=== PATIENT | male | born 1970 | race Two or more races ===

== ENCOUNTER 2024-05-24 17:15 | Inpatient (IN) | payer OTHER ==
[~2024-05-24] VITALS: Ht 190.5 cm; Wt 120.3 kg
[2024-05-24 18:12] LABS: Urine Bacteria None Seen /hpf (None Seen)
[2024-05-24 18:29] LABS: Urine Blood Negative /uL (Negative); Urine Clarity Clear (Clear); Urine Color Yellow (Yellow); Urine Mucus FEW (None Seen); Urine Protein, UAD 1+ (Negative); Urine Specific Gravity 1.031 (1.001-1.035); Urine Urobilinogen 4 mg/dL (Negative); Urine WBC 1 /hpf (0 - 3); Urine pH 5.5 (5.0-9.0)
[2024-05-24 18:54] LABS: Basophils # (auto) 0 10 ^3/uL (0-0.2); Basophils % (auto) 0.5 % (0.0-2.0); Eosinophils # (auto) 0.1 10 ^3/uL (0-0.8); Eosinophils % (auto) 1.1 % (0.0-7.0); Hematocrit 38.5 % (41.0-53.0); Hemoglobin 13.2 g/dL (13.5-17.5); Lymphocytes # (auto) 1.6 10 ^3/uL (0.4-5.4); Lymphocytes % (auto) 19.7 % (10.0-50.0); Mean Corpuscular Hemoglobin 31.3 pg (28.0-32.0); Mean Corpuscular Hgb Conc. 34.4 g/dL (32.0-36.0); Mean Corpuscular Volume 91.1 fL (80.0-100.0); Monocytes # (auto) 0.9 10 ^3/uL (0-1.3); Monocytes % (auto) 10.4 % (0.0-12.0); Neutrophils # (auto) 5.7 10 ^3/uL (1.6-8.6); Neutrophils % (auto) 68.3 % (37.0-80.0); Platelet Count (auto) 247 10^3/uL (140-450); Red Blood Cells 4.22 10^6/uL (4.5-5.90); Red Cell Distribution Width 15.3 % (11.8-14.3); White Blood Cell 8.3 10^3/uL (4.4-10.8)
[2024-05-24 19:04] LABS: Chloride 102 mmol/L (98-107); Potassium 4.7 mmol/L (3.5-5.1); Sodium 135 mmol/L (136-145)
[2024-05-24 19:05] LABS: Anion Gap 5 (5-15); Calcium 9.9 mg/dL (8.7-10.4); Carbon Dioxide 28 mmol/L (20-31)
[2024-05-24 19:10] LABS: BUN/Creatinine Ratio 11.8 (10.0-20.0); Blood Urea Nitrogen 11 mg/dL (9-23); Glucose 237 mg/dL (74-106)
[2024-05-24] MEDS ORDERED: DEXTROSE (50%) 50ML SYRG IV PRN (22:30)
[2024-05-24] MEDS ORDERED: NITROGLYCERIN 0.4 MG SL TAB SL PRN (22:30)
[2024-05-24] MEDS ORDERED: DOCUSATE SOD 100 MG CAP PO PRN (22:30)
[2024-05-24] MEDS ORDERED: ACETAMINOPHEN 325 MG TAB PO PRN (22:30)
[2024-05-24] MEDS ORDERED: MORPHINE SULFATE INJ 2 MG/ml SYRG IV PRN (22:30)
[2024-05-24] MEDS: InsuLIN REG 1unit/0.01ml Soln (100units/ml) IV ONE (22:44)
[2024-05-25] MEDS: ONDANSETRON HCL 4 MG/2 ML VIAL IV PRN (01:52)
[2024-05-25] MEDS: MORPHINE SULFATE INJ 2 MG/ml SYRG IV PRN (01:53)
[2024-05-25 04:34] LABS: Basophils # (auto) 0 10 ^3/uL (0-0.2); Basophils % (auto) 0.5 % (0.0-2.0); Eosinophils # (auto) 0.1 10 ^3/uL (0-0.8); Eosinophils % (auto) 2.2 % (0.0-7.0); Hematocrit 34.4 % (41.0-53.0); Hemoglobin 12.2 g/dL (13.5-17.5); Lymphocytes # (auto) 1.7 10 ^3/uL (0.4-5.4); Lymphocytes % (auto) 27.7 % (10.0-50.0); Mean Corpuscular Hemoglobin 32.6 pg (28.0-32.0); Mean Corpuscular Hgb Conc. 35.6 g/dL (32.0-36.0); Mean Corpuscular Volume 91.4 fL (80.0-100.0); Monocytes # (auto) 0.7 10 ^3/uL (0-1.3); Monocytes % (auto) 10.9 % (0.0-12.0); Neutrophils # (auto) 3.7 10 ^3/uL (1.6-8.6); Neutrophils % (auto) 58.7 % (37.0-80.0); Nucleated Red Blood Cells % 0.1 %; Platelet Count (auto) 229 10^3/uL (140-450); Red Blood Cells 3.76 10^6/uL (4.5-5.90); Red Cell Distribution Width 14.8 % (11.8-14.3); White Blood Cell 6.3 10^3/uL (4.4-10.8)
[2024-05-25 04:49] LABS: Chloride 106 mmol/L (98-107); Potassium 3.8 mmol/L (3.5-5.1); Sodium 137 mmol/L (136-145)
[2024-05-25 04:50] LABS: Anion Gap 6 (5-15); Calcium 9.4 mg/dL (8.7-10.4); Carbon Dioxide 25 mmol/L (20-31)
[2024-05-25 04:55] LABS: BUN/Creatinine Ratio 12.5 (10.0-20.0); Blood Urea Nitrogen 8 mg/dL (9-23); Glucose 140 mg/dL (74-106)
[2024-05-25] MEDS: ceFAZolin 1GM/50ML 50 ML IV SCH (06:00)
[2024-05-25 07:30] VITALS: PULSE 72; RESP 13; O2SAT 97
[2024-05-25] MEDS: ACCU-CHEK COMFORT CURVE STRIP VI SCH (08:00)
[2024-05-25] MEDS: InsuLIN REG 1unit/0.01ml Soln (100units/ml) SC SCH (08:06)
[2024-05-25] MEDS: ENOXAPARIN SOD 40 MG/0.4 ML SYRINGE SC SCH (10:27)
[2024-05-25 12:00] VITALS: PULSE 72; RESP 13; O2SAT 97
[2024-05-25] MEDS ORDERED: MIDAZOLAM HCL 2MG/2ML 2ml VIAL (1mg/ml) ONE (15:06)
[2024-05-25] MEDS ORDERED: KETAMINE 50mg/ML 1ml syringe ONE (15:06)
[2024-05-25] MEDS ORDERED: fentaNYL CITRATE 100 MCG/2 ML VL ONE (15:06)
[2024-05-25] MEDS: BUPIVACAINE 0.5% INJ 50ML VIAL IJ ONE (15:16)
[2024-05-25 15:31] VITALS: PULSE 62; RESP 12; O2SAT 100
[2024-05-25] MEDS ORDERED: PROPOFOL 10 MG/ML 20 ML IV ONE (15:35)
[2024-05-25 16:38] VITALS: BP 99/62; PULSE 64; RESP 18; TEMP 97.5; O2SAT 98
[2024-05-25 21:00] VITALS: BP 113/67; PULSE 76; RESP 17; TEMP 98.4; O2SAT 98
[2024-05-26] VITALS (7 sets, daily range): BP systolic 106–127; BP diastolic 64–73; PULSE 68–81; RESP 17–18; TEMP 97–98.4; O2SAT 95–100
[2024-05-26 06:50] LABS: Basophils # (auto) 0 10 ^3/uL (0-0.2); Basophils % (auto) 0.5 % (0.0-2.0); Eosinophils # (auto) 0.2 10 ^3/uL (0-0.8); Eosinophils % (auto) 2.2 % (0.0-7.0); Hematocrit 37.4 % (41.0-53.0); Hemoglobin 13.3 g/dL (13.5-17.5); Lymphocytes # (auto) 1.1 10 ^3/uL (0.4-5.4); Mean Corpuscular Hemoglobin 32.6 pg (28.0-32.0); Mean Corpuscular Hgb Conc. 35.5 g/dL (32.0-36.0); Mean Corpuscular Volume 91.7 fL (80.0-100.0); Monocytes # (auto) 0.6 10 ^3/uL (0-1.3); Monocytes % (auto) 8.3 % (0.0-12.0); Neutrophils # (auto) 5.5 10 ^3/uL (1.6-8.6); Platelet Count (auto) 263 10^3/uL (140-450); Red Blood Cells 4.08 10^6/uL (4.5-5.90); Red Cell Distribution Width 15.1 % (11.8-14.3); White Blood Cell 7.4 10^3/uL (4.4-10.8)
[2024-05-26 06:52] LABS: Anion Gap 6 (5-15); Carbon Dioxide 28 mmol/L (20-31); Chloride 102 mmol/L (98-107); Sodium 136 mmol/L (136-145)
[2024-05-26 06:58] LABS: Blood Urea Nitrogen 10 mg/dL (9-23); Glucose 234 mg/dL (74-106)
[2024-05-27] VITALS (8 sets, daily range): BP systolic 93–146; BP diastolic 55–77; PULSE 66–78; RESP 16–20; TEMP 96.7–97.7; O2SAT 97–100
[2024-05-27 08:00] LABS: Chloride 103 mmol/L (98-107); Potassium 4.3 mmol/L (3.5-5.1); Sodium 135 mmol/L (136-145)
[2024-05-27 08:01] LABS: Anion Gap 4 (5-15); Calcium 9.6 mg/dL (8.7-10.4); Carbon Dioxide 28 mmol/L (20-31)
[2024-05-27 08:02] LABS: Basophils # (auto) 0 10 ^3/uL (0-0.2); Basophils % (auto) 0.6 % (0.0-2.0); Eosinophils # (auto) 0.2 10 ^3/uL (0-0.8); Eosinophils % (auto) 3.2 % (0.0-7.0); Lymphocytes # (auto) 1.3 10 ^3/uL (0.4-5.4); Lymphocytes % (auto) 24.9 % (10.0-50.0); Mean Corpuscular Hemoglobin 32.3 pg (28.0-32.0); Mean Corpuscular Hgb Conc. 35.2 g/dL (32.0-36.0); Mean Corpuscular Volume 91.6 fL (80.0-100.0); Monocytes # (auto) 0.5 10 ^3/uL (0-1.3); Monocytes % (auto) 8.9 % (0.0-12.0); Neutrophils # (auto) 3.3 10 ^3/uL (1.6-8.6); Neutrophils % (auto) 62.4 % (37.0-80.0); Nucleated Red Blood Cells % 0.1 %; Platelet Count (auto) 259 10^3/uL (140-450); Red Blood Cells 4.04 10^6/uL (4.5-5.90); Red Cell Distribution Width 15.1 % (11.8-14.3); White Blood Cell 5.3 10^3/uL (4.4-10.8)
[2024-05-27 08:06] LABS: Blood Urea Nitrogen 13 mg/dL (9-23); Glucose 323 mg/dL (74-106)
[2024-05-27] MEDS: HYDROcodone-ACET 5/325MG TAB PO PRN (10:13)
[2024-05-27] MEDS ORDERED: fentaNYL CITRATE 100 MCG/2 ML VL ONE (11:44)
[2024-05-27] MEDS ORDERED: KETAMINE 50mg/ML 1ml syringe ONE (11:44)
[2024-05-27] MEDS ORDERED: MIDAZOLAM HCL 2MG/2ML 2ml VIAL (1mg/ml) ONE (11:44)
[2024-05-27] MEDS: ONDANSETRON HCL 4 MG/2 ML VIAL IV ONE (11:45)
[2024-05-27] MEDS: VANCOMYCIN HCL 1000 MG VL ONE (11:49)
[2024-05-27] MEDS ORDERED: LIDOCAINE 2% (LOCAL ANESTH.) PF 5ml SDV ONE (12:16)
[2024-05-27] MEDS ORDERED: PROPOFOL 10 MG/ML 20 ML IV ONE (12:16)
[2024-05-27] MEDS: BUPIVACAINE 0.5% P/F INJ 10 ML VIAL ONE (14:55)
[2024-05-28 01:00] VITALS: BP 102/49; PULSE 79; RESP 18; TEMP 98.8; O2SAT 96
[2024-05-28 05:00] VITALS: BP 112/70; PULSE 79; RESP 16; TEMP 98; O2SAT 98
[2024-05-28 07:51] LABS: Basophils # (auto) 0 10 ^3/uL (0-0.2); Basophils % (auto) 0.4 % (0.0-2.0); Eosinophils # (auto) 0.2 10 ^3/uL (0-0.8); Eosinophils % (auto) 2.5 % (0.0-7.0); Hematocrit 37.4 % (41.0-53.0); Hemoglobin 13.3 g/dL (13.5-17.5); Lymphocytes # (auto) 1.4 10 ^3/uL (0.4-5.4); Lymphocytes % (auto) 22.7 % (10.0-50.0); Mean Corpuscular Hemoglobin 32.4 pg (28.0-32.0); Mean Corpuscular Hgb Conc. 35.6 g/dL (32.0-36.0); Mean Corpuscular Volume 90.9 fL (80.0-100.0); Monocytes # (auto) 0.6 10 ^3/uL (0-1.3); Neutrophils % (auto) 65.4 % (37.0-80.0); Nucleated Red Blood Cells % 0.1 %; Platelet Count (auto) 278 10^3/uL (140-450); Red Blood Cells 4.11 10^6/uL (4.5-5.90); Red Cell Distribution Width 14.7 % (11.8-14.3); White Blood Cell 6.2 10^3/uL (4.4-10.8)
[2024-05-28 08:01] LABS: Anion Gap 5 (5-15); Calcium 9.5 mg/dL (8.7-10.4); Carbon Dioxide 27 mmol/L (20-31); Chloride 105 mmol/L (98-107); Potassium 4.3 mmol/L (3.5-5.1); Sodium 137 mmol/L (136-145)
[2024-05-28 08:07] LABS: BUN/Creatinine Ratio 15.3 (10.0-20.0); Blood Urea Nitrogen 11 mg/dL (9-23)
[2024-05-28 08:18] LABS: Glucose 211 mg/dL (74-106)
[2024-05-28 09:00] VITALS: BP 103/57; PULSE 69; RESP 20; TEMP 98; O2SAT 96
[2024-05-28 13:00] VITALS: BP 132/75; PULSE 76; RESP 20; TEMP 97.7; O2SAT 99
[2024-05-28 17:00] VITALS: BP 139/72; PULSE 67; RESP 18; TEMP 97.4; O2SAT 99
[2024-05-28 17:35] LABS: INR 1.05 (0.9-1.15); Partial Thromboplastin Time 35.2 SEC (24.5-34.5); Prothrombin Time 11.1 sec (9.3-11.8)
[2024-05-28 22:00] VITALS: BP 128/79; PULSE 71; RESP 18; TEMP 97.6; O2SAT 99
[2024-05-29 01:00] VITALS: BP 116/68; PULSE 74; RESP 19; TEMP 97.5; O2SAT 98
[2024-05-29 05:00] VITALS: BP 106/62; PULSE 68; RESP 18; TEMP 97.8; O2SAT 96
[2024-05-29 06:53] LABS: Basophils # (auto) 0 10 ^3/uL (0-0.2); Basophils % (auto) 0.6 % (0.0-2.0); Eosinophils # (auto) 0.2 10 ^3/uL (0-0.8); Hematocrit 38.9 % (41.0-53.0); Hemoglobin 13.7 g/dL (13.5-17.5); Lymphocytes # (auto) 1.7 10 ^3/uL (0.4-5.4); Lymphocytes % (auto) 29.5 % (10.0-50.0); Mean Corpuscular Hemoglobin 31.8 pg (28.0-32.0); Mean Corpuscular Hgb Conc. 35.2 g/dL (32.0-36.0); Mean Corpuscular Volume 90.3 fL (80.0-100.0); Monocytes # (auto) 0.5 10 ^3/uL (0-1.3); Monocytes % (auto) 9.1 % (0.0-12.0); Neutrophils # (auto) 3.4 10 ^3/uL (1.6-8.6); Neutrophils % (auto) 57.8 % (37.0-80.0); Nucleated Red Blood Cells % 0.1 %; Platelet Count (auto) 306 10^3/uL (140-450); Red Cell Distribution Width 14.8 % (11.8-14.3); White Blood Cell 5.8 10^3/uL (4.4-10.8)
[2024-05-29 07:06] LABS: Calcium 9.8 mg/dL (8.7-10.4); Chloride 103 mmol/L (98-107); Potassium 4.2 mmol/L (3.5-5.1); Sodium 135 mmol/L (136-145)
[2024-05-29 07:07] LABS: Anion Gap 4 (5-15); Carbon Dioxide 28 mmol/L (20-31)
[2024-05-29 07:12] LABS: BUN/Creatinine Ratio 16.9 (10.0-20.0); Blood Urea Nitrogen 12 mg/dL (9-23); Glucose 186 mg/dL (74-106)
[2024-05-29 08:54] VITALS: BP 112/70; PULSE 72; RESP 16; TEMP 97.9; O2SAT 98
[2024-05-29 13:00] VITALS: BP 101/63; PULSE 70; RESP 16; TEMP 97.7; O2SAT 96
[2024-05-29] MEDS: LIDOCAINE 1% (LOCAL ANESTH.) PF 5ml SDV ID ONE (13:15)
[2024-05-29 17:00] VITALS: BP 100/63; PULSE 70; RESP 16; TEMP 97.7; O2SAT 97
[2024-05-29] MEDS: AMPICILLIN & SULBACTAM SODIUM 3 GM in SODIUM CHL 0.9% 100 ML IV SCH (18:03)
[2024-05-29 21:00] VITALS: BP 103/57; PULSE 67; RESP 17; TEMP 98.4; O2SAT 96
[2024-05-29] MEDS: SODIUM CHLOR 0.9% PF (SALINE LOCK) 10ML VIAL/SYR IV SCH (22:00)
[2024-05-30] VITALS (8 sets, daily range): BP systolic 101–142; BP diastolic 61–71; PULSE 68–96; RESP 17–20; TEMP 97.5–97.8; O2SAT 68–98
[2024-05-31 01:00] VITALS: BP 137/71; PULSE 80; RESP 20; TEMP 97.5; O2SAT 99
[2024-05-31 05:00] VITALS: BP 119/68; PULSE 75; RESP 20; TEMP 98; O2SAT 95
[2024-05-31 08:00] VITALS: PULSE 79; RESP 19; O2SAT 96
[2024-05-31 09:00] VITALS: BP 127/79; PULSE 76; RESP 19; TEMP 97.7; O2SAT 96
[2024-05-31] MEDS: ceFAZolin 2 GM/D5W100ml 100 ML IV ONE (10:51)
[2024-05-31] MEDS: BUPIVACAINE 0.5% P/F INJ 10 ML VIAL ONE (10:51)
[2024-05-31] MEDS: ONDANSETRON HCL 4 MG/2 ML VIAL IV ONE (10:52)
[2024-05-31 13:00] VITALS: BP 112/74; PULSE 72; RESP 21; TEMP 97.6; O2SAT 97
[2024-05-31 15:11] VITALS: BP 112/74; PULSE 72; RESP 21; TEMP 36.4; O2SAT 97
[2024-05-31] MEDS ORDERED: METR-344 PO (16:05)
== END 2024-05-31 16:00 | disposition home health service (06) | DRG 638 ==
LOC: ER 17:15 → OVERFLOW 22:29 → CENTRAL 05-25 16:35
PROVIDERS: ADMIT Nurse Practitioner Family; ATTEND Hospitalist
PROC: 0Y9N0ZX Drainage of Left Foot, Open Approach, Diagnostic (ICD-10-PCS; principal; 2024-05-25 15:04)
PROC: 0Y9N0ZZ Drainage of Left Foot, Open Approach (ICD-10-PCS; 2024-05-27)
PROC: 02HV33Z Insertion of Infusion Device into Superior Vena Cava, Percutaneous Approach (ICD-10-PCS; 2024-05-29)
PROC: B548ZZA Ultrasonography of Superior Vena Cava, Guidance (ICD-10-PCS; 2024-05-29)
DX: E11.69 Type 2 diabetes mellitus with other specified complication (principal); L02.612 Cutaneous abscess of left foot; L03.116 Cellulitis of left lower limb; M86.172 Other acute osteomyelitis, left ankle and foot; E11.621 Type 2 diabetes mellitus with foot ulcer; E66.01 Morbid (severe) obesity due to excess calories; L97.519 Non-pressure chronic ulcer of other part of right foot with unspecified severity; Z83.3 Family history of diabetes mellitus; Z68.33 Body mass index [BMI] 33.0-33.9, adult
CPT/HCPCS: 36415; 36569; 73700; 80048; 81001; 82962; 85025; 85610; 85730; 87070; 87075; 87081; 87205; G0378; J1815; J2003; J2250; J2405; J2704; J3490

== ENCOUNTER 2024-08-25 10:25 | Inpatient (IN) | payer OTHER ==
[~2024-08-25] VITALS: Ht 190.5 cm; Wt 116.5 kg
[~2024-08-25 10:25] MED LIST: METR-344 PO
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
--- NOTE | 2024-08-25 11:36 | DVH ---
Procedure: CT CT L FOOT WO CONTRAST 08/25/2024 10:58 AM Indication: infection Comparison Study: None. Technique: Axial images of the left foot were obtained and reformatted in coronal and sagittal planes . All CT scans at this medical facility are performed using dose modulation techniques as appropriate t o a performed exam including the following: Automated exposure control was utilized; adjustment of th e MA and/or KV according to patient size; and use of iterative reconstruction technique. CT Dose: CTDI volume is 7.75 mGy. Dose-length product is 174.11 mGy*cm FINDINGS: Bones: Erosive changes of the 1st distal phalangeal head and neck noted. Moderate hallux valgus defor mity. Bipartite lateral hallux sesamoid is seen. Soft tissues: Soft tissue swelling over the great toe. IMPRESSION: 1. Moderate erosive changes of the 1st distal phalangeal head and neck most compatible with osteomyel itis. There is overlying soft tissue swelling. No definite drainable fluid collection or soft tissue gas in this limited unenhanced study.
[2024-08-25] MEDS: CLINDAMYCIN 600MG IV 50 ML IV ONE (11:37)
[2024-08-25 11:42] VITALS: RESP 17; O2SAT 99
[2024-08-25 11:50] LABS: Basophils # (auto) 0 10 ^3/uL (0-0.2); Basophils % (auto) 0.3 % (0.0-2.0); Eosinophils # (auto) 0.1 10 ^3/uL (0-0.8); Eosinophils % (auto) 1.1 % (0.0-7.0); Hematocrit 39.4 % (41.0-53.0); Hemoglobin 13.7 g/dL (13.5-17.5); Lymphocytes # (auto) 1.2 10 ^3/uL (0.4-5.4); Lymphocytes % (auto) 11.3 % (10.0-50.0); Mean Corpuscular Hemoglobin 30.9 pg (28.0-32.0); Mean Corpuscular Hgb Conc. 34.8 g/dL (32.0-36.0); Mean Corpuscular Volume 88.7 fL (80.0-100.0); Monocytes # (auto) 0.8 10 ^3/uL (0-1.3); Monocytes % (auto) 7.7 % (0.0-12.0); Neutrophils # (auto) 8.3 10 ^3/uL (1.6-8.6); Neutrophils % (auto) 79.6 % (37.0-80.0); Nucleated Red Blood Cells % 0.1 %; Platelet Count (auto) 269 10^3/uL (140-450); Red Blood Cells 4.44 10^6/uL (4.5-5.90); Red Cell Distribution Width 13.3 % (11.8-14.3); White Blood Cell 10.4 10^3/uL (4.4-10.8)
[2024-08-25 11:56] LABS: Chloride 102 mmol/L (98-107); Potassium 4.1 mmol/L (3.5-5.1); Sodium 136 mmol/L (136-145)
[2024-08-25 11:57] LABS: Anion Gap 6 (5-15); Calcium 10.1 mg/dL (8.7-10.4); Carbon Dioxide 28 mmol/L (20-31)
[2024-08-25 12:02] LABS: BUN/Creatinine Ratio 13.6 (10.0-20.0); Blood Urea Nitrogen 12 mg/dL (9-23)
[2024-08-25 12:04] LABS: Glucose 193 mg/dL (74-106)
[2024-08-25 12:14] LABS: INR 1.06 (0.9-1.15); Partial Thromboplastin Time 35.5 SEC (24.5-34.5); Prothrombin Time 11.2 sec (9.3-11.8)
[2024-08-25] MEDS ORDERED: VANCOMYCIN PER PHARMACY 0 MG IV SCH (13:00)
[2024-08-25] MEDS: ONDANSETRON HCL 4 MG/2 ML VIAL IV ONE ×2 (13:09→19:49)
[2024-08-25] MEDS: MORPHINE SULFATE 4 MG/ML SYR/VIAL IV ONE ×2 (13:09→19:50)
[2024-08-25] MEDS ORDERED: DEXTROSE (50%) 50ML SYRG IV PRN (13:15)
--- NOTE | 2024-08-25 14:22 | DVHHP2 ---
History of Present Illness Reason for Visit: Left foot pain History of Present Illness 54-year-old male with a known history of diabetes mellitus type 2, hypertension, previous history of bilateral foot surgery presented to the hospital with a left foot pain worsening for last few days. Patient was being seen by his strand buncher fine wire who sent him to ER. CT of the left foot shows evidence of possible acute osteomyelitis of the left 1st distal phalangeal. Patient denies any fevers chills nausea vomiting diarrhea hematemesis hematochezia melena dysuria hematuria. Cardiovascular: HTN, hyperipidemia Endocrine: Diabetes Past Surgical History: Other (Bilateral foot surgery, left eye surgery, bilateral knee surgery.), Total knee replacement Family History: None, DM Smoke: No ALCOHOL: none Review of Systems Review of Systems Twelve review of system are negative besides mentioned above. Allergies: Coded Allergies: NO KNOWN ALLERGIES (Unverified , 05/24/24) Medications Current Medications Medications Dose Ordered Sig/Linda Route Start Time Stop Time Status Last Admin Dose Admin Vancomycin HCl 0 ml @ 0 mls/hr UD IV 08/25/24 13:00 UNV Piperacillin Sod/ Tazobactam Sod 100 ml @ 25 mls/hr Q6HR IV 08/25/24 18:00 UNV Diagnostic Test (Pha) 1 strip ACHS 08/25/24 17:00 Insulin Human Regular HS SC 08/25/24 22:00 Insulin Human Regular AC SC 08/25/24 17:00 Dextrose 50 ml UD PRN IV 08/25/24 13:15 Exam Vital Signs Vital Signs Date Time Temp Pulse Resp B/P (MAP) Pulse Ox O2 Delivery O2 Flow Rate FiO2 08/25/24 13:09 87 16 105/58 08/25/24 11:42 99 Room Air* 0 21 08/25/24 11:18 98.1 98.1 Exam HEENT pupils are reactive Neck is supple CV is S1-S2 regular rate and rhythm Respiratory are clear GI positive bowel sound Extremity no edema ATHLETE MANAGER no motor deficit Labs/Xrays Labs Test 08/25/24 11:29 08/25/24 10:37 Range/Units White Blood Count 10.4 4.4-10.8 10^3/uL Red Blood Count 4.44 L 4.5-5.90 10^6/uL Hemoglobin 13.7 13.5-17.5 g/dL Hematocrit 39.4 L 41.0-53.0 % Mean Corpuscular Volume 88.7 80.0-100.0 fL Mean Corpuscular Hemoglobin 30.9 28.0-32.0 pg Mean Corpuscular Hemoglobin Concent 34.8 32.0-36.0 g/dL Red Cell Distribution Width 13.3 11.8-14.3 % Platelet Count 269 140-450 10^3/uL Mean Platelet Volume 7.5 6.9-10.8 fL Neutrophils (%) (Auto) 79.6 37.0-80.0 % Lymphocytes (%) (Auto) 11.3 10.0-50.0 % Monocytes (%) (Auto) 7.7 0.0-12.0 % Eosinophils (%) (Auto) 1.1 0.0-7.0 % Basophils (%) (Auto) 0.3 0.0-2.0 % Neutrophils # (Auto) 8.3 1.6-8.6 10 ^3/uL Lymphocytes # (Auto) 1.2 0.4-5.4 10 ^3/uL Monocytes # (Auto) 0.8 0-1.3 10 ^3/uL Eosinophils # (Auto) 0.1 0-0.8 10 ^3/uL Basophils # (Auto) 0 0-0.2 10 ^3/uL Nucleated Red Blood Cells 0.1 % Prothrombin Time 11.2 9.3-11.8 sec Prothrombin Time INR 1.06 0.9-1.15 Activated Partial Thromboplast Time 35.5 H 24.5-34.5 SEC Sodium Level 136 136-145 mmol/L Potassium Level 4.1 3.5-5.1 mmol/L Chloride Level 102 98-107 mmol/L Carbon Dioxide Level 28 20-31 mmol/L Anion Gap 6 5-15 Blood Urea Nitrogen 12 9-23 mg/dL Creatinine 0.88 0.700-1.30 mg/dL Glomerular Filtration Rate Calc 101 >90 mL/min BUN/Creatinine Ratio 13.6 10.0-20.0 Serum Glucose 193 H 74-106 mg/dL Calcium Level 10.1 8.7-10.4 mg/dL POC Glucose 166 H 70-106 mg/dl Assessment/Plan Assessment/Plan 64-year-old male with a known history of diabetes mellitus type 2, hypertension, previous history of bilateral foot surgery presented to the hospital with a left foot pain found to have 1. Acute osteomyelitis of the left foot 2. Diabetes mellitus type 2 3. Hypertension -admit to med surge, IV antibiotics, infectious disease consultation and Podiatry consultation -NPO after midnight for possible surgical intervention tomorrow. Plan discussed with: Patient, Spouse My Orders Orders - FRANK ADAN MD Procedure Category Date Status Time Vancomycin Per PHA 08/25/24 Logged Pharmacy 13:00 Piperacillin-Tazob PHA 08/25/24 Logged 3.375gm (Zosyn 3.375g 18:00 Consult CONS 08/25/24 Transmitted Vascular/Endovascular 12:53 * Infectious [place]- Dr. CONS 08/25/24 Transmitted Mallad 12:53 Glucose Blood PHA 08/25/24 In Process (Accu-Chek Comfort 17:00 Insulin R (Human) PHA 08/25/24 In Process (Insulin R) 22:00 Insulin R (Human) PHA 08/25/24 In Process (Insulin R) 17:00 Dextrose 50% Syringe PHA 08/25/24 In Process 13:15 Problem List: (1) Osteomyelitis of left foot (2) Diabetic foot infection Date of Service: Aug 25, 2024 Billing Provider: FRANK ADAN MD Common Visit Codes: NOT BILLABLE FRANK ADAN MD Aug 25, 2024 14:22
--- NOTE | 2024-08-25 14:25 | DVHINCON2 ---
Date Seen: Aug 25, 2024 Reason for Consultation Left foot wound History of Present Illness 54-year-old male with a known history of diabetes mellitus type 2, hypertension, previous history of bilateral foot surgery presented to the hospital with a left foot pain worsening for last few days. Patient was being seen by his absorber operator who sent him to ER. CT of the left foot shows evidence of possible acute osteomyelitis of the left 1st distal phalangeal. Patient denies any fevers chills nausea vomiting diarrhea hematemesis hematochezia melena dysuria hematuria. Past Medical History See H&P Past Surgical History See H&P Allergies: Coded Allergies: NO KNOWN ALLERGIES (Unverified , 05/24/24) Home Meds Active Scripts Metronidazole (Flagyl) 500 Mg Tab, 1 TAB PO TID, #90 TAB Prov:STAN HATCH MD 05/31/24 Current Medications Current Medications Medications (Trade) Dose Ordered Sig/Linda Route PRN Reason Start Time Stop Time Status Last Admin Vancomycin HCl 0 ml @ 0 mls/hr UD IV 08/25/24 13:00 UNV Piperacillin Sod/ Tazobactam Sod 100 ml @ 25 mls/hr Q6HR IV 08/25/24 18:00 UNV Diagnostic Test (Pha) (Accu-Chek Comfort Curve T) 1 strip ACHS 08/25/24 17:00 Insulin Human Regular (InsuLIN R) HS SC 08/25/24 22:00 Insulin Human Regular (InsuLIN R) AC SC 08/25/24 17:00 Dextrose 50 ml UD PRN IV Blood Sugar LESS THAN 60 08/25/24 13:15 Vital Signs Vital Signs Date Time Temp Pulse Resp B/P (MAP) Pulse Ox O2 Delivery O2 Flow Rate FiO2 08/25/24 13:09 87 16 105/58 08/25/24 11:42 99 Room Air* 0 21 08/25/24 11:18 98.1 98.1 Physical Exam DERMATOLOGIC EXAM: - Skin is dry and cool to the touch dry bilaterally. - Nails 1-5 of the bilateral foot are thickened, discolored, dystrophic, and tender to palpate with subungual debris - Hair loss noted to bilateral feet - wound left lateral foot with necrosis VASCULAR EXAM: - DP and PT pulses are palpable bilaterally. - ENGRAVING SUPERVISOR is brisk to all digits. - Feet are cool to touch compared to lower legs bilaterally. NEUROLOGIC EXAM: - Normal light touch sensation to the superficial peroneal, deep peroneal, sural, saphenous, and tibial nerve branches. - Protective sensation is diminished as tested with a 5.07 10g [place]-Artie bilaterally. MUSCULOSKELETAL EXAM: - No gross deformities - Muscle strength is 5/5 and active motion is pain-free and symmetrical bilaterally - No pain or crepitation with passive range of motion bilaterally to all major pedal joints Labs/Diagnostic Data Labs Test 08/25/24 11:29 08/25/24 10:37 Range/Units White Blood Count 10.4 4.4-10.8 10^3/uL Red Blood Count 4.44 L 4.5-5.90 10^6/uL Hemoglobin 13.7 13.5-17.5 g/dL Hematocrit 39.4 L 41.0-53.0 % Mean Corpuscular Volume 88.7 80.0-100.0 fL Mean Corpuscular Hemoglobin 30.9 28.0-32.0 pg Mean Corpuscular Hemoglobin Concent 34.8 32.0-36.0 g/dL Red Cell Distribution Width 13.3 11.8-14.3 % Platelet Count 269 140-450 10^3/uL Mean Platelet Volume 7.5 6.9-10.8 fL Neutrophils (%) (Auto) 79.6 37.0-80.0 % Lymphocytes (%) (Auto) 11.3 10.0-50.0 % Monocytes (%) (Auto) 7.7 0.0-12.0 % Eosinophils (%) (Auto) 1.1 0.0-7.0 % Basophils (%) (Auto) 0.3 0.0-2.0 % Neutrophils # (Auto) 8.3 1.6-8.6 10 ^3/uL Lymphocytes # (Auto) 1.2 0.4-5.4 10 ^3/uL Monocytes # (Auto) 0.8 0-1.3 10 ^3/uL Eosinophils # (Auto) 0.1 0-0.8 10 ^3/uL Basophils # (Auto) 0 0-0.2 10 ^3/uL Nucleated Red Blood Cells 0.1 % Prothrombin Time 11.2 9.3-11.8 sec Prothrombin Time INR 1.06 0.9-1.15 Activated Partial Thromboplast Time 35.5 H 24.5-34.5 SEC Sodium Level 136 136-145 mmol/L Potassium Level 4.1 3.5-5.1 mmol/L Chloride Level 102 98-107 mmol/L Carbon Dioxide Level 28 20-31 mmol/L Anion Gap 6 5-15 Blood Urea Nitrogen 12 9-23 mg/dL Creatinine 0.88 0.700-1.30 mg/dL Glomerular Filtration Rate Calc 101 >90 mL/min BUN/Creatinine Ratio 13.6 10.0-20.0 Serum Glucose 193 H 74-106 mg/dL Calcium Level 10.1 8.7-10.4 mg/dL POC Glucose 166 H 70-106 mg/dl Problems(with codes): (1) Foot ulcer (2) Cellulitis and abscess of foot (3) Necrotizing subcutaneous infection (4) Osteomyelitis of left foot (5) Diabetic foot infection Plan/Recommendation ASSESSMENT: Patient is a 54 year old seen on the floor for a worsening ulcer PLAN: - The patients chart was reviewed, clinical findings were discussed with the patient, the etiologies of the conditions were discussed in detail, and a treatment plan was agreed to at this time, with both oral and written instructions provided. - reviewed advanced imaging - discussed plan is to perform an incision and drainage - patient will be NPO at midnight - take him to the OR today - patient will return to the OR at a future date for closure - we will get cultures in the OR - can weightbear as tolerated in postoperative shoe All questions were answered and concerns addressed to the patient's satisfaction. The patient was given the phone number to the clinic and was told how to make contact with the clinic should any concerns or questions arise. Patient understands that if any questions or concerns arise prior to the next appointment, we should be contacted immediately. FOLLOW-UP: Continue to follow while inpatient Plan discussed with: Patient Date of Service: Aug 25, 2024 Billing Provider: RYAN CHOU DPM Common Visit Codes: [id number] INP/OBS CARE (HIGH) RYAN CHOU DPM Aug 25, 2024 14:25
[2024-08-25] MEDS: VANCOMYCIN 1GM/250ML KIT 250 ML IV SCH (16:53)
[2024-08-25] MEDS: InsuLIN REG 1unit/0.01ml Soln (100units/ml) SC SCH ×2 (17:48→22:47)
[2024-08-25] MEDS: ACCU-CHEK COMFORT CURVE STRIP VI SCH (17:48)
[2024-08-25 19:40] VITALS: PULSE 83; RESP 16; O2SAT 96
[2024-08-25] MEDS ORDERED: NITROGLYCERIN 0.4 MG SL TAB SL PRN (20:00)
[2024-08-25] MEDS: VANCOMYCIN 1GM/250ML KIT 250 ML IV ONE (20:42)
[2024-08-25] MEDS: PIPERACILLIN-TAZOB 3.375GM 100 ML IV SCH (22:28)
[2024-08-26] VITALS (7 sets, daily range): BP systolic 119–130; BP diastolic 60–67; PULSE 70–94; RESP 13–20; TEMP 98; O2SAT 94–100
[2024-08-26] MEDS: VANCOMYCIN 1.25GM/250ML 250 ML IV SCH (01:37)
[2024-08-26 06:35] LABS: Chloride 102 mmol/L (98-107); Potassium 3.8 mmol/L (3.5-5.1)
[2024-08-26 06:36] LABS: Anion Gap 5 (5-15); Calcium 9.5 mg/dL (8.7-10.4); Carbon Dioxide 29 mmol/L (20-31)
[2024-08-26 06:41] LABS: BUN/Creatinine Ratio 10.7 (10.0-20.0); Blood Urea Nitrogen 8 mg/dL (9-23); Glucose 189 mg/dL (74-106); Sodium 136 mmol/L (136-145)
--- NOTE | 2024-08-26 11:32 | DVH ---
CHEST RADIOGRAPH Indication: PRE-OP EVAL/pain Technique: Single frontal view of the chest was obtained Comparison: None FINDINGS: Lines and Tubes: None Lungs: No focal consolidation. Pleura: No effusion. No pneumothorax. Cardiomediastinal contours: Unremarkable Bones: No acute osseous abnormality. IMPRESSION: No acute cardiopulmonary disease.
[2024-08-26] MEDS: MORPHINE SULFATE INJ 2 MG/ml SYRG IV PRN (11:50)
--- NOTE | 2024-08-26 12:37 | DVHPN2 ---
Subjective 54-year-old male with a known history of diabetes mellitus type 2, hypertension, previous history of bilateral foot surgery presented to the hospital with a left foot pain worsening for last few days. Patient was being seen by his protein chemist who sent him to ER. CT of the left foot shows evidence of possible acute osteomyelitis of the left 1st distal phalangeal. Patient denies any fevers chills nausea vomiting diarrhea hematemesis hematochezia melena dysuria hematuria. Changes from previous H/P or p: No Changes Objective Vitals Vital Signs Date Time Temp Pulse Resp B/P (MAP) Pulse Ox O2 Delivery O2 Flow Rate FiO2 08/26/24 12:21 77 16 111/65 08/26/24 10:44 98.0 96 98.0 08/26/24 07:36 Room Air* 0 21 Intake/Output Intake and Output 08/26/24 06:59 Intake Total 500 ml Balance 500 ml Intake IV Total 500 ml Exam DERMATOLOGIC EXAM: - Skin is dry and cool to the touch dry bilaterally. - Nails 1-5 of the bilateral foot are thickened, discolored, dystrophic, and tender to palpate with subungual debris - Hair loss noted to bilateral feet - wound left lateral foot with necrosis VASCULAR EXAM: - DP and PT pulses are palpable bilaterally. - IRON CASTER is brisk to all digits. - Feet are cool to touch compared to lower legs bilaterally. NEUROLOGIC EXAM: - Normal light touch sensation to the superficial peroneal, deep peroneal, sural, saphenous, and tibial nerve branches. - Protective sensation is diminished as tested with a 5.07 10g [place]-Artie bilaterally. MUSCULOSKELETAL EXAM: - No gross deformities - Muscle strength is 5/5 and active motion is pain-free and symmetrical bilaterally - No pain or crepitation with passive range of motion bilaterally to all major pedal joints Medications Current Medications Medications Dose Ordered Sig/Linda Route Start Time Stop Time Status Last Admin Dose Admin Vancomycin HCl 0 ml @ 0 mls/hr UD IV 08/25/24 13:00 Piperacillin Sod/ Tazobactam Sod 100 ml @ 25 mls/hr Q6HR IV 08/25/24 18:00 08/25/24 22:28 25 MLS/HR Diagnostic Test (Pha) 1 strip ACHS 08/25/24 17:00 08/26/24 11:39 1 STRIP Insulin Human Regular HS SC 08/25/24 22:00 08/25/24 22:47 4 UNITS Insulin Human Regular AC SC 08/25/24 17:00 08/26/24 11:45 3 UNITS Dextrose 50 ml UD PRN IV 08/25/24 13:15 Vancomycin HCl 250 ml @ 200 mls/hr Q8H IV 08/26/24 01:00 08/26/24 09:18 200 MLS/HR Nitroglycerin 0.4 mg Q5MINP PRN SL 08/25/24 20:00 Morphine Sulfate 2 mg Q30M PRN IV 08/25/24 20:00 08/26/24 11:50 2 MG Laboratory Results Laboratory Tests 08/25/24 11:29 08/26/24 05:38 Chemistry Test 08/26/24 05:38 Calcium Level 9.5 mg/dL (8.7-10.4) Assessment/Plan Assessment/Plan ASSESSMENT: Patient is a year old seen on the floor for a worsening ulcer PLAN: - The patients chart was reviewed, clinical findings were discussed with the patient, the etiologies of the conditions were discussed in detail, and a treatment plan was agreed to at this time, with both oral and written instructions provided. - reviewed advanced imaging - discussed plan is to perform an incision and drainage - patient will be NPO at midnight - take him to the OR today - patient will return to the OR at a future date for closure - we will get cultures in the OR - can weightbear as tolerated in postoperative shoe All questions were answered and concerns addressed to the patient's satisfaction. The patient was given the phone number to the clinic and was told how to make contact with the clinic should any concerns or questions arise. Patient understands that if any questions or concerns arise prior to the next appointment, we should be contacted immediately. FOLLOW-UP: Continue to follow while inpatient Plan discussed with: Patient My Orders Orders - RYAN CHOU DPM Procedure Category Date Status Time Obtain Consent For: ORDERS 08/25/24 Transmitted 14:25 Chest Portable XY 08/26/24 Resulted 10:54 Problem List: (1) Osteomyelitis of left foot (2) Diabetic foot infection (3) Foot ulcer (4) Cellulitis and abscess of foot (5) Necrotizing subcutaneous infection Date of Service: Aug 26, 2024 Billing Provider: RYAN CHOU DPM Common Visit Codes: [id number] INP/OBS CARE(MOD) RYAN CHOU DPM Aug 26, 2024 12:37
[2024-08-26] MEDS ORDERED: MIDAZOLAM HCL 2MG/2ML 2ml VIAL (1mg/ml) ONE (13:04)
[2024-08-26] MEDS ORDERED: fentaNYL CITRATE 100 MCG/2 ML VL ONE (13:04)
[2024-08-26] MEDS: BUPIVACAINE HCL 0.25% P/F 10 ML VIAL ONE (13:16)
[2024-08-26] MEDS ORDERED: DexAMETHasone SOD PHOS 10MG/1ML VIAL INJ ONE (13:30)
[2024-08-26] MEDS ORDERED: PROPOFOL 10 MG/ML 20 ML IV ONE (13:30)
--- NOTE | 2024-08-26 13:30 | DVHOP2 ---
Operative Report - 2 Report Details Date: 08/26/24 Preop Diagnosis: 1. Left foot abscess 2. Left foot necrotizing fasciitis 3. Left foot osteomyelitis 4. Left foot cellulitis 5. Left foot chronic ulcer Postop Diagnosis: Same as preop Surgeon: Ryan Chou MD Anesthesiologist: See anesthesia Anesthesia: Mac Consent: The patient was informed of the risks and benefits of the procedure. These include but are not limited to complications of anesthesia, postoperative infection, incomplete relief of symptoms, recurrence of symptoms, damage to blood vessels, nerves and tendons, deep venous thrombosis, pulmonary embolism and possible need for repeat surgery in the future. Complications: None Estimated Blood Loss: Minimal Fluids: See anesthesia Findings: Consistent with diagnosis Indications for Surgery: Worsening left foot wound Name of Procedure Performed 1. Left foot I&D to bone ([id number]) Procedure Details Procedure Details: PRE-PROCEDURE INFORMATION: In the pre-op holding area, the extremity to be operated on was clearly marked and the patient verified correct laterality of the marking. The patient was transferred to the OR table and placed in a supine position. A timeout was performed in which identification of the correct patient, procedure, location, and materials was done. The left foot and leg were prepped and draped in normal sterile fashion. DESCRIPTION OF PROCEDURE: Attention was directed to the left lateral foot where area of fluctuance was noted. An incision was made over this area and was deepened through blunt dissection. The incision was deepened to the level of abscess and bone. Care was taken to the dissection to avoid any neurovascular and tendinous structures. The incision was deepened to the bone, and the abscess appeared to be purulent fluid consistent with pus. The cortices of the bone was then removed with Shay an all necrotic tissue. After the abscess was drained, the area was irrigated with 3 L normal saline using cysto tubing. Deep cultures were then obtained from the wound. The area was then inspected and any areas of tracking, especially along the tendons were also drained. The wound was packed with Betadine-soaked gauze and we will need to be closed at a later date. POSTOPERATIVE INFORMATION: The patient tolerated the above noted procedure and anesthesia well and was transferred to the PACU with vital signs stable, and vascular status intact with capillary refill intact to all digits. Deep cultures were taken. Patient will return to the floor. Patient will be taken to the OR for another clean out on Friday. Continue IV antibiotics Condition Good Disposition Still a Patient RYAN CHOU DPM Aug 26, 2024 13:30
[2024-08-26] MEDS: HYDROcodone-ACET 5/325MG TAB PO PRN (23:56)
[2024-08-27] VITALS (8 sets, daily range): BP systolic 99–122; BP diastolic 51–78; PULSE 72–88; RESP 17–19; TEMP 97.3–98.2; O2SAT 95–98
[2024-08-27] MEDS: HYDROcodone-ACET 10/325MG TAB PO PRN (11:18)
--- NOTE | 2024-08-27 13:24 | DVHPN2 ---
Subjective 54-year-old male with a known history of diabetes mellitus type 2, hypertension, previous history of bilateral foot surgery presented to the hospital with a left foot pain worsening for last few days. Patient was being seen by his fire eater who sent him to ER. CT of the left foot shows evidence of possible acute osteomyelitis of the left 1st distal phalangeal. Patient denies any fevers chills nausea vomiting diarrhea hematemesis hematochezia melena dysuria hematuria. Changes from previous H/P or p: No Changes Objective Vitals Vital Signs Date Time Temp Pulse Resp B/P (MAP) Pulse Ox O2 Delivery O2 Flow Rate FiO2 08/27/24 13:00 98.2 77 17 110/64 (79) 97 98.2 08/27/24 08:00 Room Air* 0 21 Intake/Output Intake and Output 08/27/24 07:00 Intake Total 2040 ml Output Total 2300 ml Balance -260 ml Intake Oral 1240 ml IV Total 800 ml Output Urine Total 2300 ml # Bowel Movements 1 Exam DERMATOLOGIC EXAM: - Skin is dry and cool to the touch dry bilaterally. - Nails 1-5 of the bilateral foot are thickened, discolored, dystrophic, and tender to palpate with subungual debris - Hair loss noted to bilateral feet - wound left lateral foot with necrosis VASCULAR EXAM: - DP and PT pulses are palpable bilaterally. 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 - Feet are cool to touch compared to lower legs bilaterally. NEUROLOGIC EXAM: - Normal light touch sensation to the superficial peroneal, deep peroneal, sural, saphenous, and tibial nerve branches. - Protective sensation is diminished as tested with a 5.07 10g Mallory-Artie bilaterally. MUSCULOSKELETAL EXAM: - No gross deformities - Muscle strength is 5/5 and active motion is pain-free and symmetrical bilaterally - No pain or crepitation with passive range of motion bilaterally to all major pedal joints Medications Current Medications Medications Dose Ordered Sig/Linda Route Start Time Stop Time Status Last Admin Dose Admin Vancomycin HCl 0 ml @ 0 mls/hr UD IV 08/25/24 13:00 Diagnostic Test (Pha) 1 strip ACHS 08/25/24 17:00 08/27/24 11:34 1 STRIP Insulin Human Regular HS SC 08/25/24 22:00 08/26/24 22:15 6 UNITS Insulin Human Regular AC SC 08/25/24 17:00 08/27/24 11:36 6 UNITS Dextrose 50 ml UD PRN IV 08/25/24 13:15 Vancomycin HCl 250 ml @ 200 mls/hr Q8H IV 08/26/24 01:00 08/27/24 11:25 200 MLS/HR Nitroglycerin 0.4 mg Q5MINP PRN SL 08/25/24 20:00 Morphine Sulfate 2 mg Q30M PRN IV 08/25/24 20:00 08/26/24 11:50 2 MG Acetaminophen/ Hydrocodone Bitart 1 tab Q6HPRN PRN PO 08/27/24 00:00 08/26/24 23:56 1 TAB Acetaminophen/ Hydrocodone Bitart 1 tab Q8HP PRN PO 08/27/24 10:15 08/27/24 11:18 1 TAB Piperacillin Sod/ Tazobactam Sod 100 ml @ 25 mls/hr Q6H IV 08/27/24 15:30 Laboratory Results Laboratory Tests 08/25/24 11:29 08/26/24 05:38 Microbiology Microbiology Date/Time Source Procedure Growth Status 08/26/24 13:17 Foot Left Gram Stain Pending Resulted 08/26/24 13:17 Foot Left Anaerobic Culture - Preliminary Resulted 08/26/24 13:17 Foot Left Aerobic Culture - Preliminary Resulted Assessment/Plan Assessment/Plan ASSESSMENT: Patient is a year old seen on the floor one day s/p from a left foot I&D PLAN: - The patients chart was reviewed, clinical findings were discussed with the patient, the etiologies of the conditions were discussed in detail, and a treatment plan was agreed to at this time, with both oral and written instructions provided. - reviewed advanced imaging - discussed plan is to perform an incision and drainage with possible placement of graft - patient will be NPO at Friday midnight - take him to the OR Friday - patient will return to the OR at a future date for closure - can weightbear as tolerated in postoperative shoe All questions were answered and concerns addressed to the patient's satisfaction. The patient was given the phone number to the clinic and was told how to make contact with the clinic should any concerns or questions arise. Patient understands that if any questions or concerns arise prior to the next appointment, we should be contacted immediately. FOLLOW-UP: Continue to follow while inpatient Plan discussed with: Patient My Orders Orders - RYAN CHOU DPM Procedure Category Date Status Time Consistent DIET 08/26/24 Transmitted Carb(Ccho)Diabetes Dinner Problem List: (1) Osteomyelitis of left foot (2) Diabetic foot infection (3) Foot ulcer (4) Cellulitis and abscess of foot (5) Necrotizing subcutaneous infection Date of Service: Aug 27, 2024 Billing Provider: RYAN CHOU DPM Common Visit Codes: [id number] INP/OBS CARE(MOD) RYAN CHOU DPM Aug 27, 2024 13:24
--- NOTE | 2024-08-27 16:18 | DVHPN2 ---
Subjective Patient is currently in OR getting surgery done. Changes from previous H/P or p: No Changes Objective Vitals Vital Signs Date Time Temp Pulse Resp B/P (MAP) Pulse Ox O2 Delivery O2 Flow Rate FiO2 08/27/24 13:00 98.2 77 17 110/64 (79) 97 98.2 08/27/24 08:00 Room Air* 0 21 Intake/Output Intake and Output 08/27/24 07:00 Intake Total 2040 ml Output Total 2300 ml Balance -260 ml Intake Oral 1240 ml IV Total 800 ml Output Urine Total 2300 ml # Bowel Movements 1 Medications Current Medications Medications Dose Ordered Sig/Linda Route Start Time Stop Time Status Last Admin Dose Admin Vancomycin HCl 0 ml @ 0 mls/hr UD IV 08/25/24 13:00 Diagnostic Test (Pha) 1 strip ACHS 08/25/24 17:00 08/27/24 11:34 1 STRIP Insulin Human Regular HS SC 08/25/24 22:00 08/26/24 22:15 6 UNITS Insulin Human Regular AC SC 08/25/24 17:00 08/27/24 11:36 6 UNITS Dextrose 50 ml UD PRN IV 08/25/24 13:15 Vancomycin HCl 250 ml @ 200 mls/hr Q8H IV 08/26/24 01:00 08/27/24 11:25 200 MLS/HR Nitroglycerin 0.4 mg Q5MINP PRN SL 08/25/24 20:00 Morphine Sulfate 2 mg Q30M PRN IV 08/25/24 20:00 08/26/24 11:50 2 MG Acetaminophen/ Hydrocodone Bitart 1 tab Q6HPRN PRN PO 08/27/24 00:00 08/26/24 23:56 1 TAB Acetaminophen/ Hydrocodone Bitart 1 tab Q8HP PRN PO 08/27/24 10:15 08/27/24 11:18 1 TAB Piperacillin Sod/ Tazobactam Sod 100 ml @ 25 mls/hr Q6H IV 08/27/24 15:30 Laboratory Results Laboratory Tests 08/25/24 11:29 08/26/24 05:38 Microbiology Microbiology Date/Time Source Procedure Growth Status 08/26/24 13:17 Foot Left Gram Stain - Final Resulted 08/26/24 13:17 Foot Left Anaerobic Culture - Preliminary Resulted 08/26/24 13:17 Foot Left Aerobic Culture - Preliminary Resulted Assessment/Plan Assessment/Plan 64-year-old male with a known history of diabetes mellitus type 2, hypertension, previous history of bilateral foot surgery presented to the hospital with a left foot pain found to have 1. Acute osteomyelitis of the left foot 2. Diabetes mellitus type 2 3. Hypertension -IV antibiotics, infectious disease consultation and Podiatry consultation -plan of care discussed with the bedside RN. Plan discussed with: Other My Orders Orders - FRANK ADAN MD Procedure Category Date Status Time Hydrocodone-Acet PHA 08/27/24 In Process 10/325mg Tab ([place] 10:15 Piperacillin-Tazob PHA 08/27/24 In Process 3.375gm (Zosyn 3.375g 15:30 Creatinine LAB 08/28/24 Verified 04:00 Date of Service: Aug 26, 2024 Billing Provider: FRANK ADAN MD Common Visit Codes: NOT BILLABLE FRANK ADAN MD Aug 27, 2024 16:18
--- NOTE | 2024-08-27 16:20 | DVHPN2 ---
Subjective Patient is status post I and D of the left foot. Changes from previous H/P or p: No Changes Objective Vitals Vital Signs Date Time Temp Pulse Resp B/P (MAP) Pulse Ox O2 Delivery O2 Flow Rate FiO2 08/27/24 13:00 98.2 77 17 110/64 (79) 97 98.2 08/27/24 08:00 Room Air* 0 21 Intake/Output Intake and Output 08/27/24 07:00 Intake Total 2040 ml Output Total 2300 ml Balance -260 ml Intake Oral 1240 ml IV Total 800 ml Output Urine Total 2300 ml # Bowel Movements 1 Exam HEENT pupils are reactive Neck is supple CV is S1-S2 regular rate and rhythm Respiratory diminished breath sounds bases GI positive bowel sound Extremity no edema LIFE EDUCATOR no motor deficit Left foot has antiseptic dressing Medications Current Medications Medications Dose Ordered Sig/Linda Route Start Time Stop Time Status Last Admin Dose Admin Vancomycin HCl 0 ml @ 0 mls/hr UD IV 08/25/24 13:00 Diagnostic Test (Pha) 1 strip ACHS 08/25/24 17:00 08/27/24 11:34 1 STRIP Insulin Human Regular HS SC 08/25/24 22:00 08/26/24 22:15 6 UNITS Insulin Human Regular AC SC 08/25/24 17:00 08/27/24 11:36 6 UNITS Dextrose 50 ml UD PRN IV 08/25/24 13:15 Vancomycin HCl 250 ml @ 200 mls/hr Q8H IV 08/26/24 01:00 08/27/24 11:25 200 MLS/HR Nitroglycerin 0.4 mg Q5MINP PRN SL 08/25/24 20:00 Morphine Sulfate 2 mg Q30M PRN IV 08/25/24 20:00 08/26/24 11:50 2 MG Acetaminophen/ Hydrocodone Bitart 1 tab Q6HPRN PRN PO 08/27/24 00:00 08/26/24 23:56 1 TAB Acetaminophen/ Hydrocodone Bitart 1 tab Q8HP PRN PO 08/27/24 10:15 08/27/24 11:18 1 TAB Piperacillin Sod/ Tazobactam Sod 100 ml @ 25 mls/hr Q6H IV 08/27/24 15:30 Laboratory Results Laboratory Tests 08/25/24 11:29 08/26/24 05:38 Microbiology Microbiology Date/Time Source Procedure Growth Status 1/16/25 13:17 Foot Left Gram Stain - Final Resulted 08/26/24 13:17 Foot Left Anaerobic Culture - Preliminary Resulted 08/26/24 13:17 Foot Left Aerobic Culture - Preliminary Resulted Assessment/Plan Assessment/Plan 64-year-old male with a known history of diabetes mellitus type 2, hypertension, previous history of bilateral foot surgery presented to the hospital with a left foot pain found to have 1. Acute osteomyelitis of the left foot status post I and D of the left foot 2. Diabetes mellitus type 2 3. Hypertension -IV antibiotics, infectious disease consultation -plan of care discussed with the bedside RN. -discharge plan once cleared by Podiatry Services. Plan discussed with: Patient My Orders Orders - FRANK ADAN MD Procedure Category Date Status Time Hydrocodone-Acet PHA 08/27/24 In Process 10/325mg Tab ([place] 10:15 Piperacillin-Tazob PHA 08/27/24 In Process 3.375gm (Zosyn 3.375g 15:30 Creatinine LAB 08/28/24 Verified 04:00 Date of Service: Aug 27, 2024 Billing Provider: FRANK ADAN MD Common Visit Codes: NOT BILLABLE FRANK ADAN MD Aug 27, 2024 16:20
[2024-08-27] MEDS: PIPERACILLIN-TAZOB 3.375GM 100 ML IV SCH (16:25)
[2024-08-28] VITALS (8 sets, daily range): BP systolic 101–123; BP diastolic 53–67; PULSE 61–76; RESP 14–19; TEMP 97.7–98.8; O2SAT 95–98
--- NOTE | 2024-08-28 16:54 | DVHPN2 ---
Subjective Patient is status post I and D of the left foot. Changes from previous H/P or p: No Changes Objective Vitals Vital Signs Date Time Temp Pulse Resp B/P (MAP) Pulse Ox O2 Delivery O2 Flow Rate FiO2 08/28/24 13:00 98.8 61 14 101/55 (70) 97 98.8 08/28/24 08:00 Room Air* 0 21 Intake/Output Intake and Output 08/28/24 07:00 Intake Total 2550 ml Output Total 5825 ml Balance -3275 ml Intake Oral 1850 ml IV Total 700 ml Output Urine Total 5825 ml # Bowel Movements 2 Exam HEENT pupils are reactive Neck is supple CV is S1-S2 regular rate and rhythm Respiratory diminished breath sounds bases GI positive bowel sound Extremity no edema NURSE CLINICAL no motor deficit Left foot has antiseptic dressing Medications Current Medications Medications Dose Ordered Sig/Linda Route Start Time Stop Time Status Last Admin Dose Admin Vancomycin HCl 0 ml @ 0 mls/hr UD IV 08/25/24 13:00 Diagnostic Test (Pha) 1 strip ACHS 08/25/24 17:00 08/28/24 11:14 1 STRIP Insulin Human Regular HS SC 08/25/24 22:00 08/27/24 21:50 6 UNITS Insulin Human Regular AC SC 08/25/24 17:00 08/28/24 11:17 2 UNITS Dextrose 50 ml UD PRN IV 08/25/24 13:15 Vancomycin HCl 250 ml @ 200 mls/hr Q8H IV 08/26/24 01:00 08/28/24 08:58 200 MLS/HR Nitroglycerin 0.4 mg Q5MINP PRN SL 08/25/24 20:00 Morphine Sulfate 2 mg Q30M PRN IV 08/25/24 20:00 08/26/24 11:50 2 MG Piperacillin Sod/ Tazobactam Sod 100 ml @ 25 mls/hr Q6H IV 08/27/24 15:30 08/28/24 15:27 25 MLS/HR Acetaminophen/ Hydrocodone Bitart 1 tab Q8HP PRN PO 08/28/24 16:15 UNV Acetaminophen/ Hydrocodone Bitart 1 tab Q6HPRN PRN PO 08/28/24 16:15 UNV Morphine Sulfate 2 mg Q4HPRN PRN IV 08/28/24 16:15 UNV Laboratory Results Laboratory Tests 08/25/24 11:29 08/26/24 05:38 08/28/24 05:57 Microbiology Microbiology Date/Time Source Procedure Growth Status 08/26/24 13:17 Foot Left Gram Stain - Final Resulted 08/26/24 13:17 Foot Left Anaerobic Culture - Preliminary Resulted 08/26/24 13:17 Aerobic Culture - Final Staphylococcus aureus Enterococcus faecalis Resulted Assessment/Plan Assessment/Plan 64-year-old male with a known history of diabetes mellitus type 2, hypertension, previous history of bilateral foot surgery presented to the hospital with a left foot pain found to have 1. Acute osteomyelitis of the left foot status post I and D of the left foot 2. Diabetes mellitus type 2 3. Hypertension -IV antibiotics, infectious disease consultation -plan of care discussed with the bedside RN. -discharge plan once cleared by Podiatry Services. Plan discussed with: Patient My Orders Orders - FRANK ADAN MD Procedure Category Date Status Time Creatinine LAB 08/29/24 Verified 04:00 Vancomycin,Trough LAB 08/30/24 Verified 08:00 Vancomycin Per ELIZA 08/30/24 In Process Pharmacy Pro[facility] 09:00 Hydrocodone-Acet PHA 08/28/24 Logged 10/325mg Tab ([place] 16:15 Hydrocodone-Acet PHA 08/28/24 Logged 5/325mg Tab ([place] 16:15 Morphine Sulfate PHA 08/28/24 Logged Injection 16:15 Date of Service: Aug 28, 2024 Billing Provider: FRANK ADAN MD Common Visit Codes: NOT BILLABLE FRANK ADAN MD Aug 28, 2024 16:54
[2024-08-28] MEDS: MORPHINE SULFATE INJ 2 MG/ml SYRG IV PRN (17:35)
--- NOTE | 2024-08-28 18:07 | DVHINCON2 ---
Date of service: Aug 28, [address] Arciniega Reason for Consultation Cellulitis History of Present Illness Patient is a 54-year-old male with a known previous history of bilateral foot surgery presented to the hospital with a left foot pain worsening for last few days. 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 CT of the left foot shows evidence of possible acute osteomyelitis of the left 1st distal phalangeal. Past Medical History Patient's past medical history is significant for Hypertension, hyperlipidemia and Diabetes mellitus. Past Surgical History Past Surgical History: Other (Bilateral foot surgery, left eye surgery, bilateral knee surgery.), Total knee replacement Family History: FH: colon cancer Social History Smoke: No ALCOHOL: none Allergies: Coded Allergies: NO KNOWN ALLERGIES (Unverified , 05/24/24) Home Meds Active Scripts Metronidazole (Flagyl) 500 Mg Tab, 1 TAB PO TID, #90 TAB Prov:STAN HATCH MD 05/31/24 Current Medications Current Medications Medications (Trade) Dose Ordered Sig/Linda Route PRN Reason Start Time Stop Time Status Last Admin Acetaminophen/ Hydrocodone Bitart ([place] 10/325MG Tab) 1 tab Q8HP PRN PO MODERATE PAIN (4-6 PAIN SCALE) 08/28/24 16:15 Acetaminophen/ Hydrocodone Bitart ([place] 5/325MG Tab) 1 tab Q6HPRN PRN PO MILD PAIN (1-3 PAIN SCALE) 08/28/24 16:15 Morphine Sulfate 2 mg Q4HPRN PRN IV SEVERE PAIN (7-10 PAIN SCALE) 08/28/24 16:15 Review of Systems General: No Fever, chills, night sweats or weight loss HEENT: No Sinus pain, headache, vision changes or sore throat Respiratory: No Cough, dyspnea, sputum production Cardiovascular: No Chest pain, palpitations or leg edema Gastrointestinal: No Nausea, vomiting, diarrhea, abdominal pain Genitourinary: No Dysuria, urinary frequency, hematuria, pelvic pain Skin: No Rashes, ulcers, abscesses, redness or swelling Musculoskeletal: No Joint pain, muscle pain or swelling Neurologic: No Altered mental status, headaches or focal neurological deficits Psychiatric: No Anxiety, depression or confusion Vital Signs Vital Signs Date Time Temp Pulse Resp B/P (MAP) Pulse Ox O2 Delivery O2 Flow Rate FiO2 08/28/24 16:32 98.1 70 18 106/61 (76) 98 98.1 08/28/24 08:00 Room Air* 0 21 Physical Exam General: Patient appears alert, comfortable and well-appearing. HEENT: Normocephalic, atraumatic, Sclera anicteric, conjunctiva clear, No nasal discharge or congestion. Mucous membranes moist, no tonsillar erythema or exudates. Neck: No cervical lymphadenopathy or masses. No neck stiffness. Lungs: Breath sounds clear bilaterally, no wheezes, rales, or rhonchi. No use of accessory muscles or respiratory distress. Cardiovascular: Regular rate and rhythm, no murmurs, rubs, or gallops. Abdomen: Soft, non-tender, non-distended. Bowel sounds present in all quadrants. No hepatosplenomegaly or masses. Skin: Nails 1-5 of the bilateral foot are thickened, discolored, dystrophic, and tender to palpate with subungual debris. Hair loss noted to bilateral feet. Wound left lateral foot with necrosis Extremities: No edema, cyanosis, or clubbing. No tenderness to palpation, erythema, or swelling in joints. No signs of deep vein thrombosis (DVT). Neurologic: Patient is alert and oriented to person, place, and time. Cranial nerves II-XII intact. Motor strength 5/5 bilaterally in all extremities. Labs/Diagnostic Data Labs Test 08/28/24 06:14 08/28/24 05:57 08/27/24 08:18 08/26/24 05:38 Range/Units POC Glucose 232 H 70-106 mg/dl Creatinine 0.80 0.700-1.30 mg/dL Glomerular Filtration Rate Calc 104 >90 mL/min Vancomycin Level Trough 15.4 H 5-10 ug/mL Sodium Level 136 136-145 mmol/L Potassium Level 3.8 3.5-5.1 mmol/L Chloride Level 102 98-107 mmol/L Carbon Dioxide Level 29 20-31 mmol/L Anion Gap 5 5-15 Blood Urea Nitrogen 8 L 9-23 mg/dL BUN/Creatinine Ratio 10.7 10.0-20.0 Serum Glucose 189 H 74-106 mg/dL Calcium Level 9.5 8.7-10.4 mg/dL Test 08/25/24 11:29 Range/Units White Blood Count 10.4 4.4-10.8 10^3/uL Red Blood Count 4.44 L 4.5-5.90 10^6/uL Hemoglobin 13.7 13.5-17.5 g/dL Hematocrit 39.4 L 41.0-53.0 % Mean Corpuscular Volume 88.7 80.0-100.0 fL Mean Corpuscular Hemoglobin 30.9 28.0-32.0 pg Mean Corpuscular Hemoglobin Concent 34.8 32.0-36.0 g/dL Red Cell Distribution Width 13.3 11.8-14.3 % Platelet Count 269 140-450 10^3/uL Mean Platelet Volume 7.5 6.9-10.8 fL Neutrophils (%) (Auto) 79.6 37.0-80.0 % Lymphocytes (%) (Auto) 11.3 10.0-50.0 % Monocytes (%) (Auto) 7.7 0.0-12.0 % Eosinophils (%) (Auto) 1.1 0.0-7.0 % Basophils (%) (Auto) 0.3 0.0-2.0 % Neutrophils # (Auto) 8.3 1.6-8.6 10 ^3/uL Lymphocytes # (Auto) 1.2 0.4-5.4 10 ^3/uL Monocytes # (Auto) 0.8 0-1.3 10 ^3/uL Eosinophils # (Auto) 0.1 0-0.8 10 ^3/uL Basophils # (Auto) 0 0-0.2 10 ^3/uL Nucleated Red Blood Cells 0.1 % Prothrombin Time 11.2 9.3-11.8 sec Prothrombin Time INR 1.06 0.9-1.15 Activated Partial Thromboplast Time 35.5 H 24.5-34.5 SEC Microbiology Date/Time Source Procedure Growth Status 08/26/24 13:17 Foot Left Gram Stain - Final Resulted 08/26/24 13:17 Foot Left Anaerobic Culture - Preliminary Resulted 08/26/24 13:17 Aerobic Culture - Final Staphylococcus aureus Enterococcus faecalis Resulted Assessment Patient is a 54-year-old male presented to the hospital with: Foot ulcer Cellulitis and abscess of foot Necrotizing subcutaneous infection Osteomyelitis of left foot Diabetic foot infection Recommendations: Antibiotic status: Vancomycin IV Unasyn IV [Started on 08/28] Vancomycin trough on 08/27 was 15.4 08/26, Aerobic culture showed Staphylococcus aureus and Enterococcus faecalis 08/25, CT Foot showed Moderate erosive changes of the 1st distal phalangeal head and neck most compatible with osteomyelitis. There is overlying soft tissue swelling. No definite drainable fluid collection or soft tissue gas in this limited unenhanced study. Thank you for consult. LUCITA PADRO MD Aug 28, 2024 18:07
[2024-08-28] MEDS: AMPICILLIN & SULBACTAM SODIUM 3 GM in SODIUM CHL 0.9% 100 ML IV SCH (20:17)
[2024-08-29] VITALS (9 sets, daily range): BP systolic 104–139; BP diastolic 60–76; PULSE 20–93; RESP 18–95; TEMP 83–98.1; O2SAT 95–100
[2024-08-29] MEDS: HYDROcodone-ACET 10/325MG TAB PO PRN (01:05)
[2024-08-29 11:11] LABS: INR 1.03 (0.9-1.15); Partial Thromboplastin Time 32.7 SEC (24.5-34.5); Prothrombin Time 10.9 sec (9.3-11.8)
--- NOTE | 2024-08-29 15:06 | DVHPN2 ---
Subjective Patient is status post I and D of the left foot. Patient is scheduled for repeat surgery tomorrow1 . 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 Left foot has antiseptic dressing Medications Current Medications Medications Dose Ordered Sig/Linda Route Start Time Stop Time Status Last Admin Dose Admin Diagnostic Test (Pha) 1 strip ACHS 08/25/24 17:00 08/29/24 11:30 1 STRIP Insulin Human Regular HS SC 08/25/24 22:00 08/28/24 21:46 2 UNITS Insulin Human Regular AC SC 08/25/24 17:00 08/29/24 12:55 6 UNITS Dextrose 50 ml UD PRN IV 08/25/24 13:15 Nitroglycerin 0.4 mg Q5MINP PRN SL 08/25/24 20:00 Morphine Sulfate 2 mg Q30M PRN IV 08/25/24 20:00 08/29/24 12:37 2 MG Acetaminophen/ Hydrocodone Bitart 1 tab Q8HP PRN PO 08/28/24 16:15 08/29/24 01:05 1 TAB Acetaminophen/ Hydrocodone Bitart 1 tab Q6HPRN PRN PO 08/28/24 16:15 Morphine Sulfate 2 mg Q4HPRN PRN IV 08/28/24 16:15 08/28/24 17:35 2 MG Ampicillin Sodium/ Sulbactam Sodium 3 gm/Sodium Chloride 100 ml @ 100 mls/hr Q6H IV 08/28/24 18:00 08/29/24 12:14 100 MLS/HR Laboratory Results Laboratory Tests 08/25/24 11:29 08/26/24 05:38 08/28/24 05:57 Coagulation Test 08/29/24 10:35 Prothrombin Time 10.9 sec (9.3-11.8) Prothrombin Time INR 1.03 (0.9-1.15) Activated Partial Thromboplast Time 32.7 SEC (24.5-34.5) Microbiology Microbiology Date/Time Source Procedure Growth Status 08/26/24 13:17 Foot Left Gram Stain - Final Resulted 08/26/24 13:17 Foot Left Anaerobic Culture - Preliminary Resulted 08/26/24 13:17 Aerobic Culture - Final Staphylococcus aureus Enterococcus faecalis Resulted Assessment/Plan Assessment/Plan 64-year-old male with a known history of diabetes mellitus type 2, hypertension, previous history of bilateral foot surgery presented to the hospital with a left foot pain found to have 1. Acute osteomyelitis of the left foot status post I and D of the left foot 2. Diabetes mellitus type 2 3. Hypertension -IV antibiotics, infectious disease consultation -plan of care discussed with the bedside RN. -left foot revision surgery tomorrow morning. Plan discussed with: Patient, Other My Orders Orders - FRANK ADAN MD Procedure Category Date Status Time Hydrocodone-Acet PHA 08/28/24 In Process 10/325mg Tab (Speculator 16:15 Hydrocodone-Acet PHA 08/28/24 In Process 5/325mg Tab (Speculator 16:15 Morphine Sulfate PHA 08/28/24 In Process Injection 16:15 Date of Service: Aug 29, 2024 Billing Provider: FRANK ADAN MD Common Visit Codes: NOT BILLABLE FRANK ADAN MD Aug 29, 2024 15:06
[2024-08-29] MEDS: LIDOCAINE 1% (LOCAL ANESTH.) PF 5ml SDV ID ONE (17:42)
[2024-08-29] MEDS: SODIUM CHLOR 0.9% PF (SALINE LOCK) 10ML VIAL/SYR IV SCH (21:43)
[2024-08-30] VITALS (9 sets, daily range): BP systolic 99–141; BP diastolic 53–82; PULSE 70–134; RESP 14–21; TEMP 97.5–99.9; O2SAT 93–98
[2024-08-30 07:47] LABS: Urine Bacteria None Seen /hpf (None Seen)
[2024-08-30 08:04] LABS: Urine Blood Negative /uL (Negative); Urine Clarity Clear (Clear); Urine Color Light-Yellow (Yellow); Urine Protein, UAD Negative (Negative); Urine Specific Gravity 1.011 (1.001-1.035); Urine Squamous Epithelial Cell None Seen /hpf (<5); Urine Urobilinogen Normal (Negative); Urine WBC <1 /hpf (0 - 3); Urine pH 6.5 (5.0-9.0)
[2024-08-30] MEDS: HYDROcodone-ACET 5/325MG TAB PO PRN (08:06)
[2024-08-30 08:11] LABS: Anion Gap 7 (5-15); Carbon Dioxide 29 mmol/L (20-31); Chloride 102 mmol/L (98-107); Potassium 4.2 mmol/L (3.5-5.1); Sodium 138 mmol/L (136-145)
[2024-08-30 08:14] LABS: Basophils # (auto) 0 10 ^3/uL (0-0.2); Basophils % (auto) 0.7 % (0.0-2.0); Eosinophils # (auto) 0.3 10 ^3/uL (0-0.8); Eosinophils % (auto) 3.6 % (0.0-7.0); Hematocrit 38.1 % (41.0-53.0); Lymphocytes # (auto) 1.9 10 ^3/uL (0.4-5.4); Lymphocytes % (auto) 26.9 % (10.0-50.0); Mean Corpuscular Hemoglobin 30.4 pg (28.0-32.0); Mean Corpuscular Hgb Conc. 34.2 g/dL (32.0-36.0); Mean Corpuscular Volume 88.7 fL (80.0-100.0); Monocytes # (auto) 0.5 10 ^3/uL (0-1.3); Monocytes % (auto) 6.4 % (0.0-12.0); Neutrophils # (auto) 4.5 10 ^3/uL (1.6-8.6); Neutrophils % (auto) 62.4 % (37.0-80.0); Nucleated Red Blood Cells % 0.1 %; Platelet Count (auto) 305 10^3/uL (140-450); Red Cell Distribution Width 13.2 % (11.8-14.3); White Blood Cell 7.2 10^3/uL (4.4-10.8)
[2024-08-30 08:17] LABS: BUN/Creatinine Ratio 10.1 (10.0-20.0)
[2024-08-30 08:22] LABS: Blood Urea Nitrogen 8 mg/dL (9-23); Glucose 145 mg/dL (74-106)
--- NOTE | 2024-08-30 09:46 | DVHPN2 ---
Subjective 54-year-old male with a known history of diabetes mellitus type 2, hypertension, previous history of bilateral foot surgery presented to the hospital with a left foot pain worsening for last few days. 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 CT of the left foot shows evidence of possible acute osteomyelitis of the left 1st distal phalangeal. Patient denies any fevers chills nausea vomiting diarrhea hematemesis hematochezia melena dysuria hematuria. Changes from previous H/P or p: No Changes Objective Vitals Vital Signs Date Time Temp Pulse Resp B/P (MAP) Pulse Ox O2 Delivery O2 Flow Rate FiO2 08/30/24 08:51 97.5 83 16 120/53 (75) 96 97.5 08/29/24 20:00 Room Air* 0 21 Intake/Output Intake and Output 08/30/24 07:00 Intake Total 1118 ml Output Total 800 ml Balance 318 ml Intake Oral 1018 ml IV Total 100 ml Output Urine Total 800 ml # Voids 3 # Bowel Movements 1 Exam DERMATOLOGIC EXAM: - Skin is dry and cool to the touch dry bilaterally. - Nails 1-5 of the bilateral foot are thickened, discolored, dystrophic, and tender to palpate with subungual debris - Hair loss noted to bilateral feet - wound left lateral foot with necrosis VASCULAR EXAM: - DP and PT pulses are palpable bilaterally. 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 - Feet are cool to touch compared to lower legs bilaterally. NEUROLOGIC EXAM: - Normal light touch sensation to the superficial peroneal, deep peroneal, sural, saphenous, and tibial nerve branches. - Protective sensation is diminished as tested with a 5.07 10g Blum-Artie bilaterally. MUSCULOSKELETAL EXAM: - No gross deformities - Muscle strength is 5/5 and active motion is pain-free and symmetrical bilaterally - No pain or crepitation with passive range of motion bilaterally to all major pedal joints Medications Current Medications Medications Dose Ordered Sig/Linda Route Start Time Stop Time Status Last Admin Dose Admin Diagnostic Test (Pha) 1 strip ACHS 08/25/24 17:00 08/30/24 06:50 1 STRIP Insulin Human Regular HS SC 08/25/24 22:00 08/29/24 21:41 4 UNITS Insulin Human Regular AC SC 08/25/24 17:00 08/30/24 06:52 3 UNITS Dextrose 50 ml UD PRN IV 08/25/24 13:15 Nitroglycerin 0.4 mg Q5MINP PRN SL 08/25/24 20:00 Morphine Sulfate 2 mg Q30M PRN IV 08/25/24 20:00 08/29/24 12:37 2 MG Acetaminophen/ Hydrocodone Bitart 1 tab Q8HP PRN PO 08/28/24 16:15 08/29/24 01:05 1 TAB Acetaminophen/ Hydrocodone Bitart 1 tab Q6HPRN PRN PO 08/28/24 16:15 08/30/24 08:06 1 TAB Morphine Sulfate 2 mg Q4HPRN PRN IV 08/28/24 16:15 08/29/24 20:58 2 MG Ampicillin Sodium/ Sulbactam Sodium 3 gm/Sodium Chloride 100 ml @ 100 mls/hr Q6H IV 08/28/24 18:00 08/30/24 06:46 100 MLS/HR Sodium Chloride 10 ml QSHIFT@10,22 IV 08/29/24 22:00 08/29/24 21:43 10 ML Laboratory Results Laboratory Tests 08/30/24 05:18 Chemistry Test 08/30/24 05:18 Calcium Level 10.0 mg/dL (8.7-10.4) Coagulation Test 08/29/24 10:35 Prothrombin Time 10.9 sec (9.3-11.8) Prothrombin Time INR 1.03 (0.9-1.15) Activated Partial Thromboplast Time 32.7 SEC (24.5-34.5) Urinalysis Test 08/30/24 07:09 Urine Color Light-yellow (Yellow) Urine Clarity Clear (Clear) Urine pH 6.5 (5.0-9.0) Urine Specific [place] 1.011 (1.001-1.035) Urine Protein Negative (Negative) Urine Ketones Negative (Negative) Urine Blood Negative /uL (Negative) Urine Nitrite Negative (Negative) Urine Bilirubin Negative (Negative) Urine Urobilinogen Normal mg/dL (Negative) Urine Leukocyte Esterase Negative /uL (Negative) Urine RBC None seen /hpf (0 - 3) Urine WBC <1 /hpf (0 - 3) Urine Squamous Epithelial Cells None seen /hpf (<5) Urine Bacteria None seen /hpf (None Seen) Urine Glucose 1+ mg/dL (Normal) H Microbiology Microbiology Date/Time Source Procedure Growth Status 1/16/25 13:17 Foot Left Gram Stain - Final Resulted 08/26/24 13:17 Foot Left Anaerobic Culture - Preliminary Resulted 08/26/24 13:17 Aerobic Culture - Final Staphylococcus aureus Enterococcus faecalis Resulted Assessment/Plan Assessment/Plan ASSESSMENT: Patient is a year old seen on the floor one day s/p 3 day from a left foot I&D PLAN: - The patients chart was reviewed, clinical findings were discussed with the patient, the etiologies of the conditions were discussed in detail, and a treatment plan was agreed to at this time, with both oral and written instructions provided. - reviewed advanced imaging - discussed plan is to perform an incision and drainage with possible placement of graft - patient will be NPO at Friday midnight - take him to the OR Friday - patient will return to the OR at a future date for closure - can weightbear as tolerated in postoperative shoe All questions were answered and concerns addressed to the patient's satisfaction. The patient was given the phone number to the clinic and was told how to make contact with the clinic should any concerns or questions arise. Patient understands that if any questions or concerns arise prior to the next appointment, we should be contacted immediately. FOLLOW-UP: Continue to follow while inpatient Plan discussed with: Patient My Orders Orders - RYAN CHOU DPM Procedure Category Date Status Time Npo After Midnight DIET 08/29/24 Transmitted Lunch Obtain Consent For: ORDERS 08/29/24 Transmitted 09:57 Problem List: (1) Osteomyelitis of left foot (2) Diabetic foot infection (3) Foot ulcer (4) Cellulitis and abscess of foot (5) Necrotizing subcutaneous infection Date of Service: Aug 30, 2024 Billing Provider: RYAN CHOU DPM Common Visit Codes: [id number] INP/OBS CARE(MOD) RYAN CHOU DPM Aug 30, 2024 09:46
[2024-08-30] MEDS ORDERED: GLYCOPYRROLATE 0.2 MG/ML 1ML VIAL ONE (10:27)
[2024-08-30] MEDS ORDERED: MIDAZOLAM HCL 2MG/2ML 2ml VIAL (1mg/ml) ONE (10:27)
[2024-08-30] MEDS ORDERED: ONDANSETRON HCL 4 MG/2 ML VIAL ONE (10:27)
[2024-08-30] MEDS ORDERED: PROPOFOL 10 MG/ML 20 ML IV ONE (10:27)
[2024-08-30] MEDS: ACCU-CHEK COMFORT CURVE STRIP VI ONE (10:30)
[2024-08-30] MEDS ORDERED: HYDROmorphone HCL 2 MG/ML VL/or syr IV PRN (10:30)
--- NOTE | 2024-08-30 10:48 | DVHOP2 ---
Operative Report - 2 Report Details Date: 08/30/24 Preop Diagnosis: 1. Left foot abscess 2. Left foot necrotizing fasciitis 3. Left foot osteomyelitis 4. Left foot cellulitis 5. Left foot chronic ulcer Postop Diagnosis: Same as preop Surgeon: Ryan Chou MD Anesthesiologist: See anesthesia Anesthesia: Mac Consent: The patient was informed of the risks and benefits of the procedure. These include but are not limited to complications of anesthesia, postoperative infection, incomplete relief of symptoms, recurrence of symptoms, damage to blood vessels, nerves and tendons, deep venous thrombosis, pulmonary embolism and possible need for repeat surgery in the future. Complications: None Estimated Blood Loss: Minimal Fluids: See anesthesia Findings: Consistent with diagnosis Indications for Surgery: Worsening left foot wound Name of Procedure Performed 1. Left foot I&D to bone (32587) 2. Left foot wound bed preparation for graft (34038) 2. Left foot placement of dermal graft (06313) 4. Left foot delayed closure (27585) Procedure Details Procedure Details: PRE-PROCEDURE INFORMATION: In the pre-op holding area, the extremity to be operated on was clearly marked and the patient verified correct laterality of the marking. The patient was transferred to the OR table and placed in a supine position. A timeout was performed in which identification of the correct patient, procedure, location, and materials was done. The left foot and leg were prepped and draped in normal sterile fashion. DESCRIPTION OF PROCEDURE: Attention was directed to the left lateral foot where area of fluctuance was noted. An incision was made over this area and was deepened through blunt dissection. The incision was deepened to the level of abscess and bone. Care was taken to the dissection to avoid any neurovascular and tendinous structures. The incision was deepened to the bone, and the abscess appeared to be purulent fluid consistent with pus. The cortices of the bone was then removed with Shay an all necrotic tissue. After the abscess was drained, the area was irrigated with 3 L normal saline using cysto tubing. The wound bed was then prepped for placement of the dermal graft. Using a #15 blade and curette, the base of the wound has removal of all nonadherent and fibrotic material. Using an integra dermal graft, the graft was placed over the wound bed and a staple gun was used to adhere the graft to the wound edges. Using a 2-0 nylon, a delayed closure was performed on the left foot. POSTOPERATIVE INFORMATION: The patient tolerated the above noted procedure and anesthesia well and was transferred to the PACU with vital signs stable, and vascular status intact with capillary refill intact to all digits. Deep cultures were taken. Patient will return to the floor. Patient can be discharged home on IV antibiotics. Patient can weightbear as tolerated in postoperative shoe. Patient can discharge home when deemed medically stable. Condition Good Disposition Still a Patient RYAN CHOU DPM Aug 30, 2024 10:48
--- NOTE | 2024-08-30 11:38 | DVHPN2 ---
Progress Note - Dictate Date Seen: Aug 30, 2024 Subjective Patient is status post I and D of the left foot. vital signs Vital Sign Date Time Temp Pulse Resp B/P (MAP) Pulse Ox O2 Delivery O2 Flow Rate FiO2 08/30/24 10:46 98 Mask 8.0 08/30/24 08:51 97.5 83 16 120/53 (75) 97.5 08/29/24 20:00 21 Total Intake and Output 08/29/24 08/29/24 08/30/24 15:00 23:00 07:00 Intake Total 218 ml 900 ml Output Total 800 ml Balance 218 ml -800 ml 900 ml medications Current Medications Medications Dose Ordered Sig/Linda Route Start Time Stop Time Status Last Admin Dose Admin Diagnostic Test (Pha) 1 strip ACHS 08/25/24 17:00 08/30/24 06:50 1 STRIP Insulin Human Regular HS SC 08/25/24 22:00 08/29/24 21:41 4 UNITS Insulin Human Regular AC SC 08/25/24 17:00 08/30/24 06:52 3 UNITS Dextrose 50 ml UD PRN IV 08/25/24 13:15 Nitroglycerin 0.4 mg Q5MINP PRN SL 08/25/24 20:00 Morphine Sulfate 2 mg Q30M PRN IV 08/25/24 20:00 08/29/24 12:37 2 MG Acetaminophen/ Hydrocodone Bitart 1 tab Q8HP PRN PO 08/28/24 16:15 08/29/24 01:05 1 TAB Acetaminophen/ Hydrocodone Bitart 1 tab Q6HPRN PRN PO 08/28/24 16:15 08/30/24 08:06 1 TAB Morphine Sulfate 2 mg Q4HPRN PRN IV 08/28/24 16:15 08/29/24 20:58 2 MG Ampicillin Sodium/ Sulbactam Sodium 3 gm/Sodium Chloride 100 ml @ 100 mls/hr Q6H IV 08/28/24 18:00 08/30/24 06:46 100 MLS/HR Sodium Chloride 10 ml QSHIFT@10,22 IV 08/29/24 22:00 08/30/24 10:00 10 ML objective General: Patient appears alert, comfortable and well-appearing. HEENT: Normocephalic, atraumatic, Sclera anicteric, conjunctiva clear, No nasal discharge or congestion. Mucous membranes moist, no tonsillar erythema or exudates. Neck: No cervical lymphadenopathy or masses. No neck stiffness. Lungs: Breath sounds clear bilaterally, no wheezes, rales, or rhonchi. No use of accessory muscles or respiratory distress. Cardiovascular: Regular rate and rhythm, no murmurs, rubs, or gallops. Abdomen: Soft, non-tender, non-distended. Bowel sounds present in all quadrants. No hepatosplenomegaly or masses. Skin: Nails 1-5 of the bilateral foot are thickened, discolored, dystrophic, and tender to palpate with subungual debris. Hair loss noted to bilateral feet. Wound left lateral foot with necrosis. Left foot has antiseptic dressing. Extremities: No edema, cyanosis, or clubbing. No tenderness to palpation, erythema, or swelling in joints. No signs of deep vein thrombosis (DVT). Neurologic: Patient is alert and oriented to person, place, and time. Cranial nerves II-XII intact. Motor strength 5/5 bilaterally in all extremities. laboratory and microbiology Laboratory Tests 08/30/24 05:18 Test 08/30/24 05:18 Range/Units Serum Glucose 145 H 74-106 mg/dL Assessment/Plan Patient is a 54-year-old male presented to the hospital with: abscess of left foot Necrotizing fascitis MSSA Infection E fecalis infection Osteomyelitis of left foot Diabetic foot infection Recommendations: patient refused continuous infusion at home as the tube gets stuck hence changed Abx to IV cefazolin 2g q 8hours Antibiotic status: IV cefazolin 2g q 8hours for 6 weeks [Started 08/30] stopped Unasyn IV [Started on 08/28 - 08/30] Stopped Vancomycin on 08/28 08/26, Aerobic culture showed Staphylococcus aureus and Enterococcus faecalis 08/25, CT Foot showed Moderate erosive changes of the 1st distal phalangeal head and neck most compatible with osteomyelitis. There is overlying soft tissue swelling. No definite drainable fluid collection or soft tissue gas in this limited unenhanced study. prognosis gaurded Thank you for consult. Plan discussed with: Patient LUCITA PARDO MD Aug 30, 2024 11:38
[2024-08-30] MEDS: ceFAZolin 2 GM/D5W50ml 50 ML IV SCH (15:44)
--- NOTE | 2024-08-30 16:35 | DVHPN2 ---
Subjective Patient is status post I and D of the left foot. Patient underwent repeat surgery with a delayed closure of the left foot postop day one. 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 Left foot has antiseptic dressing Medications Current Medications Medications Dose Ordered Sig/Linda Route Start Time Stop Time Status Last Admin Dose Admin Diagnostic Test (Pha) 1 strip ACHS 08/25/24 17:00 08/30/24 11:57 1 STRIP Insulin Human Regular HS SC 08/25/24 22:00 08/29/24 21:41 4 UNITS Insulin Human Regular AC SC 08/25/24 17:00 08/30/24 11:57 2 UNITS Dextrose 50 ml UD PRN IV 08/25/24 13:15 Nitroglycerin 0.4 mg Q5MINP PRN SL 08/25/24 20:00 Morphine Sulfate 2 mg Q30M PRN IV 08/25/24 20:00 08/29/24 12:37 2 MG Acetaminophen/ Hydrocodone Bitart 1 tab Q8HP PRN PO 08/28/24 16:15 08/29/24 01:05 1 TAB Acetaminophen/ Hydrocodone Bitart 1 tab Q6HPRN PRN PO 08/28/24 16:15 08/30/24 08:06 1 TAB Morphine Sulfate 2 mg Q4HPRN PRN IV 08/28/24 16:15 08/29/24 20:58 2 MG Sodium Chloride 10 ml QSHIFT@10,22 IV 08/29/24 22:00 08/30/24 10:00 10 ML Cefazolin Sodium/ Dextrose 50 ml @ 50 mls/hr Q8HR IV 08/30/24 14:00 08/30/24 15:44 50 MLS/HR Laboratory Results Laboratory Tests 08/30/24 05:18 Chemistry Test 08/30/24 05:18 Calcium Level 10.0 mg/dL (8.7-10.4) Urinalysis Test 08/30/24 07:09 Urine Color Light-yellow (Yellow) Urine Clarity Clear (Clear) Urine pH 6.5 (5.0-9.0) Urine Specific [place] 1.011 (1.001-1.035) Urine Protein Negative (Negative) Urine Ketones Negative (Negative) Urine Blood Negative /uL (Negative) Urine Nitrite Negative (Negative) Urine Bilirubin Negative (Negative) Urine Urobilinogen Normal mg/dL (Negative) Urine Leukocyte Esterase Negative /uL (Negative) Urine RBC None seen /hpf (0 - 3) Urine WBC <1 /hpf (0 - 3) Urine Squamous Epithelial Cells None seen /hpf (<5) Urine Bacteria None seen /hpf (None Seen) Urine Glucose 1+ mg/dL (Normal) H Microbiology Microbiology Date/Time Source Procedure Growth Status 08/26/24 13:17 Foot Left Gram Stain - Final Resulted 08/26/24 13:17 Foot Left Anaerobic Culture - Preliminary Resulted 08/26/24 13:17 Aerobic Culture - Final Staphylococcus aureus Enterococcus faecalis Resulted Assessment/Plan Assessment/Plan tion appreciated -plan of care discussed with the bedside RN. -physical therapy evaluation and treatment, discharge plan. Plan discussed with: Patient My Orders Orders - FRANK ADAN MD Procedure Category Date Status Time Change Dressing Prn ELIZA 08/29/24 In Process 19:05 Sodium Chloride Lock PHA 08/29/24 In Process (Saline Lock Ns) 22:00 Do Not Use Picc For [facility] 08/29/24 In Process Blood Cult 19:05 May Draw Blood From [facility] 08/29/24 In Process Picc 19:05 Ok To Use Picc [facility] 08/29/24 In Process 19:05 Change Picc Dressing [facility] 08/29/24 In Process Q7 Days 19:05 Us Guided [facility] US 08/29/24 Taken Access 19:05 Date of Service: Aug 31, 2024 Billing Provider: FRANK ADAN MD Common Visit Codes: NOT BILLABLE FRANK ADAN MD Aug 30, 2024 16:35
[2024-08-31] VITALS (7 sets, daily range): BP systolic 104–118; BP diastolic 64–78; PULSE 71–81; RESP 17–18; TEMP 36.8; O2SAT 95–98
[2024-08-31] MEDS: ONDANSETRON HCL 4 MG/2 ML VIAL IV ONE (08:43)
--- NOTE | 2024-08-31 09:13 | DVHPN2 ---
Progress Note - Dictate Date Seen: Aug 31, 2024 Subjective Patient is going to be discharged today. S/P I and D of the left foot. vital signs Vital Sign Date Time Temp Pulse Resp B/P (MAP) Pulse Ox O2 Delivery O2 Flow Rate FiO2 08/31/24 08:53 88 18 120/82 08/31/24 07:45 Room Air* 0 21 08/31/24 05:00 98.2 95 98.2 Total Intake and Output 08/30/24 08/30/24 08/31/24 15:00 23:00 07:00 Intake Total 100 ml 1200 ml 1050 ml Output Total 400 ml 1500 ml Balance 100 ml 800 ml -450 ml medications Current Medications Medications Dose Ordered Sig/Linda Route Start Time Stop Time Status Last Admin Dose Admin Diagnostic Test (Pha) 1 strip ACHS 08/25/24 17:00 08/31/24 06:14 1 STRIP Insulin Human Regular HS SC 08/25/24 22:00 08/30/24 21:52 3 UNITS Insulin Human Regular AC SC 08/25/24 17:00 08/31/24 06:17 3 UNITS Dextrose 50 ml UD PRN IV 08/25/24 13:15 Nitroglycerin 0.4 mg Q5MINP PRN SL 08/25/24 20:00 Morphine Sulfate 2 mg Q30M PRN IV 08/25/24 20:00 08/29/24 12:37 2 MG Acetaminophen/ Hydrocodone Bitart 1 tab Q8HP PRN PO 08/28/24 16:15 08/31/24 05:34 1 TAB Acetaminophen/ Hydrocodone Bitart 1 tab Q6HPRN PRN PO 08/28/24 16:15 08/30/24 08:06 1 TAB Morphine Sulfate 2 mg Q4HPRN PRN IV 08/28/24 16:15 08/31/24 08:53 2 MG Sodium Chloride 10 ml QSHIFT@10,22 IV 08/29/24 22:00 08/31/24 08:43 10 ML Cefazolin Sodium/ Dextrose 50 ml @ 50 mls/hr Q8HR IV 08/30/24 14:00 08/31/24 05:27 50 MLS/HR objective General: Patient appears alert, comfortable and well-appearing. HEENT: Normocephalic, atraumatic, Sclera anicteric, conjunctiva clear, No nasal discharge or congestion. Mucous membranes moist, no tonsillar erythema or exudates. Neck: No cervical lymphadenopathy or masses. No neck stiffness. Lungs: Breath sounds clear bilaterally, no wheezes, rales, or rhonchi. No use of accessory muscles or respiratory distress. Cardiovascular: Regular rate and rhythm, no murmurs, rubs, or gallops. Abdomen: Soft, non-tender, non-distended. Bowel sounds present in all quadrants. No hepatosplenomegaly or masses. Skin: Nails 1-5 of the bilateral foot are thickened, discolored, dystrophic, and tender to palpate with subungual debris. Hair loss noted to bilateral feet. Wound left lateral foot with necrosis. Left foot has antiseptic dressing. Extremities: No edema, cyanosis, or clubbing. No tenderness to palpation, erythema, or swelling in joints. No signs of deep vein thrombosis (DVT). Neurologic: Patient is alert and oriented to person, place, and time. Cranial nerves II-XII intact. Motor strength 5/5 bilaterally in all extremities. laboratory and microbiology Laboratory Tests 08/30/24 05:18 Test 08/30/24 05:18 Range/Units Serum Glucose 145 H 74-106 mg/dL Assessment/Plan Patient is a 54-year-old male presented to the hospital with: Foot ulcer Cellulitis and abscess of foot Necrotizing subcutaneous infection Osteomyelitis of left foot Diabetic foot infection Recommendations: Antibiotic status: Vancomycin IV Unasyn IV [Started on 08/28] Vancomycin trough on 08/27 was 15.4 08/26, Aerobic culture showed Staphylococcus aureus and Enterococcus faecalis 08/25, CT Foot showed Moderate erosive changes of the 1st distal phalangeal head and neck most compatible with osteomyelitis. There is overlying soft tissue swelling. No definite drainable fluid collection or soft tissue gas in this limited unenhanced study. Thank you for consult. LUCITA PARDO MD Aug 31, 2024 09:13
[2024-08-31] MEDS ORDERED: HYDR-4798 PO (15:36)
[2024-08-31] MEDS ORDERED: DOCU-94 PO (15:36)
[2024-08-31] MEDS ORDERED: NALO4SPR2 (15:36)
--- NOTE | 2024-08-31 15:41 | DVHDS2 ---
Discharge Summary Date of Admission Aug 25, 2024 at 19:46 Date of Discharge: Aug 31, 2024 Labs/Diagnostic Data: Laboratory Results Test 08/31/24 06:12 08/30/24 07:09 08/30/24 05:18 08/29/24 10:35 POC Glucose 161 mg/dl (70-106) Urine Color Light-yellow (Yellow) Urine Clarity Clear (Clear) Urine pH 6.5 (5.0-9.0) Urine Specific [place] 1.011 (1.001-1.035) Urine Protein Negative (Negative) Urine Ketones Negative (Negative) Urine Blood Negative /uL (Negative) Urine Nitrite Negative (Negative) Urine Bilirubin Negative (Negative) Urine Urobilinogen Normal mg/dL (Negative) Urine Leukocyte Esterase Negative /uL (Negative) Urine RBC None seen /hpf (0 - 3) Urine WBC <1 /hpf (0 - 3) Urine Squamous Epithelial Cells None seen /hpf (<5) Urine Bacteria None seen /hpf (None Seen) Urine Glucose 1+ mg/dL (Normal) White Blood Count 7.2 10^3/uL (4.4-10.8) Red Blood Count 4.30 10^6/uL (4.5-5.90) Hemoglobin 13.0 g/dL (13.5-17.5) Hematocrit 38.1 % (41.0-53.0) Mean Corpuscular Volume 88.7 fL (80.0-100.0) Mean Corpuscular Hemoglobin 30.4 pg (28.0-32.0) Mean Corpuscular Hemoglobin Concent 34.2 g/dL (32.0-36.0) Red Cell Distribution Width 13.2 % (11.8-14.3) Platelet Count 305 10^3/uL (140-450) Mean Platelet Volume 7.6 fL (6.9-10.8) Neutrophils (%) (Auto) 62.4 % (37.0-80.0) Lymphocytes (%) (Auto) 26.9 % (10.0-50.0) Monocytes (%) (Auto) 6.4 % (0.0-12.0) Eosinophils (%) (Auto) 3.6 % (0.0-7.0) Basophils (%) (Auto) 0.7 % (0.0-2.0) Neutrophils # (Auto) 4.5 10 ^3/uL (1.6-8.6) Lymphocytes # (Auto) 1.9 10 ^3/uL (0.4-5.4) Monocytes # (Auto) 0.5 10 ^3/uL (0-1.3) Eosinophils # (Auto) 0.3 10 ^3/uL (0-0.8) Basophils # (Auto) 0 10 ^3/uL (0-0.2) Nucleated Red Blood Cells 0.1 % Sodium Level 138 mmol/L (136-145) Potassium Level 4.2 mmol/L (3.5-5.1) Chloride Level 102 mmol/L (98-107) Carbon Dioxide Level 29 mmol/L (20-31) Anion Gap 7 (5-15) Blood Urea Nitrogen 8 mg/dL (9-23) Creatinine 0.79 mg/dL (0.700-1.30) Glomerular Filtration Rate Calc 104 mL/min (>90) BUN/Creatinine Ratio 10.1 (10.0-20.0) Serum Glucose 145 mg/dL (74-106) Calcium Level 10.0 mg/dL (8.7-10.4) Prothrombin Time 10.9 sec (9.3-11.8) Prothrombin Time INR 1.03 (0.9-1.15) Activated Partial Thromboplast Time 32.7 SEC (24.5-34.5) Test 08/27/24 08:18 Vancomycin Level Trough 15.4 ug/mL (5-10) Other Laboratory Tests 08/30/24 05:18 Brief Hx & Hospital Course: 64-year-old male with a known history of diabetes mellitus type 2, hypertension, previous history of bilateral foot surgery presented to the hospital with a left foot pain found to have acute osteomyelitis of the left foot. Patient was eventually admitted started on IV antibiotics. Podiatry services was consulted patient underwent status post I and D of the left foot. Patient was had a 2nd surgery in which delayed closure of the left foot was done. Patient was currently stable to be discharged on IV antibiotics as per ID recommendations. Patient was to be given IV cefazolin 2 g IV q.8 hours for six weeks. Condition at Discharge: Stable Final Diagnosis/Problems List 64-year-old male with a known history of diabetes mellitus type 2, hypertension, previous history of bilateral foot surgery presented to the hospital with a left foot pain found to have 1. Acute osteomyelitis of the left foot status post I and D of the left foot, status post delayed closure 2. Diabetes mellitus type 2 3. Hypertension -IV antibiotics, infectious disease consulta Discharge Disposition: Home with Health Services SNF Discharge Will this Physician continue t: No Discharge Instruct/Medications Diet: Consistent carbohydrate Activity: No Restrictions, As Tolerated Follow Up/Referral: Follow up with the PCP in one week Follow up with Podiatry Services in one week Follow up with Rose Marie Madsen in one week Medications: IV cefazolin as ordered. Discharge Statement: "Patient was advised to return to the ER or call 911 if any headaches, dizziness, shortness of breath, chest pain, abdominal pain, bleeding, fevers, or worsening of medical condition. Patient was counseled about treatment plan, medications, possible side effects, patientverbalized understanding. All questions were answered to the best of my ability. This discharge took greater then 30 minutes in planning, reviewing documentation, counseling the patient, and discussing with other team members." ASSESSMENT ASSESSMENT Assessment 64-year-old male with a known history of diabetes mellitus type 2, hypertension, previous history of bilateral foot surgery presented to the hospital with a left foot pain found to have 1. Acute osteomyelitis of the left foot status post I and D of the left foot, status post delayed closure 2. Diabetes mellitus type 2 3. Hypertension -IV antibiotics, infectious disease consulta Date of Service: Aug 31, 2024 Billing Provider: FRANK ADAN MD Common Visit Codes: NOT BILLABLE FRANK ADAN MD Aug 31, 2024 15:41
== END 2024-08-31 18:14 | disposition home or self-care (01) | DRG 622 ==
LOC: ER 10:25 → TELE 19:46 → TELE-WESTW 08-26 14:45
PROVIDERS: ADMIT Internal Medicine; ATTEND Internal Medicine
PROC: 0JBR0ZZ Excision of Left Foot Subcutaneous Tissue and Fascia, Open Approach (ICD-10-PCS; principal; 2024-08-26 13:04)
PROC: 02HV33Z Insertion of Infusion Device into Superior Vena Cava, Percutaneous Approach (ICD-10-PCS; 2024-08-29)
PROC: B548ZZA Ultrasonography of Superior Vena Cava, Guidance (ICD-10-PCS; 2024-08-29)
PROC: 0JBR0ZZ Excision of Left Foot Subcutaneous Tissue and Fascia, Open Approach (ICD-10-PCS; 2024-08-30)
DX: E11.69 Type 2 diabetes mellitus with other specified complication (principal); M72.6 Necrotizing fasciitis; M86.172 Other acute osteomyelitis, left ankle and foot; L02.612 Cutaneous abscess of left foot; L03.116 Cellulitis of left lower limb; E11.621 Type 2 diabetes mellitus with foot ulcer; I10 Essential (primary) hypertension; E78.5 Hyperlipidemia, unspecified; L97.529 Non-pressure chronic ulcer of other part of left foot with unspecified severity; B95.61 Methicillin susceptible Staphylococcus aureus infection as the cause of diseases classified elsewhere; Z89.412 Acquired absence of left great toe; Z89.411 Acquired absence of right great toe; Z83.3 Family history of diabetes mellitus; Z80.0 Family history of malignant neoplasm of digestive organs
CPT/HCPCS: 36415; 36569; 71045; 73700; 80048; 80202; 81001; 82565; 82962; 85025; 85610; 85730; 86850; 86900; 86901; 87070; 87075; 87077; 87186; 87205; G0378; J1100; J1815; J2250; J2405; J2543; J2704; J3490

== ENCOUNTER 2024-09-09 18:28 | Inpatient (IN) | payer OTHER ==
[~2024-09-09] VITALS: Ht 190.5 cm; Wt 120.6 kg
[~2024-09-09 18:28] MED LIST changes: +DOCU-94 PO; +HYDR-4798 PO; +NALO4SPR2
[2024-09-09 18:56] VITALS: PULSE 96; RESP 18; O2SAT 97
--- NOTE | 2024-09-09 19:06 | ED.PDOC ---
Musculoskeletal HPI Comments 54-year-old male cme to ER via EMS for wound check. Patient with a known history of diabetes mellitus type 2, hypertension, previous history of bilateral foot surgery presented to the hospital with a left foot pain, was status post 1. Acute osteomyelitis of the left foot status post I and D of the left foot, status post delayed closure, 2. Diabetes mellitus type 2, 3. Hypertension. Patient was discharged your last August 31, improved with IV antibiotics, cefazolin, given via PICC line. Patient claims his home health care nurse never arrived to clean his wounds. Notable swelling and pain of the left foot, with fever occuring 4 days ago. Upon arrival, noted to be hypotensive at 86/47 mmHg and febrile at 100.9 F Chief Complaint: Wound Check Time Seen by MD: 19:03 Primary Care Provider: CHALO Gavin Notes: Senior Attorney Notes Allergies: Coded Allergies: NO KNOWN ALLERGIES (Unverified , 05/24/24) Home Meds Active Scripts Docusate Sodium (Colace) 100 Mg Cap, 1 CAP PO BID PRN, #30 CAP Prov:FRANK ADAN MD 08/31/24 Naloxone HCl (Narcan) 4 Mg/0.1 Ml Spr, 4 MG NA UMBRELLA REPAIRER, #2 SPRAY Prov:FRANK ADAN MD 08/31/24 Hydrocodone-Acetaminophen (Hydrocodone Bitartrate/AC 10-325 mg) 1 Tab Tab, 1 TAB PO Q8HP PRN, #20 TAB Prov:FRANK ADAN MD 08/31/24 Metronidazole (Flagyl) 500 Mg Tab, 1 TAB PO TID, #90 TAB Prov:STAN HATCH MD 05/31/24 Information Source: Patient, Emergency Med Personnel Mode of Arrival: EMS Location: Left Extremity Location: Foot Timing: Days Prehospital treatment: Accucheck Severity: Moderate Able to Move Extremity: Yes Bear Weight: Limited Pain: Moderate Hand Dominance: Right Mechanism: Other (post surgery) Circumstances: Other (post surgery) Onset of Symptoms: Spontaneous, After Trauma Symptoms: Swelling, Pain, Erythema DVT Risk Factors: Recent surgery Associated signs and symptoms: Foot pain (left) Past Medical History PAST MEDICAL HISTORY: DM, HTN Surgical History (Other): Incision and drainage of the left foot, debridement Family History Family History: Reviewed,noncontributory to illness, Family hx of Kidney altagracia Social History Smoker: Non-Smoker Alcohol: Denies ETOH Use Drugs: Denies Drug Use Lives In: Home Constitutional: denies: chills, diaphoresis, fatigue, fever, malaise, sweats, weakness, others EENTM: denies: blurred vision, double vision, ear bleeding, ear discharge, ear drainage, ear pain, ear ringing, eye pain, eye redness, hearing loss, mouth pain, mouth swelling, nasal discharge, nose bleeding, nose congestion, nose pain, photophobia, tearing, throat pain, throat swelling, voice changes, others Respiratory: denies: cough, hemoptysis, orthopnea, SOB at rest, shortness of breath, SOB with excertion, stridor, wheezing, others Cardiovascular: denies: chest pain, dizzy spells, diaphoresis, Dyspnea on exertion, edema, irregular heart beat, left arm pain, lightheadedness, palpitations, PND, syncope, others Gastrointestinal: denies: abdomen distended, abdominal pain, blood streaked bowels, constipated, diarrhea, dysphagia, difficulty swallowing, hematemesis, melena, nausea, poor appetite, poor fluid intake, rectal bleeding, rectal pain, vomiting, others Genitourinary: denies: burning, dysuria, flank pain, frequency, hematuria, incontinence, penile discharge, penile sore, pain, testicle pain, testicle swelling, urgency, others Neurological: denies: dizziness, fainting, headache, left sided numbness, left sided weakness, numbness, paresthesia, pre-existing deficit, right sided numbness, right sided weakness, seizure, speech problems, tingling, tremors, weakness, others Musculoskeletal: denies: back pain, gout, joint pain, joint swelling, muscle pain, muscle stiffness, neck pain, others Integumetry: reports: wounds (Left foot); denies: bruises, change in color, change in hair/nails, dryness, laceration, lesions, lumps, rash, others Allergic/Immunocompromised: denies: Difficulty Healing, Frequent Infections, Hives, Itching, others Hematologic/Lymphatic: denies: anemia, blood clots, easy bleeding, easy bruising, swollen glands, others Endocrine: denies: excessive hunger, excessive sweating, excessive thirst, excessive urination, flushing, intolerance to cold, intolerance to heat, unexplained weight gain, unexplained weight loss, others Psychiatric: denies: anxiety, bipolar disorder, depression, hopeless, panic disorder, schizophrenia, sleepless, suicidal, others Physical Exam General Appearance: No Apparent Distress, Normal HEENT: Normal ENT Inspection, Pharynx Normal, TMs Normal Neck: Full Range of Motion, Non-Tender, Normal, Normal Inspection Respiratory: Chest Non-Tender, Lungs Clear, No Accessory Muscle Use, No Respiratory Distress, Normal Breath Sounds Cardiovascular: No Edema, No JVD, No Murmur, No Gallop, Normal Peripheral Pulses, Regular Rate/Rhythm Breast Exam: Deferred Gastrointestinal: No Organomegaly, Non Tender, No Pulsatile Mass, Normal Bowel Sounds, Soft Genitalia: Deferred Pelvic: Deferred Rectal: Deferred Extremities: No calf tenderness, Normal capillary refill, Normal range of motion, Non-tender, Swelling (Left foot), Other (Open wound left foot) Musculoskeletal : Apperance: Normal Neurologic: Alert, 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 Was a procedure done?: No Differential Diagnosis EXT Differential Diagnosis: Cellulitis, Deep Vein Thrombosis, Septic, Neurovascular injury, Other (Osteomyelitis) X-Ray, Labs, Meds, VS Vital Signs Date Time Temp Pulse Resp B/P (MAP) Pulse Ox O2 Delivery O2 Flow Rate FiO2 09/09/24 22:10 98.8 74 19 83/39 (54) 98 98.8 09/09/24 22:05 81/43 09/09/24 21:30 98.6 75 17 85/43 (57) 98 98.6 09/09/24 21:08 98.1 73/41 (52) 98.1 09/09/24 20:30 99.1 99.1 09/09/24 20:00 89 20 97 Room Air* 0 21 09/09/24 20:00 101.0 101.0 09/09/24 19:30 101.6 89 14 91/53 (66) 98 101.6 09/09/24 18:59 100.9 105 16 86/47 (60) 99 09/09/24 18:57 98.2 95 18 86/54 (65) 92 98.2 09/09/24 18:56 96 18 97 Room Air* 0 21 Lab Test 09/09/24 21:08 09/09/24 19:22 Range/Units POC Glucose 192 H 70-106 mg/dl White Blood Count 13.9 H 4.4-10.8 10^3/uL Red Blood Count 3.38 L 4.5-5.90 10^6/uL Hemoglobin 10.1 L 13.5-17.5 g/dL Hematocrit 29.8 L 41.0-53.0 % Mean Corpuscular Volume 88.1 80.0-100.0 fL Mean Corpuscular Hemoglobin 29.9 28.0-32.0 pg Mean Corpuscular Hemoglobin Concent 33.9 32.0-36.0 g/dL Red Cell Distribution Width 13.4 11.8-14.3 % Platelet Count 282 140-450 10^3/uL Mean Platelet Volume 7.6 6.9-10.8 fL Neutrophils (%) (Auto) 88.7 H 37.0-80.0 % Lymphocytes (%) (Auto) 4.7 L 10.0-50.0 % Monocytes (%) (Auto) 6.3 0.0-12.0 % Eosinophils (%) (Auto) 0.1 0.0-7.0 % Basophils (%) (Auto) 0.2 0.0-2.0 % Neutrophils # (Auto) 12.4 H 1.6-8.6 10 ^3/uL Lymphocytes # (Auto) 0.7 0.4-5.4 10 ^3/uL Monocytes # (Auto) 0.9 0-1.3 10 ^3/uL Eosinophils # (Auto) 0 0-0.8 10 ^3/uL Basophils # (Auto) 0 0-0.2 10 ^3/uL Nucleated Red Blood Cells 0.0 % Sodium Level 132 L 136-145 mmol/L Potassium Level 4.1 3.5-5.1 mmol/L Chloride Level 100 98-107 mmol/L Carbon Dioxide Level 24 20-31 mmol/L Anion Gap 8 5-15 Blood Urea Nitrogen 19 9-23 mg/dL Creatinine 0.89 0.700-1.30 mg/dL Glomerular Filtration Rate Calc 101 >90 mL/min BUN/Creatinine Ratio 21.3 H 10.0-20.0 Serum Glucose 231 H 74-106 mg/dL Lactic Acid Level 1.2 0.4-2.0 mmol/L Calcium Level 8.6 L 8.7-10.4 mg/dL Total Bilirubin 0.6 0.2-1.0 mg/dL Aspartate Amino Transferase (AST) 18 13-40 U/L Alanine Aminotransferase (ALT) 11 7-40 U/L Alkaline Phosphatase 93 46-116 U/L Troponin I High Sensitivity 6 </=54 ng/L B-Type Natriuretic Peptide 72.18 0-100 pg/mL Total Protein 5.9 5.7-8.2 g/dL Albumin 3.2 3.2-4.8 g/dL Current Medications Medications (Trade) Dose Ordered Sig/Linda Route Start Time Stop Time Status Last Admin Sodium Chloride 1,000 ml @ 1,000 mls/hr Q1H ONCE IV 09/09/24 19:00 09/09/24 19:59 DC 09/09/24 19:11 Ondansetron HCl (Zofran) 4 mg ONCE ONCE IV 09/09/24 19:00 09/09/24 19:01 DC 09/09/24 19:11 Vancomycin HCl 200 ml @ 200 mls/hr ONCE ONCE IV 09/09/24 19:00 09/09/24 19:59 DC 09/09/24 19:11 Acetaminophen (Ofirmev) 1,000 mg DAILY STAT IV 09/09/24 18:55 09/09/24 18:57 DC 09/09/24 19:11 Sodium Chloride 1,000 ml @ 1,000 mls/hr Q1H ONCE IV 09/09/24 20:45 09/09/24 21:44 DC 09/09/24 20:43 Cefepime HCl 50 ml @ 12.5 mls/hr ONCE ONCE IV 09/09/24 21:15 09/10/24 01:14 09/09/24 21:21 Sodium Chloride 1,000 ml @ 1,000 mls/hr Q1H ONCE IV 09/09/24 21:15 09/09/24 22:14 09/09/24 21:21 Norepinephrine Bitartrate 250 ml @ 9.375 mls/ hr Q24H IV 09/09/24 22:00 09/09/24 22:05 EXAM: XY L FOOT 3 VIEW XRAY CLINICAL HISTORY: left foot wound COMPARISON: None TECHNIQUE: XY L FOOT 3 VIEW XRAY Findings/Impression: 3 views of the left foot. There is no evidence of an acute fracture, dislocation, osseous erosions, blastic, or lytic lesions. No radiopaque foreign bodies. Moderate soft tissue edema with lateral surgical camilo and subcutaneous emphysema. Consider further evaluation with a nuclear medicine WBC scan or contrast enhanced MRI. EXAMINATION: AP portable chest radiograph CLINICAL HISTORY: sepsis COMPARISON: XY CHEST PORTABLE on DOS: 08/26/24 FINDINGS: Right-sided PICC line is noted. No lobar consolidation. No sizable pleural effusion or pneumothorax. The c ardiomediastinal silhouette appears within normal limits given technique. IMPRESSION: No dominant consolidation identified at this time. Time of 1ST Reevaluation: 19:04 Reevaluation 1ST: Unchanged Patient Education/Counseling: Diagnosis, Treatment Family Education/Counseling: No Family Present Departure 1 Departure Time of Disposition: 22:14 (Patient with concern for septic shock. Patient empirically cover with antibiotics given fluids started on norepinephrine and we will admit patient to the ICU) Impression: Primary Impression: Septic shock Additional Impression: Wound of left foot Disposition: ADMITTED INPATIENT Admit to: ICU Condition: Critical Critical Care Note Critical Care Time?: Yes (35 min-critical care time only) Critical care comment: Hypotensive, septic shock Authorized and Performed by: Domingo Fernández MD Total critical care time: Approximately 48 minutes Due to a high probability of clinically significant, life threatening deterioration, the patient required my highest level of preparedness to intervene emergently and I personally spent this critical care time directly and personally managing the patient. This critical care time included obtaining a history; examining the patient; pulse oximetry; ordering and review of studies; arranging urgent treatment with development of a management plan; evaluation of patient's response to treatment; frequent reassessment; and, discussions with other providers. This critical care time was performed to assess and manage the high probability of imminent, life-threatening deterioration that could result in multi-organ failure. It was exclusive of separately billable procedures and treating other patients and teaching time. Please see my other sections and the rest of the note for further information on patient assessment and treatment. Stability Stability form required: No Heart Score Heart Score: Heart Score Response (Comments) Value History N/A 0 EKG N/A 0 Age N/A 0 Risk Factors N/A 0 Troponin N/A 0 Total 0 I personally scribed for DOMINGO FERNÁNDEZ MD ([facility]) on 09/09/24 at 19:06. Electronically submitted by Srinivas Mcgill ([facility] I personally scribed for DOMINGO FERNÁNDEZ MD ([facility]) on 09/09/24 at 19:47. Electronically submitted by Srinivas Mcgill ([facility] DOMINGO FERNÁNDEZ MD Sep 09, 2024 19:06
[2024-09-09] MEDS: VANCOMYCIN 1GM/250ML KIT 200 ML IV ONE (19:11)
[2024-09-09] MEDS: ACETAMINOPHEN IV 1000 MG/100ML (10MG/ML) IV STA (19:11)
[2024-09-09] MEDS: SODIUM CHLORIDE 0.9% 1,000 ML IV ONE ×3 (19:11→21:21)
[2024-09-09] MEDS: ONDANSETRON HCL 4 MG/2 ML VIAL IV ONE (19:11)
--- NOTE | 2024-09-09 19:27 | DVH ---
EXAM: XY L FOOT 3 VIEW XRAY CLINICAL HISTORY: left foot wound COMPARISON: None TECHNIQUE: XY L FOOT 3 VIEW XRAY Findings/Impression: 3 views of the left foot. There is no evidence of an acute fracture, dislocation, osseous erosions, blastic, or lytic lesions. No radiopaque foreign bodies. Moderate soft tissue edema with lateral surgical camilo and subcutaneous emphysema. Consider further evaluation with a nuclear medicine WBC scan or contrast enhanced MRI.
--- NOTE | 2024-09-09 19:31 | DVH ---
EXAMINATION: AP portable chest radiograph CLINICAL HISTORY: sepsis COMPARISON: XY CHEST PORTABLE on DOS: 08/26/24 FINDINGS: Right-sided PICC line is noted. No lobar consolidation. No sizable pleural effusion or pneumothorax. The cardiomediastinal silhouette appears within normal limits given technique. IMPRESSION: No dominant consolidation identified at this time.
[2024-09-09 19:44] LABS: Basophils # (auto) 0 10 ^3/uL (0-0.2); Basophils % (auto) 0.2 % (0.0-2.0); Eosinophils # (auto) 0 10 ^3/uL (0-0.8); Eosinophils % (auto) 0.1 % (0.0-7.0); Hematocrit 29.8 % (41.0-53.0); Hemoglobin 10.1 g/dL (13.5-17.5); Lymphocytes # (auto) 0.7 10 ^3/uL (0.4-5.4); Lymphocytes % (auto) 4.7 % (10.0-50.0); Mean Corpuscular Hemoglobin 29.9 pg (28.0-32.0); Mean Corpuscular Hgb Conc. 33.9 g/dL (32.0-36.0); Mean Corpuscular Volume 88.1 fL (80.0-100.0); Monocytes # (auto) 0.9 10 ^3/uL (0-1.3); Monocytes % (auto) 6.3 % (0.0-12.0); Neutrophils # (auto) 12.4 10 ^3/uL (1.6-8.6); Neutrophils % (auto) 88.7 % (37.0-80.0); Platelet Count (auto) 282 10^3/uL (140-450); Red Blood Cells 3.38 10^6/uL (4.5-5.90); Red Cell Distribution Width 13.4 % (11.8-14.3); White Blood Cell 13.9 10^3/uL (4.4-10.8)
[2024-09-09 20:00] VITALS: PULSE 89; RESP 20; O2SAT 97
[2024-09-09 20:13] LABS: Alanine Aminotransferase 11 U/L (7-40); Alkaline Phosphatase 93 U/L (46-116); Anion Gap 8 (5-15); Aspartate Aminotransferase 18 U/L (13-40); BUN/Creatinine Ratio 21.3 (10.0-20.0); Bilirubin, Total 0.6 mg/dL (0.2-1.0); Blood Urea Nitrogen 19 mg/dL (9-23); Carbon Dioxide 24 mmol/L (20-31); Chloride 100 mmol/L (98-107); Potassium 4.1 mmol/L (3.5-5.1); Total Protein 5.9 g/dL (5.7-8.2)
[2024-09-09 20:15] LABS: Albumin 3.2 g/dL (3.2-4.8); Calcium 8.6 mg/dL (8.7-10.4); Glucose 231 mg/dL (74-106); Sodium 132 mmol/L (136-145)
[2024-09-09] MEDS: CEFEPIME 2GM/50ML NS 50 ML IV ONE (21:21)
[2024-09-09] MEDS: NOREPINEPHRINE 8 MG/250ML KIT 250 ML IV SCH (22:05)
[2024-09-10] MEDS ORDERED: HYDROcodone-ACET 5/325MG TAB PO PRN (04:15)
[2024-09-10] MEDS ORDERED: VANCOMYCIN PER PHARMACY 0 MG IV SCH (04:15)
[2024-09-10] MEDS ORDERED: DEXTROSE (50%) 50ML SYRG IV PRN (04:15)
--- NOTE | 2024-09-10 04:33 | DVHHP2 ---
Admitting Diagnosis: non healing Left foot wound, Hypotension, History of Present Illness History Source: Patient Exam Limitations: No limitations HPI Mr. Tushar Zuleta is a 54-year-old male who presents with a chief complaint of left foot wound check. Patient had previous history of bilateral foot surgery presented to the hospital with a left foot pain, was status post 1. Acute osteomyelitis of the left foot status post I and D of the left foot, status post delayed closure, 2. Diabetes mellitus type 2, 3. Hypertension. Patient was di scharged last August 31, with IV antibiotics, cefazolin, given via PICC line. Patient claims his home health care nurse never arrived to clean his wounds. Notable swelling and pain of the left foot, with fever occuring 4 days ago. Patient reports he went to the urgent care yesterday and was told he had gangrene and was sent to the ED for further evaluation. Left foot x ray resulted There is no evidence of an acute fracture, dislocation, osseous erosions, blastic, or lytic lesions. No radiopaque foreign bodies. Moderate soft tissue edema with lateral surgical camilo and subcutaneous emphysema. Consider further evaluation with a nuclear medicine WBC scan or contrast enhanced MRI. Patient was found to be hypotensive in the ED and started on vasopressor. Patient admitted for further evaluation and treatment. Home Meds Active Scripts Docusate Sodium (Colace) 100 Mg Cap, 1 CAP PO BID PRN, #30 CAP Prov:FRANK ADAN MD 08/31/24 Naloxone HCl (Narcan) 4 Mg/0.1 Ml Spr, 4 MG NA SHANK ARCHER, #2 SPRAY Prov:FRANK ADAN MD 08/31/24 Hydrocodone-Acetaminophen (Hydrocodone Bitartrate/AC 10-325 mg) 1 Tab Tab, 1 TAB PO Q8HP PRN, #20 TAB Prov:FRANK ADAN MD 08/31/24 Metronidazole (Flagyl) 500 Mg Tab, 1 TAB PO TID, #90 TAB Prov:STAN HATCH MD 05/31/24 Past Medical History Cardiac: HTN Pulmonary: No pertinent Hx Central Nervous System: No pertinent Hx GI: No pertinent Hx Hemotology/Oncology: No pertinent Hx Hepatobiliary: No pertinent Hx Psychiatric: No pertinent Hx Musculoskeletal: No pertinent Hx Rheumotologic: No pertinent Hx Infectious Disease: No peritnent Hx ENT: No pertinent Hx Renal/: No pertinent Hx Endocrine: NIDDM Dermatology: No pertinent Hx Others chronic left foot wound , s/p left foot I&D, bilateral foot surgeries Patient Family History: FH: colon cancer Smoker: No Hx (Negative) Alocohol: None Drugs: None Lives with: With family Domestic Violence: Neg Review of Systems Constitutional: No symptom reported Ears, Nose, & Throat: No symptom reported Eyes: No symptom reported Pulmonary/Respiratory: No symptom reported Cardiovascular: No symptom reported Gastrointestinal: No symptom reported Genitourinary: No symptom reported Musculoskeletal: Foot pain (left foot pain) Skin: Other (left foot swelling, wound) Psychiatric: No symptom reported Endocrine: No symptom reported Hemotologic/Lymphatic: No symptom reported H&P Exam Vital Signs Vital Signs Date Time Temp Pulse Resp B/P (MAP) Pulse Ox O2 Delivery O2 Flow Rate FiO2 09/10/24 04:15 97.9 70 17 125/68 (87) 100 97.9 09/09/24 20:00 Room Air* 0 21 General Appeara: Well developed, Well nourished, Normal Appearance Head Exam: Normal inspection Neck Exam: Normal inspection, Non-tender, Normal alignment Eye Exam: bilateral eye Normal inspection, bilateral eye PERRL, bilateral eye EOMI Ear Exam: bilateral ear Auricle normal Nasal Exam: Normal inspection Mouth: Normal Inspection Pulmonary/Respiratory: Normal inspection, Normal breath sounds, Chest non- tender, Lungs clear Cardiovascular/Chest: Normal inspection, Regular rate, Normal Rhythm Peripheral Pulses: 2+ dorsalis pedis (R), 2+ dorsalis pedis (L), 2+ Radial (R), 2+ Radial (L) Abdominal Exam: Normal bowel sounds, Soft Rectal Exam: Deferred Back Exam: Normal inspection Male Genital Exam: Not done Foot: left foot infection, left foot pain, left foot soft tissue tenderness, left foot swelling CRA Exam: Normal hearing, Normal speech, PERRL Motor/Sensory: Normal sensory function, Normal motor function Neuro/Mental St: Alert, Oriented Appearance: Appropriate appearance, Appropriate insight Eye contact/ Speech: Cooperative, Good eye contact, Normal speech Thoughts/Psych: Normal thought pattern Skin Exam: Normal inspection, Normal color, Warm/dry Wounds left foot wound Labs/Xrays Labs Test 09/09/24 21:08 09/09/24 19:22 Range/Units POC Glucose 192 H 70-106 mg/dl White Blood Count 13.9 H 4.4-10.8 10^3/uL Red Blood Count 3.38 L 4.5-5.90 10^6/uL Hemoglobin 10.1 L 13.5-17.5 g/dL Hematocrit 29.8 L 41.0-53.0 % Mean Corpuscular Volume 88.1 80.0-100.0 fL Mean Corpuscular Hemoglobin 29.9 28.0-32.0 pg Mean Corpuscular Hemoglobin Concent 33.9 32.0-36.0 g/dL Red Cell Distribution Width 13.4 11.8-14.3 % Platelet Count 282 140-450 10^3/uL Mean Platelet Volume 7.6 6.9-10.8 fL Neutrophils (%) (Auto) 88.7 H 37.0-80.0 % Lymphocytes (%) (Auto) 4.7 L 10.0-50.0 % Monocytes (%) (Auto) 6.3 0.0-12.0 % Eosinophils (%) (Auto) 0.1 0.0-7.0 % Basophils (%) (Auto) 0.2 0.0-2.0 % Neutrophils # (Auto) 12.4 H 1.6-8.6 10 ^3/uL Lymphocytes # (Auto) 0.7 0.4-5.4 10 ^3/uL Monocytes # (Auto) 0.9 0-1.3 10 ^3/uL Eosinophils # (Auto) 0 0-0.8 10 ^3/uL Basophils # (Auto) 0 0-0.2 10 ^3/uL Nucleated Red Blood Cells 0.0 % Sodium Level 132 L 136-145 mmol/L Potassium Level 4.1 3.5-5.1 mmol/L Chloride Level 100 98-107 mmol/L Carbon Dioxide Level 24 20-31 mmol/L Anion Gap 8 5-15 Blood Urea Nitrogen 19 9-23 mg/dL Creatinine 0.89 0.700-1.30 mg/dL Glomerular Filtration Rate Calc 101 >90 mL/min BUN/Creatinine Ratio 21.3 H 10.0-20.0 Serum Glucose 231 H 74-106 mg/dL Lactic Acid Level 1.2 0.4-2.0 mmol/L Calcium Level 8.6 L 8.7-10.4 mg/dL Total Bilirubin 0.6 0.2-1.0 mg/dL Aspartate Amino Transferase (AST) 18 13-40 U/L Alanine Aminotransferase (ALT) 11 7-40 U/L Alkaline Phosphatase 93 46-116 U/L Troponin I High Sensitivity 6 </=54 ng/L B-Type Natriuretic Peptide 72.18 0-100 pg/mL Total Protein 5.9 5.7-8.2 g/dL Albumin 3.2 3.2-4.8 g/dL Assessment/Plan Problem List: (1) Hypotension (2) Septic shock (3) Wound of left foot Plan This is a 54 yo male with known past medical history of DM2, hypertension, bilateral foot surgeries, chronic left foot wound with recent left foot I&D, who presents to the hospital with left foot pain and non healing foot wound. Patient found to have 1. Septic shock 2. Hypotension 3. non healing left foot wound 4. osteomyelitis Plan Admit ICU Infectious Disease consultation, IV antibiotics Blood cultures x2 Podiatry consultation MRI left foot rule out osteomyelitis glucose monitoring ac & hs coverage with insulin ss GI ppx Protonix DVT ppx Lovenox Vasopressor as needed for optimal blood pressure support Discussed all above with patient who verbalizes agreement and understanding of care plan. All questions were answered. Discussed assessment and care plan with supervising MD. Plan discussed with: Patient, Other Code Visit Code Visit Total Time (mins): 45 Additional Comments Additional Comments Additional Comments Patient was seen and evaluated by me. I agree with the assessment and plan as outlined by my nurse practitioner. Patient currently off of Levophed can be downgraded to telemetry. GIANNI COLVIN Sep 10, 2024 04:33 FRANK ADAN MD Sep 10, 2024 16:29
[2024-09-10] MEDS: SODIUM CHLORIDE 0.9% 1,000 ML IV ONE (05:01)
[2024-09-10 05:17] LABS: INR 1.18 (0.9-1.15); Prothrombin Time 12.3 sec (9.3-11.8)
[2024-09-10] MEDS: PIPERACILLIN-TAZOB 3.375GM 100 ML IV SCH (06:22)
--- NOTE | 2024-09-10 06:29 | DVH ---
CLINICAL INDICATION: 54 years old, Male; infection. TECHNIQUE: Noncontrast CT of the left foot was performed. Sagittal and coronal reformatted images are provided. COMPARISON: CT CT L FOOT WO CONTRAST on DOS: 08/25/24 CT Dose: CTDI volume is 7.8 mGy. Dose-length product is 214.4 mGy*cm FINDINGS: There is extensive soft tissue swelling and gas in the plantar hindfoot at the level of the calcaneus . There are camilo within the soft tissues of the heel. This is suggestive of extensive hindfoot s oft tissue infection. Inflammatory changes with gas track along the 5th metatarsal bone. There is no cortical destruction of the 5th metatarsal bone. Mild cortical irregularity along the posterior and p lantar surface of the calcaneus, which given proximity to the soft tissue findings, osteomyelitis in the calcaneus is not excluded. Chronic fragmentation and deformity of the 1st distal phalanx compatib le with osteomyelitis. Diffuse soft tissue swelling throughout the remainder of the forefoot. No obv ious fluid collection although assessment is limited without the benefit of intravenous contrast. No acute fracture, dislocation or malalignment in the foot. Joint spaces are maintained. IMPRESSION: 1. Soft tissue infection in the plantar surface of the hindfoot at the level of the calcaneus and ext ending along the 5th metatarsal. Possible osteomyelitis of the calcaneus. 2. Osteomyelitis in the 1st distal phalanx. 3. Cellulitis throughout the remainder of the foot. All CT scans at this medical facility are performed using dose modulation techniques as appropriate t o a performed exam including the following: Automated exposure control was utilized; adjustment of th e MA and/or KV according to patient size; and use of iterative reconstruction technique.
[2024-09-10] MEDS: InsuLIN REG 1unit/0.01ml Soln (100units/ml) SC SCH (06:37)
[2024-09-10] MEDS: ACCU-CHEK COMFORT CURVE STRIP VI SCH (06:39)
[2024-09-10 07:30] VITALS: PULSE 88; RESP 16; O2SAT 99
[2024-09-10] MEDS: ENOXAPARIN SOD 40 MG/0.4 ML SYRINGE SC SCH (09:44)
[2024-09-10] MEDS: PANTOPRAZOLE 40 MG/10 ML VIAL INJ IV SCH (09:44)
[2024-09-10] MEDS: VANCOMYCIN 1.25GM/250ML 250 ML IV ONE (10:30)
[2024-09-10] MEDS: MORPHINE SULFATE INJ 2 MG/ml SYRG IV PRN ×2 (11:03→15:28)
[2024-09-10] MEDS ORDERED: CLINDAMYCIN 600MG IV 50 ML IV ONE (16:30)
[2024-09-10] MEDS: ACETAMINOPHEN 325 MG TAB PO PRN (16:52)
[2024-09-10] MEDS: CLINDAMYCIN 900MG IV 50 ML IV ONE (16:52)
[2024-09-10 17:00] VITALS: BP 133/64; PULSE 74; RESP 18; TEMP 100.5; O2SAT 98
--- NOTE | 2024-09-10 17:02 | DVHINCON2 ---
DHEERAJ LEMUS RESIDENT 09/10/24 1702: Date Seen: Sep 10, [address] Adan Reason for Consultation left heel wound History of Present Illness Patient is a 54-year-old male with past medical history of diabetes on actually who recently underwent 1. Left foot I&D to bone 2. Left foot wound bed preparation for graft 2. Left foot placement of dermal graft 4. Left foot delayed closure , came to the hospital with a chief complain of new onset fever for five few days, worsening discoloration of left foot, mainly in plantar surface of left foot, draining pus from wound site at graft. As per patient he was given seven days of antibiotic during last hospitalization of Unasyn and vancomycin, sent home with cefazolin antibiotic via PICC line for another eight weeks, however worsening fever and left foot wound patient went to urgent care and at urgent care patient was recommended to come to the hospital for further evaluation of left foot possibly requiring for dietary and infection disease evaluation. Patient denied any other symptoms including chest pain, shortness of breath, any other skin ulcers, abdominal pain, dysuria, weakness, sensory deficit, any other symptoms. Past Medical History Type 2 diabetes mellitus on insulin Past Surgical History Surgery on 08/30/2024: 1. Left foot I&D to bone \ 2. Left foot wound bed preparation for graft 3. Left foot placement of dermal graft 4. Left foot delayed closure Surgery on May 2024: 1. Left foot I&D to bone 2. Left foot delayed closure Family History: FH: colon cancer Social History Patient denied history of smoking, denied any recreational drug use, no alcohol use. Allergies: Coded Allergies: NO KNOWN ALLERGIES (Unverified , 05/24/24) Home Meds Active Scripts Naloxone HCl (Narcan) 4 Mg/0.1 Ml Spr, 4 MG NA DATA ANALYSIS INTERN, #2 SPRAY Prov:FRANK ADAN MD 08/31/24 Hydrocodone-Acetaminophen (Hydrocodone Bitartrate/AC 10-325 mg) 1 Tab Tab, 1 TAB PO Q8HP PRN, #20 TAB Prov:FRANK ADAN MD 08/31/24 Metronidazole (Flagyl) 500 Mg Tab, 1 TAB PO TID, #90 TAB Prov:STAN HATCH MD 05/31/24 Reported Medications Insulin Glargine (Lantus) 100 Unit/Ml Inj, 30 UNIT SC HS, INJ 09/10/24 Current Medications Current Medications Medications (Trade) Dose Ordered Sig/Linda Route PRN Reason Start Time Stop Time Status Last Admin Acetaminophen (Ofirmev) 1,000 mg DAILY STAT IV 09/09/24 18:55 09/09/24 18:57 DC 09/09/24 19:11 Norepinephrine Bitartrate 250 ml @ 9.375 mls/ hr Q24H IV 09/09/24 22:00 09/10/24 14:28 DC 09/09/24 22:05 Ondansetron HCl (Zofran) 4 mg Q6HPRN PRN IV NAUSEA / VOMITING 09/10/24 04:15 Morphine Sulfate 2 mg Q6HPRN PRN IV PAIN SCALE 7 THRU 10 09/10/24 04:15 09/10/24 14:28 DC 09/10/24 11:03 Piperacillin Sod/ Tazobactam Sod 100 ml @ 25 mls/hr Q8HR IV 09/10/24 06:00 09/10/24 14:06 Vancomycin HCl 0 ml @ 0 mls/hr UD IV 09/10/24 04:15 UNV Enoxaparin Sodium (Lovenox) 40 mg DAILY SC 09/10/24 10:00 09/10/24 09:44 Acetaminophen/ Hydrocodone Bitart (Farwell 5/325MG Tab) 1 tab Q6HPRN PRN PO PAIN SCALE 1 THRU 6 09/10/24 04:15 09/10/24 14:28 DC Pantoprazole Sodium (Protonix) 40 mg DAILY IV 09/10/24 10:00 09/10/24 09:44 Acetaminophen (Tylenol Tablet) 650 mg Q6HPRN PRN PO TEMP GREATER THAN 100.4 09/10/24 04:15 Diagnostic Test (Pha) (Accu-Chek Comfort Curve T) 1 strip ACHS 09/10/24 07:00 09/10/24 11:30 Insulin Human Regular (InsuLIN R) ACHS SC 09/10/24 07:00 09/10/24 12:17 Dextrose 50 ml UD PRN IV Blood Sugar LESS THAN 60 09/10/24 04:15 Acetaminophen/ Hydrocodone Bitart (Farwell 10/325MG Tab) 1 tab Q4HP PRN PO MODERATE PAIN (4-6 PAIN SCALE) 09/10/24 14:30 Morphine Sulfate 2 mg Q3HPRN PRN IV SEVERE PAIN (7-10 PAIN SCALE) 09/10/24 14:30 09/10/24 15:28 Clindamycin Phosphate 50 ml @ 50 mls/hr Q8HR IV 09/10/24 22:00 UNV Clindamycin Phosphate 50 ml @ 50 mls/hr Q8H IV 09/11/24 01:00 Review of Systems Patient complaining of fever and chills, worsening discoloration of left plantar surface of foot, drainage over surgical sites of skin graft on of left foot. Eyes: No Pain, No Vision change, No Conjunctivae inflammation, No Eyelid inflammation, No Other, No Redness ENT: No Ear pain, No Ear discharge, No Nose pain, No Nose discharge, No Nose congestion, No Mouth pain, No Mouth swelling, No Throat pain, No Throat swelling, No Other Cardiovascular: No Chest Pain, No Palpitations, No Orthopnea, No Paroxysmal Noc. Dyspnea, No Edema, No Lt Headedness, No Other Respiratory: No Cough, No Dry, No Shortness of breath, No SOB with excertion, No Wheezing, No Hemoptysis, No Pleuritic Pain, No Sputum, No Other Gastrointestinal: No Nausea, No Vomiting, No Abdominal Pain, No Diarrhea, No Constipation, No Melena, No Hematochezia, No Other Genitourinary: No Dysuria, No Frequency, No Incontinence, No Hematuria, No Retention, No Other Musculoskeletal: No other, No neck pain, No shoulder pain, No arm pain, No back pain, No hand pain, No leg pain, foot pain Skin: No Rash, No Lesions, No Jaundice, No Bruising, No Other Vital Signs Vital Signs Date Time Temp Pulse Resp B/P (MAP) Pulse Ox O2 Delivery O2 Flow Rate FiO2 09/10/24 16:38 Nasal Cannula* 2 28 09/10/24 16:05 110 18 120/55 09/10/24 16:00 98 09/10/24 11:00 98.8 98.8 Physical Exam General Appearance: Cooperative. Well developed. Well nourished. NAD Head Exam: Normal inspection Neck Exam: Normal inspection. Non-tender. Normal alignment Pulmonary/Respiratory: Chest non-tender. Clear bilateral breath sounds Cardiovascular/Chest: Regular rate and rhythm. No murmurs. No JVD. Peripheral Pulses: 2+ Radial (R). 2+ Radial (L). 2+ Pedal (R). 2+ Pedal (L) Abdominal Exam: Normal bowel sounds. Soft. Nontender. No hepatospenomegaly. No masses Ankle Exam: Negative ankle edema Lower extremities: 1+ left lower extremity swelling, skin discoloration over lateral plantar surface of left foot, black discoloration of skin graft. Capillary refill greater than 3 seconds. Neuro/Mental Status: A&O x4. Coherent Thoughts/Psych: Normal thought pattern. Appropriate mood and affect. Good judgement and insight Appearance: In no acute distress Skin Exam: Normal inspection. Normal color. Warm. Dry Labs/Diagnostic Data Labs Test 09/10/24 16:31 09/10/24 04:47 09/09/24 19:22 Range/Units POC Glucose 208 H 70-106 mg/dl Prothrombin Time 12.3 H 9.3-11.8 sec Prothrombin Time INR 1.18 H 0.9-1.15 White Blood Count 13.9 H 4.4-10.8 10^3/uL Red Blood Count 3.38 L 4.5-5.90 10^6/uL Hemoglobin 10.1 L 13.5-17.5 g/dL Hematocrit 29.8 L 41.0-53.0 % Mean Corpuscular Volume 88.1 80.0-100.0 fL Mean Corpuscular Hemoglobin 29.9 28.0-32.0 pg Mean Corpuscular Hemoglobin Concent 33.9 32.0-36.0 g/dL Red Cell Distribution Width 13.4 11.8-14.3 % Platelet Count 282 140-450 10^3/uL Mean Platelet Volume 7.6 6.9-10.8 fL Neutrophils (%) (Auto) 88.7 H 37.0-80.0 % Lymphocytes (%) (Auto) 4.7 L 10.0-50.0 % Monocytes (%) (Auto) 6.3 0.0-12.0 % Eosinophils (%) (Auto) 0.1 0.0-7.0 % Basophils (%) (Auto) 0.2 0.0-2.0 % Neutrophils # (Auto) 12.4 H 1.6-8.6 10 ^3/uL Lymphocytes # (Auto) 0.7 0.4-5.4 10 ^3/uL Monocytes # (Auto) 0.9 0-1.3 10 ^3/uL Eosinophils # (Auto) 0 0-0.8 10 ^3/uL Basophils # (Auto) 0 0-0.2 10 ^3/uL Nucleated Red Blood Cells 0.0 % Sodium Level 132 L 136-145 mmol/L Potassium Level 4.1 3.5-5.1 mmol/L Chloride Level 100 98-107 mmol/L Carbon Dioxide Level 24 20-31 mmol/L Anion Gap 8 5-15 Blood Urea Nitrogen 19 9-23 mg/dL Creatinine 0.89 0.700-1.30 mg/dL Glomerular Filtration Rate Calc 101 >90 mL/min BUN/Creatinine Ratio 21.3 H 10.0-20.0 Serum Glucose 231 H 74-106 mg/dL Lactic Acid Level 1.2 0.4-2.0 mmol/L Calcium Level 8.6 L 8.7-10.4 mg/dL Total Bilirubin 0.6 0.2-1.0 mg/dL Aspartate Amino Transferase (AST) 18 13-40 U/L Alanine Aminotransferase (ALT) 11 7-40 U/L Alkaline Phosphatase 93 46-116 U/L Troponin I High Sensitivity 6 </=54 ng/L B-Type Natriuretic Peptide 72.18 0-100 pg/mL Total Protein 5.9 5.7-8.2 g/dL Albumin 3.2 3.2-4.8 g/dL Assessment Left foot osteomyelitis Osteomyelitis of 1st distal phalanx Left foot abscess Left foot skin graft rejection Cellulitis of left foot Sepsis due to cellulitis Diabetic foot infection Type 2 diabetes on insulin Diabetic neuropathy Plan/recommendation Dr. Mcqueen -Continue IV antibiotic with Zosyn and vancomycin given patient is tachycardic requiring IV fluids, likely sepsis due to possible reinfection at wound site or untreated infection during last surgical procedure, adding clindamycin given CT scan showed gas underneath surgical site, less likely necrotizing fasciitis , we will continue to monitor for progression of infection. -Please obtain wound culture over site of new onset discoloration of skin over left foot plantar surface -Recommend podiatry consultation -Pending blood culture -Pending Doppler ultrasound of left lower extremity for DVT -IV hydration given underlying sepsis -Rest of the management as per primary care team, we will continue following up. Plan discussed with: Patient, Spouse Date of Service: Sep 10, 2024 Billing Provider: BIANCA MCQUEEN MD Common Visit Codes: 70580-XUAOOTO INP/OBS CARE (HIGH) BIANCA MCQUEEN MD 09/10/242137: Date Seen: Sep 10, 2024 Referring Physician Case discussed with Dr. Juárez. at the time of visit. Patient presents with a diagnosis diabetic foot ulcer, skin graft daily, surgical site infection of L planter foot/heel after operative debridement for osteomyelitis on 08/30/24. Demonstrates signs of sepsis including chilld, tachycardia, and leukocytosis. cannot rule out development of necrotizing fascitis. Reviewed patient's history, 12 point review of systems, documented vitals, physical exam, and viewed relevant labs and imaging. recommend vancomycin, zosyn, and addition of Zosyn, evaluation for DVT w/ L leg doppler US, and superficial wound culture at side of new necrotizing lesion adjacent to surgical site. Otherwise reviewed and agree with Dr Juárez's findings, A/P as written in note. PE: General Appearance: Cooperative. Well developed. Well nourished. NAD Head Exam: Normal inspection Neck Exam: Normal inspection. Non-tender. Normal alignment Pulmonary/Respiratory: Chest non-tender. Clear bilateral breath sounds Cardiovascular/Chest: Regular rate and rhythm. No murmurs. No JVD. Abdominal Exam: Normal bowel sounds. Soft. Nontender. No hepatosplenomegaly. No masses Ankle Exam: Negative ankle edema Lower extremities: 1+ left lower extremity swelling, skin discoloration. tenderness at mid leg. black discoloration of skin graft. adjacent necrotizing skin w/ soft induration, purulence. Family History: FH: colon cancer Allergies: Coded Allergies: NO KNOWN ALLERGIES (Unverified , 05/24/24) Home Meds Active Scripts Naloxone HCl (Narcan) 4 Mg/0.1 Ml Spr, 4 MG NA DATA ANALYSIS INTERN, #2 SPRAY Prov:FRANK ADAN MD 08/31/24 Hydrocodone-Acetaminophen (Hydrocodone Bitartrate/AC 10-325 mg) 1 Tab Tab, 1 TAB PO Q8HP PRN, #20 TAB Prov:FRANK ADAN MD 08/31/24 Metronidazole (Flagyl) 500 Mg Tab, 1 TAB PO TID, #90 TAB Prov:STAN HATCH MD 05/31/24 Reported Medications Insulin Glargine (Lantus) 100 Unit/Ml Inj, 30 UNIT SC HS, INJ 09/10/24 DHEERAJ LEMUS RESIDENT Sep 10, 2024 17:02 BIANCA MCQUEEN MD Sep 10, 2024 21:38
--- NOTE | 2024-09-10 17:03 | DVH ---
Left lower extremity venous duplex Clinical History: DVT Comparison: None Technique: Duplex Doppler evaluation of the deep venous system of the left lower extremity from the common femor al vein to the popliteal vein including color Doppler and spectral/pulsed waveform analysis was perfo rmed. Findings: The common femoral vein demonstrates appropriate compressibility and waveform variability. There is compressibility/patency of the great saphenous vein at the proximal thigh. The femoral vein demonstrates appropriate compressibility and waveform variability. The deep femoral vein demonstrates appropriate compressibility and waveform variability. The popliteal vein demonstrates appropriate compressibility and waveform variability. There is normal compressibility at the tibioperoneal trunk. Impression: 1. No left femoropopliteal venous thrombosis. 2. Contralateral common femoral vein is patent.
[2024-09-10] MEDS ORDERED: INSLANTI SC (17:23)
[2024-09-10 20:00] VITALS: PULSE 87
[2024-09-10 21:06] VITALS: BP 104/60; PULSE 96; RESP 20; TEMP 98.6; O2SAT 95
[2024-09-10] MEDS: VANCOMYCIN 1.5GM/300ML 300 ML IV SCH (21:42)
[2024-09-10] MEDS ORDERED: CLINDAMYCIN 600MG IV 50 ML IV SCH (22:00)
[2024-09-11] VITALS (8 sets, daily range): BP systolic 93–128; BP diastolic 44–75; PULSE 68–102; RESP 17–20; TEMP 98.4–100.5; O2SAT 90–99
[2024-09-11] MEDS: CLINDAMYCIN 900MG IV 50 ML IV SCH (02:47)
[2024-09-11 07:42] LABS: Basophils # (auto) 0 10 ^3/uL (0-0.2); Basophils % (auto) 0.2 % (0.0-2.0); Eosinophils # (auto) 0.1 10 ^3/uL (0-0.8); Eosinophils % (auto) 0.8 % (0.0-7.0); Hematocrit 28.9 % (41.0-53.0); Hemoglobin 9.7 g/dL (13.5-17.5); Lymphocytes # (auto) 1.1 10 ^3/uL (0.4-5.4); Lymphocytes % (auto) 7.4 % (10.0-50.0); Mean Corpuscular Hemoglobin 29.6 pg (28.0-32.0); Mean Corpuscular Hgb Conc. 33.5 g/dL (32.0-36.0); Mean Corpuscular Volume 88.6 fL (80.0-100.0); Monocytes # (auto) 1.1 10 ^3/uL (0-1.3); Monocytes % (auto) 7.9 % (0.0-12.0); Neutrophils # (auto) 12.2 10 ^3/uL (1.6-8.6); Neutrophils % (auto) 83.7 % (37.0-80.0); Platelet Count (auto) 256 10^3/uL (140-450); Red Blood Cells 3.26 10^6/uL (4.5-5.90); Red Cell Distribution Width 13.4 % (11.8-14.3); White Blood Cell 14.6 10^3/uL (4.4-10.8)
[2024-09-11 09:10] LABS: Albumin 3.4 g/dL (3.2-4.8); Anion Gap 9 (5-15); Aspartate Aminotransferase 15 U/L (13-40); BUN/Creatinine Ratio 12.2 (10.0-20.0); Bilirubin, Total 0.6 mg/dL (0.2-1.0); Blood Urea Nitrogen 10 mg/dL (9-23); Carbon Dioxide 23 mmol/L (20-31); Chloride 103 mmol/L (98-107); Potassium 3.7 mmol/L (3.5-5.1); Total Protein 6.3 g/dL (5.7-8.2)
[2024-09-11 09:22] LABS: Alanine Aminotransferase 9 U/L (7-40); Alkaline Phosphatase 120 U/L (46-116); Calcium 8.5 mg/dL (8.7-10.4); Glucose 199 mg/dL (74-106); Sodium 135 mmol/L (136-145)
[2024-09-11] MEDS: PIPERACILLIN-TAZOB 3.375GM 100 ML IV SCH (15:12)
--- NOTE | 2024-09-11 16:54 | DVHPN2 ---
Subjective Overnight events noted. Patient currently on IV antibiotics, podiatry consultation is pending. 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 motor 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 Medications Current Medications Medications Dose Ordered Sig/Linda Route Start Time Stop Time Status Last Admin Dose Admin Ondansetron HCl 4 mg Q6HPRN PRN IV 09/10/24 04:15 Vancomycin HCl 0 ml @ 0 mls/hr UD IV 09/10/24 04:15 Enoxaparin Sodium 40 mg DAILY SC 09/10/24 10:00 09/11/24 10:16 40 MG Pantoprazole Sodium 40 mg DAILY IV 09/10/24 10:00 09/11/24 10:16 40 MG Acetaminophen 650 mg Q6HPRN PRN PO 09/10/24 04:15 09/11/24 01:46 650 MG Diagnostic Test (Pha) 1 strip ACHS 09/10/24 07:00 09/11/24 11:57 1 STRIP Insulin Human Regular ACHS SC 09/10/24 07:00 09/11/24 12:01 3 UNITS Dextrose 50 ml UD PRN IV 09/10/24 04:15 Acetaminophen/ Hydrocodone Bitart 1 tab Q4HP PRN PO 09/10/24 14:30 Morphine Sulfate 2 mg Q3HPRN PRN IV 09/10/24 14:30 09/11/24 15:30 2 MG Clindamycin Phosphate 50 ml @ 50 mls/hr Q8HR IV 09/10/24 22:00 UNV Clindamycin Phosphate 50 ml @ 50 mls/hr Q8H IV 09/11/24 01:00 09/11/24 10:15 50 MLS/HR Vancomycin HCl 300 ml @ 200 mls/hr Q12H IV 09/10/24 22:00 09/11/24 11:46 200 MLS/HR Enteral Nutritional Formula 27.5 gm BIDWM PO 09/11/24 18:00 Piperacillin Sod/ Tazobactam Sod 100 ml @ 25 mls/hr Q6H IV 09/11/24 14:00 09/11/24 15:12 25 MLS/HR Laboratory Results Laboratory Tests 09/11/24 06:25 Chemistry Test 09/11/24 06:25 Albumin 3.4 g/dL (3.2-4.8) Calcium Level 8.5 mg/dL (8.7-10.4) L Total Protein 6.3 g/dL (5.7-8.2) LFT Test 09/11/24 06:25 Alanine Aminotransferase (ALT) 9 U/L (7-40) Alkaline Phosphatase 120 U/L (46-116) H Aspartate Amino Transferase (AST) 15 U/L (13-40) Total Bilirubin 0.6 mg/dL (0.2-1.0) Microbiology Microbiology Date/Time Source Procedure Growth Status 09/10/24 18:55 Nose MRSA Screen - Final Complete 09/10/24 09:15 Voided Urine Urine Culture - Preliminary Resulted 09/09/24 19:22 Blood Blood Culture - Preliminary NO GROWTH AFTER 24 HOURS OF INCUBATION. Resulted Assessment/Plan Assessment/Plan This is a 54 yo male with known past medical history of DM2, hypertension, bilateral foot surgeries, chronic left foot wound with recent left foot I&D, who presents to the hospital with left foot pain and non healing foot wound. Patient found to have 1. Septic shock secondary to acute on chronic osteomyelitis left foot 2. Hypotension requiring IV vasopressors 3. non healing left foot wound with likely skin graft rejection 4. Acute on chronic osteomyelitis of left foot with left foot abscess 5. Diabetes mellitus type 2 -continue IV antibiotics, infectious disease follow up, podiatry services follow up. Plan discussed with: Patient, Spouse Date of Service: Sep 11, 2024 Billing Provider: FRANK ADAN MD Common Visit Codes: NOT BILLABLE FRANK ADAN MD Sep 11, 2024 16:54
[2024-09-11] MEDS: Juven Orange Powder PACKET 27.5gm PO SCH (18:00)
[2024-09-12] VITALS (7 sets, daily range): BP systolic 105–138; BP diastolic 53–71; PULSE 85–102; RESP 18–19; TEMP 98.5–102.7; O2SAT 93–100
--- NOTE | 2024-09-12 16:39 | DVHPN2 ---
Subjective Overnight events noted. Patient currently on IV antibiotics, podiatry consultation is pending. 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 Medications Current Medications Medications Dose Ordered Sig/Linda Route Start Time Stop Time Status Last Admin Dose Admin Ondansetron HCl 4 mg Q6HPRN PRN IV 09/10/24 04:15 Vancomycin HCl 0 ml @ 0 mls/hr UD IV 09/10/24 04:15 Enoxaparin Sodium 40 mg DAILY SC 09/10/24 10:00 09/12/24 11:06 40 MG Pantoprazole Sodium 40 mg DAILY IV 09/10/24 10:00 09/12/24 11:06 40 MG Acetaminophen 650 mg Q6HPRN PRN PO 09/10/24 04:15 09/12/24 06:29 650 MG Diagnostic Test (Pha) 1 strip ACHS 09/10/24 07:00 09/12/24 11:30 1 STRIP Insulin Human Regular ACHS SC 09/10/24 07:00 09/12/24 11:30 3 UNITS Dextrose 50 ml UD PRN IV 09/10/24 04:15 Acetaminophen/ Hydrocodone Bitart 1 tab Q4HP PRN PO 09/10/24 14:30 Morphine Sulfate 2 mg Q3HPRN PRN IV 09/10/24 14:30 09/12/24 11:52 2 MG Clindamycin Phosphate 50 ml @ 50 mls/hr Q8HR IV 09/10/24 22:00 UNV Clindamycin Phosphate 50 ml @ 50 mls/hr Q8H IV 09/11/24 01:00 09/12/24 11:55 50 MLS/HR Vancomycin HCl 300 ml @ 200 mls/hr Q12H IV 09/10/24 22:00 09/12/24 11:56 200 MLS/HR Enteral Nutritional Formula 27.5 gm BIDWM PO 09/11/24 18:00 09/12/24 08:00 27.5 GM Piperacillin Sod/ Tazobactam Sod 100 ml @ 25 mls/hr Q6H IV 09/11/24 14:00 09/12/24 15:19 25 MLS/HR Laboratory Results Laboratory Tests 09/11/24 06:25 09/12/24 07:03 Microbiology Microbiology Date/Time Source Procedure Growth Status 09/10/24 18:55 Nose MRSA Screen - Final Complete 09/10/24 09:15 Voided Urine Urine Culture - Final Complete 09/09/24 19:22 Blood Blood Culture - Preliminary NO GROWTH AFTER 48 HOURS OF INCUBATION. Resulted Assessment/Plan Assessment/Plan This is a 54 yo male with known past medical history of DM2, hypertension, bilateral foot surgeries, chronic left foot wound with recent left foot I&D, who presents to the hospital with left foot pain and non healing foot wound. Patient found to have 1. Septic shock secondary to acute on chronic osteomyelitis left foot 2. Hypotension requiring IV vasopressors 3. non healing left foot wound with likely skin graft rejection 4. Acute on chronic osteomyelitis of left foot with left foot abscess 5. Diabetes mellitus type 2 -continue IV antibiotics, infectious disease follow up, podiatry services follow up. -plan of care with the patient and patient's at bedside. Plan discussed with: Patient, Spouse Date of Service: Sep 12, 2024 Billing Provider: FRANK ADAN MD Common Visit Codes: NOT BILLABLE FRANK ADAN MD Sep 12, 2024 16:39
[2024-09-12] MEDS: HYDROcodone-ACET 10/325MG TAB PO PRN (22:17)
--- NOTE | 2024-09-12 22:24 | DVHPN2 ---
Consult Progress Note Date Seen: Sep 11, 2024 Subjective Patient reports: Other (still febrile and having fevers and chills , looking pale and right foot is not drainin gbut there is advancement of redness and swelling of his right lower extremitiy ) Objective vital signs Vital Sign Date Time Temp Pulse Resp B/P (MAP) Pulse Ox O2 Delivery O2 Flow Rate FiO2 09/12/24 20:00 Nasal Cannula* 2 28 09/12/24 18:40 18 16 118/61 09/12/24 17:00 99.1 98 99.1 Total Intake and Output 09/11/24 09/11/24 09/12/24 15:00 23:00 07:00 Intake Total 690 ml 1240 ml 450 ml Output Total 860 ml Balance 690 ml 380 ml 450 ml medications Current Medications Medications Dose Ordered Sig/Linda Route Start Time Stop Time Status Last Admin Dose Admin Ondansetron HCl 4 mg Q6HPRN PRN IV 09/10/24 04:15 Vancomycin HCl 0 ml @ 0 mls/hr UD IV 09/10/24 04:15 Enoxaparin Sodium 40 mg DAILY SC 09/10/24 10:00 09/12/24 11:06 40 MG Pantoprazole Sodium 40 mg DAILY IV 09/10/24 10:00 09/12/24 11:06 40 MG Acetaminophen 650 mg Q6HPRN PRN PO 09/10/24 04:15 09/12/24 06:29 650 MG Diagnostic Test (Pha) 1 strip ACHS 09/10/24 07:00 09/12/24 17:00 1 STRIP Insulin Human Regular ACHS SC 09/10/24 07:00 09/12/24 17:00 3 UNITS Dextrose 50 ml UD PRN IV 09/10/24 04:15 Acetaminophen/ Hydrocodone Bitart 1 tab Q4HP PRN PO 09/10/24 14:30 Morphine Sulfate 2 mg Q3HPRN PRN IV 09/10/24 14:30 09/12/24 18:10 2 MG Clindamycin Phosphate 50 ml @ 50 mls/hr Q8HR IV 09/10/24 22:00 UNV Clindamycin Phosphate 50 ml @ 50 mls/hr Q8H IV 09/11/24 01:00 09/12/24 18:20 50 MLS/HR Vancomycin HCl 300 ml @ 200 mls/hr Q12H IV 09/10/24 22:00 09/12/24 11:56 200 MLS/HR Enteral Nutritional Formula 27.5 gm BIDWM PO 09/11/24 18:00 09/12/24 18:06 27.5 GM Piperacillin Sod/ Tazobactam Sod 100 ml @ 25 mls/hr Q6H IV 09/11/24 14:00 09/12/24 15:19 25 MLS/HR General Appearance: Cooperative. Well developed. Well nourished. NAD Head Exam: Normal inspection Neck Exam: Normal inspection. Non-tender. Normal alignment Pulmonary/Respiratory: Chest non-tender. Clear bilateral breath sounds Cardiovascular/Chest: Regular rate and rhythm. No murmurs. No JVD. Peripheral Pulses: 2+ Radial (R). 2+ Radial (L). 2+ Pedal (R). 2+ Pedal (L) Abdominal Exam: Normal bowel sounds. Soft. Nontender. No hepatospenomegaly. No masses Ankle Exam: Negative ankle edema Lower extremities: 1+ left lower extremity swelling, skin discoloration over lateral plantar surface of left foot, black discoloration of skin graft. Capillary refill greater than 3 seconds. Neuro/Mental Status: A&O x4. Coherent Thoughts/Psych: Normal thought pattern. Appropriate mood and affect. Good judgement and insight Appearance: In no acute distress Skin Exam: Normal inspection. Normal color. Warm. Dry laboratory and microbiology Laboratory Tests 09/12/24 07:03 09/11/24 06:25 Test 09/11/24 06:25 Range/Units Serum Glucose 199 H 74-106 mg/dL Problem List/Assessment/Plan Problems(with codes): (1) Hypotension (2) Wound of left foot (3) Septic shock (4) Necrotizing subcutaneous infection (5) Cellulitis and abscess of foot (6) Foot ulcer (7) Diabetic foot infection (8) Osteomyelitis of left foot Problem List/Assessment/Plan Left foot osteomyelitis Osteomyelitis of 1st distal phalanx Left foot abscess Left foot skin graft rejection Cellulitis of left foot Sepsis due to cellulitis Diabetic foot infection Type 2 diabetes on insulin Diabetic neuropathy Case discussed with Dr. Juárez. at the time of visit. Patient presents with a diagnosis diabetic foot ulcer, skin graft daily, surgical site infection of L planter foot/heel after operative debridement for osteomyelitis on 08/30/24. Demonstrates signs of sepsis including chilld, tachycardia, and leukocytosis. cannot rule out development of necrotizing fascitis. Reviewed patient's history, 12 point review of systems, documented vitals, physical exam, and viewed relevant labs and imaging. recommend vancomycin, zosyn, and addition of Zosyn, evaluation for DVT w/ L leg doppler US, and superficial wound culture at side of new necrotizing lesion adjacent to surgical site. Otherwise reviewed and agree with Dr Juárez's findings, A/P as written in note. 09/11: whitecount is 14.6 , MRSA nares is negative and blood cultures are no growth to date . superficial wound cultures growing enterococcus and gram negative abdulkadir . dopple ultrasound of lower extremities shows no DVT Plan - continue Zosyn , vancomycin , clindomycin -recommend patient more urgently be seen by Dr. Trevino who preformed patients prior surgery on the as patient will likely need more urgent surgical debridement due to advancing of infection -Please obtain wound culture over site of new onset discoloration of skin over left foot plantar surface -Recommend podiatry consultation -Pending blood culture -Pending Doppler ultrasound of left lower extremity for DVT -IV hydration given underlying sepsis -Rest of the management as per primary care team, we will continue following up. Plan discussed with: Other Dietary Evaluation Review Recommendations by RD: Protein Supplementation Comments: 1) Initiate Arslan @ 1 pk bid 2) Initiate vitamin C @ 500 mg bid 3) Initiate zinc sulfate @ 220 mg qd 4) Continue to monitor PO intake, labs, and skin integrity Expected Outcomes/Goals: 1) appetite, labs, and wound to improve 2) f/u in 3-5 days BIANCA HOLLAND MD Sep 12, 2024 22:24
--- NOTE | 2024-09-12 22:33 | DVHPN2 ---
Consult Progress Note Date Seen: Sep 12, 2024 Subjective Patient reports: Other (still having chills , is without fever today , endorsing some leg pain and swelling and redness as well as necrosis about same on lateral side of left foot ) Objective vital signs Vital Sign Date Time Temp Pulse Resp B/P (MAP) Pulse Ox O2 Delivery O2 Flow Rate FiO2 09/12/24 20:00 Nasal Cannula* 2 28 09/12/24 18:40 18 16 118/61 09/12/24 17:00 99.1 98 99.1 Total Intake and Output 09/11/24 09/11/24 09/12/24 15:00 23:00 07:00 Intake Total 690 ml 1240 ml 450 ml Output Total 860 ml Balance 690 ml 380 ml 450 ml medications Current Medications Medications Dose Ordered Sig/Linda Route Start Time Stop Time Status Last Admin Dose Admin Ondansetron HCl 4 mg Q6HPRN PRN IV 09/10/24 04:15 Vancomycin HCl 0 ml @ 0 mls/hr UD IV 09/10/24 04:15 Enoxaparin Sodium 40 mg DAILY SC 09/10/24 10:00 09/12/24 11:06 40 MG Pantoprazole Sodium 40 mg DAILY IV 09/10/24 10:00 09/12/24 11:06 40 MG Acetaminophen 650 mg Q6HPRN PRN PO 09/10/24 04:15 09/12/24 06:29 650 MG Diagnostic Test (Pha) 1 strip ACHS 09/10/24 07:00 09/12/24 17:00 1 STRIP Insulin Human Regular ACHS SC 09/10/24 07:00 09/12/24 17:00 3 UNITS Dextrose 50 ml UD PRN IV 09/10/24 04:15 Acetaminophen/ Hydrocodone Bitart 1 tab Q4HP PRN PO 09/10/24 14:30 Morphine Sulfate 2 mg Q3HPRN PRN IV 09/10/24 14:30 09/12/24 18:10 2 MG Clindamycin Phosphate 50 ml @ 50 mls/hr Q8HR IV 09/10/24 22:00 UNV Clindamycin Phosphate 50 ml @ 50 mls/hr Q8H IV 09/11/24 01:00 09/12/24 18:20 50 MLS/HR Vancomycin HCl 300 ml @ 200 mls/hr Q12H IV 09/10/24 22:00 09/12/24 11:56 200 MLS/HR Enteral Nutritional Formula 27.5 gm BIDWM PO 09/11/24 18:00 09/12/24 18:06 27.5 GM Piperacillin Sod/ Tazobactam Sod 100 ml @ 25 mls/hr Q6H IV 09/11/24 14:00 09/12/24 15:19 25 MLS/HR General Appearance: Cooperative. Well developed. Well nourished. NAD Head Exam: Normal inspection Neck Exam: Normal inspection. Non-tender. Normal alignment Pulmonary/Respiratory: Chest non-tender. Clear bilateral breath sounds Cardiovascular/Chest: Regular rate and rhythm. No murmurs. No JVD. Peripheral Pulses: 2+ Radial (R). 2+ Radial (L). 2+ Pedal (R). 2+ Pedal (L) Abdominal Exam: Normal bowel sounds. Soft. Nontender. No hepatospenomegaly. No masses Ankle Exam: Negative ankle edema Lower extremities: 1+ left lower extremity swelling, skin discoloration over lateral plantar surface of left foot, black discoloration of skin graft. Capillary refill greater than 3 seconds. Neuro/Mental Status: A&O x4. Coherent Thoughts/Psych: Normal thought pattern. Appropriate mood and affect. Good judgement and insight Appearance: In no acute distress Skin Exam: Normal inspection. Normal color. Warm. Dry laboratory and microbiology Laboratory Tests 09/12/24 07:03 09/11/24 06:25 Test 09/11/24 06:25 Range/Units Serum Glucose 199 H 74-106 mg/dL Problem List/Assessment/Plan Problems(with codes): (1) Diabetic foot infection (2) Osteomyelitis of left foot (3) Necrotizing subcutaneous infection (4) Cellulitis and abscess of foot (5) Foot ulcer (6) Hypotension (7) Wound of left foot (8) Septic shock Problem List/Assessment/Plan Left foot osteomyelitis Osteomyelitis of 1st distal phalanx Left foot abscess Left foot skin graft rejection Cellulitis of left foot Sepsis due to cellulitis Diabetic foot infection Type 2 diabetes on insulin Diabetic neuropathy Case discussed with Dr. Juárez. at the time of visit. Patient presents with a diagnosis diabetic foot ulcer, skin graft daily, surgical site infection of L planter foot/heel after operative debridement for osteomyelitis on 08/30/24. Demonstrates signs of sepsis including chilld, tachycardia, and leukocytosis. cannot rule out development of necrotizing fascitis. Reviewed patient's history, 12 point review of systems, documented vitals, physical exam, and viewed relevant labs and imaging. recommend vancomycin, zosyn, and addition of Zosyn, evaluation for DVT w/ L leg doppler US, and superficial wound culture at side of new necrotizing lesion adjacent to surgical site. Otherwise reviewed and agree with Dr Juárez's findings, A/P as written in note. 2/: whitecount is 14.6 , MRSA nares is negative and blood cultures are no growth to date . superficial wound cultures growing enterococcus and gram negative abdulkadir . dopple ultrasound of lower extremities shows no DVT 2: remains septic with tachycardia , chills and awaiting pediatry evaluation Plan - continue Zosyn , vancomycin , clindomycin -recommend patient more urgently be seen by Dr. Trevino who preformed patients prior surgery on the as patient will likely need more urgent surgical debridement due to advancing of infection -Please obtain wound culture over site of new onset discoloration of skin over left foot plantar surface -Recommend podiatry consultation -Pending blood culture -Pending Doppler ultrasound of left lower extremity for DVT -IV hydration given underlying sepsis -Rest of the management as per primary care team, we will continue following up. Plan discussed with: Other Dietary Evaluation Review Recommendations by RD: Protein Supplementation Comments: 1) Initiate Arslan @ 1 pk bid 2) Initiate vitamin C @ 500 mg bid 3) Initiate zinc sulfate @ 220 mg qd 4) Continue to monitor PO intake, labs, and skin integrity Expected Outcomes/Goals: 1) appetite, labs, and wound to improve 2) f/u in 3-5 days BIANCA HOLLAND MD Sep 12, 2024 22:33
[2024-09-13] VITALS (9 sets, daily range): BP systolic 96–134; BP diastolic 43–73; PULSE 77–108; RESP 18–20; TEMP 98.3–101.7; O2SAT 92–99
--- NOTE | 2024-09-13 12:08 | DVHINCON2 ---
Date Seen: Sep 13, 2024 Reason for Consultation Left foot wound History of Present Illness Mr. Tushar Zuleta is a 54-year-old male who presents with a chief complaint of left foot wound check. Patient had previous history of bilateral foot surgery presented to the hospital with a left foot pain, was status post 1. Acute osteomyelitis of the left foot status post I and D of the left foot, status post delayed closure, 2. Diabetes mellitus type 2, 3. Hypertension. Patient was discharged last August 31, with IV antibiotics, cefazolin, given via PICC line. Patient claims his home health care nurse never arrived to clean his wounds. Notable swelling and pain of the left foot, with fever occuring 4 days ago. Patient reports he went to the urgent care yesterday and was told he had gangrene and was sent to the ED for further evaluation. Left foot x ray resulted There is no evidence of an acute fracture, dislocation, osseous erosions, blastic, or lytic lesions. No radiopaque foreign bodies. Moderate soft tissue edema with lateral surgical camilo and subcutaneous emphysema. Consider further evaluation with a nuclear medicine WBC scan or contrast enhanced MRI. Patient was found to be hypotensive in the ED and started on vasopressor. Patient admitted for further evaluation and treatment. Past Medical History See H&P Past Surgical History See H&P Family History: Diabetes mellitus G8 FATHER, , Cause: Kidney disease FH: colon cancer Allergies: Coded Allergies: NO KNOWN ALLERGIES (Unverified , 05/24/24) Home Meds Active Scripts Naloxone HCl (Narcan) 4 Mg/0.1 Ml Spr, 4 MG NA MEDICAL RECORDS TECH, #2 SPRAY Prov:FRANK ADAN MD 08/31/24 Hydrocodone-Acetaminophen (Hydrocodone Bitartrate/AC 10-325 mg) 1 Tab Tab, 1 TAB PO Q8HP PRN, #20 TAB Prov:FRANK ADAN MD 08/31/24 Metronidazole (Flagyl) 500 Mg Tab, 1 TAB PO TID, #90 TAB Prov:STAN HATCH MD 05/31/24 Reported Medications Insulin Glargine (Lantus) 100 Unit/Ml Inj, 30 UNIT SC HS, INJ 09/10/24 Vital Signs Vital Signs Date Time Temp Pulse Resp B/P (MAP) Pulse Ox O2 Delivery O2 Flow Rate FiO2 09/13/24 10:16 95 18 128/72 09/13/24 09:00 98.6 92 98.6 09/13/24 08:00 Nasal Cannula* 2 28 Physical Exam DERMATOLOGIC EXAM: - Skin is dry and cool to the touch dry bilaterally. - Nails 1-5 of the bilateral foot are thickened, discolored, dystrophic, and tender to palpate with subungual debris - Hair loss noted to bilateral feet - left lateral foot wound with necrosis and cellulitis with purulence VASCULAR EXAM: - DP and PT pulses are palpable bilaterally. - MANAGER COMMUNITY OUTREACH is brisk to all digits. - Feet are cool to touch compared to lower legs bilaterally. NEUROLOGIC EXAM: - Normal light touch sensation to the superficial peroneal, deep peroneal, sural, saphenous, and tibial nerve branches. - Protective sensation is diminished as tested with a 5.07 10g [place] bilaterally. MUSCULOSKELETAL EXAM: - No gross deformities - Muscle strength is 5/5 and active motion is pain-free and symmetrical bilaterally - No pain or crepitation with passive range of motion bilaterally to all major pedal joints Labs/Diagnostic Data Labs Test 09/13/24 10:41 09/12/24 12:14 09/12/24 07:03 09/11/24 06:25 Range/Units Vancomycin Level Trough 9.9 5-10 ug/mL POC Glucose 191 H 70-106 mg/dl Creatinine 0.73 0.700-1.30 mg/dL Glomerular Filtration Rate Calc 107 >90 mL/min White Blood Count 14.6 H 4.4-10.8 10^3/uL Red Blood Count 3.26 L 4.5-5.90 10^6/uL Hemoglobin 9.7 L 13.5-17.5 g/dL Hematocrit 28.9 L 41.0-53.0 % Mean Corpuscular Volume 88.6 80.0-100.0 fL Mean Corpuscular Hemoglobin 29.6 28.0-32.0 pg Mean Corpuscular Hemoglobin Concent 33.5 32.0-36.0 g/dL Red Cell Distribution Width 13.4 11.8-14.3 % Platelet Count 256 140-450 10^3/uL Mean Platelet Volume 8.2 6.9-10.8 fL Neutrophils (%) (Auto) 83.7 H 37.0-80.0 % Lymphocytes (%) (Auto) 7.4 L 10.0-50.0 % Monocytes (%) (Auto) 7.9 0.0-12.0 % Eosinophils (%) (Auto) 0.8 0.0-7.0 % Basophils (%) (Auto) 0.2 0.0-2.0 % Neutrophils # (Auto) 12.2 H 1.6-8.6 10 ^3/uL Lymphocytes # (Auto) 1.1 0.4-5.4 10 ^3/uL Monocytes # (Auto) 1.1 0-1.3 10 ^3/uL Eosinophils # (Auto) 0.1 0-0.8 10 ^3/uL Basophils # (Auto) 0 0-0.2 10 ^3/uL Nucleated Red Blood Cells 0.0 % Sodium Level 135 L 136-145 mmol/L Potassium Level 3.7 3.5-5.1 mmol/L Chloride Level 103 98-107 mmol/L Carbon Dioxide Level 23 20-31 mmol/L Anion Gap 9 5-15 Blood Urea Nitrogen 10 9-23 mg/dL BUN/Creatinine Ratio 12.2 10.0-20.0 Serum Glucose 199 H 74-106 mg/dL Calcium Level 8.5 L 8.7-10.4 mg/dL Total Bilirubin 0.6 0.2-1.0 mg/dL Aspartate Amino Transferase (AST) 15 13-40 U/L Alanine Aminotransferase (ALT) 9 7-40 U/L Alkaline Phosphatase 120 H 46-116 U/L Total Protein 6.3 5.7-8.2 g/dL Albumin 3.4 3.2-4.8 g/dL Test 09/10/24 04:47 09/09/24 19:22 Range/Units Prothrombin Time 12.3 H 9.3-11.8 sec Prothrombin Time INR 1.18 H 0.9-1.15 Lactic Acid Level 1.2 0.4-2.0 mmol/L Troponin I High Sensitivity 6 </=54 ng/L B-Type Natriuretic Peptide 72.18 0-100 pg/mL Microbiology Date/Time Source Procedure Growth Status 09/10/24 18:55 Nose MRSA Screen - Final Complete 09/10/24 09:15 Voided Urine Urine Culture - Final Complete 09/09/24 19:22 Blood Blood Culture - Preliminary NO GROWTH AFTER 72 HOURS OF INCUBATION. Resulted Problems(with codes): (1) Septic shock (2) Wound of left foot (3) Hypotension (4) Foot ulcer (5) Cellulitis and abscess of foot (6) Necrotizing subcutaneous infection (7) Osteomyelitis of left foot (8) Diabetic foot infection Plan/Recommendation ASSESSMENT: Patient is a [age] year old seen on the floor for a worsening ulcer PLAN: - The patients chart was reviewed, clinical findings were discussed with the patient, the etiologies of the conditions were discussed in detail, and a treatment plan was agreed to at this time, with both oral and written instructions provided. - reviewed advanced imaging - discussed plan is to perform an incision and drainage - patient will be NPO since midnight - take him to the OR today - we will get cultures in the OR - can weightbear as tolerated in postoperative shoe All questions were answered and concerns addressed to the patient's satisfaction. The patient was given the phone number to the clinic and was told how to make contact with the clinic should any concerns or questions arise. Patient understands that if any questions or concerns arise prior to the next appointment, we should be contacted immediately. FOLLOW-UP: Continue to follow while inpatient Plan discussed with: Patient Date of Service: Sep 13, 2024 Billing Provider: RYAN CHOU DPM Common Visit Codes: CONSULT ONLY Consultation Codes: [id number] CONSULT <80MIN RYAN CHOU DPM Sep 13, 2024 12:08
[2024-09-13] MEDS: VANCOMYCIN 1.5GM/300ML 300 ML IV SCH (12:15)
[2024-09-13] MEDS ORDERED: ONDANSETRON HCL 4 MG/2 ML VIAL ONE (13:21)
[2024-09-13] MEDS ORDERED: GLYCOPYRROLATE 0.2 MG/ML 1ML VIAL ONE (13:21)
[2024-09-13] MEDS ORDERED: PROPOFOL 10 MG/ML 20 ML IV ONE (13:21)
[2024-09-13] MEDS ORDERED: MIDAZOLAM HCL 2MG/2ML 2ml VIAL (1mg/ml) ONE (13:21)
[2024-09-13] MEDS ORDERED: KETAMINE 50mg/ML 1ml syringe ONE (13:26)
--- NOTE | 2024-09-13 13:51 | DVHOP2 ---
Operative Report - 2 Report Details Date: 09/13/24 Preop Diagnosis: 1. Left foot gangrene 2. Left foot abscess 3. Left foot necrotizing fasciitis 4. Left foot cellulitis Postop Diagnosis: Same as preop Surgeon: Ryan Chou MD Anesthesiologist: See anesthesia Anesthesia: Mac Consent: The patient was informed of the risks and benefits of the procedure. These include but are not limited to complications of anesthesia, postoperative infection, incomplete relief of symptoms, recurrence of symptoms, damage to blood vessels, nerves and tendons, deep venous thrombosis, pulmonary embolism and possible need for repeat surgery in the future. Complications: None Estimated Blood Loss: Minimal Fluids: See anesthesia Findings: Significant tissue loss with purulent drainage and malodor Indications for Surgery: Worsening foot ulcer Name of Procedure Performed 1. Left foot I&D to bone (51418) Procedure Details Procedure Details: PRE-PROCEDURE INFORMATION: In the pre-op holding area, the extremity to be operated on was clearly marked and the patient verified correct laterality of the marking. The patient was transferred to the OR table and placed in a supine position. A timeout was performed in which identification of the correct patient, procedure, location, and materials was done. The left foot and leg were prepped and draped in normal sterile fashion. DESCRIPTION OF PROCEDURE: Attention was directed to the left foot 10 cm incision where area of fluctuance was noted. An incision was made over this area and was deepened through blunt dissection. The incision was deepened to the level of abscess and bone. Care was taken to the dissection to avoid any neurovascular and tendinous structures. The incision was deepened to the bone, and the abscess appeared to be purulent fluid consistent with pus. The cortices of the bone was then removed with Shay an all necrotic tissue. After the abscess was drained, the area was irrigated with 3 L normal saline using cysto tubing. Deep cultures were then obtained from the wound. The area was then inspected and any areas of tracking, especially along the tendons were also drained. The wound was packed with Betadine-soaked gauze and we will need to be closed at a later date. POSTOPERATIVE INFORMATION: The patient tolerated the above noted procedure and anesthesia well and was transferred to the PACU with vital signs stable, and vascular status intact with capillary refill intact to all digits. Patient will return to the OR multiple times before being discharged. Significant amount of tissue loss. Significant amount of purulence and malodor Condition Good Disposition Still a Patient RYAN CHOU DPM Sep 13, 2024 13:51
[2024-09-13] MEDS: ONDANSETRON HCL 4 MG/2 ML VIAL IV ONE (15:56)
[2024-09-13] MEDS: BUPIVACAINE 0.5% P/F INJ 10 ML VIAL ONE (15:56)
--- NOTE | 2024-09-13 16:48 | DVHPN2 ---
Subjective Overnight events noted. Patient currently on IV antibiotics, podiatry consultation is pending. Reviewed: Care Plan Changes from previous H/P or p: No Changes Objective Vitals Vital Signs Date Time Temp Pulse Resp B/P (MAP) Pulse Ox O2 Delivery O2 Flow Rate FiO2 09/13/24 16:38 98.3 108 19 113/46 (68) 99 98.3 09/13/24 13:43 Mask 7.0 09/13/24 08:00 28 Intake/Output Intake and Output 09/13/24 07:00 Intake Total 3120 ml Output Total 700 ml Balance 2420 ml Intake Oral 2570 ml IV Total 550 ml Output Urine Total 700 ml # Voids 5 # Bowel Movements 2 Exam HEENT pupils are reactive Neck is supple CVS S1-S2 regular rate and rhythm Respiratory bilaterally clear GI positive bowel sound Extremity no edema 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 Medications Current Medications Medications Dose Ordered Sig/Linda Route Start Time Stop Time Status Last Admin Dose Admin Ondansetron HCl 4 mg Q6HPRN PRN IV 09/10/24 04:15 Vancomycin HCl 0 ml @ 0 mls/hr UD IV 09/10/24 04:15 Enoxaparin Sodium 40 mg DAILY SC 09/10/24 10:00 09/12/24 11:06 40 MG Pantoprazole Sodium 40 mg DAILY IV 09/10/24 10:00 09/13/24 11:42 40 MG Acetaminophen 650 mg Q6HPRN PRN PO 09/10/24 04:15 09/12/24 06:29 650 MG Diagnostic Test (Pha) 1 strip ACHS 09/10/24 07:00 09/13/24 11:53 1 STRIP Insulin Human Regular ACHS SC 09/10/24 07:00 09/13/24 11:59 3 UNITS Dextrose 50 ml UD PRN IV 09/10/24 04:15 Acetaminophen/ Hydrocodone Bitart 1 tab Q4HP PRN PO 09/10/24 14:30 09/12/24 22:17 1 TAB Morphine Sulfate 2 mg Q3HPRN PRN IV 09/10/24 14:30 09/13/24 16:08 2 MG Clindamycin Phosphate 50 ml @ 50 mls/hr Q8HR IV 09/10/24 22:00 UNV Clindamycin Phosphate 50 ml @ 50 mls/hr Q8H IV 09/11/24 01:00 09/13/24 08:45 50 MLS/HR Enteral Nutritional Formula 27.5 gm BIDWM PO 09/11/24 18:00 09/12/24 18:06 27.5 GM Piperacillin Sod/ Tazobactam Sod 100 ml @ 25 mls/hr Q6H IV 09/11/24 14:00 09/13/24 16:05 25 MLS/HR Vancomycin HCl 300 ml @ 200 mls/hr Q8H IV 09/13/24 12:15 Laboratory Results Laboratory Tests 09/11/24 06:25 09/12/24 07:03 Microbiology Microbiology Date/Time Source Procedure Growth Status 09/10/24 18:55 Nose MRSA Screen - Final Complete 09/10/24 09:15 Voided Urine Urine Culture - Final Complete 09/09/24 19:22 Blood Blood Culture - Preliminary NO GROWTH AFTER 72 HOURS OF INCUBATION. Resulted Assessment/Plan Assessment/Plan This is a 54 yo male with known past medical history of DM2, hypertension, bilateral foot surgeries, chronic left foot wound with recent left foot I&D, who presents to the hospital with left foot pain and non healing foot wound. Patient found to have 1. Septic shock secondary to acute on chronic osteomyelitis left foot 2. Hypotension requiring IV vasopressors, currently resolved 3. non healing left foot wound with likely skin graft rejection 4. Acute on chronic osteomyelitis of left foot with left foot status post I and D to the bone on09/13 5. Diabetes mellitus type 2 -continue IV antibiotics, infectious disease follow up, podiatry services follow up. -plan of care with the patient and patient's at bedside. Plan discussed with: Patient Date of Service: Sep 13, 2024 Billing Provider: FRANK ADAN MD Common Visit Codes: NOT BILLABLE FRANK ADAN MD Sep 13, 2024 16:48
--- NOTE | 2024-09-13 18:54 | DVHPN2 ---
Consult Progress Note Date Seen: Sep 13, 2024 Subjective Patient reports: No new complaints Other Systems: Underwent debridement of left foot today. Feeling better, no new complaints. No fever, continued to have swelling of left foot. Physical examination: General Appearance: Cooperative. Well developed. Well nourished. NAD Head Exam: Normal inspection Neck Exam: Normal inspection. Non-tender. Normal alignment Pulmonary/Respiratory: Chest non-tender. Clear bilateral breath sounds Cardiovascular/Chest: Regular rate and rhythm. No murmurs. No JVD. Peripheral Pulses: 2+ Radial (R). 2+ Radial (L). 2+ Pedal (R). 2+ Pedal (L) Abdominal Exam: Normal bowel sounds. Soft. Nontender. No hepatospenomegaly. No masses Ankle Exam: Negative ankle edema Lower extremities: 1+ left lower extremity swelling, skin discoloration over lateral plantar surface of left foot, black discoloration of skin graft. Capillary refill greater than 3 seconds. Neuro/Mental Status: A&O x4. Coherent Thoughts/Psych: Normal thought pattern. Appropriate mood and affect. Good judgement and insight Appearance: In no acute distress Skin Exam: Normal inspection. Normal color. Warm. Dry Objective vital signs Vital Sign Date Time Temp Pulse Resp B/P (MAP) Pulse Ox O2 Delivery O2 Flow Rate FiO2 09/13/24 16:38 98.3 108 19 113/46 (68) 99 98.3 09/13/24 13:43 Mask 7.0 09/13/24 08:00 28 Total Intake and Output 09/12/24 09/12/24 09/13/24 15:00 23:00 07:00 Intake Total 900 ml 1170 ml 1050 ml Output Total 700 ml Balance 900 ml 1170 ml 350 ml medications Current Medications Medications Dose Ordered Sig/Linda Route Start Time Stop Time Status Last Admin Dose Admin Ondansetron HCl 4 mg Q6HPRN PRN IV 09/10/24 04:15 Vancomycin HCl 0 ml @ 0 mls/hr UD IV 09/10/24 04:15 Enoxaparin Sodium 40 mg DAILY SC 09/10/24 10:00 09/12/24 11:06 40 MG Pantoprazole Sodium 40 mg DAILY IV 09/10/24 10:00 09/13/24 11:42 40 MG Acetaminophen 650 mg Q6HPRN PRN PO 09/10/24 04:15 09/12/24 06:29 650 MG Diagnostic Test (Pha) 1 strip ACHS 09/10/24 07:00 09/13/24 17:43 1 STRIP Insulin Human Regular ACHS SC 09/10/24 07:00 09/13/24 18:01 3 UNITS Dextrose 50 ml UD PRN IV 09/10/24 04:15 Acetaminophen/ Hydrocodone Bitart 1 tab Q4HP PRN PO 09/10/24 14:30 09/12/24 22:17 1 TAB Morphine Sulfate 2 mg Q3HPRN PRN IV 09/10/24 14:30 09/13/24 16:08 2 MG Clindamycin Phosphate 50 ml @ 50 mls/hr Q8HR IV 09/10/24 22:00 UNV Enteral Nutritional Formula 27.5 gm BIDWM PO 09/11/24 18:00 09/13/24 18:01 27.5 GM Piperacillin Sod/ Tazobactam Sod 100 ml @ 25 mls/hr Q6H IV 09/11/24 14:00 09/13/24 16:05 25 MLS/HR Vancomycin HCl 300 ml @ 200 mls/hr Q8H IV 09/13/24 12:15 laboratory and microbiology Laboratory Tests 09/12/24 07:03 09/11/24 06:25 Test 09/11/24 06:25 Range/Units Serum Glucose 199 H 74-106 mg/dL Problem List/Assessment/Plan Problem List/Assessment/Plan Left foot osteomyelitis Osteomyelitis of 1st distal phalanx Left foot abscess Left foot skin graft rejection Cellulitis of left foot Sepsis due to cellulitis Diabetic foot infection Type 2 diabetes on insulin Diabetic neuropathy 09/11: white count is 14.6 , MRSA nares is negative and blood cultures are no growth to date . superficial wound cultures growing enterococcus and gram negative abdulkadir . dopple ultrasound of lower extremities shows no DVT 2/2: remains septic with tachycardia , chills and awaiting pediatry evaluation 2/3: Underwent debridement via podiatry, discontinue clindamycin, continue Zosyn and vanco. Wait for culture status post surgery. Wound culture came positive for Enterococcus sensitive to vancomycin. Plan - continue Zosyn , vancomycin. Discontinue clindamycin. Patient underwent debridement via podiatry. Patient will benefit from continue antibiotic, until cultures came back from specimen. - podiatry consultation -culture no growth till now to per patient wound culture grew Enterococcus faecalis sensitive to vancomycin -DVT negative -IV hydration given underlying sepsis -Rest of the management as per primary care team, we will continue following up. _ Attending Addendum: Case discussed with Dr. Lemus. at the time of visit. Patient presents with a diagnosis diabetic foot ulcer, skin graft , surgical site infection of L planter foot/heel after operative debridement for osteomyelitis on 08/30/24. Demonstrates signs of sepsis including chills, tachycardia, and leukocytosis. cannot rule out development of necrotizing fascitis. Reviewed patient's history, 12 point review of systems, documented vitals, physical exam, and viewed relevant labs and imaging. recommend vancomycin, zosyn, can stop clindaycin now sp operative debridement to level of bone. posterior leg pain leg pain and fever improved since patient had debridement. however given rapid progression suspect and necrotizing infection. would await for cultures from operation to finalize and patient will likely require multiple debridements. Otherwise reviewed and agree with Dr Lemus's findings, A/P as written in note. PE: General Appearance: Cooperative. Well developed. Well nourished. NAD Head Exam: Normal inspection Neck Exam: Normal inspection. Non-tender. Normal alignment Pulmonary/Respiratory: Chest non-tender. Clear bilateral breath sounds Cardiovascular/Chest: Regular rate and rhythm. No murmurs. No JVD. Abdominal Exam: Normal bowel sounds. Soft. Nontender. No hepatosplenomegaly. No masses Ankle Exam: Negative ankle edema Lower extremities: 1+ left lower extremity swelling, skin discoloration. sp L leg lateral debridement, tightly wraps, minimal drainage Bianca Mcqueen MD Plan discussed with: Patient, Other (RN) Dietary Evaluation Review Recommendations by RD: Protein Supplementation Comments: 1) Initiate Arslan @ 1 pk bid 2) Initiate vitamin C @ 500 mg bid 3) Initiate zinc sulfate @ 220 mg qd 4) Continue to monitor PO intake, labs, and skin integrity Expected Outcomes/Goals: 1) appetite, labs, and wound to improve 2) f/u in 3-5 days DHEERAJ LEMUS Sep 13, 2024 18:54 BIANCA MCQUEEN MD Sep 13, 2024 20:18
[2024-09-14] VITALS (7 sets, daily range): BP systolic 85–128; BP diastolic 53–68; PULSE 65–91; RESP 18–20; TEMP 98.2–100.8; O2SAT 90–94
[2024-09-14 09:15] LABS: Anion Gap 8 (5-15); Calcium 8.9 mg/dL (8.7-10.4); Carbon Dioxide 24 mmol/L (20-31); Chloride 101 mmol/L (98-107)
[2024-09-14 09:20] LABS: BUN/Creatinine Ratio 10.4 (10.0-20.0)
[2024-09-14 09:32] LABS: Blood Urea Nitrogen 7 mg/dL (9-23); Glucose 201 mg/dL (74-106); Potassium 3.3 mmol/L (3.5-5.1); Sodium 133 mmol/L (136-145)
--- NOTE | 2024-09-14 13:47 | DVHPN2 ---
Subjective Mr. Tushar Zuleta is a 54-year-old male who presents with a chief complaint of left foot wound check. Patient had previous history of bilateral foot surgery presented to the hospital with a left foot pain, was status post 1. Acute osteomyelitis of the left foot status post I and D of the left foot, status post delayed closure, 2. Diabetes mellitus type 2, 3. Hypertension. Patient was discharged last August 31, with IV antibiotics, cefazolin, given via PICC line. Patient claims his home health care nurse never arrived to clean his wounds. Notable swelling and pain of the left foot, with fever occuring 4 days ago. Patient reports he went to the urgent care yesterday and was told he had gangrene and was sent to the ED for further evaluation. Left foot x ray resulted There is no evidence of an acute fracture, dislocation, osseous erosions, blastic, or lytic lesions. No radiopaque foreign bodies. Moderate soft tissue edema with lateral surgical camilo and subcutaneous emphysema. Consider further evaluation with a nuclear medicine WBC scan or contrast enhanced MRI. Patient was found to be hypotensive in the ED and started on vasopressor. Patient admitted for further evaluation and treatment. Reviewed: Care Plan Changes from previous H/P or p: No Changes Objective Vitals Vital Signs Date Time Temp Pulse Resp B/P (MAP) Pulse Ox O2 Delivery O2 Flow Rate FiO2 09/14/24 10:23 88 20 122/60 09/14/24 09:00 98.2 93 98.2 09/14/24 08:00 Nasal Cannula* 2 28 Intake/Output Intake and Output 09/14/24 07:00 Intake Total 805 ml Output Total 6 ml Balance 799 ml Intake Oral 350 ml IV Total 455 ml Output Urine Total 6 ml # Voids 2 # Bowel Movements 1 Exam DERMATOLOGIC EXAM: - Skin is dry and cool to the touch dry bilaterally. - Nails 1-5 of the bilateral foot are thickened, discolored, dystrophic, and tender to palpate with subungual debris - Hair loss noted to bilateral feet - left lateral foot wound with necrosis and cellulitis with purulence VASCULAR EXAM: - DP and PT pulses are palpable bilaterally. - BELT WORKER is brisk to all digits. - Feet are cool to touch compared to lower legs bilaterally. NEUROLOGIC EXAM: - Normal light touch sensation to the superficial peroneal, deep peroneal, sural, saphenous, and tibial nerve branches. - Protective sensation is diminished as tested with a 5.07 10g Ruffin-Artie bilaterally. MUSCULOSKELETAL EXAM: - No gross deformities - Muscle strength is 5/5 and active motion is pain-free and symmetrical bilaterally - No pain or crepitation with passive range of motion bilaterally to all major pedal joints Medications Current Medications Medications Dose Ordered Sig/Linda Route Start Time Stop Time Status Last Admin Dose Admin Ondansetron HCl 4 mg Q6HPRN PRN IV 09/10/24 04:15 Vancomycin HCl 0 ml @ 0 mls/hr UD IV 09/10/24 04:15 Enoxaparin Sodium 40 mg DAILY SC 09/10/24 10:00 09/14/24 09:48 40 MG Pantoprazole Sodium 40 mg DAILY IV 09/10/24 10:00 09/14/24 09:48 40 MG Acetaminophen 650 mg Q6HPRN PRN PO 09/10/24 04:15 09/12/24 06:29 650 MG Diagnostic Test (Pha) 1 strip ACHS 09/10/24 07:00 09/14/24 12:00 1 STRIP Insulin Human Regular ACHS SC 09/10/24 07:00 09/14/24 12:01 4 UNITS Dextrose 50 ml UD PRN IV 09/10/24 04:15 Acetaminophen/ Hydrocodone Bitart 1 tab Q4HP PRN PO 09/10/24 14:30 09/13/24 23:18 1 TAB Morphine Sulfate 2 mg Q3HPRN PRN IV 09/10/24 14:30 09/14/24 09:53 2 MG Clindamycin Phosphate 50 ml @ 50 mls/hr Q8HR IV 09/10/24 22:00 UNV Enteral Nutritional Formula 27.5 gm BIDWM PO 09/11/24 18:00 09/14/24 08:00 27.5 GM Piperacillin Sod/ Tazobactam Sod 100 ml @ 25 mls/hr Q6H IV 09/11/24 14:00 09/14/24 09:47 25 MLS/HR Vancomycin HCl 300 ml @ 200 mls/hr Q8H IV 09/13/24 12:15 09/14/24 04:44 200 MLS/HR Laboratory Results Laboratory Tests 09/11/24 06:25 09/14/24 07:31 Chemistry Test 09/14/24 07:31 Calcium Level 8.9 mg/dL (8.7-10.4) Microbiology Microbiology Date/Time Source Procedure Growth Status 09/13/24 13:35 Foot Left Gram Stain - Final Resulted 09/13/24 13:35 Foot Left Anaerobic Culture - Preliminary Resulted 09/13/24 13:35 Foot Left Aerobic Culture - Preliminary Resulted 09/10/24 09:15 Voided Urine Urine Culture - Final Complete 09/09/24 19:22 Blood Blood Culture - Preliminary NO GROWTH AFTER 72 HOURS OF INCUBATION. Resulted Assessment/Plan Assessment/Plan ASSESSMENT: Patient is a 54 year old seen on the floor follow up s/p foot I&D PLAN: - The patients chart was reviewed, clinical findings were discussed with the patient, the etiologies of the conditions were discussed in detail, and a treatment plan was agreed to at this time, with both oral and written instructions provided. - reviewed advanced imaging - reviewed all of the labs and pathology - discussed plan is to perform a subsequent incision and drainage - patient will be NPO at midnight - take him to the OR tomorrow - it was determined that multiple I&Ds will be necessary to save the limb - can weightbear as tolerated in postoperative shoe All questions were answered and concerns addressed to the patient's satisfaction. The patient was given the phone number to the clinic and was told how to make contact with the clinic should any concerns or questions arise. Patient understands that if any questions or concerns arise prior to the next appointment, we should be contacted immediately. FOLLOW-UP: Continue to follow while inpatient Plan discussed with: Patient Problem List: (1) Septic shock (2) Wound of left foot (3) Hypotension (4) Foot ulcer (5) Cellulitis and abscess of foot (6) Necrotizing subcutaneous infection (7) Osteomyelitis of left foot (8) Diabetic foot infection Date of Service: Sep 14, 2024 Billing Provider: RYAN CHOU DPM Common Visit Codes: [id number] INP/OBS CARE(MOD) RYAN CHOU DPM Sep 14, 2024 13:47
--- NOTE | 2024-09-14 17:14 | DVHPN2 ---
Subjective Overnight events noted. Patient currently on IV antibiotics, patient was status post left foot I and D on09/13 Reviewed: Care Plan Changes from previous H/P or p: No Changes Objective Vitals Vital Signs Date Time Temp Pulse Resp B/P (MAP) Pulse Ox O2 Delivery O2 Flow Rate FiO2 09/14/24 15:00 60 20 120/62 09/14/24 13:00 98.3 94 98.3 09/14/24 08:00 Nasal Cannula* 2 28 Intake/Output Intake and Output 09/14/24 07:00 Intake Total 805 ml Output Total 6 ml Balance 799 ml Intake Oral 350 ml IV Total 455 ml Output Urine Total 6 ml # Voids 2 # Bowel Movements 1 Exam HEENT pupils are reactive Neck is supple CVS S1-S2 regular rate and rhythm Respiratory bilaterally clear GI positive bowel sound Extremity no edema 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 Medications Current Medications Medications Dose Ordered Sig/Linda Route Start Time Stop Time Status Last Admin Dose Admin Ondansetron HCl 4 mg Q6HPRN PRN IV 09/10/24 04:15 Vancomycin HCl 0 ml @ 0 mls/hr UD IV 09/10/24 04:15 Enoxaparin Sodium 40 mg DAILY SC 09/10/24 10:00 09/14/24 09:48 40 MG Pantoprazole Sodium 40 mg DAILY IV 09/10/24 10:00 09/14/24 09:48 40 MG Acetaminophen 650 mg Q6HPRN PRN PO 09/10/24 04:15 09/12/24 06:29 650 MG Diagnostic Test (Pha) 1 strip ACHS 09/10/24 07:00 09/14/24 16:46 1 STRIP Insulin Human Regular ACHS SC 09/10/24 07:00 09/14/24 16:46 4 UNITS Dextrose 50 ml UD PRN IV 09/10/24 04:15 Acetaminophen/ Hydrocodone Bitart 1 tab Q4HP PRN PO 09/10/24 14:30 09/13/24 23:18 1 TAB Morphine Sulfate 2 mg Q3HPRN PRN IV 09/10/24 14:30 09/14/24 14:30 2 MG Clindamycin Phosphate 50 ml @ 50 mls/hr Q8HR IV 09/10/24 22:00 UNV Enteral Nutritional Formula 27.5 gm BIDWM PO 09/11/24 18:00 09/14/24 08:00 27.5 GM Piperacillin Sod/ Tazobactam Sod 100 ml @ 25 mls/hr Q6H IV 09/11/24 14:00 09/14/24 14:29 25 MLS/HR Vancomycin HCl 300 ml @ 200 mls/hr Q8H IV 09/13/24 12:15 09/14/24 04:44 200 MLS/HR Laboratory Results Laboratory Tests 09/11/24 06:25 09/14/24 07:31 Chemistry Test 09/14/24 07:31 Calcium Level 8.9 mg/dL (8.7-10.4) Microbiology Microbiology Date/Time Source Procedure Growth Status 09/13/24 13:35 Foot Left Gram Stain - Final Resulted 09/13/24 13:35 Foot Left Anaerobic Culture - Preliminary Resulted 09/13/24 13:35 Foot Left Aerobic Culture - Preliminary Resulted 09/10/24 09:15 Voided Urine Urine Culture - Final Complete 09/09/24 19:22 Blood Blood Culture - Preliminary NO GROWTH AFTER 72 HOURS OF INCUBATION. Resulted Assessment/Plan Assessment/Plan This is a 54 yo male with known past medical history of DM2, hypertension, bilateral foot surgeries, chronic left foot wound with recent left foot I&D, who presents to the hospital with left foot pain and non healing foot wound. Patient found to have 1. Septic shock secondary to acute on chronic osteomyelitis left foot 2. Hypotension requiring IV vasopressors, currently resolved 3. non healing left foot wound with likely skin graft rejection 4. Acute on chronic osteomyelitis of left foot with left foot status post I and D to the bone on09/13 postop day one 5. Diabetes mellitus type 2 -continue IV antibiotics, infectious disease follow up, podiatry services follow up. -plan of care with the patient and patient's at bedside. Plan discussed with: Patient My Orders Orders - FRANK ADAN MD Procedure Category Date Status Time * Lead Data Entry Operator CONS 09/14/24 Transmitted Consult Date of Service: Sep 14, 2024 Billing Provider: FRANK ADAN MD Common Visit Codes: NOT BILLABLE FRANK ADAN MD Sep 14, 2024 17:14
--- NOTE | 2024-09-14 20:22 | DVHPN2 ---
DHEERAJ LEMUS RESIDENT 09/14/242021: Consult Progress Note Date Seen: Sep 14, 2024 Subjective Patient reports: No new complaints Other Systems: No new complain. plan for debridement tommorrow. Physical examination: General Appearance: Cooperative. Well developed. Well nourished. NAD Head Exam: Normal inspection Neck Exam: Normal inspection. Non-tender. Normal alignment Pulmonary/Respiratory: Chest non-tender. Clear bilateral breath sounds Cardiovascular/Chest: Regular rate and rhythm. No murmurs. No JVD. Peripheral Pulses: 2+ Radial (R). 2+ Radial (L). 2+ Pedal (R). 2+ Pedal (L) Abdominal Exam: Normal bowel sounds. Soft. Nontender. No hepatospenomegaly. No masses Ankle Exam: Negative ankle edema Lower extremities: 1+ left lower extremity swelling, skin discoloration over lateral plantar surface of left foot, black discoloration of skin graft. Capillary refill greater than 3 seconds. Neuro/Mental Status: A&O x4. Coherent Thoughts/Psych: Normal thought pattern. Appropriate mood and affect. Good judgement and insight Appearance: In no acute distress Skin Exam: Normal inspection. Normal color. Warm. Dry Objective vital signs Vital Sign Date Time Temp Pulse Resp B/P (MAP) Pulse Ox O2 Delivery O2 Flow Rate FiO2 09/14/24 17:00 100.8 86 18 107/68 (81) 90 100.8 09/14/24 08:00 Nasal Cannula* 2 28 Total Intake and Output 09/13/24 09/13/24 09/14/24 15:00 23:00 07:00 Intake Total 155 ml 450 ml 200 ml Output Total 6 ml Balance 155 ml 444 ml 200 ml medications Current Medications Medications Dose Ordered Sig/Linda Route Start Time Stop Time Status Last Admin Dose Admin Ondansetron HCl 4 mg Q6HPRN PRN IV 09/10/24 04:15 Vancomycin HCl 0 ml @ 0 mls/hr UD IV 09/10/24 04:15 Enoxaparin Sodium 40 mg DAILY SC 09/10/24 10:00 09/14/24 09:48 40 MG Pantoprazole Sodium 40 mg DAILY IV 09/10/24 10:00 09/14/24 09:48 40 MG Acetaminophen 650 mg Q6HPRN PRN PO 09/10/24 04:15 09/12/24 06:29 650 MG Diagnostic Test (Pha) 1 strip ACHS 09/10/24 07:00 09/14/24 16:46 1 STRIP Insulin Human Regular ACHS SC 09/10/24 07:00 09/14/24 16:46 4 UNITS Dextrose 50 ml UD PRN IV 09/10/24 04:15 Acetaminophen/ Hydrocodone Bitart 1 tab Q4HP PRN PO 09/10/24 14:30 09/14/24 20:11 1 TAB Morphine Sulfate 2 mg Q3HPRN PRN IV 09/10/24 14:30 09/14/24 14:30 2 MG Clindamycin Phosphate 50 ml @ 50 mls/hr Q8HR IV 09/10/24 22:00 UNV Enteral Nutritional Formula 27.5 gm BIDWM PO 09/11/24 18:00 09/14/24 18:00 27.5 GM Piperacillin Sod/ Tazobactam Sod 100 ml @ 25 mls/hr Q6H IV 09/11/24 14:00 09/14/24 20:11 25 MLS/HR laboratory and microbiology Laboratory Tests 09/14/24 07:31 09/11/24 06:25 Test 09/14/24 07:31 Range/Units Serum Glucose 201 H 74-106 mg/dL Problem List/Assessment/Plan Problem List/Assessment/Plan Left foot osteomyelitis Osteomyelitis of 1st distal phalanx Left foot abscess Left foot skin graft rejection Cellulitis of left foot Sepsis due to cellulitis Diabetic foot infection Type 2 diabetes on insulin Diabetic neuropathy 09/11: whitecount is 14.6 , MRSA nares is negative and blood cultures are no growth to date . superficial wound cultures growing enterococcus and gram negative abdulkadir . dopple ultrasound of lower extremities shows no DVT 2/: remains septic with tachycardia , chills and awaiting pediatry evaluation 2/: Underwent debridement via podiatry, discontinue clindamycin, continue Zosyn and vanco. Wait for culture status post surgery. Wound culture came positive for Enterococcus sensitive to vancomycin. 09/14: Continue antibiotic zosy, vanco. Plan for 2 debridement tomorrow. Plan left foot abscess culture(09/13/24) : Gram-positive cocci in pairs, still ruling out pathogens. Continue current antibiotic with Zosyn and vancomycin. Plan for debridement tomorrow. Keep NPO. - Continue Zosyn , vancomycin. Plan for 2 debridement tomorrow. Keep NPO. - Podiatry consultation - Culture no growth till now to per patient wound culture grew Enterococcus faecalis sensitive to vancomycin - DVT negative - MRSA negative - IV hydration given underlying sepsis - Rest of the management as per primary care team, we will continue following up. - Poor prognosis. Plan discussed with: Patient, Other (RN) Dietary Evaluation Review Recommendations by RD: Protein Supplementation Comments: 1) Initiate Arslan @ 1 pk bid 2) Initiate vitamin C @ 500 mg bid 3) Initiate zinc sulfate @ 220 mg qd 4) Continue to monitor PO intake, labs, and skin integrity Expected Outcomes/Goals: 1) appetite, labs, and wound to improve 2) f/u in 3-5 days BIANCA HOLLAND MD 09/17/24 9960: Consult Progress Note Problem List/Assessment/Plan Problem List/Assessment/Plan _ Attending Addendum: Case discussed with Dr. Lemus. at the time of visit. Seen by Dr Lemus and reviewed assessment and plan .awaiting to get additional surgery tommorow , not having any pain in his foot. He is growing enterococcus, bacteroides fregilus on his wound culture however theyre unlikely to be the causative organisms more likely we are covering adequately patients infection so will continue these Zosyn . Due to worseing kidney function with stop vancomycin and switch to oral linazolid. recommend renal consult to further evaluate for etiology of paitents worsening renal function. Can consider switching off beta lactams , suspect to be causing worseining renal function . ideal antibiotics is oral linazolid and IV zosyn for 6 weeks DHEERAJ LEMUS RESIDENT Sep 14, 2024 20:22 BIANCA HOLLAND MD Sep 17, 2024 23:37
[2024-09-15] VITALS (8 sets, daily range): BP systolic 93–128; BP diastolic 43–65; PULSE 74–88; RESP 17–20; TEMP 98–98.9; O2SAT 92–100
[2024-09-15 05:36] LABS: Basophils # (auto) 0.1 10 ^3/uL (0-0.2); Basophils % (auto) 0.5 % (0.0-2.0); Eosinophils # (auto) 0.3 10 ^3/uL (0-0.8); Eosinophils % (auto) 2.1 % (0.0-7.0); Hematocrit 26.3 % (41.0-53.0); Hemoglobin 9.1 g/dL (13.5-17.5); Lymphocytes # (auto) 1.3 10 ^3/uL (0.4-5.4); Lymphocytes % (auto) 8.4 % (10.0-50.0); Mean Corpuscular Hemoglobin 29.8 pg (28.0-32.0); Mean Corpuscular Hgb Conc. 34.6 g/dL (32.0-36.0); Mean Corpuscular Volume 86.2 fL (80.0-100.0); Monocytes # (auto) 1.2 10 ^3/uL (0-1.3); Monocytes % (auto) 7.5 % (0.0-12.0); Neutrophils # (auto) 12.5 10 ^3/uL (1.6-8.6); Neutrophils % (auto) 81.5 % (37.0-80.0); Platelet Count (auto) 344 10^3/uL (140-450); Red Blood Cells 3.06 10^6/uL (4.5-5.90); Red Cell Distribution Width 13.3 % (11.8-14.3); White Blood Cell 15.4 10^3/uL (4.4-10.8)
--- NOTE | 2024-09-15 09:10 | DVHPN2 ---
Subjective Mr. Tushar Zuleta is a 54-year-old male who presents with a chief complaint of left foot wound check. Patient had previous history of bilateral foot surgery presented to the hospital with a left foot pain, was status post 1. Acute osteomyelitis of the left foot status post I and D of the left foot, status post delayed closure, 2. Diabetes mellitus type 2, 3. Hypertension. Patient was discharged last August 31, with IV antibiotics, cefazolin, given via PICC line. Patient claims his home health care nurse never arrived to clean his wounds. Notable swelling and pain of the left foot, with fever occuring 4 days ago. Patient reports he went to the urgent care yesterday and was told he had gangrene and was sent to the ED for further evaluation. Left foot x ray resulted There is no evidence of an acute fracture, dislocation, osseous erosions, blastic, or lytic lesions. No radiopaque foreign bodies. Moderate soft tissue edema with lateral surgical camilo and subcutaneous emphysema. Consider further evaluation with a nuclear medicine WBC scan or contrast enhanced MRI. Patient was found to be hypotensive in the ED and started on vasopressor. Patient admitted for further evaluation and treatment. Reviewed: Care Plan Changes from previous H/P or p: No Changes Objective Vitals Vital Signs Date Time Temp Pulse Resp B/P (MAP) Pulse Ox O2 Delivery O2 Flow Rate FiO2 09/15/24 08:10 78 20 130/68 09/15/24 05:00 98.9 93 98.9 09/14/24 20:00 Nasal Cannula* 2 28 Intake/Output Intake and Output 09/15/24 07:00 Intake Total 1761 ml Output Total 400 ml Balance 1361 ml Intake Oral 1461 ml IV Total 300 ml Output Urine Total 400 ml # Voids 4 Exam DERMATOLOGIC EXAM: - Skin is dry and cool to the touch dry bilaterally. - Nails 1-5 of the bilateral foot are thickened, discolored, dystrophic, and tender to palpate with subungual debris - Hair loss noted to bilateral feet - left lateral foot wound with necrosis and cellulitis with purulence VASCULAR EXAM: - DP and PT pulses are palpable bilaterally. - HEAD PASTRY CHEF is brisk to all digits. - Feet are cool to touch compared to lower legs bilaterally. NEUROLOGIC EXAM: - Normal light touch sensation to the superficial peroneal, deep peroneal, sural, saphenous, and tibial nerve branches. - Protective sensation is diminished as tested with a 5.07 10g [place] bilaterally. MUSCULOSKELETAL EXAM: - No gross deformities - Muscle strength is 5/5 and active motion is pain-free and symmetrical bilaterally - No pain or crepitation with passive range of motion bilaterally to all major pedal joints Medications Current Medications Medications Dose Ordered Sig/Linda Route Start Time Stop Time Status Last Admin Dose Admin Ondansetron HCl 4 mg Q6HPRN PRN IV 09/10/24 04:15 Vancomycin HCl 0 ml @ 0 mls/hr UD IV 09/10/24 04:15 Enoxaparin Sodium 40 mg DAILY SC 09/10/24 10:00 09/14/24 09:48 Pantoprazole Sodium 40 mg DAILY IV 09/10/24 10:00 09/15/24 08:13 Acetaminophen 650 mg Q6HPRN PRN PO 09/10/24 04:15 09/12/24 06:29 Diagnostic Test (Pha) 1 strip ACHS 09/10/24 07:00 09/15/24 06:09 Insulin Human Regular ACHS SC 09/10/24 07:00 09/14/24 22:17 Dextrose 50 ml UD PRN IV 09/10/24 04:15 Acetaminophen/ Hydrocodone Bitart 1 tab Q4HP PRN PO 09/10/24 14:30 09/14/24 20:11 Morphine Sulfate 2 mg Q3HPRN PRN IV 09/10/24 14:30 09/15/24 08:10 Clindamycin Phosphate 50 ml @ 50 mls/hr Q8HR IV 09/10/24 22:00 UNV Enteral Nutritional Formula 27.5 gm BIDWM PO 09/11/24 18:00 09/15/24 08:10 Piperacillin Sod/ Tazobactam Sod 100 ml @ 25 mls/hr Q6H IV 09/11/24 14:00 09/15/24 08:08 Laboratory Results Laboratory Tests 09/14/24 07:31 09/15/24 05:08 Microbiology Microbiology Date/Time Source Procedure Growth Status 09/13/24 13:35 Foot Left Gram Stain - Final Resulted 09/13/24 13:35 Foot Left Anaerobic Culture - Preliminary Resulted 09/13/24 13:35 Foot Left Aerobic Culture - Preliminary Resulted 09/10/24 09:15 Voided Urine Urine Culture - Final Complete 09/09/24 19:22 Blood Blood Culture - Final NO GROWTH AFTER 5 DAYS OF INCUBATION. Complete Assessment/Plan Assessment/Plan ASSESSMENT: Patient is a 54 year old seen on the floor follow up s/p foot I&D PLAN: - The patients chart was reviewed, clinical findings were discussed with the patient, the etiologies of the conditions were discussed in detail, and a treatment plan was agreed to at this time, with both oral and written instructions provided. - reviewed advanced imaging - reviewed all of the labs and pathology - discussed plan is to perform a subsequent incision and drainage - patient will be NPO at midnight - take him to the OR tomorrow - it was determined that multiple I&Ds will be necessary to save the limb - can weightbear as tolerated in postoperative shoe All questions were answered and concerns addressed to the patient's satisfaction. The patient was given the phone number to the clinic and was told how to make contact with the clinic should any concerns or questions arise. Patient understands that if any questions or concerns arise prior to the next appointment, we should be contacted immediately. FOLLOW-UP: Continue to follow while inpatient Plan discussed with: Patient My Orders Orders - RYAN CHOU DPM Procedure Category Date Status Time Npo After Midnight DIET 09/14/24 Transmitted Dinner Obtain Consent For: ORDERS 09/14/24 Transmitted 13:48 Problem List: (1) Septic shock (2) Wound of left foot (3) Hypotension (4) Foot ulcer (5) Cellulitis and abscess of foot (6) Necrotizing subcutaneous infection (7) Osteomyelitis of left foot (8) Diabetic foot infection Date of Service: Sep 15, 2024 Billing Provider: RYAN CHOU DPM Common Visit Codes: [id number] INP/OBS CARE(MOD) RYAN CHOU DPM Sep 15, 2024 09:10
[2024-09-15] MEDS: BUPIVACAINE HCL 50 ML ONE (12:10)
[2024-09-15] MEDS ORDERED: PROPOFOL 10 MG/ML 20 ML IV ONE (12:24)
[2024-09-15] MEDS ORDERED: GLYCOPYRROLATE 0.2 MG/ML 1ML VIAL ONE (12:24)
[2024-09-15] MEDS ORDERED: ONDANSETRON HCL 4 MG/2 ML VIAL ONE (12:24)
[2024-09-15] MEDS ORDERED: MIDAZOLAM HCL 2MG/2ML 2ml VIAL (1mg/ml) ONE (12:24)
[2024-09-15] MEDS ORDERED: KETAMINE 50mg/ML 1ml syringe ONE (12:48)
--- NOTE | 2024-09-15 13:11 | DVHOP2 ---
Operative Report - 2 Report Details Date: 09/15/24 Preop Diagnosis: 1. Left foot gangrene 2. Left foot abscess 3. Left foot necrotizing fasciitis 4. Left foot cellulitis Postop Diagnosis: Same as preop Surgeon: Ryan Chou MD Anesthesiologist: See anesthesia Anesthesia: Mac Consent: The patient was informed of the risks and benefits of the procedure. These include but are not limited to complications of anesthesia, postoperative infection, incomplete relief of symptoms, recurrence of symptoms, damage to blood vessels, nerves and tendons, deep venous thrombosis, pulmonary embolism and possible need for repeat surgery in the future. Complications: None Estimated Blood Loss: Minimal Fluids: See anesthesia Findings: Consistent with diagnosis Indications for Surgery: Worsening foot ulcer Name of Procedure Performed 1. Left foot I&D to bone (18970) Procedure Details Procedure Details: PRE-PROCEDURE INFORMATION: In the pre-op holding area, the extremity to be operated on was clearly marked and the patient verified correct laterality of the marking. The patient was transferred to the OR table and placed in a supine position. A timeout was performed in which identification of the correct patient, procedure, location, and materials was done. The left foot and leg were prepped and draped in normal sterile fashion. DESCRIPTION OF PROCEDURE: Attention was directed to the left foot incision where area of fluctuance previous incision was made was noted. An incision was made over this area and was deepened through blunt dissection. The incision was deepened to the level of abscess and bone. Care was taken to the dissection to avoid any neurovascular and tendinous structures. The incision was deepened to the bone, and the abscess appeared to be purulent fluid consistent with pus. The cortices of the bone was then removed with Shay an all necrotic tissue. After the abscess was drained, the area was irrigated with 3 L normal saline using cysto tubing. The area was then inspected and any areas of tracking, especially along the tendons were also drained. The wound was packed with Betadine-soaked gauze and we will need to be closed at a later date. POSTOPERATIVE INFORMATION: The patient tolerated the above noted procedure and anesthesia well and was transferred to the PACU with vital signs stable, and vascular status intact with capillary refill intact to all digits. Patient will return to the floor continue IV antibiotics. Patient will have a placement of a wound VAC. patient will need a subsequent debridement on Friday. Condition Good Disposition Still a Patient RYAN CHOU DPM Sep 15, 2024 13:11
[2024-09-15] MEDS: ONDANSETRON HCL 4 MG/2 ML VIAL IV ONE (13:15)
[2024-09-15] MEDS ORDERED: HYDROmorphone HCL 2 MG/ML VL/or syr IV PRN (13:15)
--- NOTE | 2024-09-15 14:41 | DVHPN2 ---
Subjective Overnight events noted. Patient currently on IV antibiotics, patient was status post left foot I and D on09/13, we have for 2nd repeat surgery today. Reviewed: Care Plan Changes from previous H/P or p: No Changes Objective Vitals Vital Signs Date Time Temp Pulse Resp B/P (MAP) Pulse Ox O2 Delivery O2 Flow Rate FiO2 09/15/24 09:00 98.0 80 18 128/65 (86) 99 98.0 09/15/24 08:00 Room Air* 0 21 Intake/Output Intake and Output 09/15/24 07:00 Intake Total 1761 ml Output Total 400 ml Balance 1361 ml Intake Oral 1461 ml IV Total 300 ml Output Urine Total 400 ml # Voids 4 Exam HEENT pupils are reactive Neck is supple CVS S1-S2 regular rate and rhythm Respiratory bilaterally clear GI positive bowel sound Extremity no edema MACHINIST BRAKE no motor deficit Medications Current Medications Medications Dose Ordered Sig/Linda Route Start Time Stop Time Status Last Admin Dose Admin Ondansetron HCl 4 mg Q6HPRN PRN IV 09/10/24 04:15 Vancomycin HCl 0 ml @ 0 mls/hr UD IV 09/10/24 04:15 Enoxaparin Sodium 40 mg DAILY SC 09/10/24 10:00 09/14/24 09:48 40 MG Pantoprazole Sodium 40 mg DAILY IV 09/10/24 10:00 09/15/24 08:13 40 MG Acetaminophen 650 mg Q6HPRN PRN PO 09/10/24 04:15 09/12/24 06:29 650 MG Diagnostic Test (Pha) 1 strip ACHS 09/10/24 07:00 09/15/24 06:09 1 STRIP Insulin Human Regular ACHS SC 09/10/24 07:00 09/14/24 22:17 4 UNITS Dextrose 50 ml UD PRN IV 09/10/24 04:15 Acetaminophen/ Hydrocodone Bitart 1 tab Q4HP PRN PO 09/10/24 14:30 09/14/24 20:11 1 TAB Morphine Sulfate 2 mg Q3HPRN PRN IV 09/10/24 14:30 09/15/24 08:10 2 MG Clindamycin Phosphate 50 ml @ 50 mls/hr Q8HR IV 09/10/24 22:00 UNV Enteral Nutritional Formula 27.5 gm BIDWM PO 09/11/24 18:00 09/15/24 08:10 27.5 GM Piperacillin Sod/ Tazobactam Sod 100 ml @ 25 mls/hr Q6H IV 09/11/24 14:00 09/15/24 08:08 25 MLS/HR Laboratory Results Laboratory Tests 09/14/24 07:31 09/15/24 05:08 Microbiology Microbiology Date/Time Source Procedure Growth Status 09/13/24 13:35 Foot Left Gram Stain - Final Resulted 09/13/24 13:35 Foot Left Anaerobic Culture - Preliminary Resulted 09/13/24 13:35 Foot Left Aerobic Culture - Preliminary Resulted 09/10/24 09:15 Voided Urine Urine Culture - Final Complete 09/09/24 19:22 Blood Blood Culture - Final NO GROWTH AFTER 5 DAYS OF INCUBATION. Complete Assessment/Plan Assessment/Plan This is a 54 yo male with known past medical history of DM2, hypertension, bilateral foot surgeries, chronic left foot wound with recent left foot I&D, who presents to the hospital with left foot pain and non healing foot wound. Patient found to have 1. Septic shock secondary to acute on chronic osteomyelitis left foot 2. Hypotension requiring IV vasopressors, currently resolved 3. non healing left foot wound with likely skin graft rejection 4. Acute on chronic osteomyelitis of left foot with left foot status post I and D to the bone on09/13 postop day one 5. Diabetes mellitus type 2 -continue IV antibiotics, infectious disease follow up, podiatry services follow up per reveals her surgery. -plan of care discussed with bedside RN. Plan discussed with: Other My Orders Orders - FRANK ADAN MD Procedure Category Date Status Time * Revenue Stamper CONS 09/14/24 Transmitted Consult Date of Service: Sep 15, 2024 Billing Provider: FRANK ADAN MD Common Visit Codes: NOT BILLABLE FRANK ADAN MD Sep 15, 2024 14:41
[2024-09-15] MEDS: LINEZOLID 600MG/300ML 300 ML IV ONE (16:30)
--- NOTE | 2024-09-15 19:46 | DVHPN2 ---
DHEERAJ LEMUS RESIDENT 09/15/241944: Consult Progress Note Date Seen: Sep 15, 2024 Subjective Other Systems: Underwent 2nd time left foot of I and D to bone. No complication during procedures. Patient tolerated the procedure. No new complaints. Physical examination: General Appearance: Cooperative. Well developed. Well nourished. NAD Head Exam: Normal inspection Neck Exam: Normal inspection. Non-tender. Normal alignment Pulmonary/Respiratory: Chest non-tender. Clear bilateral breath sounds Cardiovascular/Chest: Regular rate and rhythm. No murmurs. No JVD. Peripheral Pulses: 2+ Radial (R). 2+ Radial (L). 2+ Pedal (R). 2+ Pedal (L) Abdominal Exam: Normal bowel sounds. Soft. Nontender. No hepatospenomegaly. No masses Ankle Exam: Negative ankle edema Lower extremities: 1+ left lower extremity swelling, skin discoloration over lateral plantar surface of left foot, black discoloration of skin graft. Capillary refill greater than 3 seconds. Neuro/Mental Status: A&O x4. Coherent Thoughts/Psych: Normal thought pattern. Appropriate mood and affect. Good judgement and insight Appearance: In no acute distress Skin Exam: Normal inspection. Normal color. Warm. Dry Objective vital signs Vital Sign Date Time Temp Pulse Resp B/P (MAP) Pulse Ox O2 Delivery O2 Flow Rate FiO2 09/15/24 17:00 98.4 83 17 104/43 (63) 94 98.4 09/15/24 13:30 Room Air 0 09/15/24 08:00 21 Total Intake and Output 09/14/24 09/14/24 09/15/24 15:00 23:00 07:00 Intake Total 100 ml 836 ml 825 ml Output Total 400 ml Balance 100 ml 836 ml 425 ml medications Current Medications Medications Dose Ordered Sig/Linda Route Start Time Stop Time Status Last Admin Dose Admin Ondansetron HCl 4 mg Q6HPRN PRN IV 09/10/24 04:15 Enoxaparin Sodium 40 mg DAILY SC 09/10/24 10:00 09/14/24 09:48 40 MG Pantoprazole Sodium 40 mg DAILY IV 09/10/24 10:00 09/15/24 08:13 40 MG Acetaminophen 650 mg Q6HPRN PRN PO 09/10/24 04:15 09/12/24 06:29 650 MG Diagnostic Test (Pha) 1 strip ACHS 09/10/24 07:00 09/15/24 16:36 1 STRIP Insulin Human Regular ACHS SC 09/10/24 07:00 09/15/24 16:39 4 UNITS Dextrose 50 ml UD PRN IV 09/10/24 04:15 Acetaminophen/ Hydrocodone Bitart 1 tab Q4HP PRN PO 09/10/24 14:30 09/14/24 20:11 1 TAB Morphine Sulfate 2 mg Q3HPRN PRN IV 09/10/24 14:30 09/15/24 15:38 2 MG Clindamycin Phosphate 50 ml @ 50 mls/hr Q8HR IV 09/10/24 22:00 UNV Enteral Nutritional Formula 27.5 gm BIDWM PO 09/11/24 18:00 09/15/24 18:00 27.5 GM Piperacillin Sod/ Tazobactam Sod 100 ml @ 25 mls/hr Q6H IV 09/11/24 14:00 09/15/24 08:08 25 MLS/HR Linezolid 300 ml @ 150 mls/hr Q12H IV 09/16/24 00:00 laboratory and microbiology Laboratory Tests 09/15/24 05:08 09/14/24 07:31 Test 09/14/24 07:31 Range/Units Serum Glucose 201 H 74-106 mg/dL Problem List/Assessment/Plan Problem List/Assessment/Plan Left foot osteomyelitis Osteomyelitis of 1st distal phalanx Left foot abscess Left foot skin graft rejection Cellulitis of left foot Sepsis due to cellulitis Diabetic foot infection Type 2 diabetes on insulin Diabetic neuropathy 09/11: whitecount is 14.6 , MRSA nares is negative and blood cultures are no growth to date . superficial wound cultures growing enterococcus and gram negative abdulkadir . dopple ultrasound of lower extremities shows no DVT 2/: remains septic with tachycardia , chills and awaiting pediatry evaluation 2/3: Underwent debridement via podiatry, discontinue clindamycin, continue Zosyn and vanco. Wait for culture status post surgery. Wound culture came positive for Enterococcus sensitive to vancomycin. 09/14: Continue antibiotic zosy, vanco. Plan for 2 debridement tomorrow. 09/15: Underwent debridement today. Continue Zosyn and linezolid. Plan -continue IV Zosyn and linezolid. Patient underwent debridement today. Plan for closure of foot on Friday as per Podiatry. Wound culture still pending, growing Gram-positive cocci in cluster. - Podiatry consultation - Culture no growth till now to per patient wound culture grew Enterococcus faecalis sensitive to vancomycin - DVT negative - MRSA negative - IV hydration given underlying sepsis - Rest of the management as per primary care team, we will continue following up. - Poor prognosis. Plan discussed with: Patient, Other (RN) Dietary Evaluation Review Recommendations by RD: Protein Supplementation Comments: 1) Initiate Arslan @ 1 pk bid 2) Initiate vitamin C @ 500 mg bid 3) Initiate zinc sulfate @ 220 mg qd 4) Continue to monitor PO intake, labs, and skin integrity Expected Outcomes/Goals: 1) appetite, labs, and wound to improve 2) f/u in 3-5 days BIANCA HOLLAND MD 09/17/24 2340: Consult Progress Note Problem List/Assessment/Plan Problem List/Assessment/Plan _ Attending Addendum: Case discussed with Dr. Lemus. at the time of visit. Seen by Dr Lemus and reviewed assessment and plan . S/P debridement of wound and doing well .more necrotic tissue was removed and wound is packed.plan is to get wound Vac nd debridement will be on friday. continue linazolid and zosyn . patients kidney function continues to rise so recommend nephrology consult to further evaluate. Keep blood sugars under 180 to optimize wound healing. DHEERAJ LEMUS RESIDENT Sep 15, 2024 19:45 BIANCA HOLLAND MD Sep 17, 2024 23:40
[2024-09-16] VITALS (7 sets, daily range): BP systolic 110–129; BP diastolic 55–65; PULSE 62–70; RESP 17–19; TEMP 97.7–98.9; O2SAT 70–97
[2024-09-16] MEDS: LINEZOLID 600MG/300ML 300 ML IV SCH (00:31)
[2024-09-16 11:28] LABS: Basophils # (auto) 0 10 ^3/uL (0-0.2); Basophils % (auto) 0.2 % (0.0-2.0); Eosinophils # (auto) 0.3 10 ^3/uL (0-0.8); Eosinophils % (auto) 2.3 % (0.0-7.0); Hematocrit 27.6 % (41.0-53.0); Hemoglobin 9.4 g/dL (13.5-17.5); Lymphocytes # (auto) 0.9 10 ^3/uL (0.4-5.4); Mean Corpuscular Hemoglobin 29.3 pg (28.0-32.0); Mean Corpuscular Hgb Conc. 33.9 g/dL (32.0-36.0); Mean Corpuscular Volume 86.5 fL (80.0-100.0); Monocytes # (auto) 0.8 10 ^3/uL (0-1.3); Monocytes % (auto) 5.6 % (0.0-12.0); Neutrophils # (auto) 12.3 10 ^3/uL (1.6-8.6); Neutrophils % (auto) 85.9 % (37.0-80.0); Platelet Count (auto) 420 10^3/uL (140-450); Red Blood Cells 3.19 10^6/uL (4.5-5.90); White Blood Cell 14.4 10^3/uL (4.4-10.8)
[2024-09-16 11:38] LABS: Anion Gap 10 (5-15); Carbon Dioxide 23 mmol/L (20-31); Potassium 3.8 mmol/L (3.5-5.1)
[2024-09-16 11:44] LABS: BUN/Creatinine Ratio 5.7 (10.0-20.0)
[2024-09-16 11:49] LABS: Blood Urea Nitrogen 25 mg/dL (9-23); Calcium 8.5 mg/dL (8.7-10.4); Chloride 95 mmol/L (98-107); Glucose 199 mg/dL (74-106); Sodium 128 mmol/L (136-145)
--- NOTE | 2024-09-16 15:10 | DVHPN2 ---
Subjective Overnight events noted. Patient currently on IV antibiotics, patient was status post left foot I and D on09/13, we have for 2nd repeat surgery09/15. Patient's kidney functions are trended up suspected vancomycin induced toxicity, vancomycin has been discontinued, vanc started on Zyvox, Zosyn renal dose. 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 Medications Current Medications Medications Dose Ordered Sig/Linda Route Start Time Stop Time Status Last Admin Dose Admin Ondansetron HCl 4 mg Q6HPRN PRN IV 09/10/24 04:15 Enoxaparin Sodium 40 mg DAILY SC 09/10/24 10:00 09/14/24 09:48 40 MG Pantoprazole Sodium 40 mg DAILY IV 09/10/24 10:00 09/16/24 09:17 40 MG Acetaminophen 650 mg Q6HPRN PRN PO 09/10/24 04:15 09/12/24 06:29 650 MG Diagnostic Test (Pha) 1 strip ACHS 09/10/24 07:00 09/16/24 10:52 1 STRIP Insulin Human Regular ACHS SC 09/10/24 07:00 09/16/24 10:52 3 UNITS Dextrose 50 ml UD PRN IV 09/10/24 04:15 Acetaminophen/ Hydrocodone Bitart 1 tab Q4HP PRN PO 09/10/24 14:30 09/15/24 23:35 1 TAB Morphine Sulfate 2 mg Q3HPRN PRN IV 09/10/24 14:30 09/16/24 09:39 2 MG Clindamycin Phosphate 50 ml @ 50 mls/hr Q8HR IV 09/10/24 22:00 UNV Enteral Nutritional Formula 27.5 gm BIDWM PO 2/1/25 18:00 09/16/24 09:17 27.5 GM Piperacillin Sod/ Tazobactam Sod 100 ml @ 25 mls/hr Q6H IV 09/11/24 14:00 09/16/24 09:27 25 MLS/HR Linezolid 300 ml @ 150 mls/hr Q12H IV 09/16/24 00:00 09/16/24 14:29 150 MLS/HR Sodium Chloride 1,000 ml @ 125 mls/hr Q8H IV 09/16/24 15:00 Laboratory Results Laboratory Tests 09/16/24 10:57 Chemistry Test 09/16/24 10:57 Calcium Level 8.5 mg/dL (8.7-10.4) L Microbiology Microbiology Date/Time Source Procedure Growth Status 09/13/24 13:35 Foot Left Gram Stain - Final Complete 09/13/24 13:35 Anaerobic Culture - Final Bacteroides fragilis Complete 09/13/24 13:35 Aerobic Culture - Final Enterococcus faecalis Complete 09/10/24 09:15 Voided Urine Urine Culture - Final Complete 09/09/24 19:22 Blood Blood Culture - Final NO GROWTH AFTER 5 DAYS OF INCUBATION. Complete Assessment/Plan Assessment/Plan This is a 54 yo male with known past medical history of DM2, hypertension, bilateral foot surgeries, chronic left foot wound with recent left foot I&D, who presents to the hospital with left foot pain and non healing foot wound. Patient found to have 1. Septic shock secondary to acute on chronic osteomyelitis left foot, resolved 2. Acute kidney injury possibility ATN suspect vancomycin and induced toxicity 3. non healing left foot wound with likely skin graft rejection 4. Acute on chronic osteomyelitis of left foot with left foot status post I and D to the bone on09/13 , repeat I and D on09/15 5. Diabetes mellitus type 2 -nephrology consultation. -continue IV antibiotics, infectious disease follow up, podiatry services follow up per reveals her surgery. -plan of care discussed with bedside RN. Plan discussed with: Patient, Spouse My Orders Orders - FRANK ADAN MD Procedure Category Date Status Time Sodium Chloride 0.9% PHA 09/16/24 In Process 15:00 *Dr. [facility] CONS 09/16/24 Verified -[place] 15:07 Date of Service: Sep 16, 2024 Billing Provider: FRANK ADAN MD Common Visit Codes: NOT BILLABLE FRANK ADAN MD Sep 16, 2024 15:10
[2024-09-16] MEDS: SODIUM CHLORIDE 0.9% 1,000 ML IV SCH (15:18)
--- NOTE | 2024-09-16 16:17 | DVH ---
RENAL ULTRASOUND CLINICAL HISTORY: hollie TECHNIQUE: Multiple ultrasound images of the kidneys and bladder were obtained. COMPARISON: None FINDINGS: The right kidney measures 15.3 cm in length. The left kidney measures 14.3 cm. The kidneys demonstrat e appropriate echotexture without evidence of a discrete renal lesion, nephrolithiasis or hydronephro sis. The bladder appears within normal limits with prevoid volume measuring 395 cc. IMPRESSION: 1. Unremarkable renal ultrasound. HS:Y
[2024-09-16] MEDS: ONDANSETRON HCL 4 MG/2 ML VIAL IV PRN (17:33)
--- NOTE | 2024-09-16 19:40 | DVHPN2 ---
DHEERAJ LEMUS RESIDENT 09/16/241939: Consult Progress Note Date Seen: Sep 16, 2024 Subjective Patient reports: No new complaints Other Systems: General Appearance: Cooperative. Well developed. Well nourished. NAD Head Exam: Normal inspection Neck Exam: Normal inspection. Non-tender. Normal alignment Pulmonary/Respiratory: Chest non-tender. Clear bilateral breath sounds Cardiovascular/Chest: Regular rate and rhythm. No murmurs. No JVD. Peripheral Pulses: 2+ Radial (R). 2+ Radial (L). 2+ Pedal (R). 2+ Pedal (L) Abdominal Exam: Normal bowel sounds. Soft. Nontender. No hepatospenomegaly. No masses Ankle Exam: Negative ankle edema Lower extremities: 1+ left lower extremity swelling, skin discoloration over lateral plantar surface of left foot, black discoloration of skin graft. Capillary refill greater than 3 seconds. Neuro/Mental Status: A&O x4. Coherent Thoughts/Psych: Normal thought pattern. Appropriate mood and affect. Good judgement and insight Appearance: In no acute distress Skin Exam: Normal inspection. Normal color. Warm. Dry Objective vital signs Vital Sign Date Time Temp Pulse Resp B/P (MAP) Pulse Ox O2 Delivery O2 Flow Rate FiO2 09/16/24 17:48 70 17 129/65 09/16/24 17:00 97.7 97 97.7 09/16/24 08:00 Room Air* 0 21 Total Intake and Output 09/15/24 09/15/24 09/16/24 15:00 23:00 07:00 Intake Total 150 ml 225 ml 900 ml Output Total 400 ml 150 ml Balance 150 ml -175 ml 750 ml medications Current Medications Medications Dose Ordered Sig/Linda Route Start Time Stop Time Status Last Admin Dose Admin Ondansetron HCl 4 mg Q6HPRN PRN IV 09/10/24 04:15 09/16/24 17:33 4 MG Enoxaparin Sodium 40 mg DAILY SC 09/10/24 10:00 09/14/24 09:48 40 MG Acetaminophen 650 mg Q6HPRN PRN PO 09/10/24 04:15 09/12/24 06:29 650 MG Diagnostic Test (Pha) 1 strip ACHS 09/10/24 07:00 09/16/24 17:00 1 STRIP Insulin Human Regular ACHS SC 09/10/24 07:00 09/16/24 17:00 4 UNITS Dextrose 50 ml UD PRN IV 09/10/24 04:15 Acetaminophen/ Hydrocodone Bitart 1 tab Q4HP PRN PO 09/10/24 14:30 09/15/24 23:35 1 TAB Morphine Sulfate 2 mg Q3HPRN PRN IV 09/10/24 14:30 09/16/24 17:48 2 MG Clindamycin Phosphate 50 ml @ 50 mls/hr Q8HR IV 09/10/24 22:00 UNV Enteral Nutritional Formula 27.5 gm BIDWM PO 09/11/24 18:00 09/16/24 18:00 27.5 GM Linezolid 300 ml @ 150 mls/hr Q12H IV 09/16/24 00:00 09/16/24 14:29 150 MLS/HR Sodium Chloride 1,000 ml @ 125 mls/hr Q8H IV 09/16/24 15:00 09/16/24 15:18 125 MLS/HR Piperacillin Sod/ Tazobactam Sod 100 ml @ 25 mls/hr BID IV 09/16/24 22:00 laboratory and microbiology Laboratory Tests 09/16/24 10:57 Test 09/16/24 10:57 Range/Units Serum Glucose 199 H 74-106 mg/dL Problem List/Assessment/Plan Problem List/Assessment/Plan Left foot osteomyelitis Osteomyelitis of 1st distal phalanx Left foot abscess Left foot skin graft rejection Cellulitis of left foot Sepsis due to cellulitis Diabetic foot infection Type 2 diabetes on insulin Diabetic neuropathy 09/11: whitecount is 14.6 , MRSA nares is negative and blood cultures are no growth to date . superficial wound cultures growing enterococcus and gram negative abdulkadir . dopple ultrasound of lower extremities shows no DVT 2: remains septic with tachycardia , chills and awaiting pediatry evaluation 2/3: Underwent debridement via podiatry, discontinue clindamycin, continue Zosyn and vanco. Wait for culture status post surgery. Wound culture came positive for Enterococcus sensitive to vancomycin. 09/14: Continue antibiotic zosy, vanco. Plan for 2 debridement tomorrow. 09/15: Underwent debridement today. Continue Zosyn and linezolid. 09/16: No new complaints, continue antibiotics Zosyn and linezolid. Zosyn dose frequency reduced to q.12 given worsening kidney function. Plan -continue IV Zosyn and linezolid. Podiatry is continuously following, possible closing of wound on Friday. Plan for IV antibiotic Zosyn at home, patient has PICC line. - Podiatry consultation -Wound culture: Positive for Bacteroides fragilis, Enterococcus faecalis. - DVT negative - MRSA negative - IV hydration given underlying sepsis - Rest of the management as per primary care team, we will continue following up. - Poor prognosis. Plan discussed with: Patient, Other (RN) Dietary Evaluation Review Recommendations by RD: Protein Supplementation Comments: 1) Initiate Arslan @ 1 pk bid 2) Initiate vitamin C @ 500 mg bid 3) Initiate zinc sulfate @ 220 mg qd 4) Continue to monitor PO intake, labs, and skin integrity Expected Outcomes/Goals: 1) appetite, labs, and wound to improve 2) f/u in 3-5 days BIANCA HOLLAND MD 09/19/24 1520: Consult Progress Note Problem List/Assessment/Plan Problem List/Assessment/Plan _ Attending Addendum: Case discussed with Dr. Lemus. at the time of visit. Seen by Dr Lemus and reviewed assessment and plan . S/P debridement of wound and doing well .more necrotic tissue was removed and wound is packed.plan is to get wound Vac nd debridement will be on Friday. continue linezolid and Zosyn . patients kidney function continues to rise so recommend nephrology consult to further evaluate. Keep blood sugars under 180 to optimize wound healing. 09/16: no pain in right lower extremity and is well wrapped . underwent a second debridement yesterday and continues to feel good . Continue linezolid and renally dose Zosyn . patients kidney function continues to rise would defer management to nephrology. patient is getting Lasix and is responding DHEERAJ LEMUS Sep 16, 2024 19:40 BIANCA HOLLAND MD Sep 19, 2024 15:20
[2024-09-16] MEDS: PIPERACILLIN-TAZOB 3.375GM 100 ML IV SCH (21:51)
[2024-09-17] VITALS (8 sets, daily range): BP systolic 108–132; BP diastolic 62–87; PULSE 63–86; RESP 14–19; TEMP 97.4–98.2; O2SAT 93–98
[2024-09-17 06:35] LABS: Urine Bacteria None Seen /hpf (None Seen)
[2024-09-17 07:24] LABS: Urine Amorphous Crystal FEW /hpf (None Seen); Urine Blood Negative /uL (Negative); Urine Clarity Turbid (Clear); Urine Color Light-Yellow (Yellow); Urine Protein, UAD TRACE (Negative); Urine Specific Gravity 1.007 (1.001-1.035); Urine Squamous Epithelial Cell FEW /hpf (<5); Urine Urobilinogen Normal (Negative); Urine WBC 1 /HPF (0-3)
[2024-09-17 07:28] LABS: Protein, Urine 48.3 mg/dL (1-14)
[2024-09-17 07:31] LABS: Creatinine, Urine 47.11 mg/dL (30.0-125.0)
[2024-09-17 09:20] LABS: Basophils # (auto) 0 10 ^3/uL (0-0.2); Basophils % (auto) 0.2 % (0.0-2.0); Eosinophils # (auto) 0.3 10 ^3/uL (0-0.8); Eosinophils % (auto) 2.1 % (0.0-7.0); Hematocrit 30.9 % (41.0-53.0); Hemoglobin 10.7 g/dL (13.5-17.5); Lymphocytes % (auto) 7.4 % (10.0-50.0); Mean Corpuscular Hemoglobin 30.2 pg (28.0-32.0); Mean Corpuscular Hgb Conc. 34.7 g/dL (32.0-36.0); Monocytes # (auto) 0.7 10 ^3/uL (0-1.3); Monocytes % (auto) 5.1 % (0.0-12.0); Neutrophils # (auto) 11.2 10 ^3/uL (1.6-8.6); Neutrophils % (auto) 85.2 % (37.0-80.0); Platelet Count (auto) 531 10^3/uL (140-450); Red Blood Cells 3.56 10^6/uL (4.5-5.90); Red Cell Distribution Width 13.9 % (11.8-14.3); White Blood Cell 13.2 10^3/uL (4.4-10.8)
[2024-09-17 09:29] LABS: Anion Gap 9 (5-15); Carbon Dioxide 24 mmol/L (20-31)
[2024-09-17 09:31] LABS: Calcium 8.6 mg/dL (8.7-10.4); Chloride 93 mmol/L (98-107); Sodium 126 mmol/L (136-145)
[2024-09-17 09:34] LABS: BUN/Creatinine Ratio 7.2 (10.0-20.0)
[2024-09-17 09:35] LABS: Blood Urea Nitrogen 36 mg/dL (9-23); Glucose 192 mg/dL (74-106)
[2024-09-17] MEDS: FUROSEMIDE 100 MG/10ML VIAL IV ONE (12:00)
--- NOTE | 2024-09-17 12:12 | DVHINCON2 ---
Date of service: Sep 17, 2024 Reason for Consultation ANIBAL History of Present Illness 54 years old male with past medical history of diabetes, obesity, left foot osteomyelitis, presented to hospital on September 10 with chief complaints of fevers, draining pus from the left foot wound, initially needing vasopressors an d was in septic shock treated with antibiotics, septic shock eventually resolved patient underwent left foot I and D by Podiatry patient was treated with vancomycin and Zosyn initially now receiving linezolid and Zosyn patient does have high vancomycin trough levels urinating ok Past Medical History per hpi Past Surgical History per hpi Allergies: Coded Allergies: NO KNOWN ALLERGIES (Unverified , 05/24/24) Home Meds Active Scripts Naloxone HCl (Narcan) 4 Mg/0.1 Ml Spr, 4 MG NA PITCH FILLER, #2 SPRAY Prov:FRANK ADAN MD 08/31/24 Hydrocodone-Acetaminophen (Hydrocodone Bitartrate/AC 10-325 mg) 1 Tab Tab, 1 TAB PO Q8HP PRN, #20 TAB Prov:FRANK ADAN MD 08/31/24 Metronidazole (Flagyl) 500 Mg Tab, 1 TAB PO TID, #90 TAB Prov:STAN HATCH MD 05/31/24 Reported Medications Insulin Glargine (Lantus) 100 Unit/Ml Inj, 30 UNIT SC HS, INJ 09/10/24 Current Medications Current Medications Medications (Trade) Dose Ordered Sig/Linda Route PRN Reason Start Time Stop Time Status Last Admin Sodium Chloride 1,000 ml @ 125 mls/hr Q8H IV 09/16/24 15:00 09/17/24 11:46 DC 09/17/24 05:46 Piperacillin Sod/ Tazobactam Sod 100 ml @ 25 mls/hr BID IV 09/16/24 22:00 09/17/24 11:07 Docusate Sodium (Colace Capsule) 100 mg BID PO 09/17/24 10:00 Family History: Diabetes mellitus G8 FATHER, , Cause: Kidney disease FH: colon cancer Social History Denies any Review of Systems HEENT-denies headache, denies vision changes, no hearing issue, denies neck complaints, denies throat issues Respiratory system-denies cough, denies shortness of breath Cardiovascular system-denies chest pain, denies palpitations Abdomen-denies abdominal pain, denies nausea, denies vomiting, denies constipation or diarrhea Musculoskeletal-positive left foot pain and swelling Genitourinary-denies urinary symptoms like dysuria, stream issues Neuro-denies dizziness, denies seizures Psychiatric-denies psychiatric history H&P Exam Vital Signs/I&O Vital Sign Date Time Temp Pulse Resp B/P (MAP) Pulse Ox O2 Delivery O2 Flow Rate FiO2 09/17/24 11:12 67 18 115/68 09/17/24 05:00 97.4 93 97.4 09/16/24 20:00 Room Air* 0 21 Intake and Output 09/16/24 09/17/24 19:00 07:00 Intake Total 1400 ml 1225 ml Output Total 500 ml 325 ml Balance 900 ml 900 ml Intake Oral 1000 ml 800 ml IV Total 400 ml 425 ml Output Urine Total 500 ml 325 ml Physical Exam General-not in any distress HEENT-normocephalic, no icterus, no pallor, neck supple Respiratory-fair air entry bilateral, no rhonchi, no wheeze [id number] heard, no murmurs appreciated Abdominal-soft, nontender, nondistended Musculoskeletal-left foot in bandage swollen Genitourinary-deferred Neuro-awake alert oriented x3, Psychiatric-not agitated, cooperative, Labs/Diagnostic Data Labs/Diagnostic Data Laboratory Tests Test 09/17/24 08:50 09/17/24 07:10 09/17/24 05:50 09/16/24 21:48 Range/Units White Blood Count 13.2 H 4.4-10.8 10^3/uL Red Blood Count 3.56 L 4.5-5.90 10^6/uL Hemoglobin 10.7 L 13.5-17.5 g/dL Hematocrit 30.9 #L 41.0-53.0 % Mean Corpuscular Volume 87.0 80.0-100.0 fL Mean Corpuscular Hemoglobin 30.2 28.0-32.0 pg Mean Corpuscular Hemoglobin Concent 34.7 32.0-36.0 g/dL Red Cell Distribution Width 13.9 11.8-14.3 % Platelet Count 531 H 140-450 10^3/uL Mean Platelet Volume 7.3 6.9-10.8 fL Neutrophils (%) (Auto) 85.2 H 37.0-80.0 % Lymphocytes (%) (Auto) 7.4 L 10.0-50.0 % Monocytes (%) (Auto) 5.1 0.0-12.0 % Eosinophils (%) (Auto) 2.1 0.0-7.0 % Basophils (%) (Auto) 0.2 0.0-2.0 % Neutrophils # (Auto) 11.2 H 1.6-8.6 10 ^3/uL Lymphocytes # (Auto) 1.0 0.4-5.4 10 ^3/uL Monocytes # (Auto) 0.7 0-1.3 10 ^3/uL Eosinophils # (Auto) 0.3 0-0.8 10 ^3/uL Basophils # (Auto) 0 0-0.2 10 ^3/uL Nucleated Red Blood Cells 0.0 % Sodium Level 126 L 136-145 mmol/L Potassium Level 4.0 3.5-5.1 mmol/L Chloride Level 93 L 98-107 mmol/L Carbon Dioxide Level 24 20-31 mmol/L Anion Gap 9 5-15 Blood Urea Nitrogen 36 #H 9-23 mg/dL Creatinine 5.02 H 0.700-1.30 mg/dL Glomerular Filtration Rate Calc 13 >90 mL/min BUN/Creatinine Ratio 7.2 L 10.0-20.0 Serum Glucose 192 H 74-106 mg/dL Calcium Level 8.6 L 8.7-10.4 mg/dL B-Type Natriuretic Peptide 132.08 0-100 pg/mL POC Glucose 180 H 219 H 70-106 mg/dl Urine Color Light-yellow Yellow Urine Clarity Turbid H Clear Urine pH 5.0 5.0-9.0 Urine Specific [place] 1.007 1.001-1.035 Urine Protein Trace H Negative Urine Ketones Negative Negative Urine Blood Negative Negative /uL Urine Nitrite Negative Negative Urine Bilirubin Negative Negative Urine Urobilinogen Normal Negative mg/dL Urine Leukocyte Esterase Negative Negative /uL Urine RBC 1 0 - 3 /hpf Urine Microscopic WBC 1 0-3 /HPF Urine Squamous Epithelial Cells Few <5 /hpf Urine Amorphous Crystals Few None Seen /hpf Urine Bacteria None seen None Seen /hpf Urine Creatinine 47.11 30.0-125.0 mg/dL Urine Sodium 21 L 40-220 mmol/L Urine Glucose Normal Normal mg/dL Urine Total Protein 48.3 H 1-14 mg/dL Test 09/16/24 10:57 09/16/24 06:09 09/15/24 22:08 09/15/24 16:34 Range/Units White Blood Count 14.4 H 4.4-10.8 10^3/uL Red Blood Count 3.19 L 4.5-5.90 10^6/uL Hemoglobin 9.4 L 13.5-17.5 g/dL Hematocrit 27.6 L 41.0-53.0 % Mean Corpuscular Volume 86.5 80.0-100.0 fL Mean Corpuscular Hemoglobin 29.3 28.0-32.0 pg Mean Corpuscular Hemoglobin Concent 33.9 32.0-36.0 g/dL Red Cell Distribution Width 14.0 11.8-14.3 % Platelet Count 420 140-450 10^3/uL Mean Platelet Volume 7.2 6.9-10.8 fL Neutrophils (%) (Auto) 85.9 H 37.0-80.0 % Lymphocytes (%) (Auto) 6.0 L 10.0-50.0 % Monocytes (%) (Auto) 5.6 0.0-12.0 % Eosinophils (%) (Auto) 2.3 0.0-7.0 % Basophils (%) (Auto) 0.2 0.0-2.0 % Neutrophils # (Auto) 12.3 H 1.6-8.6 10 ^3/uL Lymphocytes # (Auto) 0.9 0.4-5.4 10 ^3/uL Monocytes # (Auto) 0.8 0-1.3 10 ^3/uL Eosinophils # (Auto) 0.3 0-0.8 10 ^3/uL Basophils # (Auto) 0 0-0.2 10 ^3/uL Nucleated Red Blood Cells 0.0 % Sodium Level 128 #L 136-145 mmol/L Potassium Level 3.8 3.5-5.1 mmol/L Chloride Level 95 L 98-107 mmol/L Carbon Dioxide Level 23 20-31 mmol/L Anion Gap 10 5-15 Blood Urea Nitrogen 25 H 9-23 mg/dL Creatinine 4.35 H 0.700-1.30 mg/dL Glomerular Filtration Rate Calc 15 >90 mL/min BUN/Creatinine Ratio 5.7 L 10.0-20.0 Serum Glucose 199 H 74-106 mg/dL Calcium Level 8.5 L 8.7-10.4 mg/dL POC Glucose 217 H 237 H 212 H 70-106 mg/dl Test 09/15/24 05:08 09/14/24 22:07 09/14/24 16:31 09/14/24 11:53 Range/Units White Blood Count 15.4 H 4.4-10.8 10^3/uL Red Blood Count 3.06 L 4.5-5.90 10^6/uL Hemoglobin 9.1 L 13.5-17.5 g/dL Hematocrit 26.3 L 41.0-53.0 % Mean Corpuscular Volume 86.2 80.0-100.0 fL Mean Corpuscular Hemoglobin 29.8 28.0-32.0 pg Mean Corpuscular Hemoglobin Concent 34.6 32.0-36.0 g/dL Red Cell Distribution Width 13.3 11.8-14.3 % Platelet Count 344 140-450 10^3/uL Mean Platelet Volume 7.5 6.9-10.8 fL Neutrophils (%) (Auto) 81.5 H 37.0-80.0 % Lymphocytes (%) (Auto) 8.4 L 10.0-50.0 % Monocytes (%) (Auto) 7.5 0.0-12.0 % Eosinophils (%) (Auto) 2.1 0.0-7.0 % Basophils (%) (Auto) 0.5 0.0-2.0 % Neutrophils # (Auto) 12.5 H 1.6-8.6 10 ^3/uL Lymphocytes # (Auto) 1.3 0.4-5.4 10 ^3/uL Monocytes # (Auto) 1.2 0-1.3 10 ^3/uL Eosinophils # (Auto) 0.3 0-0.8 10 ^3/uL Basophils # (Auto) 0.1 0-0.2 10 ^3/uL Nucleated Red Blood Cells 0.0 % Creatinine 2.47 H 0.700-1.30 mg/dL Glomerular Filtration Rate Calc 30 >90 mL/min Random Vancomycin Level 15.8 H 5-10 ug/mL POC Glucose 224 H 224 H 231 H 70-106 mg/dl Test 09/14/24 10:56 09/14/24 07:31 09/14/24 06:15 09/13/24 22:51 Range/Units Vancomycin Level Trough 23.6 H 5-10 ug/mL Sodium Level 133 L 136-145 mmol/L Potassium Level 3.3 L 3.5-5.1 mmol/L Chloride Level 101 98-107 mmol/L Carbon Dioxide Level 24 20-31 mmol/L Anion Gap 8 5-15 Blood Urea Nitrogen 7 L 9-23 mg/dL Creatinine 0.67 L 0.700-1.30 mg/dL Glomerular Filtration Rate Calc 110 >90 mL/min BUN/Creatinine Ratio 10.4 10.0-20.0 Serum Glucose 201 H 74-106 mg/dL Calcium Level 8.9 8.7-10.4 mg/dL POC Glucose 163 H 218 H 70-106 mg/dl Test 09/13/24 17:39 09/13/24 10:41 09/12/24 22:18 09/12/24 12:14 Range/Units POC Glucose 191 H 198 H 191 H 70-106 mg/dl Vancomycin Level Trough 9.9 5-10 ug/mL Test 09/12/24 07:03 09/12/24 06:06 09/11/24 21:18 09/11/24 17:19 Range/Units Creatinine 0.73 0.700-1.30 mg/dL Glomerular Filtration Rate Calc 107 >90 mL/min POC Glucose 167 H 226 H 199 H 70-106 mg/dl Test 09/11/24 06:25 09/10/24 21:17 09/10/24 16:31 09/10/24 11:52 Range/Units White Blood Count 14.6 H 4.4-10.8 10^3/uL Red Blood Count 3.26 L 4.5-5.90 10^6/uL Hemoglobin 9.7 L 13.5-17.5 g/dL Hematocrit 28.9 L 41.0-53.0 % Mean Corpuscular Volume 88.6 80.0-100.0 fL Mean Corpuscular Hemoglobin 29.6 28.0-32.0 pg Mean Corpuscular Hemoglobin Concent 33.5 32.0-36.0 g/dL Red Cell Distribution Width 13.4 11.8-14.3 % Platelet Count 256 140-450 10^3/uL Mean Platelet Volume 8.2 6.9-10.8 fL Neutrophils (%) (Auto) 83.7 H 37.0-80.0 % Lymphocytes (%) (Auto) 7.4 L 10.0-50.0 % Monocytes (%) (Auto) 7.9 0.0-12.0 % Eosinophils (%) (Auto) 0.8 0.0-7.0 % Basophils (%) (Auto) 0.2 0.0-2.0 % Neutrophils # (Auto) 12.2 H 1.6-8.6 10 ^3/uL Lymphocytes # (Auto) 1.1 0.4-5.4 10 ^3/uL Monocytes # (Auto) 1.1 0-1.3 10 ^3/uL Eosinophils # (Auto) 0.1 0-0.8 10 ^3/uL Basophils # (Auto) 0 0-0.2 10 ^3/uL Nucleated Red Blood Cells 0.0 % Sodium Level 135 L 136-145 mmol/L Potassium Level 3.7 3.5-5.1 mmol/L Chloride Level 103 98-107 mmol/L Carbon Dioxide Level 23 20-31 mmol/L Anion Gap 9 5-15 Blood Urea Nitrogen 10 9-23 mg/dL Creatinine 0.82 0.700-1.30 mg/dL Glomerular Filtration Rate Calc 103 >90 mL/min BUN/Creatinine Ratio 12.2 10.0-20.0 Serum Glucose 199 H 74-106 mg/dL Calcium Level 8.5 L 8.7-10.4 mg/dL Total Bilirubin 0.6 0.2-1.0 mg/dL Aspartate Amino Transferase (AST) 15 13-40 U/L Alanine Aminotransferase (ALT) 9 7-40 U/L Alkaline Phosphatase 120 H 46-116 U/L Total Protein 6.3 5.7-8.2 g/dL Albumin 3.4 3.2-4.8 g/dL Vancomycin Level Trough 13.6 H 5-10 ug/mL POC Glucose 204 H 208 H 202 H 70-106 mg/dl Test 09/10/24 04:47 09/09/24 21:08 09/09/24 19:22 Range/Units Prothrombin Time 12.3 H 9.3-11.8 sec Prothrombin Time INR 1.18 H 0.9-1.15 POC Glucose 192 H 70-106 mg/dl White Blood Count 13.9 H 4.4-10.8 10^3/uL Red Blood Count 3.38 L 4.5-5.90 10^6/uL Hemoglobin 10.1 L 13.5-17.5 g/dL Hematocrit 29.8 L 41.0-53.0 % Mean Corpuscular Volume 88.1 80.0-100.0 fL Mean Corpuscular Hemoglobin 29.9 28.0-32.0 pg Mean Corpuscular Hemoglobin Concent 33.9 32.0-36.0 g/dL Red Cell Distribution Width 13.4 11.8-14.3 % Platelet Count 282 140-450 10^3/uL Mean Platelet Volume 7.6 6.9-10.8 fL Neutrophils (%) (Auto) 88.7 H 37.0-80.0 % Lymphocytes (%) (Auto) 4.7 L 10.0-50.0 % Monocytes (%) (Auto) 6.3 0.0-12.0 % Eosinophils (%) (Auto) 0.1 0.0-7.0 % Basophils (%) (Auto) 0.2 0.0-2.0 % Neutrophils # (Auto) 12.4 H 1.6-8.6 10 ^3/uL Lymphocytes # (Auto) 0.7 0.4-5.4 10 ^3/uL Monocytes # (Auto) 0.9 0-1.3 10 ^3/uL Eosinophils # (Auto) 0 0-0.8 10 ^3/uL Basophils # (Auto) 0 0-0.2 10 ^3/uL Nucleated Red Blood Cells 0.0 % Sodium Level 132 L 136-145 mmol/L Potassium Level 4.1 3.5-5.1 mmol/L Chloride Level 100 98-107 mmol/L Carbon Dioxide Level 24 20-31 mmol/L Anion Gap 8 5-15 Blood Urea Nitrogen 19 9-23 mg/dL Creatinine 0.89 0.700-1.30 mg/dL Glomerular Filtration Rate Calc 101 >90 mL/min BUN/Creatinine Ratio 21.3 H 10.0-20.0 Serum Glucose 231 H 74-106 mg/dL Lactic Acid Level 1.2 0.4-2.0 mmol/L Calcium Level 8.6 L 8.7-10.4 mg/dL Total Bilirubin 0.6 0.2-1.0 mg/dL Aspartate Amino Transferase (AST) 18 13-40 U/L Alanine Aminotransferase (ALT) 11 7-40 U/L Alkaline Phosphatase 93 46-116 U/L Troponin I High Sensitivity 6 </=54 ng/L B-Type Natriuretic Peptide 72.18 0-100 pg/mL Total Protein 5.9 5.7-8.2 g/dL Albumin 3.2 3.2-4.8 g/dL Microbiology Date/Time Source Procedure Growth Status 09/13/24 13:35 Foot Left Gram Stain - Final Complete 09/13/24 13:35 Anaerobic Culture - Final Bacteroides fragilis Complete 09/13/24 13:35 Aerobic Culture - Final Enterococcus faecalis Complete 09/10/24 09:15 Voided Urine Urine Culture - Final Complete 09/09/24 19:22 Blood Blood Culture - Final NO GROWTH AFTER 5 DAYS OF INCUBATION. Complete Assessment Acute kidney injury in the setting of vancomycin toxicity, hypotension Left foot osteomyelitis Status post septic shock Diabetes obesity Recommendations Hold IV fluids blood pressure looks better, one time dose Lasix Vancomycin was stopped Needs strict Is&Os Rodriguez catheter Urine workup as ordered Kidney ultrasound noted We will follow closely Reviewed vital signs, lab work, imaging studies, medications, microbiology, other physician recommendations More than 50% of the time spent providing direct [id number] care . Thank you for allowing me to participate in the care of your patient. Plan discussed with: Patient SALVADOR CEE MD Sep 17, 2024 12:12
[2024-09-17] MEDS ORDERED: PROPOFOL 10 MG/ML 20 ML IV ONE (12:17)
[2024-09-17] MEDS ORDERED: fentaNYL CITRATE 100 MCG/2 ML VL ONE (12:17)
--- NOTE | 2024-09-17 12:36 | DVHPN2 ---
Subjective Mr. Tushar Zuleta is a 54-year-old male who presents with a chief complaint of left foot wound check. Patient had previous history of bilateral foot surgery presented to the hospital with a left foot pain, was status post 1. Acute osteomyelitis of the left foot status post I and D of the left foot, status post delayed closure, 2. Diabetes mellitus type 2, 3. Hypertension. Patient was discharged last August 31, with IV antibiotics, cefazolin, given via PICC line. Patient claims his home health care nurse never arrived to clean his wounds. Notable swelling and pain of the left foot, with fever occuring 4 days ago. Patient reports he went to the urgent care yesterday and was told he had gangrene and was sent to the ED for further evaluation. Left foot x ray resulted There is no evidence of an acute fracture, dislocation, osseous erosions, blastic, or lytic lesions. No radiopaque foreign bodies. Moderate soft tissue edema with lateral surgical camilo and subcutaneous emphysema. Consider further evaluation with a nuclear medicine WBC scan or contrast enhanced MRI. Patient was found to be hypotensive in the ED and started on vasopressor. Patient admitted for further evaluation and treatment. Reviewed: Care Plan Changes from previous H/P or p: No Changes Objective Vitals Vital Signs Date Time Temp Pulse Resp B/P (MAP) Pulse Ox O2 Delivery O2 Flow Rate FiO2 09/17/24 11:12 67 18 115/68 09/17/24 05:00 97.4 93 97.4 09/16/24 20:00 Room Air* 0 21 Intake/Output Intake and Output 09/17/24 07:00 Intake Total 2625 ml Output Total 825 ml Balance 1800 ml Intake Oral 1800 ml IV Total 825 ml Output Urine Total 825 ml Exam DERMATOLOGIC EXAM: - Skin is dry and cool to the touch dry bilaterally. - Nails 1-5 of the bilateral foot are thickened, discolored, dystrophic, and tender to palpate with subungual debris - Hair loss noted to bilateral feet - left lateral foot wound with necrosis and cellulitis with purulence VASCULAR EXAM: - DP and PT pulses are palpable bilaterally. 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 - Feet are cool to touch compared to lower legs bilaterally. NEUROLOGIC EXAM: - Normal light touch sensation to the superficial peroneal, deep peroneal, sural, saphenous, and tibial nerve branches. - Protective sensation is diminished as tested with a 5.07 10g [place]Art[place] bilaterally. MUSCULOSKELETAL EXAM: - No gross deformities - Muscle strength is 5/5 and active motion is pain-free and symmetrical bilaterally - No pain or crepitation with passive range of motion bilaterally to all major pedal joints Medications Current Medications Medications Dose Ordered Sig/Linda Route Start Time Stop Time Status Last Admin Dose Admin Ondansetron HCl 4 mg Q6HPRN PRN IV 09/10/24 04:15 09/17/24 05:57 4 MG Enoxaparin Sodium 40 mg DAILY SC 09/10/24 10:00 09/14/24 09:48 40 MG Acetaminophen 650 mg Q6HPRN PRN PO 09/10/24 04:15 09/12/24 06:29 650 MG Diagnostic Test (Pha) 1 strip ACHS 09/10/24 07:00 09/17/24 07:09 1 STRIP Insulin Human Regular ACHS SC 09/10/24 07:00 09/17/24 07:17 3 UNITS Dextrose 50 ml UD PRN IV 09/10/24 04:15 Acetaminophen/ Hydrocodone Bitart 1 tab Q4HP PRN PO 09/10/24 14:30 09/16/24 22:00 1 TAB Morphine Sulfate 2 mg Q3HPRN PRN IV 09/10/24 14:30 09/17/24 11:12 2 MG Clindamycin Phosphate 50 ml @ 50 mls/hr Q8HR IV 09/10/24 22:00 UNV Enteral Nutritional Formula 27.5 gm BIDWM PO 09/11/24 18:00 09/17/24 08:00 27.5 GM Linezolid 300 ml @ 150 mls/hr Q12H IV 09/16/24 00:00 09/17/24 03:17 150 MLS/HR Piperacillin Sod/ Tazobactam Sod 100 ml @ 25 mls/hr BID IV 09/16/24 22:00 09/17/24 11:07 25 MLS/HR Docusate Sodium 100 mg BID PO 09/17/24 10:00 Laboratory Results Laboratory Tests 09/17/24 08:50 Chemistry Test 09/17/24 08:50 Calcium Level 8.6 mg/dL (8.7-10.4) L Cardiac Markers Test 09/17/24 08:50 B-Type Natriuretic Peptide 132.08 pg/mL (0-100) Urinalysis Test 09/17/24 05:50 Urine Color Light-yellow (Yellow) Urine Clarity Turbid (Clear) H Urine pH 5.0 (5.0-9.0) Urine Specific [place] 1.007 (1.001-1.035) Urine Protein Trace (Negative) H Urine Ketones Negative (Negative) Urine Blood Negative /uL (Negative) Urine Nitrite Negative (Negative) Urine Bilirubin Negative (Negative) Urine Urobilinogen Normal mg/dL (Negative) Urine Leukocyte Esterase Negative /uL (Negative) Urine RBC 1 /hpf (0 - 3) Urine Microscopic WBC 1 /HPF (0-3) Urine Squamous Epithelial Cells Few /hpf (<5) Urine Amorphous Crystals Few /hpf (None Seen) Urine Bacteria None seen /hpf (None Seen) Urine Creatinine 47.11 mg/dL (30.0-125.0) Urine Sodium 21 mmol/L (40-220) L Urine Glucose Normal mg/dL (Normal) Urine Total Protein 48.3 mg/dL (1-14) H Microbiology Microbiology Date/Time Source Procedure Growth Status 09/13/24 13:35 Foot Left Gram Stain - Final Complete 09/13/24 13:35 Anaerobic Culture - Final Bacteroides fragilis Complete 09/13/24 13:35 Aerobic Culture - Final Enterococcus faecalis Complete 09/10/24 09:15 Voided Urine Urine Culture - Final Complete 09/09/24 19:22 Blood Blood Culture - Final NO GROWTH AFTER 5 DAYS OF INCUBATION. Complete Assessment/Plan Assessment/Plan ASSESSMENT: Patient is a 54 year old seen on the floor follow up s/p foot I&D PLAN: - The patients chart was reviewed, clinical findings were discussed with the patient, the etiologies of the conditions were discussed in detail, and a treatment plan was agreed to at this time, with both oral and written instructions provided. - reviewed advanced imaging - reviewed all of the labs and pathology - discussed plan is to perform a subsequent incision and drainage - patient will be NPO at midnight - take him to the OR tomorrow - it was determined that multiple I&Ds will be necessary to save the limb - can weightbear as tolerated in postoperative shoe All questions were answered and concerns addressed to the patient's satisfaction. The patient was given the phone number to the clinic and was told how to make contact with the clinic should any concerns or questions arise. Patient understands that if any questions or concerns arise prior to the next appointment, we should be contacted immediately. FOLLOW-UP: Continue to follow while inpatient Plan discussed with: Patient My Orders Orders - RYAN CHOU DPM Procedure Category Date Status Time Npo After Midnight DIET 09/16/24 Transmitted Dinner Obtain Consent For: ORDERS 09/16/24 Transmitted 17:25 Obtain Consent For ELIZA 09/16/24 In Process Anesthesia 17:25 Problem List: (1) Septic shock (2) Wound of left foot (3) Hypotension (4) Foot ulcer (5) Cellulitis and abscess of foot (6) Necrotizing subcutaneous infection (7) Osteomyelitis of left foot (8) Diabetic foot infection Date of Service: Sep 16, 2024 Billing Provider: RYAN CHOU DPM Common Visit Codes: [id number] INP/OBS CARE(MOD) RYAN CHOU DPM Sep 17, 2024 12:36
--- NOTE | 2024-09-17 12:37 | DVHPN2 ---
Subjective Mr. Tushar Zuleta is a 54-year-old male who presents with a chief complaint of left foot wound check. Patient had previous history of bilateral foot surgery presented to the hospital with a left foot pain, was status post 1. Acute osteomyelitis of the left foot status post I and D of the left foot, status post delayed closure, 2. Diabetes mellitus type 2, 3. Hypertension. Patient was discharged last August 31, with IV antibiotics, cefazolin, given via PICC line. Patient claims his home health care nurse never arrived to clean his wounds. Notable swelling and pain of the left foot, with fever occuring 4 days ago. Patient reports he went to the urgent care yesterday and was told he had gangrene and was sent to the ED for further evaluation. Left foot x ray resulted There is no evidence of an acute fracture, dislocation, osseous erosions, blastic, or lytic lesions. No radiopaque foreign bodies. Moderate soft tissue edema with lateral surgical camilo and subcutaneous emphysema. Consider further evaluation with a nuclear medicine WBC scan or contrast enhanced MRI. Patient was found to be hypotensive in the ED and started on vasopressor. Patient admitted for further evaluation and treatment. Reviewed: Care Plan Changes from previous H/P or p: No Changes Objective Vitals Vital Signs Date Time Temp Pulse Resp B/P (MAP) Pulse Ox O2 Delivery O2 Flow Rate FiO2 09/17/24 11:12 67 18 115/68 09/17/24 05:00 97.4 93 97.4 09/16/24 20:00 Room Air* 0 21 Intake/Output Intake and Output 09/17/24 07:00 Intake Total 2625 ml Output Total 825 ml Balance 1800 ml Intake Oral 1800 ml IV Total 825 ml Output Urine Total 825 ml Exam DERMATOLOGIC EXAM: - Skin is dry and cool to the touch dry bilaterally. - Nails 1-5 of the bilateral foot are thickened, discolored, dystrophic, and tender to palpate with subungual debris - Hair loss noted to bilateral feet - left lateral foot wound with necrosis and cellulitis with purulence VASCULAR EXAM: - DP and PT pulses are palpable bilaterally. 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 - Feet are cool to touch compared to lower legs bilaterally. NEUROLOGIC EXAM: - Normal light touch sensation to the superficial peroneal, deep peroneal, sural, saphenous, and tibial nerve branches. - Protective sensation is diminished as tested with a 5.07 10g [place]Artie bilaterally. MUSCULOSKELETAL EXAM: - No gross deformities - Muscle strength is 5/5 and active motion is pain-free and symmetrical bilaterally - No pain or crepitation with passive range of motion bilaterally to all major pedal joints Medications Current Medications Medications Dose Ordered Sig/Linda Route Start Time Stop Time Status Last Admin Dose Admin Ondansetron HCl 4 mg Q6HPRN PRN IV 09/10/24 04:15 09/17/24 05:57 4 MG Enoxaparin Sodium 40 mg DAILY SC 09/10/24 10:00 09/14/24 09:48 40 MG Acetaminophen 650 mg Q6HPRN PRN PO 09/10/24 04:15 09/12/24 06:29 650 MG Diagnostic Test (Pha) 1 strip ACHS 09/10/24 07:00 09/17/24 07:09 1 STRIP Insulin Human Regular ACHS SC 09/10/24 07:00 09/17/24 07:17 3 UNITS Dextrose 50 ml UD PRN IV 09/10/24 04:15 Acetaminophen/ Hydrocodone Bitart 1 tab Q4HP PRN PO 09/10/24 14:30 09/16/24 22:00 1 TAB Morphine Sulfate 2 mg Q3HPRN PRN IV 09/10/24 14:30 09/17/24 11:12 2 MG Clindamycin Phosphate 50 ml @ 50 mls/hr Q8HR IV 09/10/24 22:00 UNV Enteral Nutritional Formula 27.5 gm BIDWM PO 09/11/24 18:00 09/17/24 08:00 27.5 GM Linezolid 300 ml @ 150 mls/hr Q12H IV 09/16/24 00:00 09/17/24 03:17 150 MLS/HR Piperacillin Sod/ Tazobactam Sod 100 ml @ 25 mls/hr BID IV 09/16/24 22:00 09/17/24 11:07 25 MLS/HR Docusate Sodium 100 mg BID PO 09/17/24 10:00 Laboratory Results Laboratory Tests 09/17/24 08:50 Chemistry Test 09/17/24 08:50 Calcium Level 8.6 mg/dL (8.7-10.4) L Cardiac Markers Test 09/17/24 08:50 B-Type Natriuretic Peptide 132.08 pg/mL (0-100) Urinalysis Test 09/17/24 05:50 Urine Color Light-yellow (Yellow) Urine Clarity Turbid (Clear) H Urine pH 5.0 (5.0-9.0) Urine Specific [place] 1.007 (1.001-1.035) Urine Protein Trace (Negative) H Urine Ketones Negative (Negative) Urine Blood Negative /uL (Negative) Urine Nitrite Negative (Negative) Urine Bilirubin Negative (Negative) Urine Urobilinogen Normal mg/dL (Negative) Urine Leukocyte Esterase Negative /uL (Negative) Urine RBC 1 /hpf (0 - 3) Urine Microscopic WBC 1 /HPF (0-3) Urine Squamous Epithelial Cells Few /hpf (<5) Urine Amorphous Crystals Few /hpf (None Seen) Urine Bacteria None seen /hpf (None Seen) Urine Creatinine 47.11 mg/dL (30.0-125.0) Urine Sodium 21 mmol/L (40-220) L Urine Glucose Normal mg/dL (Normal) Urine Total Protein 48.3 mg/dL (1-14) H Microbiology Microbiology Date/Time Source Procedure Growth Status 09/13/24 13:35 Foot Left Gram Stain - Final Complete 09/13/24 13:35 Anaerobic Culture - Final Bacteroides fragilis Complete 09/13/24 13:35 Aerobic Culture - Final Enterococcus faecalis Complete 09/10/24 09:15 Voided Urine Urine Culture - Final Complete 09/09/24 19:22 Blood Blood Culture - Final NO GROWTH AFTER 5 DAYS OF INCUBATION. Complete Assessment/Plan Assessment/Plan ASSESSMENT: Patient is a 54 year old seen on the floor follow up s/p foot I&D PLAN: - The patients chart was reviewed, clinical findings were discussed with the patient, the etiologies of the conditions were discussed in detail, and a treatment plan was agreed to at this time, with both oral and written instructions provided. - reviewed advanced imaging - reviewed all of the labs and pathology - discussed plan is to perform a subsequent incision and drainage - patient will be NPO since midnight - take him to the OR today - will have wound vac placed after surgery - it was determined that multiple I&Ds will be necessary to save the limb - can weightbear as tolerated in postoperative shoe All questions were answered and concerns addressed to the patient's satisfaction. The patient was given the phone number to the clinic and was told how to make contact with the clinic should any concerns or questions arise. Patient understands that if any questions or concerns arise prior to the next appointment, we should be contacted immediately. FOLLOW-UP: Continue to follow while inpatient Plan discussed with: Patient My Orders Orders - RYAN CHOU DPM Procedure Category Date Status Time Npo After Midnight DIET 09/16/24 Transmitted Dinner Obtain Consent For: ORDERS 09/16/24 Transmitted 17:25 Obtain Consent For ELIZA 09/16/24 In Process Anesthesia 17:25 Problem List: (1) Septic shock (2) Wound of left foot (3) Hypotension (4) Foot ulcer (5) Cellulitis and abscess of foot (6) Necrotizing subcutaneous infection (7) Osteomyelitis of left foot (8) Diabetic foot infection Date of Service: Sep 17, 2024 Billing Provider: RYAN CHOU DPM Common Visit Codes: [id number] INP/OBS CARE(MOD) RYAN CHOU DPM Sep 17, 2024 12:37
[2024-09-17] MEDS: BUPIVACAINE 0.5% MPF INJ 30ML SDV IJ ONE (13:00)
[2024-09-17] MEDS ORDERED: ONDANSETRON HCL 4 MG/2 ML VIAL ONE (13:03)
[2024-09-17] MEDS ORDERED: ePHEDrine SULFATE 50 MG/ML AMP ONE (13:09)
--- NOTE | 2024-09-17 13:20 | DVHOP2 ---
Operative Report - 2 Report Details Date: 09/17/24 Preop Diagnosis: 1. Left foot gangrene 2. Left foot abscess 3. Left foot necrotizing fasciitis 4. Left foot cellulitis Postop Diagnosis: Same as preop Surgeon: Ryan Chou MD Anesthesiologist: See anesthesia Anesthesia: Mac Consent: The patient was informed of the risks and benefits of the procedure. These include but are not limited to complications of anesthesia, postoperative infection, incomplete relief of symptoms, recurrence of symptoms, damage to blood vessels, nerves and tendons, deep venous thrombosis, pulmonary embolism and possible need for repeat surgery in the future. Complications: None Estimated Blood Loss: Minimal Fluids: See anesthesia Findings: Consistent with diagnosis Indications for Surgery: Worsening foot wound Name of Procedure Performed 1. Left foot I&D to bone (77177) Procedure Details Procedure Details: PRE-PROCEDURE INFORMATION: In the pre-op holding area, the extremity to be operated on was clearly marked and the patient verified correct laterality of the marking. The patient was transferred to the OR table and placed in a supine position. A timeout was performed in which identification of the correct patient, procedure, location, and materials was done. The left foot and leg were prepped and draped in normal sterile fashion. DESCRIPTION OF PROCEDURE: Attention was directed to the left foot incision where area of fluctuance previous incision was made was noted. An incision was made over this area and was deepened through blunt dissection. The incision was deepened to the level of abscess and bone. Care was taken to the dissection to avoid any neurovascular and tendinous structures. The incision was deepened to the bone, and the abscess appeared to be purulent fluid consistent with pus. The cortices of the bone was then removed with Shay an all necrotic tissue. After the abscess was drained, the area was irrigated with 3 L normal saline using cysto tubing. The area was then inspected and any areas of tracking, especially along the tendons were also drained. The wound was packed with Betadine-soaked gauze and we will need to be closed at a later date. POSTOPERATIVE INFORMATION: The patient tolerated the above noted procedure and anesthesia well and was transferred to the PACU with vital signs stable, and vascular status intact with capillary refill intact to all digits. Patient will return to the floor continue IV antibiotics. Patient will have a placement of a wound VAC on the floor. We will see the progress with the wound VAC to determ ine if he needs another procedure not Condition Good Disposition Still a Patient RYAN CHOU DPM Sep 17, 2024 13:20
[2024-09-17] MEDS: ONDANSETRON HCL 4 MG/2 ML VIAL IV ONE (13:30)
[2024-09-17] MEDS ORDERED: ACETAMINOPHEN IV 1000 MG/100ML (10MG/ML) IV PRN (13:30)
[2024-09-17] MEDS ORDERED: HYDROmorphone HCL 2 MG/ML VL/or syr IV PRN (13:30)
--- NOTE | 2024-09-17 18:30 | MEDREC ---
[facility] Intervention Section I [facility] Intervention: Deescalate AB based on CS (THE FINAL WOUND CULTURE OF FOOT SHOWED BACTEROIDES FRAGILIS. PLEASE CONSIDER DE-ESCALATE ZOSYN TO FLAGYL BASED ON CULTURE RESULT) TRENT RUBI Sep 17, 2024 18:30
--- NOTE | 2024-09-17 18:33 | DVHPN2 ---
Progress Note - Dictate Date Seen: Sep 17, 2024 Medical Necessity Reason Pt with a Central, PICC or Fol: No Subjective Patient's chart is reviewed and discussed with the nurse. Patient is taken to OR for his foot debridement surgery. vital signs Vital Sign Date Time Temp Pulse Resp B/P (MAP) Pulse Ox O2 Delivery O2 Flow Rate FiO2 09/17/24 17:00 97.7 73 18 108/69 (82) 95 97.7 09/17/24 13:19 Mask 5.0 98 Total Intake and Output 09/16/24 09/16/24 09/17/24 15:00 23:00 07:00 Intake Total 100 ml 1300 ml 1225 ml Output Total 500 ml 325 ml Balance 100 ml 800 ml 900 ml medications Current Medications Medications Dose Ordered Sig/Linda Route Start Time Stop Time Status Last Admin Dose Admin Ondansetron HCl 4 mg Q6HPRN PRN IV 09/10/24 04:15 09/17/24 05:57 4 MG Enoxaparin Sodium 40 mg DAILY SC 09/10/24 10:00 09/14/24 09:48 40 MG Acetaminophen 650 mg Q6HPRN PRN PO 09/10/24 04:15 09/12/24 06:29 650 MG Diagnostic Test (Pha) 1 strip ACHS 09/10/24 07:00 09/17/24 07:09 1 STRIP Insulin Human Regular ACHS SC 09/10/24 07:00 09/17/24 07:17 3 UNITS Dextrose 50 ml UD PRN IV 09/10/24 04:15 Acetaminophen/ Hydrocodone Bitart 1 tab Q4HP PRN PO 09/10/24 14:30 09/16/24 22:00 1 TAB Morphine Sulfate 2 mg Q3HPRN PRN IV 09/10/24 14:30 09/17/24 11:12 2 MG Clindamycin Phosphate 50 ml @ 50 mls/hr Q8HR IV 09/10/24 22:00 UNV Enteral Nutritional Formula 27.5 gm BIDWM PO 09/11/24 18:00 09/17/24 08:00 27.5 GM Linezolid 300 ml @ 150 mls/hr Q12H IV 09/16/24 00:00 09/17/24 03:17 150 MLS/HR Piperacillin Sod/ Tazobactam Sod 100 ml @ 25 mls/hr BID IV 09/16/24 22:00 09/17/24 11:07 25 MLS/HR Docusate Sodium 100 mg BID PO 09/17/24 10:00 laboratory and microbiology Laboratory Tests 09/17/24 08:50 Test 09/17/24 08:50 Range/Units Serum Glucose 192 H 74-106 mg/dL Assessment/Plan Continue current antibiotics and rest of the medications as patient is on. We will follow labs in the morning. Re-evaluate in the morning. Further clinical management per clinical course and postop recovery. Discussed with the nurse regarding care plan Problems(with codes): (1) Wound of left foot (2) Foot ulcer (3) Cellulitis and abscess of foot (4) Osteomyelitis of left foot (5) Diabetic foot infection Dietary Evaluation Review Recommendations by RD: Protein Supplementation Comments: 1) Initiate [place] @ 1 pk bid 2) Initiate vitamin C @ 500 mg bid 3) Initiate zinc sulfate @ 220 mg qd 4) Continue to monitor PO intake, labs, and skin integrity Expected Outcomes/Goals: 1) appetite, labs, and wound to improve 2) f/u in 3-5 days Plan discussed with: Other STAN HATCH MD Sep 17, 2024 18:33
[2024-09-17] MEDS: DOCUSATE SOD 100 MG CAP PO SCH (18:48)
--- NOTE | 2024-09-17 21:57 | DVHPN2 ---
DHEERAJ LEMUS RESIDENT 09/17/[id number]: Consult Progress Note Date Seen: Sep 17, 2024 Subjective Patient reports: No new complaints Other Systems: General Appearance: Cooperative. Well developed. Well nourished. NAD Head Exam: Normal inspection Neck Exam: Normal inspection. Non-tender. Normal alignment Pulmonary/Respiratory: Chest non-tender. Clear bilateral breath sounds Cardiovascular/Chest: Regular rate and rhythm. No murmurs. No JVD. Peripheral Pulses: 2+ Radial (R). 2+ Radial (L). 2+ Pedal (R). 2+ Pedal (L) Abdominal Exam: Normal bowel sounds. Soft. Nontender. No hepatospenomegaly. No masses Ankle Exam: Negative ankle edema Lower extremities: 1+ left lower extremity swelling, skin discoloration over lateral plantar surface of left foot, black discoloration of skin graft. Capillary refill greater than 3 seconds. Neuro/Mental Status: A&O x4. Coherent Thoughts/Psych: Normal thought pattern. Appropriate mood and affect. Good judgement and insight Appearance: In no acute distress Skin Exam: Normal inspection. Normal color. Warm. Dry Objective vital signs Vital Sign Date Time Temp Pulse Resp B/P (MAP) Pulse Ox O2 Delivery O2 Flow Rate FiO2 09/17/24 18:51 72 18 115/80 09/17/24 17:00 97.7 95 97.7 09/17/24 13:19 Mask 5.0 98 Total Intake and Output 09/16/24 09/16/24 09/17/24 15:00 23:00 07:00 Intake Total 100 ml 1300 ml 1225 ml Output Total 500 ml 325 ml Balance 100 ml 800 ml 900 ml medications Current Medications Medications Dose Ordered Sig/Linda Route Start Time Stop Time Status Last Admin Dose Admin Ondansetron HCl 4 mg Q6HPRN PRN IV 09/10/24 04:15 09/17/24 05:57 4 MG Enoxaparin Sodium 40 mg DAILY SC 09/10/24 10:00 09/14/24 09:48 40 MG Acetaminophen 650 mg Q6HPRN PRN PO 09/10/24 04:15 09/12/24 06:29 650 MG Diagnostic Test (Pha) 1 strip ACHS 09/10/24 07:00 09/17/24 17:00 1 STRIP Insulin Human Regular ACHS SC 09/10/24 07:00 09/17/24 17:00 3 UNITS Dextrose 50 ml UD PRN IV 09/10/24 04:15 Acetaminophen/ Hydrocodone Bitart 1 tab Q4HP PRN PO 09/10/24 14:30 09/16/24 22:00 1 TAB Morphine Sulfate 2 mg Q3HPRN PRN IV 09/10/24 14:30 09/17/24 18:51 2 MG Clindamycin Phosphate 50 ml @ 50 mls/hr Q8HR IV 09/10/24 22:00 UNV Enteral Nutritional Formula 27.5 gm BIDWM PO 09/11/24 18:00 09/17/24 18:00 27.5 GM Linezolid 300 ml @ 150 mls/hr Q12H IV 09/16/24 00:00 09/17/24 18:48 150 MLS/HR Piperacillin Sod/ Tazobactam Sod 100 ml @ 25 mls/hr BID IV 09/16/24 22:00 09/17/24 11:07 25 MLS/HR Docusate Sodium 100 mg BID PO 09/17/24 10:00 09/17/24 18:48 100 MG laboratory and microbiology Laboratory Tests 09/17/24 08:50 Test 09/17/24 08:50 Range/Units Serum Glucose 192 H 74-106 mg/dL Problem List/Assessment/Plan Problem List/Assessment/Plan Left foot osteomyelitis Osteomyelitis of 1st distal phalanx Left foot abscess Left foot skin graft rejection Cellulitis of left foot Sepsis due to cellulitis Diabetic foot infection Type 2 diabetes on insulin Diabetic neuropathy 09/11: whitecount is 14.6 , MRSA nares is negative and blood cultures are no growth to date . superficial wound cultures growing enterococcus and gram negative abdulkadir . dopple ultrasound of lower extremities shows no DVT 2/: remains septic with tachycardia , chills and awaiting pediatry evaluation 2/3: Underwent debridement via podiatry, discontinue clindamycin, continue Zosyn and vanco. Wait for culture status post surgery. Wound culture came positive for Enterococcus sensitive to vancomycin. 2: Continue antibiotic zosy, vanco. Plan for 2 debridement tomorrow. 09/15: Underwent debridement today. Continue Zosyn and linezolid. 09/16: No new complaints, continue antibiotics Zosyn and linezolid. Zosyn dose frequency reduced to q.12 given worsening kidney function. 09/17: Left foot I&D to bone, Continue zosyn and linezolid, Kidney function is worsening. Plan -continue IV Zosyn and linezolid. Podiatry is continuously following, possible closing of wound on Friday. Plan for IV antibiotic Zosyn at home, patient has PICC line. - Podiatry consultation -Wound culture: Positive for Bacteroides fragilis, Enterococcus faecalis. - DVT negative - MRSA negative - IV hydration given underlying sepsis - Rest of the management as per primary care team, we will continue following up. - Poor prognosis. Plan discussed with: Patient, Other (RN) Dietary Evaluation Review Recommendations by RD: Protein Supplementation Comments: 1) Initiate Arslan @ 1 pk bid 2) Initiate vitamin C @ 500 mg bid 3) Initiate zinc sulfate @ 220 mg qd 4) Continue to monitor PO intake, labs, and skin integrity Expected Outcomes/Goals: 1) appetite, labs, and wound to improve 2) f/u in 3-5 days BIANCA HOLLAND MD 09/19/24 1525: Consult Progress Note Problem List/Assessment/Plan Problem List/Assessment/Plan _ Attending Addendum: Case discussed with Dr. Lemus. at the time of visit. Seen by Dr Lemus and reviewed assessment and plan . S/P debridement of wound and doing well .more necrotic tissue was removed and wound is packed.plan is to get wound Vac and debridement will be on Friday. continue linezolid and Zosyn . patients kidney function continues to rise so recommend nephrology consult to further evaluate. Keep blood sugars under 180 to optimize wound healing. 09/16: no pain in right lower extremity and is well wrapped . underwent a second debridement yesterday and continues to feel good . Continue linezolid and renally dose Zosyn . patients kidney function continues to rise would defer management to nephrology. patient is getting Lasix and is responding /: underwent an additional debridement today and appears that patient is to get wound vac afterwards . the wound is slightly open with drainage but no pain . whitecount has come down to 10.9 however renal function continues to worsen with creatine at 5.65. Plan will be to continue linezolid and Zosyn for 6 weeks and will determine final antibiotic dosing based off of residual renal function . patient should follow up with infectious disease clinic in 2 weeks to see if antibiotic dose adjustment is needed as renal function improves . as per nephrology ANIBAL is determined to be related to temporary caused from vancomycin toxicity and hypotension DHEERAJ LEMUS RESIDENT Sep 17, 2024 21:57 BIANCA HOLLAND MD Sep 19, 2024 15:25
[2024-09-18] VITALS (8 sets, daily range): BP systolic 104–129; BP diastolic 60–69; PULSE 72–78; RESP 6–20; TEMP 97.4–98.1; O2SAT 90–99
[2024-09-18 12:00] LABS: Basophils # (auto) 0 10 ^3/uL (0-0.2); Basophils % (auto) 0.2 % (0.0-2.0); Eosinophils # (auto) 0.2 10 ^3/uL (0-0.8); Lymphocytes # (auto) 0.9 10 ^3/uL (0.4-5.4); Monocytes # (auto) 0.7 10 ^3/uL (0-1.3)
[2024-09-18 12:02] LABS: Eosinophils % (auto) 1.7 % (0.0-7.0); Hematocrit 28.9 % (41.0-53.0); Hemoglobin 9.9 g/dL (13.5-17.5); Lymphocytes % (auto) 8.6 % (10.0-50.0); Mean Corpuscular Hemoglobin 29.8 pg (28.0-32.0); Mean Corpuscular Hgb Conc. 34.4 g/dL (32.0-36.0); Mean Corpuscular Volume 86.8 fL (80.0-100.0); Monocytes % (auto) 6.6 % (0.0-12.0); Neutrophils # (auto) 9.1 10 ^3/uL (1.6-8.6); Neutrophils % (auto) 82.9 % (37.0-80.0); Platelet Count (auto) 477 10^3/uL (140-450); Red Blood Cells 3.33 10^6/uL (4.5-5.90); Red Cell Distribution Width 13.7 % (11.8-14.3); White Blood Cell 10.9 10^3/uL (4.4-10.8)
[2024-09-18 12:33] LABS: Potassium 4.1 mmol/L (3.5-5.1)
[2024-09-18 12:34] LABS: Anion Gap 10 (5-15); Carbon Dioxide 23 mmol/L (20-31)
[2024-09-18 12:39] LABS: BUN/Creatinine Ratio 6.7 (10.0-20.0)
[2024-09-18 12:46] LABS: Blood Urea Nitrogen 38 mg/dL (9-23); Calcium 8.5 mg/dL (8.7-10.4); Chloride 94 mmol/L (98-107); Glucose 175 mg/dL (74-106); Sodium 127 mmol/L (136-145)
--- NOTE | 2024-09-18 14:39 | DVHPN2 ---
Progress Note - Dictate Date Seen: Sep 18, 2024 Medical Necessity Reason Pt with a Central, PICC or Fol: No Subjective Patient is seen and evaluated. Patient came back from surgery and overnight no acute events. Patient says his last bowel movement was two days ago. Denies any other complaints. vital signs Vital Sign Date Time Temp Pulse Resp B/P (MAP) Pulse Ox O2 Delivery O2 Flow Rate FiO2 09/18/24 12:00 97.7 74 16 107/64 (78) 95 97.7 09/18/24 08:00 Room Air* 0 21 Total Intake and Output 09/17/24 09/17/24 09/18/24 15:00 23:00 07:00 Intake Total 250 ml 480 ml 840 ml Output Total 1550 ml Balance 250 ml 480 ml -710 ml medications Current Medications Medications Dose Ordered Sig/Linda Route Start Time Stop Time Status Last Admin Dose Admin Ondansetron HCl 4 mg Q6HPRN PRN IV 09/10/24 04:15 09/17/24 05:57 4 MG Enoxaparin Sodium 40 mg DAILY SC 09/10/24 10:00 09/18/24 10:00 40 MG Acetaminophen 650 mg Q6HPRN PRN PO 09/10/24 04:15 09/12/24 06:29 650 MG Diagnostic Test (Pha) 1 strip ACHS 09/10/24 07:00 09/18/24 11:30 1 STRIP Insulin Human Regular ACHS SC 09/10/24 07:00 09/18/24 12:06 3 UNITS Dextrose 50 ml UD PRN IV 09/10/24 04:15 Acetaminophen/ Hydrocodone Bitart 1 tab Q4HP PRN PO 09/10/24 14:30 09/16/24 22:00 1 TAB Morphine Sulfate 2 mg Q3HPRN PRN IV 09/10/24 14:30 09/18/24 11:39 2 MG Clindamycin Phosphate 50 ml @ 50 mls/hr Q8HR IV 09/10/24 22:00 UNV Enteral Nutritional Formula 27.5 gm BIDWM PO 09/11/24 18:00 09/18/24 08:00 27.5 GM Linezolid 300 ml @ 150 mls/hr Q12H IV 09/16/24 00:00 09/18/24 01:00 150 MLS/HR Piperacillin Sod/ Tazobactam Sod 100 ml @ 25 mls/hr BID IV 09/16/24 22:00 09/18/24 09:59 25 MLS/HR Docusate Sodium 100 mg BID PO 09/17/24 10:00 09/18/24 10:00 100 MG objective Alert awake oriented x3. HEENT neck supple no JVD. Heart regular rate and rhythm S1-S2. Lungs fair air movement without rales wheezes. Abdomen soft nontender positive bowel sounds. Extremities no edema. His left foot and ankle is covered with a dressing. laboratory and microbiology Laboratory Tests 09/18/24 11:38 Test 09/18/24 11:38 Range/Units Serum Glucose 175 H 74-106 mg/dL Assessment/Plan Continue current antibiotics and rest of the medications as patient is on. We will start him on IV fluids. Kidney function is worsening. [place] due to vancomycin induced nephrotoxicity. Currently he is on Zyvox and Zosyn. Tank Tender following. Has adequate urine output. Continue present management for now and further clinical management per clinical course. Discussed with the patient regarding care plan Problems(with codes): (1) Acute kidney injury (ANIBAL) with acute tubular necrosis (ATN) (2) Wound of left foot (3) Foot ulcer (4) Osteomyelitis of left foot (5) Diabetic foot infection Dietary Evaluation Review Recommendations by RD: Protein Supplementation Comments: 1) Initiate Arslan @ 1 pk bid 2) Initiate vitamin C @ 500 mg bid 3) Initiate zinc sulfate @ 220 mg qd 4) Continue to monitor PO intake, labs, and skin integrity Expected Outcomes/Goals: 1) appetite, labs, and wound to improve 2) f/u in 3-5 days Plan discussed with: Patient STAN HATCH MD Sep 18, 2024 14:39
[2024-09-18] MEDS: SODIUM CHLORIDE 0.9% 1,000 ML IV SCH (14:47)
--- NOTE | 2024-09-18 17:02 | DVHPN2 ---
Progress Note Date Seen: Sep 18, 2024 Medical Necessity Reason Pt with a Central, PICC or Fol: No Subjective Patient reports: No new complaints Review of Systems: HEENT:Normal, CVS:Normal, RESPIRATORY:Normal, GI:Normal, :Normal, MSK:Abnormal, NEURO:Normal Objective vital signs Vital Sign Date Time Temp Pulse Resp B/P (MAP) Pulse Ox O2 Delivery O2 Flow Rate FiO2 09/18/24 12:00 97.7 74 16 107/64 (78) 95 97.7 09/18/24 08:00 Room Air* 0 21 Total Intake and Output 09/17/24 09/17/24 09/18/24 15:00 23:00 07:00 Intake Total 250 ml 480 ml 840 ml Output Total 1550 ml Balance 250 ml 480 ml -710 ml medications Current Medications Medications Dose Ordered Sig/Linda Route Start Time Stop Time Status Last Admin Dose Admin Ondansetron HCl 4 mg Q6HPRN PRN IV 09/10/24 04:15 09/17/24 05:57 4 MG Acetaminophen 650 mg Q6HPRN PRN PO 09/10/24 04:15 09/12/24 06:29 650 MG Diagnostic Test (Pha) 1 strip ACHS 09/10/24 07:00 09/18/24 11:30 1 STRIP Insulin Human Regular ACHS SC 09/10/24 07:00 09/18/24 12:06 3 UNITS Dextrose 50 ml UD PRN IV 09/10/24 04:15 Acetaminophen/ Hydrocodone Bitart 1 tab Q4HP PRN PO 09/10/24 14:30 09/16/24 22:00 1 TAB Morphine Sulfate 2 mg Q3HPRN PRN IV 09/10/24 14:30 09/18/24 11:39 2 MG Clindamycin Phosphate 50 ml @ 50 mls/hr Q8HR IV 09/10/24 22:00 UNV Enteral Nutritional Formula 27.5 gm BIDWM PO 09/11/24 18:00 09/18/24 08:00 27.5 GM Linezolid 300 ml @ 150 mls/hr Q12H IV 09/16/24 00:00 09/18/24 14:47 150 MLS/HR Piperacillin Sod/ Tazobactam Sod 100 ml @ 25 mls/hr BID IV 09/16/24 22:00 09/18/24 09:59 25 MLS/HR Docusate Sodium 100 mg BID PO 09/17/24 10:00 09/18/24 10:00 100 MG Sodium Chloride 1,000 ml @ 75 mls/hr [id number] IV 09/18/24 14:45 09/18/24 14:47 75 MLS/HR Examination: GENERAL:Normal, HEENT:Normal, NECK:Normal, LUNGS:Normal, CVS:Normal, ABDOMEN:Normal, MSK:Abnormal, SKIN:Abnormal, NEURO:Normal, :Normal laboratory and microbiology Laboratory Tests 09/18/24 11:38 Test 09/18/24 11:38 Range/Units Serum Glucose 175 H 74-106 mg/dL Microbiology Date/Time Source Procedure Growth Status 09/13/24 13:35 Foot Left Gram Stain - Final Complete 09/13/24 13:35 Anaerobic Culture - Final Bacteroides fragilis Complete 09/13/24 13:35 Aerobic Culture - Final Enterococcus faecalis Complete 09/10/24 09:15 Voided Urine Urine Culture - Final Complete 09/09/24 19:22 Blood Blood Culture - Final NO GROWTH AFTER 5 DAYS OF INCUBATION. Complete Problem List/Assessment/Plan Problem List/Assessment/Plan Acute kidney injury in the setting of vancomycin toxicity, hypotension Left foot osteomyelitis Status post septic shock Diabetes obesity Hyponatremia Recommendations Hold IV fluids blood pressure looks better, good uop Vancomycin was stopped Needs strict Is&Os Rodriguez catheter Urine workup as ordered Kidney ultrasound noted We will follow closely Plan discussed with: Patient My Orders My Orders Orders - SALVADOR CEE MD Procedure Category Date Status Time Strict I & O ELIZA 09/17/24 In Process 18:15 Communication Order ORDERS 09/18/24 Transmitted 10:06 Dietary Evaluation Review Recommendations by RD: Protein Supplementation Comments: 1) Initiate Arslan @ 1 pk bid 2) Initiate vitamin C @ 500 mg bid 3) Initiate zinc sulfate @ 220 mg qd 4) Continue to monitor PO intake, labs, and skin integrity Expected Outcomes/Goals: 1) appetite, labs, and wound to improve 2) f/u in 3-5 days SALVADOR CEE MD Sep 18, 2024 17:02
[2024-09-19] VITALS (8 sets, daily range): BP systolic 114–130; BP diastolic 60–73; PULSE 61–79; RESP 16–19; TEMP 97.6–98.4; O2SAT 91–97
--- NOTE | 2024-09-19 00:29 | DVHSR ---
APPROVED REPORT EXAM: LIMITED Two-dimensional and M-mode echocardiogram with Doppler and color Doppler. Blood Pressure: 107/64 mmHg INDICATION Hypertension RISK FACTORS Obesity: Height: 6' 3", Weight: 271 DIMENSIONS LVDd4.6 (3.8-5.7cm)LA (2D)4.2 (1.9-4.0cm)Aortic Root3.8 (2.0-3.7cm) LVDs3.2 (2.5-4.0cm)LA (MM) (1.9-4.0cm)Aortic Cusp Exc1.8 (1.5-2.0cm) EF (%) 57.0 (55-70%)Rt. Atrium4.2 (1.9-4.0cm)Asc. Aorta cm IVSd1.0 (0.7-1.1cm)RV (D) (1.8-2.4cm) PWd1.0 (0.7-1.1cm) Mitral Valve MitralMitral Stenosis E wave0.90m/sMV Mean GR.mmHg A wave0.80m/sMV Peak GR.mmHg E/A ratio1.12D MVAcm2 Aortic Valve Aortic ValveAortic Stenosis V11.10m/Dhara Mean GR.4mmHg V21.30m/Dhara Peak GR.7mmHg LVOT Diameter2.3 (1.8-2.4cm)Doppler AVA3.51cm2 Pulmonic Valve V20.80m/s Tricuspid Valve TR Velocity3.40m/s [id number] Conclusion MILD LVH AND LV DYSFUNCTION MODERATE DEGREE PULMONARY HYPERTENSION SLIGHTLY DILATED RV NORMAL VALVES NO EFFUSION
[2024-09-19] MEDS ORDERED: METOCLOPRAMIDE HCL 5MG/ml INJ 2ml VIAL IV PRN (09:15)
[2024-09-19 09:20] LABS: Eosinophils # (auto) 0.2 10 ^3/uL (0-0.8); Eosinophils % (auto) 1.9 % (0.0-7.0); Red Cell Distribution Width 13.8 % (11.8-14.3); White Blood Cell 11.7 10^3/uL (4.4-10.8)
[2024-09-19] MEDS: PANTOPRAZOLE 40 MG/10 ML VIAL INJ IV SCH (09:21)
[2024-09-19 09:22] LABS: Basophils # (auto) 0 10 ^3/uL (0-0.2); Basophils % (auto) 0.4 % (0.0-2.0); Hematocrit 30.5 % (41.0-53.0); Hemoglobin 10.3 g/dL (13.5-17.5); Lymphocytes % (auto) 8.7 % (10.0-50.0); Mean Corpuscular Hemoglobin 29.4 pg (28.0-32.0); Mean Corpuscular Hgb Conc. 33.8 g/dL (32.0-36.0); Mean Corpuscular Volume 86.8 fL (80.0-100.0); Monocytes # (auto) 0.7 10 ^3/uL (0-1.3); Monocytes % (auto) 5.7 % (0.0-12.0); Neutrophils # (auto) 9.7 10 ^3/uL (1.6-8.6); Neutrophils % (auto) 83.3 % (37.0-80.0); Platelet Count (auto) 558 10^3/uL (140-450); Red Blood Cells 3.52 10^6/uL (4.5-5.90)
[2024-09-19 09:38] LABS: Alanine Aminotransferase 33 U/L (7-40); Anion Gap 10 (5-15); BUN/Creatinine Ratio 6.2 (10.0-20.0); Bilirubin, Total 0.5 mg/dL (0.2-1.0); Carbon Dioxide 22 mmol/L (20-31); Potassium 4.2 mmol/L (3.5-5.1); Total Protein 6.8 g/dL (5.7-8.2)
[2024-09-19 09:48] LABS: Albumin 3.1 g/dL (3.2-4.8); Alkaline Phosphatase 178 U/L (46-116); Aspartate Aminotransferase 57 U/L (13-40); Blood Urea Nitrogen 38 mg/dL (9-23); Calcium 8.4 mg/dL (8.7-10.4); Chloride 94 mmol/L (98-107); Glucose 172 mg/dL (74-106); Sodium 126 mmol/L (136-145)
[2024-09-19 10:26] LABS: Lipase 61 U/L (12-53)
[2024-09-19] MEDS: FUROSEMIDE 100 MG/10ML VIAL IV ONE (11:48)
--- NOTE | 2024-09-19 13:18 | DVHPN2 ---
Progress Note - Dictate Date Seen: Sep 19, 2024 Medical Necessity Reason Pt with a Central, PICC or Fol: No Subjective Patient is seen and evaluated. Patient complains of few episodes of vomiting with the nausea this morning. Currently feels better. vital signs Vital Sign Date Time Temp Pulse Resp B/P (MAP) Pulse Ox O2 Delivery O2 Flow Rate FiO2 09/19/24 11:48 114/60 09/19/24 09:53 72 18 09/19/24 09:00 97.6 93 97.6 09/18/24 20:00 Room Air* 0 21 Total Intake and Output 09/18/24 09/18/24 09/19/24 15:00 23:00 07:00 Intake Total 100 ml 300 ml 1550 ml Output Total 1075 ml 800 ml Balance 100 ml -775 ml 750 ml medications Current Medications Medications Dose Ordered Sig/Linda Route Start Time Stop Time Status Last Admin Dose Admin Ondansetron HCl 4 mg Q6HPRN PRN IV 09/10/24 04:15 09/17/24 05:57 4 MG Acetaminophen 650 mg Q6HPRN PRN PO 09/10/24 04:15 09/12/24 06:29 650 MG Diagnostic Test (Pha) 1 strip ACHS 09/10/24 07:00 09/19/24 11:50 1 STRIP Insulin Human Regular ACHS SC 09/10/24 07:00 09/19/24 11:49 2 UNITS Dextrose 50 ml UD PRN IV 09/10/24 04:15 Acetaminophen/ Hydrocodone Bitart 1 tab Q4HP PRN PO 09/10/24 14:30 09/16/24 22:00 1 TAB Morphine Sulfate 2 mg Q3HPRN PRN IV 09/10/24 14:30 09/19/24 09:23 2 MG Clindamycin Phosphate 50 ml @ 50 mls/hr Q8HR IV 09/10/24 22:00 UNV Enteral Nutritional Formula 27.5 gm BIDWM PO 09/11/24 18:00 09/18/24 18:19 27.5 GM Linezolid 300 ml @ 150 mls/hr Q12H IV 09/16/24 00:00 09/19/24 11:51 150 MLS/HR Piperacillin Sod/ Tazobactam Sod 100 ml @ 25 mls/hr BID IV 09/16/24 22:00 09/19/24 08:24 25 MLS/HR Docusate Sodium 100 mg BID PO 09/17/24 10:00 09/18/24 21:50 100 MG Pantoprazole Sodium 40 mg BID IV 09/19/24 10:00 09/19/24 09:21 40 MG Metoclopramide HCl 5 mg Q6HPRN PRN IV 09/19/24 09:15 Furosemide 60 mg DAILY IV 09/20/24 10:00 objective Alert awake oriented x3. HEENT neck supple no JVD. Heart regular rate and rhythm S1-S2. Lungs fair air movement without rales wheezes. Abdomen soft nontender positive bowel sounds. Extremities no edema. His left foot and ankle is covered with a dressing. laboratory and microbiology Laboratory Tests 09/19/24 08:35 Test 09/19/24 08:35 Range/Units Serum Glucose 172 H 74-106 mg/dL Assessment/Plan I will start him on Reglan p.r.n. for nausea given Zofran is ineffective. Patient has not had a bowel movement in couple of days therefore I will start him on laxative. Start him on proton pump inhibitor. Continue current IV fluids. Otherwise continue rest of supportive care and treatment as he is on. His follow clinical management per clinical course and recommendations from the consultants. Discussed with the patient and nurse regarding care plan at bedside. Problems(with codes): (1) Osteomyelitis of left foot (2) Diabetic foot infection (3) Acute kidney injury (ANIBAL) with acute tubular necrosis (ATN) Dietary Evaluation Review Recommendations by RD: Protein Supplementation Comments: 1) Initiate Arslan @ 1 pk bid 2) Initiate vitamin C @ 500 mg bid 3) Initiate zinc sulfate @ 220 mg qd 4) Continue to monitor PO intake, labs, and skin integrity Expected Outcomes/Goals: 1) appetite, labs, and wound to improve 2) f/u in 3-5 days Plan discussed with: Patient, Other STAN HATCH MD Sep 19, 2024 13:18
--- NOTE | 2024-09-19 18:17 | DVHPN2 ---
Progress Note Date Seen: Sep 19, 2024 Medical Necessity Reason Pt with a Central, PICC or Fol: Yes The following are medically ne: Rodriguez Catheter Subjective Patient reports: No new complaints Review of Systems: Deferred Objective vital signs Vital Sign Date Time Temp Pulse Resp B/P (MAP) Pulse Ox O2 Delivery O2 Flow Rate FiO2 09/19/24 14:52 77 18 120/68 09/19/24 13:00 97.9 93 97.9 09/19/24 07:30 Room Air* 0 21 Total Intake and Output 09/18/24 09/18/24 09/19/24 15:00 23:00 07:00 Intake Total 100 ml 300 ml 1550 ml Output Total 1075 ml 800 ml Balance 100 ml -775 ml 750 ml medications Current Medications Medications Dose Ordered Sig/Linda Route Start Time Stop Time Status Last Admin Dose Admin Ondansetron HCl 4 mg Q6HPRN PRN IV 09/10/24 04:15 09/17/24 05:57 4 MG Acetaminophen 650 mg Q6HPRN PRN PO 09/10/24 04:15 09/12/24 06:29 650 MG Diagnostic Test (Pha) 1 strip ACHS 09/10/24 07:00 09/19/24 17:50 1 STRIP Insulin Human Regular ACHS SC 09/10/24 07:00 09/19/24 17:50 3 UNITS Dextrose 50 ml UD PRN IV 09/10/24 04:15 Acetaminophen/ Hydrocodone Bitart 1 tab Q4HP PRN PO 09/10/24 14:30 09/16/24 22:00 1 TAB Morphine Sulfate 2 mg Q3HPRN PRN IV 09/10/24 14:30 09/19/24 14:22 2 MG Clindamycin Phosphate 50 ml @ 50 mls/hr Q8HR IV 09/10/24 22:00 UNV Enteral Nutritional Formula 27.5 gm BIDWM PO 09/11/24 18:00 09/19/24 17:53 27.5 GM Linezolid 300 ml @ 150 mls/hr Q12H IV 09/16/24 00:00 09/19/24 11:51 150 MLS/HR Piperacillin Sod/ Tazobactam Sod 100 ml @ 25 mls/hr BID IV 09/16/24 22:00 09/19/24 08:24 25 MLS/HR Pantoprazole Sodium 40 mg BID IV 09/19/24 10:00 09/19/24 09:21 40 MG Metoclopramide HCl 5 mg Q6HPRN PRN IV 09/19/24 09:15 Furosemide 60 mg DAILY IV 09/20/24 10:00 Lactulose 30 ml BID PO 09/19/24 22:00 Examination: GENERAL:Normal, HEENT:Normal, NECK:Normal, LUNGS:Normal, CVS:Normal, ABDOMEN:Normal, MSK:Abnormal, SKIN:Abnormal, NEURO:Normal, :Normal laboratory and microbiology Laboratory Tests 09/19/24 08:35 Test 09/19/24 08:35 Range/Units Serum Glucose 172 H 74-106 mg/dL Microbiology Date/Time Source Procedure Growth Status 09/13/24 13:35 Foot Left Gram Stain - Final Complete 09/13/24 13:35 Anaerobic Culture - Final Bacteroides fragilis Complete 09/13/24 13:35 Aerobic Culture - Final Enterococcus faecalis Complete 09/10/24 09:15 Voided Urine Urine Culture - Final Complete 09/09/24 19:22 Blood Blood Culture - Final NO GROWTH AFTER 5 DAYS OF INCUBATION. Complete Problem List/Assessment/Plan Problem List/Assessment/Plan Acute kidney injury in the setting of vancomycin toxicity, hypotension Left foot osteomyelitis Status post septic shock Diabetes obesity Hyponatremia Recommendations Hold IV fluids blood pressure looks better, good uop 1800 cc bumex daily Vancomycin was stopped Needs strict Is&Os Rodriguez catheter Urine workup as ordered Kidney ultrasound noted We will follow closely Plan discussed with: Patient My Orders My Orders Orders - SLAVADOR CEE MD Procedure Category Date Status Time Furosemide Injection PHA 09/20/24 In Process (Lasix Injection) 10:00 Bumetanide Injection PHA 09/20/24 Logged (Bumex Injection) 10:00 Dietary Evaluation Review Recommendations by RD: Protein Supplementation Comments: 1) Initiate Arslan @ 1 pk bid 2) Initiate vitamin C @ 500 mg bid 3) Initiate zinc sulfate @ 220 mg qd 4) Continue to monitor PO intake, labs, and skin integrity Expected Outcomes/Goals: 1) appetite, labs, and wound to improve 2) f/u in 3-5 days SALVADOR CEE MD Sep 19, 2024 18:17
[2024-09-19] MEDS: LACTULOSE 20Gm/30ML SOLN PO SCH (22:00)
--- NOTE | 2024-09-19 23:47 | DVHPN2 ---
Consult Progress Note Date Seen: Sep 18, 2024 Subjective Patient reports: Other (not happy about not being able to urinate , hasnt had a bowel movement in 2 days , volume overloaded with edema in lower extremities but its mild . left foor ankle is covered with dressign and mild bleeding through bandage ) Objective vital signs Vital Sign Date Time Temp Pulse Resp B/P (MAP) Pulse Ox O2 Delivery O2 Flow Rate FiO2 09/19/24 22:04 61 16 116/64 09/19/24 20:58 97.6 93 97.6 09/19/24 20:00 Room Air* 0 21 Total Intake and Output 09/18/24 09/18/24 09/19/24 15:00 23:00 07:00 Intake Total 100 ml 300 ml 1550 ml Output Total 1075 ml 800 ml Balance 100 ml -775 ml 750 ml medications Current Medications Medications Dose Ordered Sig/Linda Route Start Time Stop Time Status Last Admin Dose Admin Ondansetron HCl 4 mg Q6HPRN PRN IV 09/10/24 04:15 09/17/24 05:57 4 MG Acetaminophen 650 mg Q6HPRN PRN PO 09/10/24 04:15 09/12/24 06:29 650 MG Diagnostic Test (Pha) 1 strip ACHS 09/10/24 07:00 09/19/24 22:13 1 STRIP Insulin Human Regular ACHS SC 09/10/24 07:00 09/19/24 21:51 3 UNITS Dextrose 50 ml UD PRN IV 09/10/24 04:15 Acetaminophen/ Hydrocodone Bitart 1 tab Q4HP PRN PO 09/10/24 14:30 09/16/24 22:00 1 TAB Morphine Sulfate 2 mg Q3HPRN PRN IV 09/10/24 14:30 09/19/24 22:04 2 MG Clindamycin Phosphate 50 ml @ 50 mls/hr Q8HR IV 09/10/24 22:00 UNV Enteral Nutritional Formula 27.5 gm BIDWM PO 09/11/24 18:00 09/19/24 17:53 27.5 GM Linezolid 300 ml @ 150 mls/hr Q12H IV 09/16/24 00:00 09/19/24 11:51 150 MLS/HR Piperacillin Sod/ Tazobactam Sod 100 ml @ 25 mls/hr BID IV 09/16/24 22:00 09/19/24 22:01 25 MLS/HR Pantoprazole Sodium 40 mg BID IV 09/19/24 10:00 09/19/24 22:01 40 MG Metoclopramide HCl 5 mg Q6HPRN PRN IV 09/19/24 09:15 Lactulose 30 ml BID PO 09/19/24 22:00 Bumetanide 2.5 mg DAILY IV 09/20/24 10:00 General Appearance: Cooperative. Well developed. Well nourished. NAD Head Exam: Normal inspection Neck Exam: Normal inspection. Non-tender. Normal alignment Pulmonary/Respiratory: Chest non-tender. Clear bilateral breath sounds Cardiovascular/Chest: Regular rate and rhythm. No murmurs. No JVD. Peripheral Pulses: 2+ Radial (R). 2+ Radial (L). 2+ Pedal (R). 2+ Pedal (L) Abdominal Exam: Normal bowel sounds. Soft. Nontender. No hepatospenomegaly. No masses Ankle Exam: Negative ankle edema Lower extremities: 1+ left lower extremity swelling, skin discoloration over lateral plantar surface of left foot, black discoloration of skin graft. Capillary refill greater than 3 seconds. Neuro/Mental Status: A&O x4. Coherent Thoughts/Psych: Normal thought pattern. Appropriate mood and affect. Good judgement and insight Appearance: In no acute distress Skin Exam: Normal inspection. Normal color. Warm. Dry laboratory and microbiology Laboratory Tests 09/19/24 08:35 Test 09/19/24 08:35 Range/Units Serum Glucose 172 H 74-106 mg/dL Problem List/Assessment/Plan Problems(with codes): (1) Acute kidney injury (ANIBAL) with acute tubular necrosis (ATN) (2) Diabetic foot infection (3) Osteomyelitis of left foot (4) Necrotizing subcutaneous infection (5) Cellulitis and abscess of foot (6) Foot ulcer (7) Hypotension (8) Wound of left foot (9) Septic shock Problem List/Assessment/Plan Problem List/Assessment/Plan Left foot osteomyelitis Osteomyelitis of 1st distal phalanx Left foot abscess Left foot skin graft rejection Cellulitis of left foot Sepsis due to cellulitis Diabetic foot infection Type 2 diabetes on insulin Diabetic neuropathy S/P debridement of wound and doing well .more necrotic tissue was removed and wound is packed.plan is to get wound Vac and debridement will be on Friday. continue linezolid and Zosyn . patients kidney function continues to rise so recommend nephrology consult to further evaluate. Keep blood sugars under 180 to optimize wound healing. 09/16: no pain in right lower extremity and is well wrapped . underwent a second debridement yesterday and continues to feel good . Continue linezolid and renally dose Zosyn . patients kidney function continues to rise would defer management to nephrology. patient is getting Lasix and is responding 09/17: underwent an additional debridement today and appears that patient is to get wound vac afterwards . the wound is slightly open with drainage but no pain . whitecount has come down to 10.9 however renal function continues to worsen with creatine at 5.65. Plan will be to continue linezolid and Zosyn for 6 weeks and will determine final antibiotic dosing based off of residual renal function . patient should follow up with infectious disease clinic in 2 weeks to see if antibiotic dose adjustment is needed as renal function improves . as per nephrology ANIBAL is determined to be related to temporary caused from vancomycin toxicity and hypotension 09/18:Patients kidney function is worsening , will dose adjust zosyn Plan: - dose adjust Zosyn -continue IV Zosyn and linezolid. Podiatry is continuously following, possible closing of wound on Friday. Plan for IV antibiotic Zosyn at home, patient has PICC line. - Podiatry consultation -Wound culture: Positive for Bacteroides fragilis, Enterococcus faecalis. - DVT negative - MRSA negative - IV hydration given underlying sepsis - Rest of the management as per primary care team, we will continue following up. - Poor prognosis. Plan discussed with: Other Dietary Evaluation Review Recommendations by RD: Protein Supplementation Comments: 1) Initiate Arslan @ 1 pk bid 2) Initiate vitamin C @ 500 mg bid 3) Initiate zinc sulfate @ 220 mg qd 4) Continue to monitor PO intake, labs, and skin integrity Expected Outcomes/Goals: 1) appetite, labs, and wound to improve 2) f/u in 3-5 days BIANCA HOLLAND MD Sep 19, 2024 23:47
--- NOTE | 2024-09-19 23:48 | DVHPN2 ---
Consult Progress Note Date Seen: Sep 19, 2024 Subjective Patient reports: Other (has wound vac in place and filling with blood ) Objective vital signs Vital Sign Date Time Temp Pulse Resp B/P (MAP) Pulse Ox O2 Delivery O2 Flow Rate FiO2 09/19/24 22:04 61 16 116/64 09/19/24 20:58 97.6 93 97.6 09/19/24 20:00 Room Air* 0 21 Total Intake and Output 09/18/24 09/18/24 09/19/24 15:00 23:00 07:00 Intake Total 100 ml 300 ml 1550 ml Output Total 1075 ml 800 ml Balance 100 ml -775 ml 750 ml medications Current Medications Medications Dose Ordered Sig/Linda Route Start Time Stop Time Status Last Admin Dose Admin Ondansetron HCl 4 mg Q6HPRN PRN IV 09/10/24 04:15 09/17/24 05:57 4 MG Acetaminophen 650 mg Q6HPRN PRN PO 09/10/24 04:15 09/12/24 06:29 650 MG Diagnostic Test (Pha) 1 strip ACHS 09/10/24 07:00 09/19/24 22:13 1 STRIP Insulin Human Regular ACHS SC 09/10/24 07:00 09/19/24 21:51 3 UNITS Dextrose 50 ml UD PRN IV 09/10/24 04:15 Acetaminophen/ Hydrocodone Bitart 1 tab Q4HP PRN PO 09/10/24 14:30 09/16/24 22:00 1 TAB Morphine Sulfate 2 mg Q3HPRN PRN IV 09/10/24 14:30 09/19/24 22:04 2 MG Clindamycin Phosphate 50 ml @ 50 mls/hr Q8HR IV 09/10/24 22:00 UNV Enteral Nutritional Formula 27.5 gm BIDWM PO 09/11/24 18:00 09/19/24 17:53 27.5 GM Linezolid 300 ml @ 150 mls/hr Q12H IV 09/16/24 00:00 09/19/24 11:51 150 MLS/HR Piperacillin Sod/ Tazobactam Sod 100 ml @ 25 mls/hr BID IV 09/16/24 22:00 09/19/24 22:01 25 MLS/HR Pantoprazole Sodium 40 mg BID IV 09/19/24 10:00 09/19/24 22:01 40 MG Metoclopramide HCl 5 mg Q6HPRN PRN IV 09/19/24 09:15 Lactulose 30 ml BID PO 09/19/24 22:00 Bumetanide 2.5 mg DAILY IV 09/20/24 10:00 General Appearance: Cooperative. Well developed. Well nourished. NAD Head Exam: Normal inspection Neck Exam: Normal inspection. Non-tender. Normal alignment Pulmonary/Respiratory: Chest non-tender. Clear bilateral breath sounds Cardiovascular/Chest: Regular rate and rhythm. No murmurs. No JVD. Peripheral Pulses: 2+ Radial (R). 2+ Radial (L). 2+ Pedal (R). 2+ Pedal (L) Abdominal Exam: Normal bowel sounds. Soft. Nontender. No hepatospenomegaly. No masses Ankle Exam: Negative ankle edema Lower extremities: 1+ left lower extremity swelling, skin discoloration over lateral plantar surface of left foot, black discoloration of skin graft. Capillary refill greater than 3 seconds. Neuro/Mental Status: A&O x4. Coherent Thoughts/Psych: Normal thought pattern. Appropriate mood and affect. Good judgement and insight Appearance: In no acute distress Skin Exam: Normal inspection. Normal color. Warm. Dry laboratory and microbiology Laboratory Tests 09/19/24 08:35 Test 09/19/24 08:35 Range/Units Serum Glucose 172 H 74-106 mg/dL Problem List/Assessment/Plan Problems(with codes): (1) Septic shock (2) Wound of left foot (3) Hypotension (4) Cellulitis and abscess of foot (5) Foot ulcer Problem List/Assessment/Plan Problem List/Assessment/Plan Left foot osteomyelitis Osteomyelitis of 1st distal phalanx Left foot abscess Left foot skin graft rejection Cellulitis of left foot Sepsis due to cellulitis Diabetic foot infection Type 2 diabetes on insulin Diabetic neuropathy S/P debridement of wound and doing well .more necrotic tissue was removed and wound is packed.plan is to get wound Vac and debridement will be on Friday. continue linezolid and Zosyn . patients kidney function continues to rise so recommend nephrology consult to further evaluate. Keep blood sugars under 180 to optimize wound healing. 09/16: no pain in right lower extremity and is well wrapped . underwent a second debridement yesterday and continues to feel good . Continue linezolid and renally dose Zosyn . patients kidney function continues to rise would defer management to nephrology. patient is getting Lasix and is responding 09/17: underwent an additional debridement today and appears that patient is to get wound vac afterwards . the wound is slightly open with drainage but no pain . whitecount has come down to 10.9 however renal function continues to worsen with creatine at 5.65. Plan will be to continue linezolid and Zosyn for 6 weeks and will determine final antibiotic dosing based off of residual renal function . patient should follow up with infectious disease clinic in 2 weeks to see if antibiotic dose adjustment is needed as renal function improves . as per nephrology ANIBAL is determined to be related to temporary caused from vancomycin toxicity and hypotension 09/18:Patients kidney function is worsening , will dose adjust zosyn 09/19: hemaglobin is 10.3, whitecount is 11.7 , platelets are 558, renal function continues to decline Plan: - dose adjust Zosyn -continue IV Zosyn and linezolid. Podiatry is continuously following, possible closing of wound on Friday. Plan for IV antibiotic Zosyn at home, patient has PICC line. - Podiatry consultation -Wound culture: Positive for Bacteroides fragilis, Enterococcus faecalis. - DVT negative - MRSA negative - IV hydration given underlying sepsis - Rest of the management as per primary care team, we will continue following up. - Poor prognosis. Plan discussed with: Patient Dietary Evaluation Review Recommendations by RD: Protein Supplementation Comments: 1) Initiate Arslan @ 1 pk bid 2) Initiate vitamin C @ 500 mg bid 3) Initiate zinc sulfate @ 220 mg qd 4) Continue to monitor PO intake, labs, and skin integrity Expected Outcomes/Goals: 1) appetite, labs, and wound to improve 2) f/u in 3-5 days BIANCA HOLLAND MD Sep 19, 2024 23:48
[2024-09-20] VITALS (8 sets, daily range): BP systolic 108–133; BP diastolic 56–73; PULSE 73–85; RESP 17–19; TEMP 97.7–98.2; O2SAT 93–99
[2024-09-20 08:11] LABS: Potassium 4.4 mmol/L (3.5-5.1)
[2024-09-20 08:12] LABS: Anion Gap 10 (5-15); Carbon Dioxide 24 mmol/L (20-31)
[2024-09-20 08:17] LABS: BUN/Creatinine Ratio 6.8 (10.0-20.0); Blood Urea Nitrogen 44 mg/dL (9-23); Chloride 95 mmol/L (98-107); Glucose 166 mg/dL (74-106); Sodium 129 mmol/L (136-145)
[2024-09-20 08:18] LABS: Calcium 8.5 mg/dL (8.7-10.4)
[2024-09-20] MEDS: BUMETANIDE 2.5mg/10ml (0.25 mg/ml) INJ IV SCH (09:20)
[2024-09-20] MEDS ORDERED: FUROSEMIDE 100 MG/10ML VIAL IV SCH (10:00)
--- NOTE | 2024-09-20 10:44 | DVH ---
CHEST RADIOGRAPH Indication: per protocol Technique: Single frontal view of the chest was obtained COMPARISON: None FINDINGS: Lines and Tubes: Right PICC in satisfactory position overlying the superior vena cava. Lungs: Clear Pleura: No effusion. No pneumothorax. Cardiomediastinal contours: Unremarkable Bones: Unremarkable IMPRESSION: No acute disease.
--- NOTE | 2024-09-20 12:21 | DVHPN2 ---
Subjective Mr. Tushar Zuleta is a 54-year-old male who presents with a chief complaint of left foot wound check. Patient had previous history of bilateral foot surgery presented to the hospital with a left foot pain, was status post 1. Acute osteomyelitis of the left foot status post I and D of the left foot, status post delayed closure, 2. Diabetes mellitus type 2, 3. Hypertension. Patient was discharged last August 31, with IV antibiotics, cefazolin, given via PICC line. Patient claims his home health care nurse never arrived to clean his wounds. Notable swelling and pain of the left foot, with fever occuring 4 days ago. Patient reports he went to the urgent care yesterday and was told he had gangrene and was sent to the ED for further evaluation. Left foot x ray resulted There is no evidence of an acute fracture, dislocation, osseous erosions, blastic, or lytic lesions. No radiopaque foreign bodies. Moderate soft tissue edema with lateral surgical camilo and subcutaneous emphysema. Consider further evaluation with a nuclear medicine WBC scan or contrast enhanced MRI. Patient was found to be hypotensive in the ED and started on vasopressor. Patient admitted for further evaluation and treatment. Reviewed: Care Plan Changes from previous H/P or p: No Changes Objective Vitals Vital Signs Date Time Temp Pulse Resp B/P (MAP) Pulse Ox O2 Delivery O2 Flow Rate FiO2 09/20/24 09:20 125/75 09/20/24 08:35 98.2 77 17 96 98.2 09/19/24 20:00 Room Air* 0 21 Intake/Output Intake and Output 09/20/24 07:00 Intake Total 1610 ml Output Total 3100 ml Balance -1490 ml Intake Oral 810 ml IV Total 800 ml Output Urine Total 3100 ml # Bowel Movements 3 Exam DERMATOLOGIC EXAM: - Skin is dry and cool to the touch dry bilaterally. - Nails 1-5 of the bilateral foot are thickened, discolored, dystrophic, and tender to palpate with subungual debris - Hair loss noted to bilateral feet - left lateral foot wound with necrosis and cellulitis with purulence VASCULAR EXAM: - DP and PT pulses are palpable bilaterally. - ADMITTING REPRESENTATIVE is brisk to all digits. - Feet are cool to touch compared to lower legs bilaterally. NEUROLOGIC EXAM: - Normal light touch sensation to the superficial peroneal, deep peroneal, sural, saphenous, and tibial nerve branches. - Protective sensation is diminished as tested with a 5.07 10g [place] bilaterally. MUSCULOSKELETAL EXAM: - No gross deformities - Muscle strength is 5/5 and active motion is pain-free and symmetrical bilaterally - No pain or crepitation with passive range of motion bilaterally to all major pedal joints Medications Current Medications Medications Dose Ordered Sig/Linda Route Start Time Stop Time Status Last Admin Dose Admin Ondansetron HCl 4 mg Q6HPRN PRN IV 09/10/24 04:15 09/17/24 05:57 4 MG Acetaminophen 650 mg Q6HPRN PRN PO 09/10/24 04:15 09/12/24 06:29 650 MG Diagnostic Test (Pha) 1 strip ACHS 09/10/24 07:00 09/20/24 09:47 1 STRIP Insulin Human Regular ACHS SC 09/10/24 07:00 09/19/24 21:51 3 UNITS Dextrose 50 ml UD PRN IV 09/10/24 04:15 Acetaminophen/ Hydrocodone Bitart 1 tab Q4HP PRN PO 09/10/24 14:30 09/16/24 22:00 1 TAB Morphine Sulfate 2 mg Q3HPRN PRN IV 09/10/24 14:30 09/19/24 22:04 2 MG Clindamycin Phosphate 50 ml @ 50 mls/hr Q8HR IV 09/10/24 22:00 UNV Enteral Nutritional Formula 27.5 gm BIDWM PO 09/11/24 18:00 09/20/24 08:00 27.5 GM Linezolid 300 ml @ 150 mls/hr Q12H IV 09/16/24 00:00 09/20/24 01:36 150 MLS/HR Piperacillin Sod/ Tazobactam Sod 100 ml @ 25 mls/hr BID IV 09/16/24 22:00 09/20/24 09:19 25 MLS/HR Pantoprazole Sodium 40 mg BID IV 09/19/24 10:00 09/20/24 09:16 40 MG Metoclopramide HCl 5 mg Q6HPRN PRN IV 09/19/24 09:15 Lactulose 30 ml BID PO 09/19/24 22:00 Laboratory Results Laboratory Tests 09/19/24 08:35 09/20/24 06:50 Chemistry Test 09/20/24 06:50 Calcium Level 8.5 mg/dL (8.7-10.4) L Urinalysis Test 09/17/24 05:50 Urine Color Light-yellow (Yellow) Urine Clarity Turbid (Clear) H Urine pH 5.0 (5.0-9.0) Urine Specific [place] 1.007 (1.001-1.035) Urine Protein Trace (Negative) H Urine Ketones Negative (Negative) Urine Blood Negative /uL (Negative) Urine Nitrite Negative (Negative) Urine Bilirubin Negative (Negative) Urine Urobilinogen Normal mg/dL (Negative) Urine Leukocyte Esterase Negative /uL (Negative) Urine RBC 1 /hpf (0 - 3) Urine Microscopic WBC 1 /HPF (0-3) Urine Squamous Epithelial Cells Few /hpf (<5) Urine Amorphous Crystals Few /hpf (None Seen) Urine Bacteria None seen /hpf (None Seen) Urine Creatinine 47.11 mg/dL (30.0-125.0) Urine Sodium 21 mmol/L (40-220) L Urine Glucose Normal mg/dL (Normal) Urine Total Protein 48.3 mg/dL (1-14) H Microbiology Microbiology Date/Time Source Procedure Growth Status 09/13/24 13:35 Foot Left Gram Stain - Final Complete 09/13/24 13:35 Anaerobic Culture - Final Bacteroides fragilis Complete 09/13/24 13:35 Aerobic Culture - Final Enterococcus faecalis Complete 09/10/24 09:15 Voided Urine Urine Culture - Final Complete 09/09/24 19:22 Blood Blood Culture - Final NO GROWTH AFTER 5 DAYS OF INCUBATION. Complete Assessment/Plan Assessment/Plan ASSESSMENT: Patient is a 54 year old seen on the floor follow up s/p foot I&D PLAN: - The patients chart was reviewed, clinical findings were discussed with the patient, the etiologies of the conditions were discussed in detail, and a treatment plan was agreed to at this time, with both oral and written instructions provided. - reviewed advanced imaging - reviewed all of the labs and pathology - discussed plan is to perform a subsequent incision and drainage - patient will be NPO since midnight - take him to the OR today - it was determined that multiple I&Ds will be necessary to save the limb - can weightbear as tolerated in postoperative shoe All questions were answered and concerns addressed to the patient's satisfaction. The patient was given the phone number to the clinic and was told how to make contact with the clinic should any concerns or questions arise. Patient understands that if any questions or concerns arise prior to the next appointment, we should be contacted immediately. FOLLOW-UP: Continue to follow while inpatient Plan discussed with: Patient My Orders Orders - RYAN CHOU DPM Procedure Category Date Status Time Npo After Midnight DIET 09/19/24 Transmitted Dinner Obtain Consent For: ORDERS 09/19/24 Transmitted 16:46 Chest Xray 1 View XY 09/20/24 Resulted 04:00 Problem List: (1) Septic shock (2) Wound of left foot (3) Hypotension (4) Foot ulcer (5) Cellulitis and abscess of foot (6) Necrotizing subcutaneous infection (7) Osteomyelitis of left foot (8) Diabetic foot infection (9) Acute kidney injury (ANIBAL) with acute tubular necrosis (ATN) Date of Service: Sep 20, 2024 Billing Provider: RYAN CHOU DPM Common Visit Codes: [id number] INP/OBS CARE(MOD) RYAN CHOU DPM Sep 20, 2024 12:21
--- NOTE | 2024-09-20 12:35 | DVHPN2 ---
Progress Note Date Seen: Sep 20, 2024 Medical Necessity Reason Pt with a Central, PICC or Fol: Yes The following are medically ne: Rodriguez Catheter Subjective Patient reports: No new complaints Other Systems: Patient seen and examined by myself today in follow-up Objective vital signs Vital Sign Date Time Temp Pulse Resp B/P (MAP) Pulse Ox O2 Delivery O2 Flow Rate FiO2 09/20/24 09:20 125/75 09/20/24 08:35 98.2 77 17 96 98.2 09/19/24 20:00 Room Air* 0 21 Total Intake and Output 09/19/24 09/19/24 09/20/24 15:00 23:00 07:00 Intake Total 100 ml 660 ml 850 ml Output Total 1200 ml 1900 ml Balance 100 ml -540 ml -1050 ml medications Current Medications Medications Dose Ordered Sig/Linda Route Start Time Stop Time Status Last Admin Dose Admin Ondansetron HCl 4 mg Q6HPRN PRN IV 09/10/24 04:15 09/17/24 05:57 4 MG Acetaminophen 650 mg Q6HPRN PRN PO 09/10/24 04:15 09/12/24 06:29 650 MG Diagnostic Test (Pha) 1 strip ACHS 09/10/24 07:00 09/20/24 09:47 1 STRIP Insulin Human Regular ACHS SC 09/10/24 07:00 09/19/24 21:51 3 UNITS Dextrose 50 ml UD PRN IV 09/10/24 04:15 Acetaminophen/ Hydrocodone Bitart 1 tab Q4HP PRN PO 09/10/24 14:30 09/16/24 22:00 1 TAB Morphine Sulfate 2 mg Q3HPRN PRN IV 09/10/24 14:30 09/19/24 22:04 2 MG Clindamycin Phosphate 50 ml @ 50 mls/hr Q8HR IV 09/10/24 22:00 UNV Enteral Nutritional Formula 27.5 gm BIDWM PO 09/11/24 18:00 09/20/24 08:00 27.5 GM Linezolid 300 ml @ 150 mls/hr Q12H IV 09/16/24 00:00 09/20/24 01:36 150 MLS/HR Piperacillin Sod/ Tazobactam Sod 100 ml @ 25 mls/hr BID IV 09/16/24 22:00 09/20/24 09:19 25 MLS/HR Pantoprazole Sodium 40 mg BID IV 09/19/24 10:00 09/20/24 09:16 40 MG Metoclopramide HCl 5 mg Q6HPRN PRN IV 09/19/24 09:15 Lactulose 30 ml BID PO 09/19/24 22:00 Examination: LUNGS:Normal, CVS:Normal, MSK:Abnormal laboratory and microbiology Laboratory Tests 09/20/24 06:50 09/19/24 08:35 Test 09/20/24 06:50 Range/Units Serum Glucose 166 H 74-106 mg/dL Microbiology Date/Time Source Procedure Growth Status 09/13/24 13:35 Foot Left Gram Stain - Final Complete 09/13/24 13:35 Anaerobic Culture - Final Bacteroides fragilis Complete 09/13/24 13:35 Aerobic Culture - Final Enterococcus faecalis Complete 09/10/24 09:15 Voided Urine Urine Culture - Final Complete 09/09/24 19:22 Blood Blood Culture - Final NO GROWTH AFTER 5 DAYS OF INCUBATION. Complete Problem List/Assessment/Plan Problem List/Assessment/Plan Acute kidney injury in the setting of vancomycin toxicity Serum creatinine was 0.6 on 09/14/2024 Left foot osteomyelitis Status post septic shock Diabetes mellitus type 2 obesity Hyponatremia Recommendations No indication for acute hemodialysis Increased urine output Strict I&Os Renal diet DC vancomycin Podiatry consult We will continue to follow Plan discussed with: Patient My Orders My Orders Orders - LIONEL BENTON MD Procedure Category Date Status Time Osmolality Urine LAB 09/20/24 Logged 10:05 Urine Sodium LAB 09/20/24 Logged 10:05 Urine LAB 09/20/24 Logged Protein/Creatinine Dietary Evaluation Review Recommendations by RD: Protein Supplementation Comments: 1) Initiate Arslan @ 1 pk bid 2) Initiate vitamin C @ 500 mg bid 3) Initiate zinc sulfate @ 220 mg qd 4) Continue to monitor PO intake, labs, and skin integrity Expected Outcomes/Goals: 1) appetite, labs, and wound to improve 2) f/u in 3-5 days LIONEL BENTON MD Sep 20, 2024 12:35
[2024-09-20] MEDS ORDERED: KETAMINE 50mg/ML 1ml syringe ONE (12:59)
[2024-09-20] MEDS ORDERED: ONDANSETRON HCL 4 MG/2 ML VIAL ONE (13:00)
[2024-09-20] MEDS ORDERED: MIDAZOLAM HCL 2MG/2ML 2ml VIAL (1mg/ml) ONE (13:00)
[2024-09-20] MEDS ORDERED: GLYCOPYRROLATE 0.2 MG/ML 1ML VIAL ONE (13:00)
[2024-09-20] MEDS ORDERED: PROPOFOL 10 MG/ML 20 ML IV ONE (13:00)
[2024-09-20] MEDS ORDERED: LIDOCAINE 2% (LOCAL ANESTH.) PF 5ml SDV ONE (13:00)
--- NOTE | 2024-09-20 13:17 | DVHOP2 ---
Operative Report - 2 Report Details Date: 09/20/24 Preop Diagnosis: 1. Left foot gangrene 2. Left foot abscess 3. Left foot necrotizing fasciitis 4. Left foot cellulitis Postop Diagnosis: Same as preop Surgeon: Ryan Chou MD Anesthesiologist: See anesthesia Anesthesia: Mac Consent: The patient was informed of the risks and benefits of the procedure. These include but are not limited to complications of anesthesia, postoperative infection, incomplete relief of symptoms, recurrence of symptoms, damage to blood vessels, nerves and tendons, deep venous thrombosis, pulmonary embolism and possible need for repeat surgery in the future. Complications: None Estimated Blood Loss: Minimal Fluids: See anesthesia Findings: Consistent with diagnosis Indications for Surgery: Worsening left foot wound Name of Procedure Performed 1. Left foot I&D to bone (27406) Procedure Details Procedure Details: PRE-PROCEDURE INFORMATION: In the pre-op holding area, the extremity to be operated on was clearly marked and the patient verified correct laterality of the marking. The patient was transferred to the OR table and placed in a supine position. A timeout was performed in which identification of the correct patient, procedure, location, and materials was done. The left foot and leg were prepped and draped in normal sterile fashion. DESCRIPTION OF PROCEDURE: Attention was directed to the left foot incision where area of fluctuance previous incision was made was noted. An incision was made over this area and was deepened through blunt dissection. The incision was deepened to the level of abscess and bone. Care was taken to the dissection to avoid any neurovascular and tendinous structures. The incision was deepened to the bone, and the abscess appeared to be purulent fluid consistent with pus. The cortices of the bone was then removed with Shay an all necrotic tissue. After the abscess was drained, the area was irrigated with 3 L normal saline using cysto tubing. The area was then inspected and any areas of tracking, especially along the tendons were also drained. The wound was packed with Betadine-soaked gauze. POSTOPERATIVE INFORMATION: The patient tolerated the above noted procedure and anesthesia well and was transferred to the PACU with vital signs stable, and vascular status intact with capillary refill intact to all digits. Patient will return to the floor for IV antibiotics. Patient will have wound VAC placed and then be discharged home on VAC. no more surgical intervention at this point. Condition Good Disposition Still a Patient RYAN CHOU DPM Sep 20, 2024 13:17
[2024-09-20] MEDS ORDERED: HYDROmorphone HCL 2 MG/ML VL/or syr IV PRN (13:30)
[2024-09-20] MEDS: ONDANSETRON HCL 4 MG/2 ML VIAL IV ONE (13:30)
[2024-09-20] MEDS ORDERED: levoFLOXacin 500MG 100 ML IV ONE (14:30)
--- NOTE | 2024-09-20 14:50 | DVHPN2 ---
Progress Note - Dictate Date Seen: Sep 20, 2024 Medical Necessity Reason Pt with a Central, PICC or Fol: Yes The following are medically ne: Rodriguez Catheter Subjective Patient is in the OR undergoing repeat/follow up I&D of his foot/heel wound. vital signs Vital Sign Date Time Temp Pulse Resp B/P (MAP) Pulse Ox O2 Delivery O2 Flow Rate FiO2 09/20/24 14:02 78 13 125/63 (83) 97 09/20/24 13:17 97.3 97.3 09/20/24 13:17 Room Air 0 09/20/24 08:00 21 Total Intake and Output 09/19/24 09/19/24 09/20/24 15:00 23:00 07:00 Intake Total 100 ml 660 ml 850 ml Output Total 1200 ml 1900 ml Balance 100 ml -540 ml -1050 ml medications Current Medications Medications Dose Ordered Sig/Linda Route Start Time Stop Time Status Last Admin Dose Admin Ondansetron HCl 4 mg Q6HPRN PRN IV 09/10/24 04:15 09/17/24 05:57 4 MG Acetaminophen 650 mg Q6HPRN PRN PO 09/10/24 04:15 09/12/24 06:29 650 MG Diagnostic Test (Pha) 1 strip ACHS 09/10/24 07:00 09/20/24 09:47 1 STRIP Insulin Human Regular ACHS SC 09/10/24 07:00 09/19/24 21:51 3 UNITS Dextrose 50 ml UD PRN IV 09/10/24 04:15 Acetaminophen/ Hydrocodone Bitart 1 tab Q4HP PRN PO 09/10/24 14:30 09/16/24 22:00 1 TAB Morphine Sulfate 2 mg Q3HPRN PRN IV 09/10/24 14:30 09/19/24 22:04 2 MG Clindamycin Phosphate 50 ml @ 50 mls/hr Q8HR IV 09/10/24 22:00 UNV Enteral Nutritional Formula 27.5 gm BIDWM PO 09/11/24 18:00 09/20/24 08:00 27.5 GM Linezolid 300 ml @ 150 mls/hr Q12H IV 09/16/24 00:00 09/20/24 01:36 150 MLS/HR Pantoprazole Sodium 40 mg BID IV 09/19/24 10:00 09/20/24 09:16 40 MG Metoclopramide HCl 5 mg Q6HPRN PRN IV 09/19/24 09:15 Lactulose 30 ml BID PO 09/19/24 22:00 Levofloxacin 50 ml @ 50 mls/hr Q48H IV 09/21/24 14:30 UNV objective Alert awake oriented x3. HEENT neck supple no JVD. Heart regular rate and rhythm S1-S2. Lungs fair air movement without rales wheezes. Abdomen soft nontender positive bowel sounds. Extremities no edema. His left foot and ankle is covered with a dressing. laboratory and microbiology Laboratory Tests 09/20/24 06:50 09/19/24 08:35 Test 09/20/24 06:50 Range/Units Serum Glucose 166 H 74-106 mg/dL Assessment/Plan Patient had good bowel movements with the lactulose. Continue lactulose as needed for constipation. Kidney function is stable. Continue current supportive care and treatment. Further clinical management per clinical course and recommendations from the consultants. Problems(with codes): (1) Osteomyelitis of left foot (2) Diabetic foot infection (3) Acute kidney injury (ANIBAL) with acute tubular necrosis (ATN) (4) Foot ulcer Dietary Evaluation Review Recommendations by RD: Protein Supplementation Comments: 1) Initiate Arslan @ 1 pk bid 2) Initiate vitamin C @ 500 mg bid 3) Initiate zinc sulfate @ 220 mg qd 4) Continue to monitor PO intake, labs, and skin integrity Expected Outcomes/Goals: 1) appetite, labs, and wound to improve 2) f/u in 3-5 days Plan discussed with: STAN Yang MD Sep 20, 2024 14:50
[2024-09-20] MEDS: metroNIDAZOLE 500MG/100ML 100 ML IV SCH (18:54)
[2024-09-20] MEDS: CIPROFLOXACIN 400MG/200ML 200 ML IV SCH (21:20)
[2024-09-21] VITALS (8 sets, daily range): BP systolic 114–142; BP diastolic 60–72; PULSE 77–86; RESP 17–20; TEMP 97.7–98.4; O2SAT 92–96
--- NOTE | 2024-09-21 00:03 | DVHPN2 ---
Consult Progress Note Date Seen: Sep 20, 2024 Subjective Patient reports: Other (an additional InD for his foot to get debridement , patient has more necrosis and swelling and redness on lateral side of his foot and its bleeding and draining ) Objective vital signs Vital Sign Date Time Temp Pulse Resp B/P (MAP) Pulse Ox O2 Delivery O2 Flow Rate FiO2 09/20/24 21:34 85 19 133/73 09/20/24 20:58 98.1 95 98.1 09/20/24 13:17 Room Air 0 09/20/24 08:00 21 Total Intake and Output 09/20/24 09/20/24 09/21/24 15:00 23:00 07:00 Intake Total 100 ml 958 ml Output Total 700 ml Balance 100 ml 258 ml medications Current Medications Medications Dose Ordered Sig/Linda Route Start Time Stop Time Status Last Admin Dose Admin Ondansetron HCl 4 mg Q6HPRN PRN IV 09/10/24 04:15 09/17/24 05:57 4 MG Acetaminophen 650 mg Q6HPRN PRN PO 09/10/24 04:15 09/12/24 06:29 650 MG Diagnostic Test (Pha) 1 strip ACHS 09/10/24 07:00 09/20/24 21:22 1 STRIP Insulin Human Regular ACHS SC 09/10/24 07:00 09/20/24 21:36 3 UNITS Dextrose 50 ml UD PRN IV 09/10/24 04:15 Acetaminophen/ Hydrocodone Bitart 1 tab Q4HP PRN PO 09/10/24 14:30 09/16/24 22:00 1 TAB Morphine Sulfate 2 mg Q3HPRN PRN IV 09/10/24 14:30 09/20/24 21:34 2 MG Clindamycin Phosphate 50 ml @ 50 mls/hr Q8HR IV 09/10/24 22:00 UNV Enteral Nutritional Formula 27.5 gm BIDWM PO 09/11/24 18:00 09/20/24 18:00 27.5 GM Linezolid 300 ml @ 150 mls/hr Q12H IV 09/16/24 00:00 09/20/24 23:33 150 MLS/HR Pantoprazole Sodium 40 mg BID IV 09/19/24 10:00 09/20/24 21:21 40 MG Metoclopramide HCl 5 mg Q6HPRN PRN IV 09/19/24 09:15 Lactulose 30 ml BID PO 09/19/24 22:00 09/20/24 21:21 30 ML Metronidazole 100 ml @ 100 mls/hr Q8H IV 09/20/24 18:00 09/20/24 18:54 100 MLS/HR Ciprofloxacin 200 ml @ 200 mls/hr Q24H IV 09/20/24 20:30 09/20/24 21:20 200 MLS/HR laboratory and microbiology Laboratory Tests 09/20/24 06:50 09/19/24 08:35 Test 09/20/24 06:50 Range/Units Serum Glucose 166 H 74-106 mg/dL Problem List/Assessment/Plan Problems(with codes): (1) Acute kidney injury (ANIBAL) with acute tubular necrosis (ATN) (2) Diabetic foot infection (3) Osteomyelitis of left foot (4) Necrotizing subcutaneous infection (5) Cellulitis and abscess of foot Problem List/Assessment/Plan Problem List/Assessment/Plan Left foot osteomyelitis Osteomyelitis of 1st distal phalanx Left foot abscess Left foot skin graft rejection Cellulitis of left foot Sepsis due to cellulitis Diabetic foot infection Type 2 diabetes on insulin Diabetic neuropathy S/P debridement of wound and doing well .more necrotic tissue was removed and wound is packed.plan is to get wound Vac and debridement will be on Friday. continue linezolid and Zosyn . patients kidney function continues to rise so recommend nephrology consult to further evaluate. Keep blood sugars under 180 to optimize wound healing. 09/16: no pain in right lower extremity and is well wrapped . underwent a second debridement yesterday and continues to feel good . Continue linezolid and renally dose Zosyn . patients kidney function continues to rise would defer management to nephrology. patient is getting Lasix and is responding 09/17: underwent an additional debridement today and appears that patient is to get wound vac afterwards . the wound is slightly open with drainage but no pain . whitecount has come down to 10.9 however renal function continues to worsen with creatine at 5.65. Plan will be to continue linezolid and Zosyn for 6 weeks and will determine final antibiotic dosing based off of residual renal function . patient should follow up with infectious disease clinic in 2 weeks to see if antibiotic dose adjustment is needed as renal function improves . as per nephrology ANIBAL is determined to be related to temporary caused from vancomycin toxicity and hypotension 09/18:Patients kidney function is worsening , will dose adjust zosyn 09/19: hemaglobin is 10.3, whitecount is 11.7 , platelets are 558, renal function continues to decline 09/20: whitecount is 11.7 , kidney functions continues to decline , getting lasix therapy Plan: - dose adjust Zosyn -continue IV Zosyn and linezolid. Podiatry is continuously following, possible closing of wound on Friday. Plan for IV antibiotic Zosyn at home, patient has PICC line. - Podiatry consultation -Wound culture: Positive for Bacteroides fragilis, Enterococcus faecalis. - DVT negative - MRSA negative - IV hydration given underlying sepsis - Rest of the management as per primary care team, we will continue following up. - Poor prognosis. Plan discussed with: Other Dietary Evaluation Review Recommendations by RD: Protein Supplementation Comments: 1) Initiate Arslan @ 1 pk bid 2) Initiate vitamin C @ 500 mg bid 3) Initiate zinc sulfate @ 220 mg qd 4) Continue to monitor PO intake, labs, and skin integrity Expected Outcomes/Goals: 1) appetite, labs, and wound to improve 2) f/u in 3-5 days BIANCA HOLLAND MD Sep 21, 2024 00:03
[2024-09-21 11:56] LABS: Anion Gap 9 (5-15); Calcium 8.8 mg/dL (8.7-10.4); Carbon Dioxide 25 mmol/L (20-31); Potassium 4.7 mmol/L (3.5-5.1)
[2024-09-21 12:02] LABS: BUN/Creatinine Ratio 7.1 (10.0-20.0)
[2024-09-21 12:04] LABS: Blood Urea Nitrogen 45 mg/dL (9-23); Chloride 98 mmol/L (98-107); Glucose 168 mg/dL (74-106); Sodium 132 mmol/L (136-145)
[2024-09-21 12:17] LABS: Basophils # (auto) 0 10 ^3/uL (0-0.2); Eosinophils # (auto) 0.1 10 ^3/uL (0-0.8); Monocytes # (auto) 0.7 10 ^3/uL (0-1.3); Neutrophils # (auto) 7.2 10 ^3/uL (1.6-8.6)
[2024-09-21 12:18] LABS: Basophils % (auto) 0.3 % (0.0-2.0); Eosinophils % (auto) 1.5 % (0.0-7.0); Hematocrit 26.6 % (41.0-53.0); Hemoglobin 9.1 g/dL (13.5-17.5); Lymphocytes % (auto) 10.9 % (10.0-50.0); Mean Corpuscular Hemoglobin 29.9 pg (28.0-32.0); Mean Corpuscular Hgb Conc. 34.4 g/dL (32.0-36.0); Monocytes % (auto) 7.3 % (0.0-12.0); Platelet Count (auto) 525 10^3/uL (140-450); Red Blood Cells 3.06 10^6/uL (4.5-5.90)
--- NOTE | 2024-09-21 13:49 | DVHPN2 ---
Progress Note Date Seen: Sep 21, 2024 Medical Necessity Reason Pt with a Central, PICC or Fol: Yes The following are medically ne: Rodriguez Catheter Subjective Patient reports: No new complaints Other Systems: Patient seen and examined by myself today in follow-up Objective vital signs Vital Sign Date Time Temp Pulse Resp B/P (MAP) Pulse Ox O2 Delivery O2 Flow Rate FiO2 09/21/24 12:53 98.2 78 17 134/70 (91) 94 98.2 09/20/24 20:00 Room Air* 0 21 Total Intake and Output 09/20/24 09/20/24 09/21/24 15:00 23:00 07:00 Intake Total 100 ml 958 ml 600 ml Output Total 700 ml 2650 ml Balance 100 ml 258 ml -2050 ml medications Current Medications Medications Dose Ordered Sig/Linda Route Start Time Stop Time Status Last Admin Dose Admin Ondansetron HCl 4 mg Q6HPRN PRN IV 09/10/24 04:15 09/17/24 05:57 4 MG Acetaminophen 650 mg Q6HPRN PRN PO 09/10/24 04:15 09/12/24 06:29 650 MG Diagnostic Test (Pha) 1 strip ACHS 09/10/24 07:00 09/21/24 11:54 1 STRIP Insulin Human Regular ACHS SC 09/10/24 07:00 09/21/24 12:23 2 UNITS Dextrose 50 ml UD PRN IV 09/10/24 04:15 Acetaminophen/ Hydrocodone Bitart 1 tab Q4HP PRN PO 09/10/24 14:30 09/16/24 22:00 1 TAB Morphine Sulfate 2 mg Q3HPRN PRN IV 09/10/24 14:30 09/21/24 06:25 2 MG Clindamycin Phosphate 50 ml @ 50 mls/hr Q8HR IV 09/10/24 22:00 UNV Enteral Nutritional Formula 27.5 gm BIDWM PO 09/11/24 18:00 09/21/24 08:23 27.5 GM Linezolid 300 ml @ 150 mls/hr Q12H IV 09/16/24 00:00 09/21/24 11:48 150 MLS/HR Pantoprazole Sodium 40 mg BID IV 09/19/24 10:00 09/21/24 09:05 40 MG Metoclopramide HCl 5 mg Q6HPRN PRN IV 09/19/24 09:15 Lactulose 30 ml BID PO 09/19/24 22:00 09/20/24 21:21 30 ML Metronidazole 100 ml @ 100 mls/hr Q8H IV 09/20/24 18:00 09/21/24 09:05 100 MLS/HR Ciprofloxacin 200 ml @ 200 mls/hr Q24H IV 09/20/24 20:30 09/20/24 21:20 200 MLS/HR Examination: LUNGS:Normal, CVS:Normal, MSK:Normal laboratory and microbiology Laboratory Tests 09/21/24 10:37 Test 09/21/24 10:37 Range/Units Serum Glucose 168 H 74-106 mg/dL Microbiology Date/Time Source Procedure Growth Status 09/13/24 13:35 Foot Left Gram Stain - Final Complete 09/13/24 13:35 Anaerobic Culture - Final Bacteroides fragilis Complete 09/13/24 13:35 Aerobic Culture - Final Enterococcus faecalis Complete 09/10/24 09:15 Voided Urine Urine Culture - Final Complete 09/09/24 19:22 Blood Blood Culture - Final NO GROWTH AFTER 5 DAYS OF INCUBATION. Complete Problem List/Assessment/Plan Problem List/Assessment/Plan Acute kidney injury in the setting of vancomycin toxicity Serum creatinine was 0.6 on 09/14/2024 Hyponatremia due to excess H2O Left foot osteomyelitis Status post septic shock Diabetes mellitus type 2 obesity Hyponatremia Recommendations No indication for acute hemodialysis Increased urine output Hyponatremia slowly improving Strict I&Os Renal diet DC vancomycin Podiatry consult We will continue to follow Plan discussed with: Patient Dietary Evaluation Review Recommendations by RD: Protein Supplementation Comments: 1) Initiate Arslan @ 1 pk bid 2) Initiate vitamin C @ 500 mg bid 3) Initiate zinc sulfate @ 220 mg qd 4) Continue to monitor PO intake, labs, and skin integrity Expected Outcomes/Goals: 1) appetite, labs, and wound to improve 2) f/u in 3-5 days LIONEL BENTON MD Sep 21, 2024 13:49
[2024-09-21] MEDS ORDERED: levoFLOXacin 250MG 50 ML IV SCH (14:30)
--- NOTE | 2024-09-21 18:00 | DVHPN2 ---
Progress Note - Dictate Date Seen: Sep 21, 2024 Medical Necessity Reason Pt with a Central, PICC or Fol: Yes The following are medically ne: Rodriguez Catheter Subjective Comfortable in bed. at bedside. Patient underwent a repeat foot debridement surgery for his left foot wound yesterday. Left foot Covered with a dressing today. vital signs Vital Sign Date Time Temp Pulse Resp B/P (MAP) Pulse Ox O2 Delivery O2 Flow Rate FiO2 09/21/24 14:40 78 17 134/70 09/21/24 12:53 98.2 94 98.2 09/21/24 08:22 Room Air* 0 21 Total Intake and Output 09/20/24 09/20/24 09/21/24 15:00 23:00 07:00 Intake Total 100 ml 958 ml 600 ml Output Total 700 ml 2650 ml Balance 100 ml 258 ml -2050 ml medications Current Medications Medications Dose Ordered Sig/Linda Route Start Time Stop Time Status Last Admin Dose Admin Ondansetron HCl 4 mg Q6HPRN PRN IV 09/10/24 04:15 09/17/24 05:57 4 MG Acetaminophen 650 mg Q6HPRN PRN PO 09/10/24 04:15 09/12/24 06:29 650 MG Diagnostic Test (Pha) 1 strip ACHS 09/10/24 07:00 09/21/24 11:54 1 STRIP Insulin Human Regular ACHS SC 09/10/24 07:00 09/21/24 12:23 2 UNITS Dextrose 50 ml UD PRN IV 09/10/24 04:15 Acetaminophen/ Hydrocodone Bitart 1 tab Q4HP PRN PO 09/10/24 14:30 09/16/24 22:00 1 TAB Morphine Sulfate 2 mg Q3HPRN PRN IV 09/10/24 14:30 09/21/24 14:40 2 MG Clindamycin Phosphate 50 ml @ 50 mls/hr Q8HR IV 09/10/24 22:00 UNV Enteral Nutritional Formula 27.5 gm BIDWM PO 09/11/24 18:00 09/21/24 08:23 27.5 GM Linezolid 300 ml @ 150 mls/hr Q12H IV 09/16/24 00:00 09/21/24 11:48 150 MLS/HR Pantoprazole Sodium 40 mg BID IV 09/19/24 10:00 09/21/24 09:05 40 MG Metoclopramide HCl 5 mg Q6HPRN PRN IV 09/19/24 09:15 Lactulose 30 ml BID PO 09/19/24 22:00 09/20/24 21:21 30 ML Metronidazole 100 ml @ 100 mls/hr Q8H IV 09/20/24 18:00 09/21/24 09:05 100 MLS/HR Ciprofloxacin 200 ml @ 200 mls/hr Q24H IV 09/20/24 20:30 09/20/24 21:20 200 MLS/HR objective Alert awake oriented x3. HEENT neck supple no JVD. Heart regular rate and rhythm S1-S2. Lungs fair air movement without rales wheezes. Abdomen soft nontender positive bowel sounds. Extremities no edema. His left foot and ankle is covered with a dressing. laboratory and microbiology Laboratory Tests 09/21/24 10:37 Test 09/21/24 10:37 Range/Units Serum Glucose 168 H 74-106 mg/dL Assessment/Plan Clinically stable. Good urine output. Creatinine has slightly improved today. Continue present antibiotics and medical management as he is on. Further clinical management per clinical course and recommendations from the Nephrology and ship superintendent. Discussed with the patient and his regarding care plan. Dietary Evaluation Review Recommendations by RD: Protein Supplementation Comments: 1) Initiate Arslan @ 1 pk bid 2) Initiate vitamin C @ 500 mg bid 3) Initiate zinc sulfate @ 220 mg qd 4) Continue to monitor PO intake, labs, and skin integrity Expected Outcomes/Goals: 1) appetite, labs, and wound to improve 2) f/u in 3-5 days Plan discussed with: Patient, Spouse STAN HATCH MD Sep 21, 2024 18:00
[2024-09-22] VITALS (9 sets, daily range): BP systolic 126–145; BP diastolic 62–76; PULSE 79–85; RESP 16–20; TEMP 97.9–98.5; O2SAT 91–96
--- NOTE | 2024-09-22 08:50 | DVHPN2 ---
Subjective Mr. Tushar Zuleta is a 54-year-old male who presents with a chief complaint of left foot wound check. Patient had previous history of bilateral foot surgery presented to the hospital with a left foot pain, was status post 1. Acute osteomyelitis of the left foot status post I and D of the left foot, status post delayed closure, 2. Diabetes mellitus type 2, 3. Hypertension. Patient was discharged last August 31, with IV antibiotics, cefazolin, given via PICC line. Patient claims his home health care nurse never arrived to clean his wounds. Notable swelling and pain of the left foot, with fever occuring 4 days ago. Patient reports he went to the urgent care yesterday and was told he had gangrene and was sent to the ED for further evaluation. Left foot x ray resulted There is no evidence of an acute fracture, dislocation, osseous erosions, blastic, or lytic lesions. No radiopaque foreign bodies. Moderate soft tissue edema with lateral surgical camilo and subcutaneous emphysema. Consider further evaluation with a nuclear medicine WBC scan or contrast enhanced MRI. Patient was found to be hypotensive in the ED and started on vasopressor. Patient admitted for further evaluation and treatment. Reviewed: Care Plan Changes from previous H/P or p: No Changes Objective Vitals Vital Signs Date Time Temp Pulse Resp B/P (MAP) Pulse Ox O2 Delivery O2 Flow Rate FiO2 09/22/24 08:41 97.9 85 16 126/62 (83) 94 97.9 09/21/24 20:00 Room Air* 0 21 Intake/Output Intake and Output 09/22/24 07:00 Intake Total 1833 ml Output Total 2800 ml Balance -967 ml Intake Oral 833 ml IV Total 1000 ml Output Urine Total 2800 ml # Bowel Movements 1 Exam DERMATOLOGIC EXAM: - Skin is dry and cool to the touch dry bilaterally. - Nails 1-5 of the bilateral foot are thickened, discolored, dystrophic, and tender to palpate with subungual debris - Hair loss noted to bilateral feet - left lateral foot wound with necrosis and cellulitis with purulence VASCULAR EXAM: - DP and PT pulses are palpable bilaterally. - MEDICAL BILLING COORDINATOR is brisk to all digits. - Feet are cool to touch compared to lower legs bilaterally. NEUROLOGIC EXAM: - Normal light touch sensation to the superficial peroneal, deep peroneal, sural, saphenous, and tibial nerve branches. - Protective sensation is diminished as tested with a 5.07 10g [place] bilaterally. MUSCULOSKELETAL EXAM: - No gross deformities - Muscle strength is 5/5 and active motion is pain-free and symmetrical bilaterally - No pain or crepitation with passive range of motion bilaterally to all major pedal joints Medications Current Medications Medications Dose Ordered Sig/Linda Route Start Time Stop Time Status Last Admin Dose Admin Ondansetron HCl 4 mg Q6HPRN PRN IV 09/10/24 04:15 09/17/24 05:57 4 MG Acetaminophen 650 mg Q6HPRN PRN PO 09/10/24 04:15 09/12/24 06:29 650 MG Diagnostic Test (Pha) 1 strip ACHS 09/10/24 07:00 09/22/24 06:23 1 STRIP Insulin Human Regular ACHS SC 09/10/24 07:00 09/22/24 06:22 2 UNITS Dextrose 50 ml UD PRN IV 09/10/24 04:15 Acetaminophen/ Hydrocodone Bitart 1 tab Q4HP PRN PO 09/10/24 14:30 09/16/24 22:00 1 TAB Morphine Sulfate 2 mg Q3HPRN PRN IV 09/10/24 14:30 09/21/24 19:20 2 MG Clindamycin Phosphate 50 ml @ 50 mls/hr Q8HR IV 09/10/24 22:00 UNV Enteral Nutritional Formula 27.5 gm BIDWM PO 09/11/24 18:00 09/21/24 19:18 27.5 GM Linezolid 300 ml @ 150 mls/hr Q12H IV 09/16/24 00:00 09/21/24 23:21 150 MLS/HR Pantoprazole Sodium 40 mg BID IV 09/19/24 10:00 09/21/24 21:18 40 MG Metoclopramide HCl 5 mg Q6HPRN PRN IV 09/19/24 09:15 Lactulose 30 ml BID PO 09/19/24 22:00 09/20/24 21:21 30 ML Metronidazole 100 ml @ 100 mls/hr Q8H IV 09/20/24 18:00 09/22/24 03:01 100 MLS/HR Ciprofloxacin 200 ml @ 200 mls/hr Q24H IV 09/20/24 20:30 09/21/24 20:52 200 MLS/HR Laboratory Results Laboratory Tests 09/21/24 10:37 Chemistry Test 09/21/24 10:37 Calcium Level 8.8 mg/dL (8.7-10.4) Urinalysis Test 09/17/24 05:50 Urine Color Light-yellow (Yellow) Urine Clarity Turbid (Clear) H Urine pH 5.0 (5.0-9.0) Urine Specific [place] 1.007 (1.001-1.035) Urine Protein Trace (Negative) H Urine Ketones Negative (Negative) Urine Blood Negative /uL (Negative) Urine Nitrite Negative (Negative) Urine Bilirubin Negative (Negative) Urine Urobilinogen Normal mg/dL (Negative) Urine Leukocyte Esterase Negative /uL (Negative) Urine RBC 1 /hpf (0 - 3) Urine Microscopic WBC 1 /HPF (0-3) Urine Squamous Epithelial Cells Few /hpf (<5) Urine Amorphous Crystals Few /hpf (None Seen) Urine Bacteria None seen /hpf (None Seen) Urine Creatinine 47.11 mg/dL (30.0-125.0) Urine Sodium 21 mmol/L (40-220) L Urine Glucose Normal mg/dL (Normal) Urine Total Protein 48.3 mg/dL (1-14) H Microbiology Microbiology Date/Time Source Procedure Growth Status 09/13/24 13:35 Foot Left Gram Stain - Final Complete 09/13/24 13:35 Anaerobic Culture - Final Bacteroides fragilis Complete 09/13/24 13:35 Aerobic Culture - Final Enterococcus faecalis Complete 09/10/24 09:15 Voided Urine Urine Culture - Final Complete 09/09/24 19:22 Blood Blood Culture - Final NO GROWTH AFTER 5 DAYS OF INCUBATION. Complete Assessment/Plan Assessment/Plan ASSESSMENT: Patient is a 54 year old seen on the floor follow up s/p foot I&D 2 days ago PLAN: - The patients chart was reviewed, clinical findings were discussed with the patient, the etiologies of the conditions were discussed in detail, and a treatment plan was agreed to at this time, with both oral and written instructions provided. - reviewed advanced imaging - reviewed all of the labs and pathology - discussed placing a wound VAC which will be done by wound care - patient will have the wound VAC for up to 3 months - patient will need to be discharged home - patient can weightbear with the wound VAC - he will follow up with me a week after he gets discharged - patient will need although to come change the VAC All questions were answered and concerns addressed to the patient's satisfaction. The patient was given the phone number to the clinic and was told how to make contact with the clinic should any concerns or questions arise. Patient understands that if any questions or concerns arise prior to the next appointment, we should be contacted immediately. FOLLOW-UP: Continue to follow while inpatient Plan discussed with: Patient, Spouse My Orders Orders - RYAN CHOU DPM Procedure Category Date Status Time * Locomotive Operator CONS 09/21/24 Transmitted Consult Wound Vac ELIZA 09/21/24 In Process 16:30 Problem List: (1) Septic shock (2) Wound of left foot (3) Hypotension (4) Foot ulcer (5) Cellulitis and abscess of foot (6) Necrotizing subcutaneous infection (7) Osteomyelitis of left foot (8) Diabetic foot infection (9) Acute kidney injury (ANIBAL) with acute tubular necrosis (ATN) Date of Service: Sep 22, 2024 Billing Provider: RYAN CHOU DPM Common Visit Codes: [id number] INP/OBS CARE(MOD) RYAN CHOU DPM Sep 22, 2024 08:50
--- NOTE | 2024-09-22 11:30 | DVHPN2 ---
Progress Note Date Seen: Sep 22, 2024 Medical Necessity Reason Pt with a Central, PICC or Fol: Yes The following are medically ne: Rodriguez Catheter Subjective Patient reports: No new complaints Other Systems: Patient seen and examined by myself today in follow-up Objective vital signs Vital Sign Date Time Temp Pulse Resp B/P (MAP) Pulse Ox O2 Delivery O2 Flow Rate FiO2 09/22/24 09:41 85 16 126/62 09/22/24 08:41 97.9 94 97.9 09/22/24 08:30 Room Air* 0 21 Total Intake and Output 09/21/24 09/21/24 09/22/24 15:00 23:00 07:00 Intake Total 400 ml 800 ml 633 ml Output Total 1350 ml 1450 ml Balance 400 ml -550 ml -817 ml medications Current Medications Medications Dose Ordered Sig/Linda Route Start Time Stop Time Status Last Admin Dose Admin Ondansetron HCl 4 mg Q6HPRN PRN IV 09/10/24 04:15 09/17/24 05:57 4 MG Acetaminophen 650 mg Q6HPRN PRN PO 09/10/24 04:15 09/12/24 06:29 650 MG Diagnostic Test (Pha) 1 strip ACHS 09/10/24 07:00 09/22/24 11:25 1 STRIP Insulin Human Regular ACHS SC 09/10/24 07:00 09/22/24 06:22 2 UNITS Dextrose 50 ml UD PRN IV 09/10/24 04:15 Acetaminophen/ Hydrocodone Bitart 1 tab Q4HP PRN PO 09/10/24 14:30 09/16/24 22:00 1 TAB Morphine Sulfate 2 mg Q3HPRN PRN IV 09/10/24 14:30 09/22/24 09:41 2 MG Clindamycin Phosphate 50 ml @ 50 mls/hr Q8HR IV 09/10/24 22:00 UNV Enteral Nutritional Formula 27.5 gm BIDWM PO 09/11/24 18:00 09/22/24 08:40 27.5 GM Linezolid 300 ml @ 150 mls/hr Q12H IV 09/16/24 00:00 09/22/24 11:19 150 MLS/HR Pantoprazole Sodium 40 mg BID IV 09/19/24 10:00 09/22/24 09:22 40 MG Metoclopramide HCl 5 mg Q6HPRN PRN IV 09/19/24 09:15 Lactulose 30 ml BID PO 09/19/24 22:00 09/20/24 21:21 30 ML Metronidazole 100 ml @ 100 mls/hr Q8H IV 09/20/24 18:00 09/22/24 09:21 100 MLS/HR Ciprofloxacin 200 ml @ 200 mls/hr Q24H IV 09/20/24 20:30 09/21/24 20:52 200 MLS/HR Examination: LUNGS:Normal, CVS:Normal, MSK:Normal laboratory and microbiology Laboratory Tests 09/21/24 10:37 Test 09/22/24 10:17 Range/Units Serum Glucose Pending Microbiology Date/Time Source Procedure Growth Status 09/13/24 13:35 Foot Left Gram Stain - Final Complete 09/13/24 13:35 Anaerobic Culture - Final Bacteroides fragilis Complete 09/13/24 13:35 Aerobic Culture - Final Enterococcus faecalis Complete 09/10/24 09:15 Voided Urine Urine Culture - Final Complete 09/09/24 19:22 Blood Blood Culture - Final NO GROWTH AFTER 5 DAYS OF INCUBATION. Complete Problem List/Assessment/Plan Problem List/Assessment/Plan Acute kidney injury in the setting of vancomycin toxicity Serum creatinine was 0.6 on 09/14/2024 Hyponatremia due to excess H2O Left foot osteomyelitis Status post septic shock Diabetes mellitus type 2 obesity Hyponatremia Recommendations Increased urine output Watch for renal recovery Hyponatremia slowly improving Strict I&Os Renal diet DC vancomycin Podiatry consult We will continue to follow Plan discussed with: Patient Dietary Evaluation Review Recommendations by RD: Protein Supplementation Comments: 1) Initiate Arslan @ 1 pk bid 2) Initiate vitamin C @ 500 mg bid 3) Initiate zinc sulfate @ 220 mg qd 4) Continue to monitor PO intake, labs, and skin integrity Expected Outcomes/Goals: 1) appetite, labs, and wound to improve 2) f/u in 3-5 days LIONEL BENTON MD Sep 22, 2024 11:30
[2024-09-22 12:05] LABS: Chloride 99 mmol/L (98-107); Potassium 4.6 mmol/L (3.5-5.1)
[2024-09-22 12:06] LABS: Anion Gap 9 (5-15); Calcium 8.8 mg/dL (8.7-10.4); Carbon Dioxide 25 mmol/L (20-31)
[2024-09-22 12:11] LABS: BUN/Creatinine Ratio 7.9 (10.0-20.0)
[2024-09-22 12:15] LABS: Blood Urea Nitrogen 51 mg/dL (9-23); Glucose 173 mg/dL (74-106); Sodium 133 mmol/L (136-145)
--- NOTE | 2024-09-22 13:53 | DVHPN2 ---
Progress Note - Dictate Date Seen: Sep 22, 2024 Medical Necessity Reason Pt with a Central, PICC or Fol: Yes The following are medically ne: Rodriguez Catheter Subjective Comfortable in bed. Patient has a wound VAC toe is left foot wound and the home wound VAC has been arranged. Patient has a PICC line to continue IV antibiotics at home per Infectious disease physician recommendations. Good urine output. vital signs Vital Sign Date Time Temp Pulse Resp B/P (MAP) Pulse Ox O2 Delivery O2 Flow Rate FiO2 09/22/24 13:00 98.2 85 16 145/75 (98) 96 98.2 09/22/24 08:30 Room Air* 0 21 Total Intake and Output 09/21/24 09/21/24 09/22/24 15:00 23:00 07:00 Intake Total 400 ml 800 ml 633 ml Output Total 1350 ml 1450 ml Balance 400 ml -550 ml -817 ml medications Current Medications Medications Dose Ordered Sig/Linda Route Start Time Stop Time Status Last Admin Dose Admin Ondansetron HCl 4 mg Q6HPRN PRN IV 09/10/24 04:15 09/17/24 05:57 4 MG Acetaminophen 650 mg Q6HPRN PRN PO 09/10/24 04:15 09/12/24 06:29 650 MG Diagnostic Test (Pha) 1 strip ACHS 09/10/24 07:00 09/22/24 11:25 1 STRIP Insulin Human Regular ACHS SC 09/10/24 07:00 09/22/24 12:15 3 UNITS Dextrose 50 ml UD PRN IV 09/10/24 04:15 Acetaminophen/ Hydrocodone Bitart 1 tab Q4HP PRN PO 09/10/24 14:30 09/16/24 22:00 1 TAB Morphine Sulfate 2 mg Q3HPRN PRN IV 09/10/24 14:30 09/22/24 09:41 2 MG Clindamycin Phosphate 50 ml @ 50 mls/hr Q8HR IV 09/10/24 22:00 UNV Enteral Nutritional Formula 27.5 gm BIDWM PO 09/11/24 18:00 09/22/24 08:40 27.5 GM Linezolid 300 ml @ 150 mls/hr Q12H IV 09/16/24 00:00 09/22/24 11:19 150 MLS/HR Pantoprazole Sodium 40 mg BID IV 09/19/24 10:00 09/22/24 09:22 40 MG Metoclopramide HCl 5 mg Q6HPRN PRN IV 09/19/24 09:15 Lactulose 30 ml BID PO 09/19/24 22:00 09/20/24 21:21 30 ML Metronidazole 100 ml @ 100 mls/hr Q8H IV 09/20/24 18:00 09/22/24 09:21 100 MLS/HR Ciprofloxacin 200 ml @ 200 mls/hr Q24H IV 09/20/24 20:30 09/21/24 20:52 200 MLS/HR objective Alert awake oriented x3. HEENT neck supple no JVD. Heart regular rate and rhythm S1-S2. Lungs fair air movement without rales wheezes. Abdomen soft nontender positive bowel sounds. Extremities no edema. His left foot and ankle is covered with a dressing. laboratory and microbiology Laboratory Tests 09/22/24 10:17 09/21/24 10:37 Test 09/22/24 10:17 Range/Units Serum Glucose 173 H 74-106 mg/dL Assessment/Plan We will DC the Rodriguez catheter today and a repeat kidney function in the morning. Encouraged oral fluid intake. Social service to arrange home wound VAC and home IV antibiotics. Once this is done he can be discharged in the next 24 hours. Discussed with the patient and nurse regarding care plan. Dietary Evaluation Review Recommendations by RD: Protein Supplementation Comments: 1) Initiate Arslan @ 1 pk bid 2) Initiate vitamin C @ 500 mg bid 3) Initiate zinc sulfate @ 220 mg qd 4) Continue to monitor PO intake, labs, and skin integrity Expected Outcomes/Goals: 1) appetite, labs, and wound to improve 2) f/u in 3-5 days Plan discussed with: Patient, Other STAN HATCH MD Sep 22, 2024 13:53
[2024-09-22] MEDS: metroNIDAZOLE 500 MG TAB PO SCH (16:17)
--- NOTE | 2024-09-22 22:59 | DVHPN2 ---
Consult Progress Note Date Seen: Sep 21, 2024 Subjective Patient reports: Other (he underwent his surgery debridement and states his foot feels a lot better , has a wound vac over it with bloody drainage entering the wound vac on the lateral surface of left foot ) Objective vital signs Vital Sign Date Time Temp Pulse Resp B/P (MAP) Pulse Ox O2 Delivery O2 Flow Rate FiO2 09/22/24 21:00 98.5 79 20 139/66 (90) 94 98.5 09/22/24 20:00 Room Air* 0 21 Total Intake and Output 09/21/24 09/21/24 09/22/24 15:00 23:00 07:00 Intake Total 400 ml 800 ml 633 ml Output Total 1350 ml 1450 ml Balance 400 ml -550 ml -817 ml medications Current Medications Medications Dose Ordered Sig/Linda Route Start Time Stop Time Status Last Admin Dose Admin Ondansetron HCl 4 mg Q6HPRN PRN IV 09/10/24 04:15 09/17/24 05:57 4 MG Acetaminophen 650 mg Q6HPRN PRN PO 09/10/24 04:15 09/12/24 06:29 650 MG Diagnostic Test (Pha) 1 strip ACHS 09/10/24 07:00 09/22/24 21:45 1 STRIP Insulin Human Regular ACHS SC 09/10/24 07:00 09/22/24 21:53 2 UNITS Dextrose 50 ml UD PRN IV 09/10/24 04:15 Acetaminophen/ Hydrocodone Bitart 1 tab Q4HP PRN PO 09/10/24 14:30 09/16/24 22:00 1 TAB Morphine Sulfate 2 mg Q3HPRN PRN IV 09/10/24 14:30 09/22/24 09:41 2 MG Clindamycin Phosphate 50 ml @ 50 mls/hr Q8HR IV 09/10/24 22:00 UNV Enteral Nutritional Formula 27.5 gm BIDWM PO 09/11/24 18:00 09/22/24 08:40 27.5 GM Metoclopramide HCl 5 mg Q6HPRN PRN IV 09/19/24 09:15 Lactulose 30 ml BID PO 09/19/24 22:00 09/20/24 21:21 30 ML Metronidazole 500 mg Q8HR PO 09/22/24 14:00 09/22/24 21:45 500 MG Levofloxacin 250 mg EOD PO 09/23/24 10:00 Daptomycin 720 mg/ Sodium Chloride 50 ml @ 100 mls/hr TUTHSA IV 09/23/24 10:00 Physical Exam General Appearance: Cooperative. Well developed. Well nourished. NAD Head Exam: Normal inspection Neck Exam: Normal inspection. Non-tender. Normal alignment Pulmonary/Respiratory: Chest non-tender. Clear bilateral breath sounds Cardiovascular/Chest: Regular rate and rhythm. No murmurs. No JVD. Peripheral Pulses: 2+ Radial (R). 2+ Radial (L). 2+ Pedal (R). 2+ Pedal (L) Abdominal Exam: Normal bowel sounds. Soft. Nontender. No hepatospenomegaly. No masses Ankle Exam: Negative ankle edema Lower extremities: 1+ left lower extremity swelling, skin discoloration over lateral plantar surface of left foot, black discoloration of skin graft. Capillary refill greater than 3 seconds. Neuro/Mental Status: A&O x4. Coherent Thoughts/Psych: Normal thought pattern. Appropriate mood and affect. Good judgement and insight Appearance: In no acute distress Skin Exam: Normal inspection. Normal color. Warm. Dry laboratory and microbiology Laboratory Tests 09/22/24 10:17 09/21/24 10:37 Test 09/22/24 10:17 Range/Units Serum Glucose 173 H 74-106 mg/dL Problem List/Assessment/Plan Problems(with codes): (1) Septic shock (2) Wound of left foot (3) Hypotension (4) Foot ulcer (5) Cellulitis and abscess of foot (6) Necrotizing subcutaneous infection (7) Osteomyelitis of left foot (8) Diabetic foot infection (9) Acute kidney injury (ANIBAL) with acute tubular necrosis (ATN) Problem List/Assessment/Plan Problem List/Assessment/Plan Left foot osteomyelitis Osteomyelitis of 1st distal phalanx Left foot abscess Left foot skin graft rejection Cellulitis of left foot Sepsis due to cellulitis Diabetic foot infection Type 2 diabetes on insulin Diabetic neuropathy S/P debridement of wound and doing well .more necrotic tissue was removed and wound is packed.plan is to get wound Vac and debridement will be on Friday. continue linezolid and Zosyn . patients kidney function continues to rise so recommend nephrology consult to further evaluate. Keep blood sugars under 180 to optimize wound healing. 09/16: no pain in right lower extremity and is well wrapped . underwent a second debridement yesterday and continues to feel good . Continue linezolid and renally dose Zosyn . patients kidney function continues to rise would defer management to nephrology. patient is getting Lasix and is responding 09/17: underwent an additional debridement today and appears that patient is to get wound vac afterwards . the wound is slightly open with drainage but no pain . whitecount has come down to 10.9 however renal function continues to worsen with creatine at 5.65. Plan will be to continue linezolid and Zosyn for 6 weeks and will determine final antibiotic dosing based off of residual renal function . patient should follow up with infectious disease clinic in 2 weeks to see if antibiotic dose adjustment is needed as renal function improves . as per nephrology ANIBAL is determined to be related to temporary caused from vancomycin toxicity and hypotension 09/18:Patients kidney function is worsening , will dose adjust zosyn 09/19: hemaglobin is 10.3, whitecount is 11.7 , platelets are 558, renal function continues to decline 09/20: whitecount is 11.7 , kidney functions continues to decline , getting lasix therapy 09/21: urine output continues to improve , make an effort to avoid nephrotoxic medications Plan: - recommend piccline placement with IV daptomycin 600 milligrams every 48 hours and oral levofloxacin and oral Flagyl for 6 weeks and ends on 11/02/24 - follow up with infectious disease in 6 weeks to see if additional antibiotics are needed - follow up with PCP for blood sugars are kept under 180 - weekly CK levels - Stop linazolid - Stop ciprofloxacin - follow up with podiatry for wound vac management and wound care -Wound culture: Positive for Bacteroides fragilis, Enterococcus faecalis. - DVT negative - MRSA negative - IV hydration given underlying sepsis - Rest of the management as per primary care team, we will continue following up. - Poor prognosis. Plan discussed with: Other Dietary Evaluation Review Recommendations by RD: Protein Supplementation Comments: 1) Initiate Arslan @ 1 pk bid 2) Initiate vitamin C @ 500 mg bid 3) Initiate zinc sulfate @ 220 mg qd 4) Continue to monitor PO intake, labs, and skin integrity Expected Outcomes/Goals: 1) appetite, labs, and wound to improve 2) f/u in 3-5 days BIANCA HOLLAND MD Sep 22, 2024 22:59
--- NOTE | 2024-09-22 23:01 | DVHPN2 ---
Consult Progress Note Date Seen: Sep 22, 2024 Subjective Patient reports: Other (output almost 2 liters of urine in last 24 hours , states food is not hurting and has a wound vac on draining serious drainage , less bloody on his left foot ) Objective vital signs Vital Sign Date Time Temp Pulse Resp B/P (MAP) Pulse Ox O2 Delivery O2 Flow Rate FiO2 09/22/24 21:00 98.5 79 20 139/66 (90) 94 98.5 09/22/24 20:00 Room Air* 0 21 Total Intake and Output 09/21/24 09/21/24 09/22/24 15:00 23:00 07:00 Intake Total 400 ml 800 ml 633 ml Output Total 1350 ml 1450 ml Balance 400 ml -550 ml -817 ml medications Current Medications Medications Dose Ordered Sig/Linda Route Start Time Stop Time Status Last Admin Dose Admin Ondansetron HCl 4 mg Q6HPRN PRN IV 09/10/24 04:15 09/17/24 05:57 4 MG Acetaminophen 650 mg Q6HPRN PRN PO 09/10/24 04:15 09/12/24 06:29 650 MG Diagnostic Test (Pha) 1 strip ACHS 09/10/24 07:00 09/22/24 21:45 1 STRIP Insulin Human Regular ACHS SC 09/10/24 07:00 09/22/24 21:53 2 UNITS Dextrose 50 ml UD PRN IV 09/10/24 04:15 Acetaminophen/ Hydrocodone Bitart 1 tab Q4HP PRN PO 09/10/24 14:30 09/16/24 22:00 1 TAB Morphine Sulfate 2 mg Q3HPRN PRN IV 09/10/24 14:30 09/22/24 09:41 2 MG Clindamycin Phosphate 50 ml @ 50 mls/hr Q8HR IV 09/10/24 22:00 UNV Enteral Nutritional Formula 27.5 gm BIDWM PO 09/11/24 18:00 09/22/24 08:40 27.5 GM Metoclopramide HCl 5 mg Q6HPRN PRN IV 09/19/24 09:15 Lactulose 30 ml BID PO 09/19/24 22:00 09/20/24 21:21 30 ML Metronidazole 500 mg Q8HR PO 09/22/24 14:00 09/22/24 21:45 500 MG Levofloxacin 250 mg EOD PO 09/23/24 10:00 Daptomycin 720 mg/ Sodium Chloride 50 ml @ 100 mls/hr TUTHSA IV 09/23/24 10:00 Physical Exam General Appearance: Cooperative. Well developed. Well nourished. NAD Head Exam: Normal inspection Neck Exam: Normal inspection. Non-tender. Normal alignment Pulmonary/Respiratory: Chest non-tender. Clear bilateral breath sounds Cardiovascular/Chest: Regular rate and rhythm. No murmurs. No JVD. Peripheral Pulses: 2+ Radial (R). 2+ Radial (L). 2+ Pedal (R). 2+ Pedal (L) Abdominal Exam: Normal bowel sounds. Soft. Nontender. No hepatospenomegaly. No masses Ankle Exam: Negative ankle edema Lower extremities: 1+ left lower extremity swelling, skin discoloration over lateral plantar surface of left foot, black discoloration of skin graft. Capillary refill greater than 3 seconds. Neuro/Mental Status: A&O x4. Coherent Thoughts/Psych: Normal thought pattern. Appropriate mood and affect. Good judgement and insight Appearance: In no acute distress Skin Exam: Normal inspection. Normal color. Warm. Dry laboratory and microbiology Laboratory Tests 09/22/24 10:17 09/21/24 10:37 Test 09/22/24 10:17 Range/Units Serum Glucose 173 H 74-106 mg/dL Problem List/Assessment/Plan Problems(with codes): (1) Septic shock (2) Wound of left foot (3) Hypotension (4) Foot ulcer (5) Cellulitis and abscess of foot (6) Necrotizing subcutaneous infection (7) Osteomyelitis of left foot (8) Diabetic foot infection (9) Acute kidney injury (ANIBAL) with acute tubular necrosis (ATN) Problem List/Assessment/Plan Problem List/Assessment/Plan Left foot osteomyelitis Osteomyelitis of 1st distal phalanx Left foot abscess Left foot skin graft rejection Cellulitis of left foot Sepsis due to cellulitis Diabetic foot infection Type 2 diabetes on insulin Diabetic neuropathy S/P debridement of wound and doing well .more necrotic tissue was removed and wound is packed.plan is to get wound Vac and debridement will be on Friday. continue linezolid and Zosyn . patients kidney function continues to rise so recommend nephrology consult to further evaluate. Keep blood sugars under 180 to optimize wound healing. 09/16: no pain in right lower extremity and is well wrapped . underwent a second debridement yesterday and continues to feel good . Continue linezolid and renally dose Zosyn . patients kidney function continues to rise would defer management to nephrology. patient is getting Lasix and is responding 09/17: underwent an additional debridement today and appears that patient is to get wound vac afterwards . the wound is slightly open with drainage but no pain . whitecount has come down to 10.9 however renal function continues to worsen with creatine at 5.65. Plan will be to continue linezolid and Zosyn for 6 weeks and will determine final antibiotic dosing based off of residual renal function . patient should follow up with infectious disease clinic in 2 weeks to see if antibiotic dose adjustment is needed as renal function improves . as per nephrology ANIBAL is determined to be related to temporary caused from vancomycin toxicity and hypotension 09/18:Patients kidney function is worsening , will dose adjust zosyn 09/19: hemaglobin is 10.3, whitecount is 11.7 , platelets are 558, renal function continues to decline 09/20: whitecount is 11.7 , kidney functions continues to decline , getting lasix therapy 09/21: urine output continues to improve , make an effort to avoid nephrotoxic medications 09/22: patients renal function continues to improve , infection appearws to be controlled at the site of the lateral foot Plan: - recommend piccline placement with IV daptomycin 600 milligrams every 48 hours and oral levofloxacin and oral Flagyl for 6 weeks and ends on 11/02/24 - follow up with infectious disease in 6 weeks to see if additional antibiotics are needed - follow up with PCP for blood sugars are kept under 180 - weekly CK levels - Stop linazolid - Stop ciprofloxacin - follow up with podiatry for wound vac management and wound care -Wound culture: Positive for Bacteroides fragilis, Enterococcus faecalis. - DVT negative - MRSA negative - IV hydration given underlying sepsis - Rest of the management as per primary care team, we will continue following up. - Poor prognosis. Plan discussed with: Other Dietary Evaluation Review Recommendations by RD: Protein Supplementation Comments: 1) Initiate Arslan @ 1 pk bid 2) Initiate vitamin C @ 500 mg bid 3) Initiate zinc sulfate @ 220 mg qd 4) Continue to monitor PO intake, labs, and skin integrity Expected Outcomes/Goals: 1) appetite, labs, and wound to improve 2) f/u in 3-5 days BIANCA HOLLAND MD Sep 22, 2024 23:01
[2024-09-23] VITALS (8 sets, daily range): BP systolic 121–137; BP diastolic 65–68; PULSE 79–86; RESP 16–20; TEMP 98–99.5; O2SAT 92–96
[2024-09-23 09:06] LABS: Eosinophils # (auto) 0.1 10 ^3/uL (0-0.8); Hemoglobin 8.9 g/dL (13.5-17.5); Monocytes # (auto) 0.5 10 ^3/uL (0-1.3); Red Cell Distribution Width 13.9 % (11.8-14.3)
[2024-09-23 09:07] LABS: Basophils # (auto) 0 10 ^3/uL (0-0.2); Basophils % (auto) 0.5 % (0.0-2.0); Eosinophils % (auto) 1.6 % (0.0-7.0); Hematocrit 25.7 % (41.0-53.0); Lymphocytes # (auto) 1.2 10 ^3/uL (0.4-5.4); Lymphocytes % (auto) 15.3 % (10.0-50.0); Mean Corpuscular Hgb Conc. 34.6 g/dL (32.0-36.0); Mean Corpuscular Volume 86.7 fL (80.0-100.0); Monocytes % (auto) 6.8 % (0.0-12.0); Neutrophils # (auto) 6.1 10 ^3/uL (1.6-8.6); Neutrophils % (auto) 75.8 % (37.0-80.0); Nucleated Red Blood Cells % 0.3 %; Platelet Count (auto) 497 10^3/uL (140-450); Red Blood Cells 2.97 10^6/uL (4.5-5.90); White Blood Cell 8.1 10^3/uL (4.4-10.8)
[2024-09-23 09:21] LABS: Chloride 102 mmol/L (98-107); Potassium 4.7 mmol/L (3.5-5.1)
[2024-09-23 09:22] LABS: Carbon Dioxide 24 mmol/L (20-31)
[2024-09-23 09:27] LABS: BUN/Creatinine Ratio 7.8 (10.0-20.0)
[2024-09-23 10:01] LABS: Anion Gap 9 (5-15); Blood Urea Nitrogen 46 mg/dL (9-23); Calcium 8.7 mg/dL (8.7-10.4); Glucose 140 mg/dL (74-106); Sodium 135 mmol/L (136-145)
--- NOTE | 2024-09-23 10:13 | DVHPN2 ---
Progress Note Date Seen: Sep 23, 2024 Medical Necessity Reason Pt with a Central, PICC or Fol: Yes The following are medically ne: Rodriguez Catheter Subjective Patient reports: No new complaints Other Systems: Patient seen and examined by myself today in follow-up Objective vital signs Vital Sign Date Time Temp Pulse Resp B/P (MAP) Pulse Ox O2 Delivery O2 Flow Rate FiO2 09/23/24 08:39 98.7 80 16 121/65 (83) 96 98.7 09/22/24 20:00 Room Air* 0 21 Total Intake and Output 09/22/24 09/22/24 09/23/24 15:00 23:00 07:00 Intake Total 400 ml 730 ml 1200 ml Output Total 1850 ml 500 ml Balance 400 ml -1120 ml 700 ml medications Current Medications Medications Dose Ordered Sig/Linda Route Start Time Stop Time Status Last Admin Dose Admin Ondansetron HCl 4 mg Q6HPRN PRN IV 09/10/24 04:15 09/17/24 05:57 4 MG Acetaminophen 650 mg Q6HPRN PRN PO 09/10/24 04:15 09/12/24 06:29 650 MG Diagnostic Test (Pha) 1 strip ACHS 09/10/24 07:00 09/23/24 06:29 1 STRIP Insulin Human Regular ACHS SC 09/10/24 07:00 09/23/24 06:25 2 UNITS Dextrose 50 ml UD PRN IV 09/10/24 04:15 Acetaminophen/ Hydrocodone Bitart 1 tab Q4HP PRN PO 09/10/24 14:30 09/16/24 22:00 1 TAB Morphine Sulfate 2 mg Q3HPRN PRN IV 09/10/24 14:30 09/23/24 06:17 2 MG Clindamycin Phosphate 50 ml @ 50 mls/hr Q8HR IV 09/10/24 22:00 UNV Enteral Nutritional Formula 27.5 gm BIDWM PO 09/11/24 18:00 09/22/24 08:40 27.5 GM Metoclopramide HCl 5 mg Q6HPRN PRN IV 09/19/24 09:15 Lactulose 30 ml BID PO 09/19/24 22:00 09/20/24 21:21 30 ML Metronidazole 500 mg Q8HR PO 09/22/24 14:00 09/23/24 05:49 500 MG Levofloxacin 250 mg EOD PO 09/23/24 10:00 Daptomycin 720 mg/ Sodium Chloride 50 ml @ 100 mls/hr TUTHSA IV 09/23/24 10:00 Examination: LUNGS:Normal, CVS:Normal, MSK:Normal laboratory and microbiology Laboratory Tests 09/23/24 08:45 Test 09/23/24 08:45 Range/Units Serum Glucose 140 H 74-106 mg/dL Microbiology Date/Time Source Procedure Growth Status 09/13/24 13:35 Foot Left Gram Stain - Final Complete 09/13/24 13:35 Anaerobic Culture - Final Bacteroides fragilis Complete 09/13/24 13:35 Aerobic Culture - Final Enterococcus faecalis Complete 09/10/24 09:15 Voided Urine Urine Culture - Final Complete 09/09/24 19:22 Blood Blood Culture - Final NO GROWTH AFTER 5 DAYS OF INCUBATION. Complete Problem List/Assessment/Plan Problem List/Assessment/Plan Acute kidney injury in the setting of vancomycin toxicity Serum creatinine was 0.6 on 09/14/2024 Hyponatremia due to excess H2O Left foot osteomyelitis Status post septic shock Diabetes mellitus type 2 obesity Hyponatremia Recommendations Kidney function slightly improving today Increased urine output Watch for renal recovery Hyponatremia slowly improving Strict I&Os Renal diet DC vancomycin Podiatry consult We will continue to follow Plan discussed with: Patient Dietary Evaluation Review Recommendations by RD: Protein Supplementation Comments: 1) Initiate Arslan @ 1 pk bid 2) Initiate vitamin C @ 500 mg bid 3) Initiate zinc sulfate @ 220 mg qd 4) Continue to monitor PO intake, labs, and skin integrity Expected Outcomes/Goals: 1) appetite, labs, and wound to improve 2) f/u in 3-5 days LIONEL BENTON MD Sep 23, 2024 10:13
[2024-09-23] MEDS: levoFLOXacin 250 MG TAB PO SCH (10:20)
--- NOTE | 2024-09-23 12:40 | DVHDS2 ---
Discharge Summary Date of Admission Sep 10, 2024 at 04:08 Date of Discharge: Sep 23, 2024 Labs/Diagnostic Data: Laboratory Results Test 09/23/24 11:20 09/23/24 08:45 09/19/24 08:35 09/17/24 08:50 POC Glucose 148 mg/dl (70-106) White Blood Count 8.1 10^3/uL (4.4-10.8) Red Blood Count 2.97 10^6/uL (4.5-5.90) Hemoglobin 8.9 g/dL (13.5-17.5) Hematocrit 25.7 % (41.0-53.0) Mean Corpuscular Volume 86.7 fL (80.0-100.0) Mean Corpuscular Hemoglobin 30.0 pg (28.0-32.0) Mean Corpuscular Hemoglobin Concent 34.6 g/dL (32.0-36.0) Red Cell Distribution Width 13.9 % (11.8-14.3) Platelet Count 497 10^3/uL (140-450) Mean Platelet Volume 5.9 fL (6.9-10.8) Neutrophils (%) (Auto) 75.8 % (37.0-80.0) Lymphocytes (%) (Auto) 15.3 % (10.0-50.0) Monocytes (%) (Auto) 6.8 % (0.0-12.0) Eosinophils (%) (Auto) 1.6 % (0.0-7.0) Basophils (%) (Auto) 0.5 % (0.0-2.0) Neutrophils # (Auto) 6.1 10 ^3/uL (1.6-8.6) Lymphocytes # (Auto) 1.2 10 ^3/uL (0.4-5.4) Monocytes # (Auto) 0.5 10 ^3/uL (0-1.3) Eosinophils # (Auto) 0.1 10 ^3/uL (0-0.8) Basophils # (Auto) 0 10 ^3/uL (0-0.2) Nucleated Red Blood Cells 0.3 % Sodium Level 135 mmol/L (136-145) Potassium Level 4.7 mmol/L (3.5-5.1) Chloride Level 102 mmol/L (98-107) Carbon Dioxide Level 24 mmol/L (20-31) Anion Gap 9 (5-15) Blood Urea Nitrogen 46 mg/dL (9-23) Creatinine 5.93 mg/dL (0.700-1.30) Glomerular Filtration Rate Calc 10 mL/min (>90) BUN/Creatinine Ratio 7.8 (10.0-20.0) Serum Glucose 140 mg/dL (74-106) Calcium Level 8.7 mg/dL (8.7-10.4) Total Bilirubin 0.5 mg/dL (0.2-1.0) Aspartate Amino Transferase (AST) 57 U/L (13-40) Alanine Aminotransferase (ALT) 33 U/L (7-40) Alkaline Phosphatase 178 U/L (46-116) Total Protein 6.8 g/dL (5.7-8.2) Albumin 3.1 g/dL (3.2-4.8) Lipase 61 U/L (12-53) B-Type Natriuretic Peptide 132.08 pg/mL (0-100) Test 09/17/24 05:50 09/15/24 05:08 09/14/24 10:56 09/10/24 04:47 Urine Color Light-yellow (Yellow) Urine Clarity Turbid (Clear) Urine pH 5.0 (5.0-9.0) Urine Specific [place] 1.007 (1.001-1.035) Urine Protein Trace (Negative) Urine Ketones Negative (Negative) Urine Blood Negative /uL (Negative) Urine Nitrite Negative (Negative) Urine Bilirubin Negative (Negative) Urine Urobilinogen Normal mg/dL (Negative) Urine Leukocyte Esterase Negative /uL (Negative) Urine RBC 1 /hpf (0 - 3) Urine Microscopic WBC 1 /HPF (0-3) Urine Squamous Epithelial Cells Few /hpf (<5) Urine Amorphous Crystals Few /hpf (None Seen) Urine Bacteria None seen /hpf (None Seen) Urine Creatinine 47.11 mg/dL (30.0-125.0) Urine Sodium 21 mmol/L (40-220) Urine Glucose Normal mg/dL (Normal) Urine Total Protein 48.3 mg/dL (1-14) Random Vancomycin Level 15.8 ug/mL (5-10) Vancomycin Level Trough 23.6 ug/mL (5-10) Prothrombin Time 12.3 sec (9.3-11.8) Prothrombin Time INR 1.18 (0.9-1.15) Test 09/09/24 19:22 Lactic Acid Level 1.2 mmol/L (0.4-2.0) Troponin I High Sensitivity 6 ng/L (</=54) Other Laboratory Tests 09/23/24 08:45 Brief Hx & Hospital Course: Mr. Tushar Zuleta is a 54-year-old male who presents with a chief complaint of left foot wound check. Patient had previous history of bilateral foot surgery presented to the hospital with a left foot pain, was status post 1. Acute osteomyelitis of the left foot status post I and D of the left foot, status post delayed closure, 2. Diabetes mellitus type 2, 3. Hypertension. Patient was discharged last August 31, with IV antibiotics, cefazolin, given via PICC line. Patient claims his home health care nurse never arrived to clean his wounds. Notable swelling and pain of the left foot, with fever occuring 4 days ago. Patient reports he went to the urgent care yesterday and was told he had gangrene and was sent to the ED for further evaluation. Left foot x ray resulted There is no evidence of an acute fracture, dislocation, osseous erosions, blastic, or lytic lesions. No radiopaque foreign bodies. Moderate soft tissue edema with lateral surgical camilo and subcutaneous emphysema. Consider further evaluation with a nuclear medicine WBC scan or contrast enhanced MRI. Patient was found to be hypotensive in the ED and started on vasopressor. Patient admitted for further evaluation and treatment. He is admitted and evaluated by optomechanical engineer and underwent foot debridement surgery x2 while in the hospital. Patient recommended to have IV antibiotics long-term for possible osteomyelitis. Therefore PICC line placed and IV antibiotics arranged. Home health is arranged. Otherwise is clinically stable therefore he is being discharged home with instructions to finish the antibiotics and have close follow up with the optomechanical engineer for continuity of care and further evaluation of his infection as deemed appropriate. Patient verbalized understanding of this, verbalized understanding over hospital diagnosis, treatment he received, discharge medications, discharge instructions and agree with follow-up plan of care as mentioned. Operations or Procedures Operative Report - 2 Report Details Date: 09/20/24 Preop Diagnosis: 1. Left foot gangrene 2. Left foot abscess 3. Left foot necrotizing fasciitis 4. Left foot cellulitis Postop Diagnosis: Same as preop Surgeon: Angel Trevino MD Anesthesiologist: See anesthesia Anesthesia: Mac Consent: The patient was informed of the risks and benefits of the procedure. These include but are not limited to complications of anesthesia, postoperative infection, incomplete relief of symptoms, recurrence of symptoms, damage to blood vessels, nerves and tendons, deep venous thrombosis, pulmonary embolism and possible need for repeat surgery in the future. Complications: None Estimated Blood Loss: Minimal Fluids: See anesthesia Findings: Consistent with diagnosis Indications for Surgery: Worsening left foot wound Name of Procedure Performed 1. Left foot I&D to bone ([id number]) Procedure Details Procedure Details: PRE-PROCEDURE INFORMATION: In the pre-op holding area, the extremity to be operated on was clearly marked and the patient verified correct laterality of the marking. The patient was transferred to the OR table and placed in a supine position. A timeout was performed in which identification of the correct patient, procedure, location, and materials was done. The left foot and leg were prepped and draped in normal sterile fashion. DESCRIPTION OF PROCEDURE: Attention was directed to the left foot incision where area of fluctuance previous incision was made was noted. An incision was made over this area and was deepened through blunt dissection. The incision was deepened to the level of abscess and bone. Care was taken to the dissection to avoid any neurovascular and tendinous structures. The incision was deepened to the bone, and the abscess appeared to be purulent fluid consistent with pus. The cortices of the bone was then removed with Shay an all necrotic tissue. After the abscess was drained, the area was irrigated with 3 L normal saline using cysto tubing. The area was then inspected and any areas of tracking, especially along the tendons were also drained. The wound was packed with Betadine-soaked gauze. POSTOPERATIVE INFORMATION: The patient tolerated the above noted procedure and anesthesia well and was transferred to the PACU with vital signs stable, and vascular status intact with capillary refill intact to all digits. Patient will return to the floor for IV antibiotics. Patient will have wound VAC placed and then be discharged home on VAC. no more surgical intervention at this point. Condition Good Condition at Discharge: Stable Final Diagnosis/Problems List Left foot osteomyelitis status post PICC line placement with IV antibiotics at home Osteomyelitis of 1st distal phalanx Left foot abscess Left foot skin graft rejection Cellulitis of left foot Sepsis due to cellulitis Diabetic foot infection Type 2 diabetes on insulin Diabetic neuropathy S/P debridement of wound and now wound VAC placement Discharge Disposition: Home with Health Services Discharge Instruct/Medications Diet: Consistent carbohydrate, Cardiac 2g Na,low cholest Activity: No Restrictions, As Tolerated Activity comment: With front wheel walker Follow Up/Referral: Primary care physician and referrals to furniture sales consultant /Miguel A, Infectious Disease Dr.Kevin Mcqueen and optomechanical engineer ANGEL TREVINO in next 1-2 weeks. Please have your kidney function repeated after seven days with primary care physician/kidney doctor. 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 Patient was counseled about treatment plan, medications, possible side effects, patientverbalized understanding. All questions were answered to the best of my ability. This discharge took greater then 30 minutes in planning, reviewing documentation, counseling the patient, and discussing with other team members." ASSESSMENT ASSESSMENT Assessment Left foot osteomyelitis status post PICC line placement with IV antibiotics at home Osteomyelitis of 1st distal phalanx Left foot abscess Left foot skin graft rejection Cellulitis of left foot Sepsis due to cellulitis Diabetic foot infection Type 2 diabetes on insulin Diabetic neuropathy S/P debridement of wound and now wound VAC placement STAN HATCH MD Sep 23, 2024 12:40
[2024-09-23] MEDS: SODIUM CHL 0.9% IV SCH (15:39)
[2024-09-23] MEDS: DAPTOMYCIN IV SCH (15:39)
--- NOTE | 2024-09-24 11:17 | ECG ---
[facility] Test Date: 2024-09-23 Test Time: 14:12:15 Pat Name: XOCHITL REYNOLDS Department: Respiratoy Room: 0295T B Gender: M Bmx Rider: LOUIS HANNON : 1970 Requested By: STAN HATCH Order Number: [id number] Reading MD: Nael Mares Measurements Intervals [place] Rate: 80 P: 39 SC: 152 QRS: 6 QRSD: 86 T: 24 QT: 370 QTc: 427 Interpretive Statements Sinus rhythm Electronically Signed On 09-27-2024 8:12:18 PST by Nael Mares Please click the below link to view image of tracing.
--- NOTE | 2024-09-25 12:01 | DVHPN2 ---
Consult Progress Note Date Seen: Sep 23, 2024 Subjective Patient reports: Other (no pain in toes or foot area and appears clean , has a flap over site and has no necrotic edges ) Objective vital signs Vital Sign Date Time Temp Pulse Resp B/P (MAP) Pulse Ox O2 Delivery O2 Flow Rate FiO2 09/23/24 16:46 98.0 81 16 137/68 (91) 96 98.0 09/23/24 08:10 Room Air* 0 21 medications Current Medications Medications Dose Ordered Sig/Linda Route Start Time Stop Time Status Last Admin Dose Admin Clindamycin Phosphate 50 ml @ 50 mls/hr Q8HR IV 09/10/24 22:00 UNV Physical Exam General Appearance: Cooperative. Well developed. Well nourished. NAD Head Exam: Normal inspection Neck Exam: Normal inspection. Non-tender. Normal alignment Pulmonary/Respiratory: Chest non-tender. Clear bilateral breath sounds Cardiovascular/Chest: Regular rate and rhythm. No murmurs. No JVD. Peripheral Pulses: 2+ Radial (R). 2+ Radial (L). 2+ Pedal (R). 2+ Pedal (L) Abdominal Exam: Normal bowel sounds. Soft. Nontender. No hepatospenomegaly. No masses Ankle Exam: Negative ankle edema Lower extremities: 1+ left lower extremity swelling, skin discoloration over lateral plantar surface of left foot, black discoloration of skin graft. Capillary refill greater than 3 seconds. Neuro/Mental Status: A&O x4. Coherent Thoughts/Psych: Normal thought pattern. Appropriate mood and affect. Good judgement and insight Appearance: In no acute distress Skin Exam: Normal inspection. Normal color. Warm. Dry laboratory and microbiology Laboratory Tests 09/23/24 08:45 Test 09/23/24 08:45 Range/Units Serum Glucose 140 H 74-106 mg/dL Problem List/Assessment/Plan Problems(with codes): (1) Acute kidney injury (ANIBAL) with acute tubular necrosis (ATN) (2) Diabetic foot infection (3) Osteomyelitis of left foot (4) Necrotizing subcutaneous infection (5) Cellulitis and abscess of foot (6) Foot ulcer (7) Hypotension (8) Wound of left foot (9) Septic shock Problem List/Assessment/Plan Problem List/Assessment/Plan Left foot osteomyelitis Osteomyelitis of 1st distal phalanx Left foot abscess Left foot skin graft rejection Cellulitis of left foot Sepsis due to cellulitis Diabetic foot infection Type 2 diabetes on insulin Diabetic neuropathy S/P debridement of wound and doing well .more necrotic tissue was removed and wound is packed.plan is to get wound Vac and debridement will be on Friday. continue linezolid and Zosyn . patients kidney function continues to rise so recommend nephrology consult to further evaluate. Keep blood sugars under 180 to optimize wound healing. 09/16: no pain in right lower extremity and is well wrapped . underwent a second debridement yesterday and continues to feel good . Continue linezolid and renally dose Zosyn . patients kidney function continues to rise would defer management to nephrology. patient is getting Lasix and is responding 09/17: underwent an additional debridement today and appears that patient is to get wound vac afterwards . the wound is slightly open with drainage but no pain . whitecount has come down to 10.9 however renal function continues to worsen with creatine at 5.65. Plan will be to continue linezolid and Zosyn for 6 weeks and will determine final antibiotic dosing based off of residual renal function . patient should follow up with infectious disease clinic in 2 weeks to see if antibiotic dose adjustment is needed as renal function improves . as per nephrology ANIBAL is determined to be related to temporary caused from vancomycin toxicity and hypotension 09/18:Patients kidney function is worsening , will dose adjust zosyn 09/19: hemaglobin is 10.3, whitecount is 11.7 , platelets are 558, renal function continues to decline 09/20: whitecount is 11.7 , kidney functions continues to decline , getting lasix therapy 09/21: urine output continues to improve , make an effort to avoid nephrotoxic medications 09/22: patients renal function continues to improve , infection appearws to be controlled at the site of the lateral foot 09/23: patient is tolerating antibiotics Plan: - recommend piccline placement with IV daptomycin 600 milligrams every 48 hours and oral levofloxacin and oral Flagyl for 6 weeks and ends on 11/02/24 - follow up with infectious disease in 6 weeks to see if additional antibiotics are needed - follow up with PCP for blood sugars are kept under 180 - weekly CK levels - Stop linazolid - Stop ciprofloxacin - follow up with podiatry for wound vac management and wound care -Wound culture: Positive for Bacteroides fragilis, Enterococcus faecalis. - DVT negative - MRSA negative - IV hydration given underlying sepsis - Rest of the management as per primary care team, we will continue following up. - Poor prognosis. Plan discussed with: Other Dietary Evaluation Review Recommendations by RD: Protein Supplementation Comments: 1) Initiate Arslan @ 1 pk bid 2) Initiate vitamin C @ 500 mg bid 3) Initiate zinc sulfate @ 220 mg qd 4) Continue to monitor PO intake, labs, and skin integrity Expected Outcomes/Goals: 1) appetite, labs, and wound to improve 2) f/u in 3-5 days BIANCA HOLLAND MD Sep 25, 2024 12:01
== END 2024-09-23 18:06 | disposition home health service (06) | DRG 871 ==
LOC: EDBD 18:28 → ER 18:28 → TELE 09-10 04:08 → TELE-WESTW 09-10 16:22 → OVERFLOW 09-21 15:56 → WEST WING 09-21 16:00 → OVERFLOW 09-22 13:37 → TELE-WESTW 09-22 13:45
PROVIDERS: ADMIT Nurse Practitioner Family; ATTEND Nurse Practitioner Family
PROC: 0Y9N0ZZ Drainage of Left Foot, Open Approach (ICD-10-PCS; principal; 2024-09-13 13:24)
PROC: 0Y9N0ZZ Drainage of Left Foot, Open Approach (ICD-10-PCS; 2024-09-15)
PROC: 0Y9N0ZZ Drainage of Left Foot, Open Approach (ICD-10-PCS; 2024-09-17)
PROC: 0Y9N0ZZ Drainage of Left Foot, Open Approach (ICD-10-PCS; 2024-09-20)
DX: A41.9 Sepsis, unspecified organism (principal); M72.6 Necrotizing fasciitis; N17.0 Acute kidney failure with tubular necrosis; R65.21 Severe sepsis with septic shock; L03.116 Cellulitis of left lower limb; M86.172 Other acute osteomyelitis, left ankle and foot; T86.820 Skin graft (allograft) rejection; M86.672 Other chronic osteomyelitis, left ankle and foot; L02.612 Cutaneous abscess of left foot; E87.1 Hypo-osmolality and hyponatremia; E11.52 Type 2 diabetes mellitus with diabetic peripheral angiopathy with gangrene; E11.40 Type 2 diabetes mellitus with diabetic neuropathy, unspecified; E11.621 Type 2 diabetes mellitus with foot ulcer; L97.529 Non-pressure chronic ulcer of other part of left foot with unspecified severity; E11.69 Type 2 diabetes mellitus with other specified complication; I10 Essential (primary) hypertension; E66.9 Obesity, unspecified; Z79.4 Long term (current) use of insulin; Z79.84 Long term (current) use of oral hypoglycemic drugs; Z80.0 Family history of malignant neoplasm of digestive organs; Z83.3 Family history of diabetes mellitus; Y84.8 Other medical procedures as the cause of abnormal reaction of the patient, or of later complication, without mention of misadventure at the time of the procedure; Y92.89 Other specified places as the place of occurrence of the external cause
CPT/HCPCS: 36415; 71045; 73630; 73700; 76775; 80048; 80053; 80202; 81001; 82565; 82570; 82962; 83605; 83690; 83880; 84156; 84300; 84484; 85025; 85610; 86850; 86900; 86901; 87040; 87070; 87075; 87076; 87077; 87081; 87086; 87186; 87205; 93005; 93306; 93971; 96365; 96375; 99291; G0378; J0131; J0692; J1815; J2003; J2250; J2405; J2470; J2543; J2704; J3490

== ENCOUNTER 2024-10-12 12:00 | Emergency (ER) | payer OTHER ==
[~2024-10-12] VITALS: Ht 190.5 cm; Wt 99.0 kg
[~2024-10-12 12:00] MED LIST changes: -DOCU-94 PO; +INSLANTI SC
--- NOTE | 2024-10-12 12:15 | ED.PDOC ---
History of Present Illness HPI Comments 54 y/o M, with PMHX of HTN and DM presents to the ED for CC of abnormal labs. Patient states, that he was relayed by his PCP to follow up with the ED for a blood transfusion due to a low hemoglobin reading of 5.9. Patient relays, that he has been experiencing symptoms of dizziness, weakness, and fatigue since Friday (10/08/24) following labs. Patient comments on, having a left foot infection since 09/07/24; and is currently on a wound vac. Patient denies blurred vision, headache, chest pain, or SOB. No other symptoms or modifying factors at this time. Time Seen by MD: 12:10 Primary Care Provider: CHALO Gavin Notes: Nurses Notes, Medications, Allergies Allergies: Coded Allergies: NO KNOWN ALLERGIES (Unverified , 05/24/24) Home Meds Active Scripts Naloxone HCl (Narcan) 4 Mg/0.1 Ml Spr, 4 MG NA BRICK MAKER, #2 SPRAY Prov:FRANK ADAN MD 08/31/24 Hydrocodone-Acetaminophen (Hydrocodone Bitartrate/AC 10-325 mg) 1 Tab Tab, 1 TAB PO Q8HP PRN, #20 TAB Prov:FRANK ADAN MD 08/31/24 Metronidazole (Flagyl) 500 Mg Tab, 1 TAB PO TID, #90 TAB Prov:STAN HATCH MD 05/31/24 Reported Medications Insulin Glargine (Lantus) 100 Unit/Ml Inj, 30 UNIT SC HS, INJ 09/10/24 Information Source: Patient, Relative Mode of Arrival: Ambulatory Severity: Moderate Timing: Days Duration: Since onset Prehospital treatment: None Past Medical History PAST MEDICAL HISTORY: DM, HTN Family History Family History: Reviewed,noncontributory to illness, Family hx of Kidney altagracia Social History Smoker: Non-Smoker Alcohol: Denies ETOH Use Drugs: Denies Drug Use Lives In: Home Constitutional: reports: fatigue, weakness; denies: chills, diaphoresis, fever, malaise, sweats, others EENTM: denies: blurred vision, double vision, ear bleeding, ear discharge, ear drainage, ear pain, ear ringing, eye pain, eye redness, hearing loss, mouth pain, mouth swelling, nasal discharge, nose bleeding, nose congestion, nose pain, photophobia, tearing, throat pain, throat swelling, voice changes, others Respiratory: denies: cough, hemoptysis, orthopnea, SOB at rest, shortness of breath, SOB with excertion, stridor, wheezing, others Cardiovascular: denies: chest pain, dizzy spells, diaphoresis, Dyspnea on exertion, edema, irregular heart beat, left arm pain, lightheadedness, palpitations, PND, syncope, others Gastrointestinal: denies: abdomen distended, abdominal pain, blood streaked bowels, constipated, diarrhea, dysphagia, difficulty swallowing, hematemesis, melena, nausea, poor appetite, poor fluid intake, rectal bleeding, rectal pain, vomiting, others Genitourinary: denies: burning, dysuria, flank pain, frequency, hematuria, incontinence, penile discharge, penile sore, pain, testicle pain, testicle swelling, urgency, others Neurological: reports: dizziness; denies: fainting, headache, left sided numbness, left sided weakness, numbness, paresthesia, pre-existing deficit, right sided numbness, right sided weakness, seizure, speech problems, tingling, tremors, weakness, others Musculoskeletal: denies: back pain, gout, joint pain, joint swelling, muscle pain, muscle stiffness, neck pain, others Integumetry: denies: bruises, change in color, change in hair/nails, dryness, laceration, lesions, lumps, rash, wounds, others Allergic/Immunocompromised: denies: Difficulty Healing, Frequent Infections, Hives, Itching, others Hematologic/Lymphatic: denies: anemia, blood clots, easy bleeding, easy bruising, swollen glands, others Endocrine: denies: excessive hunger, excessive sweating, excessive thirst, excessive urination, flushing, intolerance to cold, intolerance to heat, unexplained weight gain, unexplained weight loss, others Psychiatric: denies: anxiety, bipolar disorder, depression, hopeless, panic disorder, schizophrenia, sleepless, suicidal, others All Other Systems: Reviewed and Negative Physical Exam General Appearance: No Apparent Distress HEENT: Pale Conjuntivae (L), Pale Conjuntivae (R), Pharynx Normal, TMs Normal Neck: Full Range of Motion, Non-Tender, Normal, Normal Inspection Respiratory: Chest Non-Tender, Lungs Clear, No Accessory Muscle Use, No Respiratory Distress, Normal Breath Sounds Cardiovascular: No Edema, No JVD, No Murmur, No Gallop, Normal Peripheral Pulses, Regular Rate/Rhythm Breast Exam: Deferred Gastrointestinal: No Organomegaly, Non Tender, No Pulsatile Mass, Normal Bowel Sounds, Soft Genitalia: Deferred Pelvic: Deferred Rectal: Deferred Extremities: No calf tenderness, Normal capillary refill, No pedal edema, Other (The patient was left foot is in a boot and splint. The patient was a PICC line in place) Musculoskeletal : Apperance: Normal Neurologic: Alert, recording engineer II-XII nml as Tested, No Motor Deficits, Normal Affect, Normal Mood, No Sensory Deficits Cerebellar Function: Normal Reflexes: Normal Skin: Dry, Normal Color, Warm Lymphatic: No Adenopathy Was a procedure done? Was a procedure done?: No Differential Dx Considerations may include: anemia X-Ray, Labs, Meds, VS Vital Signs Date Time Temp Pulse Resp B/P (MAP) Pulse Ox O2 Delivery O2 Flow Rate FiO2 10/12/24 12:29 98.3 103 16 121/72 (88) 99 Lab Test 10/12/24 12:52 10/12/24 12:27 Range/Units White Blood Count 9.1 4.4-10.8 10^3/uL Red Blood Count 3.24 L 4.5-5.90 10^6/uL Hemoglobin 9.5 L 13.5-17.5 g/dL Hematocrit 28.7 L 41.0-53.0 % Mean Corpuscular Volume 88.4 80.0-100.0 fL Mean Corpuscular Hemoglobin 29.3 28.0-32.0 pg Mean Corpuscular Hemoglobin Concent 33.1 32.0-36.0 g/dL Red Cell Distribution Width 15.2 H 11.8-14.3 % Platelet Count 449 140-450 10^3/uL Mean Platelet Volume 6.8 L 6.9-10.8 fL Neutrophils (%) (Auto) 66.4 37.0-80.0 % Lymphocytes (%) (Auto) 21.4 10.0-50.0 % Monocytes (%) (Auto) 6.2 0.0-12.0 % Eosinophils (%) (Auto) 5.0 0.0-7.0 % Basophils (%) (Auto) 1.0 0.0-2.0 % Neutrophils # (Auto) 6.0 1.6-8.6 10 ^3/uL Lymphocytes # (Auto) 1.9 0.4-5.4 10 ^3/uL Monocytes # (Auto) 0.6 0-1.3 10 ^3/uL Eosinophils # (Auto) 0.5 0-0.8 10 ^3/uL Basophils # (Auto) 0.1 0-0.2 10 ^3/uL Nucleated Red Blood Cells 0.1 % Prothrombin Time 11.9 H 9.3-11.8 sec Prothrombin Time INR 1.14 0.9-1.15 Activated Partial Thromboplast Time 34.6 H 24.5-34.5 SEC Sodium Level 137 136-145 mmol/L Potassium Level 3.9 3.5-5.1 mmol/L Chloride Level 102 98-107 mmol/L Carbon Dioxide Level 25 20-31 mmol/L Anion Gap 10 5-15 Blood Urea Nitrogen 20 9-23 mg/dL Creatinine 1.31 H 0.700-1.30 mg/dL Glomerular Filtration Rate Calc 64 >90 mL/min BUN/Creatinine Ratio 15.3 10.0-20.0 Serum Glucose 147 H 74-106 mg/dL Calcium Level 10.3 8.7-10.4 mg/dL POC Glucose 136 H 70-106 mg/dl IV Hep-Lock was established The patient was anemic with a hemoglobin of 9.5 and hematocrit of 28.7 The rest of the CBC is within normal limits The chemistry panel is within normal limits except for creatinine of 1.31 At this time the patient will not need a blood transfusion The patient was being discharged and will follow up with the primary care doctor The patient will return to the emergency department's the condition worsens. Time of 1ST Reevaluation: 12:40 Reevaluation 1ST: Unchanged Patient Education/Counseling: Diagnosis, Treatment, Prognosis, Need For Follow Up Family Education/Counseling: Diagnosis, Treatment, Prognosis, Need For Follow Up Departure 1 Departure Time of Disposition: 15:23 Impression: Primary Impression: Osteomyelitis of left foot Qualified Codes: M86.9 - Osteomyelitis, unspecified Additional Impression: Anemia Qualified Codes: D50.9 - Iron deficiency anemia, unspecified Disposition: 01 HOME / SELF CARE / HOMELESS Condition: Fair Discharged With: Self Critical Care Note Critical Care Time?: No Stability Stability form required: No Heart Score Heart Score: Heart Score Response (Comments) Value History N/A 0 EKG N/A 0 Age N/A 0 Risk Factors N/A 0 Troponin N/A 0 Total 0 I personally scribed for GHAZALA HILL MD ([email or web address]) on 10/12/24 at 12:15. Electronically submitted by Rupal Valladares ([email or web address]). GHAZALA HILL MD Oct 12, 2024 12:15
[2024-10-12 13:21] LABS: Basophils # (auto) 0.1 10 ^3/uL (0-0.2); Eosinophils # (auto) 0.5 10 ^3/uL (0-0.8); Hematocrit 28.7 % (41.0-53.0); Hemoglobin 9.5 g/dL (13.5-17.5); Lymphocytes # (auto) 1.9 10 ^3/uL (0.4-5.4); Lymphocytes % (auto) 21.4 % (10.0-50.0); Mean Corpuscular Hemoglobin 29.3 pg (28.0-32.0); Mean Corpuscular Hgb Conc. 33.1 g/dL (32.0-36.0); Mean Corpuscular Volume 88.4 fL (80.0-100.0); Monocytes # (auto) 0.6 10 ^3/uL (0-1.3); Monocytes % (auto) 6.2 % (0.0-12.0); Neutrophils % (auto) 66.4 % (37.0-80.0); Nucleated Red Blood Cells % 0.1 %; Platelet Count (auto) 449 10^3/uL (140-450); Red Blood Cells 3.24 10^6/uL (4.5-5.90); Red Cell Distribution Width 15.2 % (11.8-14.3); White Blood Cell 9.1 10^3/uL (4.4-10.8)
[2024-10-12 13:28] LABS: Chloride 102 mmol/L (98-107); Potassium 3.9 mmol/L (3.5-5.1); Sodium 137 mmol/L (136-145)
[2024-10-12 13:29] LABS: Anion Gap 10 (5-15); Calcium 10.3 mg/dL (8.7-10.4); Carbon Dioxide 25 mmol/L (20-31)
[2024-10-12 13:34] LABS: BUN/Creatinine Ratio 15.3 (10.0-20.0); Blood Urea Nitrogen 20 mg/dL (9-23)
[2024-10-12 13:38] LABS: Glucose 147 mg/dL (74-106)
[2024-10-12 13:57] LABS: INR 1.14 (0.9-1.15); Partial Thromboplastin Time 34.6 SEC (24.5-34.5); Prothrombin Time 11.9 sec (9.3-11.8)
[2024-10-12 15:34] VITALS: BP 120/74; PULSE 78; RESP 15; TEMP 98.8; O2SAT 99
== END 2024-10-12 15:37 | disposition home or self-care (01) ==
LOC: ER 12:00
DX: M86.9 Osteomyelitis, unspecified (principal); D64.9 Anemia, unspecified; E11.69 Type 2 diabetes mellitus with other specified complication; I10 Essential (primary) hypertension
CPT/HCPCS: 36415; 80048; 82947; 82962; 85025; 85610; 85730; 86850; 86900; 86901

== ENCOUNTER 2024-12-21 13:53 | Inpatient (IN) | payer OTHER ==
[~2024-12-21] VITALS: Ht 190.5 cm; Wt 100.5 kg
[2024-12-21 14:46] LABS: Basophils # (auto) 0.1 10 ^3/uL (0-0.2); Basophils % (auto) 0.6 % (0.0-2.0); Eosinophils # (auto) 0.1 10 ^3/uL (0-0.8); Eosinophils % (auto) 0.8 % (0.0-7.0); Hemoglobin 9.8 g/dL (13.5-17.5); Lymphocytes # (auto) 1.9 10 ^3/uL (0.4-5.4); Lymphocytes % (auto) 20.2 % (10.0-50.0); Mean Corpuscular Hemoglobin 28.9 pg (28.0-32.0); Mean Corpuscular Hgb Conc. 33.8 g/dL (32.0-36.0); Mean Corpuscular Volume 85.4 fL (80.0-100.0); Monocytes # (auto) 0.7 10 ^3/uL (0-1.3); Monocytes % (auto) 7.2 % (0.0-12.0); Neutrophils # (auto) 6.6 10 ^3/uL (1.6-8.6); Neutrophils % (auto) 71.2 % (37.0-80.0); Nucleated Red Blood Cells % 0.2 %; Platelet Count (auto) 336 10^3/uL (140-450); Red Cell Distribution Width 15.6 % (11.8-14.3); White Blood Cell 9.3 10^3/uL (4.4-10.8)
[2024-12-21 14:52] LABS: Chloride 101 mmol/L (98-107); Potassium 4.5 mmol/L (3.5-5.1); Sodium 136 mmol/L (136-145)
[2024-12-21 14:53] LABS: Anion Gap 8 (5-15); Carbon Dioxide 27 mmol/L (20-31)
[2024-12-21 14:54] LABS: Calcium 9.3 mg/dL (8.7-10.4)
[2024-12-21 14:58] LABS: BUN/Creatinine Ratio 13.3 (10.0-20.0); Blood Urea Nitrogen 16 mg/dL (9-23)
[2024-12-21 14:59] LABS: Glucose 137 mg/dL (74-106)
[2024-12-21 15:02] LABS: INR 1.14 (0.9-1.15); Partial Thromboplastin Time 39.1 SEC (24.5-34.5); Prothrombin Time 11.9 sec (9.3-11.8)
--- NOTE | 2024-12-21 15:18 | ED.PDOC ---
History of Present Illness HPI Comments This is a 54-year-old male who comes in with chief complaint of possible left foot infection. The patient went to see his foot and ankle surgeon today and was told to come straight to the emergency department's for evaluation. The patient actually went through debridement in September. The patient has had a low-grade fever and at this time is also complaining of some left leg pain. 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 Prov:FRANK ADAN MD 08/31/24 Hydrocodone-Acetaminophen (Hydrocodone Bitartrate/AC 10-325 mg) 1 Tab Tab, 1 TAB PO Q8HP PRN, #20 TAB Prov:FRANK ADAN MD 08/31/24 Metronidazole (Flagyl) 500 Mg Tab, 1 TAB PO TID, #90 TAB Prov:STAN HATCH MD 05/31/24 Reported Medications Insulin Glargine (Lantus) 100 Unit/Ml Inj, 30 UNIT SC HS, INJ 09/10/24 Information Source: Patient Mode of Arrival: Ambulatory Severity: Moderate Timing: Days Duration: Since onset Prehospital treatment: None Location: Left foot infection Past Medical History PAST MEDICAL HISTORY: DM, HTN Surgical History (Other): Left foot surgery Family History Family History: Family hx of DM, Family hx of Kidney altagracia Social History Smoker: Non-Smoker Alcohol: Denies ETOH Use Drugs: Denies Drug Use Lives In: Home Constitutional: denies: chills, diaphoresis, fatigue, fever, malaise, sweats, weakness, others EENTM: denies: blurred vision, double vision, ear bleeding, ear discharge, ear drainage, ear pain, ear ringing, eye pain, eye redness, hearing loss, mouth pain, mouth swelling, nasal discharge, nose bleeding, nose congestion, nose pain, photophobia, tearing, throat pain, throat swelling, voice changes, others Respiratory: denies: cough, hemoptysis, orthopnea, SOB at rest, shortness of breath, SOB with excertion, stridor, wheezing, others Cardiovascular: denies: chest pain, dizzy spells, diaphoresis, Dyspnea on exertion, edema, irregular heart beat, left arm pain, lightheadedness, palpitations, PND, syncope, others Gastrointestinal: denies: abdomen distended, abdominal pain, blood streaked bowels, constipated, diarrhea, dysphagia, difficulty swallowing, hematemesis, melena, nausea, poor appetite, poor fluid intake, rectal bleeding, rectal pain, vomiting, others Genitourinary: denies: burning, dysuria, flank pain, frequency, hematuria, incontinence, penile discharge, penile sore, pain, testicle pain, testicle swelling, urgency, others Neurological: denies: dizziness, fainting, headache, left sided numbness, left sided weakness, numbness, paresthesia, pre-existing deficit, right sided numbnes s, right sided weakness, seizure, speech problems, tingling, tremors, weakness, others Musculoskeletal: denies: back pain, gout, joint pain, joint swelling, muscle pain, muscle stiffness, neck pain, others Integumetry: reports: others (Left foot redness with some swelling and mild drainage); denies: bruises, change in color, change in hair/nails, dryness, laceration, lesions, lumps, rash, wounds Allergic/Immunocompromised: denies: Difficulty Healing, Frequent Infections, Hives, Itching, others Hematologic/Lymphatic: denies: anemia, blood clots, easy bleeding, easy bruising, swollen glands, others Endocrine: denies: excessive hunger, excessive sweating, excessive thirst, excessive urination, flushing, intolerance to cold, intolerance to heat, unexplained weight gain, unexplained weight loss, others Psychiatric: denies: anxiety, bipolar disorder, depression, hopeless, panic disorder, schizophrenia, sleepless, suicidal, others Physical Exam General Appearance: Moderate Distress HEENT: Normal ENT Inspection, Pharynx Normal, TMs Normal Neck: Full Range of Motion, Non-Tender, Normal, Normal Inspection Respiratory: Chest Non-Tender, Lungs Clear, No Accessory Muscle Use, No Respiratory Distress, Normal Breath Sounds Cardiovascular: No Edema, No JVD, No Murmur, No Gallop, Normal Peripheral Pulses, Regular Rate/Rhythm Breast Exam: Deferred Gastrointestinal: No Organomegaly, Non Tender, No Pulsatile Mass, Normal Bowel Sounds, Soft Genitalia: Deferred Pelvic: Deferred Rectal: Deferred Extremities: No calf tenderness, Normal capillary refill, No pedal edema, Other (Left foot with tenderness and some swelling and drainage. 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 Was a procedure done?: No Differential Dx Considerations may include: Fracture, strain, contusion X-Ray, Labs, Meds, VS Vital Signs Date Time Temp Pulse Resp B/P (MAP) Pulse Ox O2 Delivery O2 Flow Rate FiO2 12/21/24 13:57 98.1 97 20 99/58 (72) 98 98.1 Lab Test 12/21/24 14:30 Range/Units White Blood Count 9.3 4.4-10.8 10^3/uL Red Blood Count 3.40 L 4.5-5.90 10^6/uL Hemoglobin 9.8 L 13.5-17.5 g/dL Hematocrit 29.0 L 41.0-53.0 % Mean Corpuscular Volume 85.4 80.0-100.0 fL Mean Corpuscular Hemoglobin 28.9 28.0-32.0 pg Mean Corpuscular Hemoglobin Concent 33.8 32.0-36.0 g/dL Red Cell Distribution Width 15.6 H 11.8-14.3 % Platelet Count 336 140-450 10^3/uL Mean Platelet Volume 7.2 6.9-10.8 fL Neutrophils (%) (Auto) 71.2 37.0-80.0 % Lymphocytes (%) (Auto) 20.2 10.0-50.0 % Monocytes (%) (Auto) 7.2 0.0-12.0 % Eosinophils (%) (Auto) 0.8 0.0-7.0 % Basophils (%) (Auto) 0.6 0.0-2.0 % Neutrophils # (Auto) 6.6 1.6-8.6 10 ^3/uL Lymphocytes # (Auto) 1.9 0.4-5.4 10 ^3/uL Monocytes # (Auto) 0.7 0-1.3 10 ^3/uL Eosinophils # (Auto) 0.1 0-0.8 10 ^3/uL Basophils # (Auto) 0.1 0-0.2 10 ^3/uL Nucleated Red Blood Cells 0.2 % Prothrombin Time 11.9 H 9.3-11.8 sec Prothrombin Time INR 1.14 0.9-1.15 Activated Partial Thromboplast Time 39.1 H 24.5-34.5 SEC Sodium Level 136 136-145 mmol/L Potassium Level 4.5 3.5-5.1 mmol/L Chloride Level 101 98-107 mmol/L Carbon Dioxide Level 27 20-31 mmol/L Anion Gap 8 5-15 Blood Urea Nitrogen 16 9-23 mg/dL Creatinine 1.20 0.700-1.30 mg/dL Glomerular Filtration Rate Calc 71 >90 mL/min BUN/Creatinine Ratio 13.3 10.0-20.0 Serum Glucose 137 H 74-106 mg/dL Calcium Level 9.3 8.7-10.4 mg/dL IV Hep-Lock was established. The patient's CBC shows anemia with a hemoglobin of 9.8 hematocrit of 29 The platelets are within normal limits The INR is 1.94 The chemistry panel is within normal limits The patient's CAT scan of the left foot shows: IMPRESSION: 1. Osteolytic changes to the plantar surface of the left os calcis can not exclude infection. Ultrasound is negative for DVT The patient is being admitted to the hospitalist The foot and ankle surgeon will be consulting on this patient. Images Reviewed?: Images reviewed and evaluated by me Time of 1ST Reevaluation: 15:31 Reevaluation 1ST: Unchanged Patient Education/Counseling: Diagnosis, Treatment, Prognosis Family Education/Counseling: No Family Present Departure 1 Departure Time of Disposition: 16:48 Impression: Primary Impression: Osteomyelitis of left foot Qualified Codes: M86.9 - Osteomyelitis, unspecified Disposition: 09 ADMITTED INPATIENT Admit to: Med Surg Condition: Fair Critical Care Note Critical Care Time?: No Stability Stability form required: Yes Unstable for transfer: ED Physician Assesment (Clinical assesment) Heart Score Heart Score: Heart Score Response (Comments) Value History N/A 0 EKG N/A 0 Age N/A 0 Risk Factors N/A 0 Troponin N/A 0 Total 0 GHAZALA HILL MD December 21, 2024 15:18
--- NOTE | 2024-12-21 15:38 | DVHHP2 ---
History of Present Illness Reason for Visit: PATIENT WAS SENT BY PODIATRY SERVICES FOR LEFT FOOT INFECTION History of Present Illness 54-YEAR-OLD MALE WITH A KNOWN HISTORY OF INSULIN-DEPENDENT DIABETES MELLITUS, HYPERTENSION, PREVIOUS HISTORY OF BILATERAL FOOT SURGERY FOR ACUTE ON CHRONIC OSTEOMYELITIS PRESENTED TO THE HOSPITAL HE HAS WAS SENT BY PODIATRY FOR LEFT FOOT INFECTION. PATIENT IS COMPLAINING OF MILD SUBJECTIVE FEVER DENIES ANY CHILLS. ALSO COMPLAINING OF LEFT FOOT PAIN. PATIENT HAS A MULTIPLE FOOT SURGERY IN THE PAST FOR THE SAME. Cardiovascular: HTN Endocrine: Diabetes Past Surgical History: Other (MULTIPLE FOOT SURGERY ON BILATERAL FEET.) Family History: None Smoke: No ALCOHOL: none Review of Systems Review of Systems TWELVE REVIEW OF SYSTEM ARE NEGATIVE BESIDES MENTIONED ABOVE. 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 Labs/Xrays Labs Test 12/21/24 14:30 Range/Units White Blood Count 9.3 4.4-10.8 10^3/uL Red Blood Count 3.40 L 4.5-5.90 10^6/uL Hemoglobin 9.8 L 13.5-17.5 g/dL Hematocrit 29.0 L 41.0-53.0 % Mean Corpuscular Volume 85.4 80.0-100.0 fL Mean Corpuscular Hemoglobin 28.9 28.0-32.0 pg Mean Corpuscular Hemoglobin Concent 33.8 32.0-36.0 g/dL Red Cell Distribution Width 15.6 H 11.8-14.3 % Platelet Count 336 140-450 10^3/uL Mean Platelet Volume 7.2 6.9-10.8 fL Neutrophils (%) (Auto) 71.2 37.0-80.0 % Lymphocytes (%) (Auto) 20.2 10.0-50.0 % Monocytes (%) (Auto) 7.2 0.0-12.0 % Eosinophils (%) (Auto) 0.8 0.0-7.0 % Basophils (%) (Auto) 0.6 0.0-2.0 % Neutrophils # (Auto) 6.6 1.6-8.6 10 ^3/uL Lymphocytes # (Auto) 1.9 0.4-5.4 10 ^3/uL Monocytes # (Auto) 0.7 0-1.3 10 ^3/uL Eosinophils # (Auto) 0.1 0-0.8 10 ^3/uL Basophils # (Auto) 0.1 0-0.2 10 ^3/uL Nucleated Red Blood Cells 0.2 % Prothrombin Time 11.9 H 9.3-11.8 sec Prothrombin Time INR 1.14 0.9-1.15 Activated Partial Thromboplast Time 39.1 H 24.5-34.5 SEC Sodium Level 136 136-145 mmol/L Potassium Level 4.5 3.5-5.1 mmol/L Chloride Level 101 98-107 mmol/L Carbon Dioxide Level 27 20-31 mmol/L Anion Gap 8 5-15 Blood Urea Nitrogen 16 9-23 mg/dL Creatinine 1.20 0.700-1.30 mg/dL Glomerular Filtration Rate Calc 71 >90 mL/min BUN/Creatinine Ratio 13.3 10.0-20.0 Serum Glucose 137 H 74-106 mg/dL Calcium Level 9.3 8.7-10.4 mg/dL Assessment/Plan Assessment/Plan 54-YEAR-OLD MALE WITH A KNOWN HISTORY OF INSULIN-DEPENDENT DIABETES MELLITUS, HYPERTENSION, PREVIOUS HISTORY OF BILATERAL FOOT SURGERY FOR CHRONIC OSTEOMYELITIS PRESENTED TO THE HOSPITAL WITH A LEFT FOOT PAIN HE WAS SENT BY PODIATRY. 1. LEFT FOOT CELLULITIS RULE OUT OSTEOMYELITIS 2. PREVIOUS HISTORY OF BILATERAL FOOT SURGERY MULTIPLE TIMES 3. INSULIN-DEPENDENT DIABETES MELLITUS TYPE 2 4. HYPERTENSION -ADMITTED TO TELEMETRY, PODIATRY SERVICES CONSULTATION WELL INFECTIOUS DISEASE CONSULTATION. Plan discussed with: Patient My Orders Orders - FRANK ADAN MD Procedure Category Date Status Time Admit ADMIT 12/21/24 Verified 15:32 Code Status CODE 12/21/24 Verified 15:32 2 Gm Sodium Diet DIET 12/21/24 Verified Dinner 0.9% Ns 1000 Ml PHA 12/21/24 Verified 15:45 Hydrocodone-Acet PHA 12/21/24 Verified 5/325mg Tab ([place] 15:45 Ondansetron Hcl PHA 12/21/24 Verified (Zofran) 15:45 Docusate Sodium PHA 12/21/24 Verified Capsule (Colace 15:45 Enoxaparin Sodium PHA 12/22/24 Verified (Lovenox) 10:00 Pt Request For Service PT 12/21/24 Verified 15:32 Condition: Stable ELIZA 12/21/24 Verified 15:32 Acetaminophen Tablet PHA 12/21/24 Verified (Tylenol Tablet) 15:45 Morphine Sulfate PHA 12/21/24 Verified Injection 15:45 Nitroglycerin PHA 12/21/24 Verified Sublingual (Ntrostat 15:45 Morphine Sulfate PHA 12/21/24 Verified Injection 15:45 Date of Service: December 21, 2024 Billing Provider: FRANK ADAN MD Common Visit Codes: NOT BILLABLE FRANK ADAN MD December 21, 2024 15:38
--- NOTE | 2024-12-21 15:39 | DVH ---
INDICATION: pain and infeciton COMPARISON: CT CT L FOOT WO CONTRAST on DOS: 09/10/24, CT CT L FOOT WO CONTRAST on DOS: 08/25/24, CT CT L FOOT WO CONTRAST on DOS: 05/24/24 TECHNIQUE: CT of the right was performed without contrast. Volume transverse images were obtained and reconstructed in multiple planes using bone and soft tissue algorithms. CONTRAST: None Radiation Dose Information: CT Dose: CTDI volume is 7.75 mGy. Dose-length product is 251.96 mGy*cm FINDINGS: The alignment is normal. The joint spaces are normal. There is osteolytic changes plantar surface of the os calcis with small bubbles of air soft tissues s uggesting infectious process. Subcutaneous edema is also seen in the area. The soft tissues are normal. IMPRESSION: 1. Osteolytic changes to the plantar surface of the left os calcis can not exclude infection.
[2024-12-21] MEDS ORDERED: NITROGLYCERIN 0.4 MG SL TAB SL PRN (15:45)
[2024-12-21] MEDS ORDERED: DOCUSATE SOD 100 MG CAP PO PRN (15:45)
[2024-12-21] MEDS ORDERED: MORPHINE SULFATE INJ 2 MG/ml SYRG IV PRN (15:45)
[2024-12-21] MEDS ORDERED: ONDANSETRON HCL 4 MG/2 ML VIAL IV PRN (15:45)
[2024-12-21] MEDS ORDERED: ACETAMINOPHEN 325 MG TAB PO PRN (15:45)
--- NOTE | 2024-12-21 16:41 | DVH ---
Left lower extremity venous duplex Clinical History: pain and swelling Comparison: US LT LOWER DVT on DOS: 09/10/24 Technique: Duplex Doppler evaluation of the deep venous system of the left lower extremity from the common femor al vein to the popliteal vein including color Doppler and spectral/pulsed waveform analysis was perfo rmed. Findings: The common femoral vein demonstrates appropriate compressibility and waveform variability. There is compressibility/patency of the great saphenous vein at the proximal thigh. The femoral vein demonstrates appropriate compressibility and waveform variability. The deep femoral vein demonstrates appropriate compressibility and waveform variability. The popliteal vein demonstrates appropriate compressibility and waveform variability. There is normal compressibility at the tibioperoneal trunk. Impression: 1. No left femoropopliteal venous thrombosis.
[2024-12-21] MEDS: SODIUM CHLORIDE 0.9% 1,000 ML IV SCH (20:18)
[2024-12-21 20:30] VITALS: O2SAT 98
[2024-12-22] MEDS ORDERED: HYDR1TAB97 PO (02:52)
[2024-12-22] MEDS ORDERED: TIRZ10IN (02:52)
[2024-12-22] MEDS: MORPHINE SULFATE INJ 2 MG/ml SYRG IV PRN (03:13)
[2024-12-22 05:00] VITALS: BP 91/45; PULSE 85; RESP 19; TEMP 98.2; O2SAT 96
--- NOTE | 2024-12-22 08:51 | DVHINCON2 ---
Date of service: December 22, [address] Arciniega Reason for Consultation Antibiotics recommendation History of Present Illness Patient is a 54-year-old male presents to the hospital for the complaint of left foot infection. He was sent by Podiatry. Patient had an appointment with Podiatry and was advised to come to ER for further evaluation. Patient reports mild subjective fever and left foot pain. He denies any chills. Patient has a multiple foot surgery in the past. plan for debridement today Past Medical History Patient's Past medical history is significant for Hypertension and Diabetes m ellitus Past Surgical History Past Surgical History: Other (MULTIPLE FOOT SURGERY ON BILATERAL FEET.) Family History: Diabetes mellitus G8 FATHER, , Cause: Kidney disease FH: colon cancer G8 MOTHER, , Cause: Colon cancer Social History Smoke: No ALCOHOL: none Allergies: Coded Allergies: NO KNOWN ALLERGIES (Unverified , 05/24/24) Home Meds Reported Medications Hydrocodone-Acetaminophen (Hydrocodone/Acetaminophen 5-325 mg) 1 Tab Tab, 1 TAB PO BID for pain 12/22/24 Tirzepatide (Mounjaro) 10 Mg/0.5 Ml Inj 12/22/24 Insulin Glargine (Lantus) 100 Unit/Ml Inj, 30 UNIT SC HS, INJ 09/10/24 Current Medications Current Medications Medications (Trade) Dose Ordered Sig/Linda Route PRN Reason Start Time Stop Time Status Last Admin Sodium Chloride 1,000 ml @ 60 mls/hr [id number] IV 12/21/24 15:45 12/22/24 02:50 Acetaminophen/ Hydrocodone Bitart ([place] 5/325MG Tab) 1 tab Q4HP PRN PO MODERATE PAIN (4-6 PAIN SCALE) 12/21/24 15:45 Ondansetron HCl (Zofran) 4 mg Q4HP PRN IV NAUSEA / VOMITING 12/21/24 15:45 Docusate Sodium (Colace Capsule) 100 mg BIDPRN PRN PO FOR CONSTIPATION 12/21/24 15:45 Enoxaparin Sodium (Lovenox) 40 mg DAILY SC 12/22/24 10:00 Acetaminophen (Tylenol Tablet) 650 mg Q6HP PRN PO PAIN SCALE 1-3 OR TEMP>100.4 12/21/24 15:45 Morphine Sulfate 2 mg Q4HPRN PRN IV SEVERE PAIN (7-10 PAIN SCALE) 12/21/24 15:45 12/22/24 03:13 Nitroglycerin (Ntrostat Sublingual) 0.4 mg Q5MINP PRN SL FOR CHEST PAIN 12/21/24 15:45 Morphine Sulfate 2 mg Q30M PRN IV FOR CHEST PAIN 12/21/24 15:45 Review of Systems General: Positive for fever. No chills, night sweats or weight loss HEENT: No Sinus pain, headache, vision changes or sore throat Respiratory: No Cough, dyspnea, sputum production Cardiovascular: No Chest pain, palpitations or leg edema Gastrointestinal: No Nausea, vomiting, diarrhea, abdominal pain Genitourinary: No Dysuria, urinary frequency, hematuria, pelvic pain Skin: No Rashes, ulcers, abscesses, redness or swelling Musculoskeletal: Positive for left foot pain. 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 left foot wound Labs/Diagnostic Data Labs Test 12/21/24 14:30 Range/Units White Blood Count 9.3 4.4-10.8 10^3/uL Red Blood Count 3.40 L 4.5-5.90 10^6/uL Hemoglobin 9.8 L 13.5-17.5 g/dL Hematocrit 29.0 L 41.0-53.0 % Mean Corpuscular Volume 85.4 80.0-100.0 fL Mean Corpuscular Hemoglobin 28.9 28.0-32.0 pg Mean Corpuscular Hemoglobin Concent 33.8 32.0-36.0 g/dL Red Cell Distribution Width 15.6 H 11.8-14.3 % Platelet Count 336 140-450 10^3/uL Mean Platelet Volume 7.2 6.9-10.8 fL Neutrophils (%) (Auto) 71.2 37.0-80.0 % Lymphocytes (%) (Auto) 20.2 10.0-50.0 % Monocytes (%) (Auto) 7.2 0.0-12.0 % Eosinophils (%) (Auto) 0.8 0.0-7.0 % Basophils (%) (Auto) 0.6 0.0-2.0 % Neutrophils # (Auto) 6.6 1.6-8.6 10 ^3/uL Lymphocytes # (Auto) 1.9 0.4-5.4 10 ^3/uL Monocytes # (Auto) 0.7 0-1.3 10 ^3/uL Eosinophils # (Auto) 0.1 0-0.8 10 ^3/uL Basophils # (Auto) 0.1 0-0.2 10 ^3/uL Nucleated Red Blood Cells 0.2 % Prothrombin Time 11.9 H 9.3-11.8 sec Prothrombin Time INR 1.14 0.9-1.15 Activated Partial Thromboplast Time 39.1 H 24.5-34.5 SEC Sodium Level 136 136-145 mmol/L Potassium Level 4.5 3.5-5.1 mmol/L Chloride Level 101 98-107 mmol/L Carbon Dioxide Level 27 20-31 mmol/L Anion Gap 8 5-15 Blood Urea Nitrogen 16 9-23 mg/dL Creatinine 1.20 0.700-1.30 mg/dL Glomerular Filtration Rate Calc 71 >90 mL/min BUN/Creatinine Ratio 13.3 10.0-20.0 Serum Glucose 137 H 74-106 mg/dL Calcium Level 9.3 8.7-10.4 mg/dL Assessment Patient is a 54-year-old male presents to the hospital with: Left foot calcaneum osteomyelitis Previous History of Bilateral foot surgery multiple times Diabetes Mellitus Insulin-dependent Hypertension Recommendations: Patient has history of bilateral foot surgeries, he presented with left foot pain. CT of foot shows osteolytic changes in the plantar surface. Podiatry is on board and there is plan to take him to surgery for debridement today Patient clinically does not have fever or elevated WBC count. We will hold off on antibiotics until debridement/OR cultures Recommend OR culture Do blood cultures 12/21, Foot CT revealed Osteolytic changes to the plantar surface of the left os calcis can not exclude infection. 12/21, Extremity venous study showed No left femoropopliteal venous thrombosis. Due to recurrent surgeries in the foot overall prognosis is guarded Total time 80 minutes spent during the encounter, plan discussed with Dr. Arciniega and patient. Reviewed chart Thank you for consult. Plan discussed with: Patient, Other LUCITA PARDO MD December 22, 2024 08:51
[2024-12-22] MEDS: ENOXAPARIN SOD 40 MG/0.4 ML SYRINGE SC SCH (09:17)
--- NOTE | 2024-12-22 12:08 | DVHINCON2 ---
Date Seen: December 22, 2024 Reason for Consultation Foot wound History of Present Illness 54-YEAR-OLD MALE WITH A KNOWN HISTORY OF INSULIN-DEPENDENT DIABETES MELLITUS, HYPERTENSION, PREVIOUS HISTORY OF BILATERAL FOOT SURGERY FOR ACUTE ON CHRONIC OSTEOMYELITIS PRESENTED TO THE HOSPITAL HE HAS WAS SENT BY PODIATRY FOR LEFT FOOT INFECTION. PATIENT IS COMPLAINING OF MILD SUBJECTIVE FEVER DENIES ANY CHILLS. ALSO COMPLAINING OF LEFT FOOT PAIN. PATIENT HAS A MULTIPLE FOOT SURGERY IN THE PAST FOR THE SAME. Past Medical History See H&P Past Surgical History See H&P Family History: Diabetes mellitus G8 FATHER, , Cause: Kidney disease FH: colon cancer G8 MOTHER, , Cause: Colon cancer Allergies: Coded Allergies: NO KNOWN ALLERGIES (Unverified , 05/24/24) Home Meds Reported Medications Hydrocodone-Acetaminophen (Hydrocodone/Acetaminophen 5-325 mg) 1 Tab Tab, 1 TAB PO BID for pain 12/22/24 Tirzepatide (Mounjaro) 10 Mg/0.5 Ml Inj 12/22/24 Insulin Glargine (Lantus) 100 Unit/Ml Inj, 30 UNIT SC HS, INJ 09/10/24 Current Medications Current Medications Medications (Trade) Dose Ordered Sig/Linda Route PRN Reason Start Time Stop Time Status Last Admin Sodium Chloride 1,000 ml @ 60 mls/hr [id number] IV 12/21/24 15:45 12/22/24 02:50 Acetaminophen/ Hydrocodone Bitart ([place] 5/325MG Tab) 1 tab Q4HP PRN PO MODERATE PAIN (4-6 PAIN SCALE) 12/21/24 15:45 Ondansetron HCl (Zofran) 4 mg Q4HP PRN IV NAUSEA / VOMITING 12/21/24 15:45 Docusate Sodium (Colace Capsule) 100 mg BIDPRN PRN PO FOR CONSTIPATION 12/21/24 15:45 Enoxaparin Sodium (Lovenox) 40 mg DAILY SC 12/22/24 10:00 Acetaminophen (Tylenol Tablet) 650 mg Q6HP PRN PO PAIN SCALE 1-3 OR TEMP>100.4 12/21/24 15:45 Morphine Sulfate 2 mg Q4HPRN PRN IV SEVERE PAIN (7-10 PAIN SCALE) 12/21/24 15:45 12/22/24 10:00 Nitroglycerin (Ntrostat Sublingual) 0.4 mg Q5MINP PRN SL FOR CHEST PAIN 12/21/24 15:45 Morphine Sulfate 2 mg Q30M PRN IV FOR CHEST PAIN 12/21/24 15:45 Vital Signs Vital Signs Date Time Temp Pulse Resp B/P (MAP) Pulse Ox O2 Delivery O2 Flow Rate FiO2 12/22/24 10:00 78 15 106/56 12/22/24 05:00 98.2 96 98.2 12/21/24 20:30 Room Air* 0 21 Physical Exam Dermatological: Skin is dry with mild erythema and some maceration around the wound site No gross deformities noted Mild non-pitting edema present bilaterally Wound: Location: Left lateral foot Measures: 6 cm in length, 3 cm in width, and 1 cm in depth. Depth: Full thickness Base: Slough Drainage: Yes Odor: None Periwound: Intact Vascular: Dorsalis pedis and posterior tibial pulses are 1+ bilaterally Capillary refill is under 2 seconds Skin temperature is warm bilaterally Neurologic: Protective sensation is absent on the plantar forefoot bilaterally Monofilament testing reveals decreased sensation in multiple plantar sites Musculoskeletal: Range of motion at the ankle and MTP joints is within normal limits. Strength is 5/5 in all tested muscle groups. Gait is antalgic due to offloading of the affected limb. Labs/Diagnostic Data Labs Test 12/21/24 14:30 Range/Units White Blood Count 9.3 4.4-10.8 10^3/uL Red Blood Count 3.40 L 4.5-5.90 10^6/uL Hemoglobin 9.8 L 13.5-17.5 g/dL Hematocrit 29.0 L 41.0-53.0 % Mean Corpuscular Volume 85.4 80.0-100.0 fL Mean Corpuscular Hemoglobin 28.9 28.0-32.0 pg Mean Corpuscular Hemoglobin Concent 33.8 32.0-36.0 g/dL Red Cell Distribution Width 15.6 H 11.8-14.3 % Platelet Count 336 140-450 10^3/uL Mean Platelet Volume 7.2 6.9-10.8 fL Neutrophils (%) (Auto) 71.2 37.0-80.0 % Lymphocytes (%) (Auto) 20.2 10.0-50.0 % Monocytes (%) (Auto) 7.2 0.0-12.0 % Eosinophils (%) (Auto) 0.8 0.0-7.0 % Basophils (%) (Auto) 0.6 0.0-2.0 % Neutrophils # (Auto) 6.6 1.6-8.6 10 ^3/uL Lymphocytes # (Auto) 1.9 0.4-5.4 10 ^3/uL Monocytes # (Auto) 0.7 0-1.3 10 ^3/uL Eosinophils # (Auto) 0.1 0-0.8 10 ^3/uL Basophils # (Auto) 0.1 0-0.2 10 ^3/uL Nucleated Red Blood Cells 0.2 % Prothrombin Time 11.9 H 9.3-11.8 sec Prothrombin Time INR 1.14 0.9-1.15 Activated Partial Thromboplast Time 39.1 H 24.5-34.5 SEC Sodium Level 136 136-145 mmol/L Potassium Level 4.5 3.5-5.1 mmol/L Chloride Level 101 98-107 mmol/L Carbon Dioxide Level 27 20-31 mmol/L Anion Gap 8 5-15 Blood Urea Nitrogen 16 9-23 mg/dL Creatinine 1.20 0.700-1.30 mg/dL Glomerular Filtration Rate Calc 71 >90 mL/min BUN/Creatinine Ratio 13.3 10.0-20.0 Serum Glucose 137 H 74-106 mg/dL Calcium Level 9.3 8.7-10.4 mg/dL Problems(with codes): (1) Septic shock (2) Wound of left foot (3) Hypotension (4) Foot ulcer (5) Cellulitis and abscess of foot (6) Necrotizing subcutaneous infection (7) Diabetic foot infection (8) Acute kidney injury (ANIBAL) with acute tubular necrosis (ATN) (9) Anemia (10) Osteomyelitis of left foot Plan/Recommendation ASSESSMENT: Patient is a 54 year old seen on the floor for a worsening ulcer PLAN: - The patients chart was reviewed, clinical findings were discussed with the patient, the etiologies of the conditions were discussed in detail, and a treatment plan was agreed to at this time, with both oral and written instructions provided. - reviewed advanced imaging - discussed plan is to perform an incision and drainage - patient has been NPO at midnight - take him to the OR today - we will get cultures in the OR - can weightbear as tolerated in postoperative shoe All questions were answered and concerns addressed to the patient's satisfaction. The patient was given the phone number to the clinic and was told how to make contact with the clinic should any concerns or questions arise. Patient understands that if any questions or concerns arise prior to the next appointment, we should be contacted immediately. FOLLOW-UP: Continue to follow while inpatient Plan discussed with: Patient Date of Service: December 22, 2024 Billing Provider: RYAN CHOU DPM Common Visit Codes: CONSULT ONLY Consultation Codes: [id number] CONSULT <80MIN RYAN CHOU DPM December 22, 2024 12:08
[2024-12-22] MEDS: ceFAZolin 2 GM/D5W50ml 50 ML IV ONE (12:34)
[2024-12-22] MEDS ORDERED: fentaNYL CITRATE 100 MCG/2 ML VL ONE (13:17)
[2024-12-22] MEDS ORDERED: MIDAZOLAM HCL 2MG/2ML 2ml VIAL (1mg/ml) ONE (13:17)
[2024-12-22] MEDS ORDERED: DexAMETHasone SOD PHOS 10MG/1ML VIAL INJ ONE (13:48)
[2024-12-22] MEDS ORDERED: PROPOFOL 10 MG/ML 20 ML IV ONE (13:48)
--- NOTE | 2024-12-22 13:51 | DVHOP2 ---
Operative Report - 2 Report Details Date: 12/22/24 Preop Diagnosis: 1. Left foot osteomyelitis 2. Left foot abscess 3. Left foot cellulitis Postop Diagnosis: Same as preop Surgeon: Ryan Chou MD Anesthesiologist: See anesthesia Anesthesia: Mac Consent: The patient was informed of the risks and benefits of the procedure. These include but are not limited to complications of anesthesia, postoperative infection, incomplete relief of symptoms, recurrence of symptoms, damage to blood vessels, nerves and tendons, deep venous thrombosis, pulmonary embolism and possible need for repeat surgery in the future. Complications: None Estimated Blood Loss: Minimal Fluids: See anesthesia Findings: Consistent with diagnosis Indications for Surgery: Worsening left foot wound Name of Procedure Performed 1. Left foot I&D to bone ([id number]) Procedure Details Procedure Details: PRE-PROCEDURE INFORMATION: In the pre-op holding area, the extremity to be operated on was clearly marked and the patient verified correct laterality of the marking. The patient was transferred to the OR table and placed in a supine position. A timeout was performed in which identification of the correct adair ent, procedure, location, and materials was done. The left foot and leg were prepped and draped in normal sterile fashion. DESCRIPTION OF PROCEDURE: Attention was directed to the left where area of fluctuance was noted. An incision was made over this area and was deepened through blunt dissection. The incision was deepened to the level of abscess and bone. Care was taken to the dissection to avoid any neurovascular and tendinous structures. The incision was deepened to the bone, and the abscess appeared to be purulent fluid consistent with pus. The cortices of the bone was then removed with rongeur an all necrotic tissue. After the abscess was drained, the area was irrigated with 3 L normal saline using cysto tubing. Deep cultures were then obtained from the wound. The area was then inspected and any areas of tracking, especially along the tendons were also drained. The wound was packed with Betadine-soaked gauze and we will need to be closed at a later date. POSTOPERATIVE INFORMATION: The patient tolerated the above noted procedure and anesthesia well and was transferred to the PACU with vital signs stable, and vascular status intact with capillary refill intact to all digits. Patient had deep cultures taken. Patient will return to the floor and continue IV antibiotics. The patient will need wound VAC. Condition Good Disposition Still a Patient RYAN CHOU DPM December 22, 2024 13:51
[2024-12-22 13:55] VITALS: PULSE 76; RESP 11; O2SAT 100
[2024-12-22] MEDS: BUPIVACAINE 0.5% MPF INJ 30ML SDV IJ ONE (14:07)
--- NOTE | 2024-12-22 15:50 | DVHPN2 ---
Subjective Overnight events noted. Patient is currently in operation theater. Reviewed: Care Plan Changes from previous H/P or p: No Changes Objective Vitals Vital Signs Date Time Temp Pulse Resp B/P (MAP) Pulse Ox O2 Delivery O2 Flow Rate FiO2 12/22/24 13:55 76 11 100 Mask 12/22/24 13:55 100 12/22/24 12:27 90/54 12/22/24 08:00 0 12/22/24 05:00 98.2 98.2 Medications Current Medications Medications Dose Ordered Sig/Linda Route Start Time Stop Time Status Last Admin Dose Admin Sodium Chloride 1,000 ml @ 60 mls/hr [id number] IV 12/21/24 15:45 12/22/24 02:50 60 MLS/HR Acetaminophen/ Hydrocodone Bitart 1 tab Q4HP PRN PO 12/21/24 15:45 Ondansetron HCl 4 mg Q4HP PRN IV 12/21/24 15:45 Docusate Sodium 100 mg BIDPRN PRN PO 12/21/24 15:45 Enoxaparin Sodium 40 mg DAILY SC 12/22/24 10:00 Acetaminophen 650 mg Q6HP PRN PO 12/21/24 15:45 Morphine Sulfate 2 mg Q4HPRN PRN IV 12/21/24 15:45 12/22/24 10:00 2 MG Nitroglycerin 0.4 mg Q5MINP PRN SL 12/21/24 15:45 Morphine Sulfate 2 mg Q30M PRN IV 12/21/24 15:45 Laboratory Results Laboratory Tests 12/21/24 14:30 Assessment/Plan Assessment/Plan 54-YEAR-OLD MALE WITH A KNOWN HISTORY OF INSULIN-DEPENDENT DIABETES MELLITUS, HYPERTENSION, PREVIOUS HISTORY OF BILATERAL FOOT SURGERY FOR CHRONIC OSTEOMYELITIS PRESENTED TO THE HOSPITAL WITH A LEFT FOOT PAIN HE WAS SENT BY PODIATRY. 1. LEFT FOOT CELLULITIS /osteomyelitis/left foot abscess status post I and D 2. PREVIOUS HISTORY OF BILATERAL FOOT SURGERY MULTIPLE TIMES 3. INSULIN-DEPENDENT DIABETES MELLITUS TYPE 2 4. HYPERTENSION -status post I&D of left foot, follow up wound Gram stain and culture, follow up Infectious Disease recommendations. Plan discussed with: Other Date of Service: December 22, 2024 Billing Provider: FRANK ADAN MD Common Visit Codes: NOT BILLABLE FRANK ADAN MD December 22, 2024 15:50
[2024-12-22 17:01] VITALS: BP 107/63; PULSE 84; RESP 18; TEMP 97.9; O2SAT 98
[2024-12-22 18:44] VITALS: O2SAT 95
[2024-12-22 20:00] VITALS: PULSE 97
[2024-12-22 21:00] VITALS: BP 97/53; PULSE 89; RESP 18; TEMP 97.9; O2SAT 96
[2024-12-23] VITALS (7 sets, daily range): BP systolic 96–126; BP diastolic 48–87; PULSE 80–95; RESP 17–18; TEMP 97.3–97.8; O2SAT 95–99
[2024-12-23] MEDS: HYDROcodone-ACET 5/325MG TAB PO PRN (00:48)
--- NOTE | 2024-12-23 13:07 | DVHPN2 ---
Progress Note - Dictate Date Seen: December 23, 2024 Medical Necessity Reason Pt with a Central, PICC or Fol: No Subjective S/P left foot I and D on 12/23. vital signs Vital Sign Date Time Temp Pulse Resp B/P (MAP) Pulse Ox O2 Delivery O2 Flow Rate FiO2 12/23/24 08:43 84 17 116/62 12/23/24 08:42 97.7 96 97.7 12/23/24 08:00 Room Air* 0 21 Total Intake and Output 12/22/24 12/22/24 12/23/24 15:00 23:00 07:00 Intake Total 100 ml 120 ml 1430 ml Output Total 300 ml Balance 100 ml 120 ml 1130 ml medications Current Medications Medications Dose Ordered Sig/Linda Route Start Time Stop Time Status Last Admin Dose Admin Sodium Chloride 1,000 ml @ 60 mls/hr [id number] IV 12/21/24 15:45 12/23/24 08:41 60 MLS/HR Acetaminophen/ Hydrocodone Bitart 1 tab Q4HP PRN PO 12/21/24 15:45 12/23/24 00:48 1 TAB Ondansetron HCl 4 mg Q4HP PRN IV 12/21/24 15:45 Docusate Sodium 100 mg BIDPRN PRN PO 12/21/24 15:45 Enoxaparin Sodium 40 mg DAILY SC 12/22/24 10:00 Acetaminophen 650 mg Q6HP PRN PO 12/21/24 15:45 Morphine Sulfate 2 mg Q4HPRN PRN IV 12/21/24 15:45 12/23/24 08:43 2 MG Nitroglycerin 0.4 mg Q5MINP PRN SL 12/21/24 15:45 Morphine Sulfate 2 mg Q30M PRN IV 12/21/24 15:45 objective HEENT PUPILS ARE REACTIVE NECK IS SUPPLE CV IS S1-S2 REGULAR RATE AND RHYTHM RESPIRATORY DIMINISHED BREATH SOUNDS BASES GI POSITIVE BOWEL SOUND EXTREMITY 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 CT of foot shows osteolytic changes in the plantar surface. Podiatry is on board and there is plan to take him to surgery for debridement today Patient clinically does not have fever or elevated WBC count. reviewed Op notes, concern for abscess/ osteomyelitis follow OR culture Do blood cultures Empirically start IV Vancomycin/ Cefepime. 12/21, Foot CT revealed Osteolytic changes to the plantar surface of the left os calcis can not exclude infection. 12/21, Extremity venous study showed No left femoropopliteal venous thrombosis. Due to recurrent surgeries in the foot overall prognosis is guarded Total time 50 minutes spent during the encounter, plan discussed with Dr. Arciniega and patient. Reviewed chart Thank you for consult. Plan discussed with: LUCITA Shin MD December 23, 2024 13:07
--- NOTE | 2024-12-23 13:26 | DVHPN2 ---
Subjective 54-YEAR-OLD MALE WITH A KNOWN HISTORY OF INSULIN-DEPENDENT DIABETES MELLITUS, HYPERTENSION, PREVIOUS HISTORY OF BILATERAL FOOT SURGERY FOR ACUTE ON CHRONIC OSTEOMYELITIS PRESENTED TO THE HOSPITAL HE HAS WAS SENT BY PODIATRY FOR LEFT FOOT INFECTION. PATIENT IS COMPLAINING OF MILD SUBJECTIVE FEVER DENIES ANY CHILLS. ALSO COMPLAINING OF LEFT FOOT PAIN. PATIENT HAS A MULTIPLE FOOT SURGERY IN THE PAST FOR THE SAME. Reviewed: Care Plan Changes from previous H/P or p: No Changes Objective Vitals Vital Signs Date Time Temp Pulse Resp B/P (MAP) Pulse Ox O2 Delivery O2 Flow Rate FiO2 12/23/24 12:30 97.3 82 18 121/68 (85) 98 97.3 12/23/24 08:00 Room Air* 0 21 Intake/Output Intake and Output 12/23/24 07:00 Intake Total 1650 ml Output Total 300 ml Balance 1350 ml Intake Oral 800 ml IV Total 850 ml Output Urine Total 300 ml # Voids 3 # Bowel Movements 1 Exam Dermatological: Skin is dry with mild erythema and some maceration around the wound site No gross deformities noted Mild non-pitting edema present bilaterally Wound: Location: Left lateral foot Measures: 6 cm in length, 3 cm in width, and 1 cm in depth. Depth: Full thickness Base: Mix of granulation/slough Drainage: None Odor: None Periwound: Intact Vascular: Dorsalis pedis and posterior tibial pulses are 1+ bilaterally Capillary refill is under 2 seconds Skin temperature is warm bilaterally Neurologic: Protective sensation is absent on the plantar forefoot bilaterally Monofilament testing reveals decreased sensation in multiple plantar sites Musculoskeletal: Range of motion at the ankle and MTP joints is within normal limits. Strength is 5/5 in all tested muscle groups. Gait is antalgic due to offloading of the affected limb. Medications Current Medications Medications Dose Ordered Sig/Linda Route Start Time Stop Time Status Last Admin Dose Admin Sodium Chloride 1,000 ml @ 60 mls/hr [id number] IV 12/21/24 15:45 12/23/24 08:41 60 MLS/HR Acetaminophen/ Hydrocodone Bitart 1 tab Q4HP PRN PO 12/21/24 15:45 12/23/24 00:48 1 TAB Ondansetron HCl 4 mg Q4HP PRN IV 12/21/24 15:45 Docusate Sodium 100 mg BIDPRN PRN PO 12/21/24 15:45 Enoxaparin Sodium 40 mg DAILY SC 12/22/24 10:00 Acetaminophen 650 mg Q6HP PRN PO 12/21/24 15:45 Morphine Sulfate 2 mg Q4HPRN PRN IV 12/21/24 15:45 12/23/24 08:43 2 MG Nitroglycerin 0.4 mg Q5MINP PRN SL 12/21/24 15:45 Morphine Sulfate 2 mg Q30M PRN IV 12/21/24 15:45 Laboratory Results Laboratory Tests 12/21/24 14:30 Microbiology Microbiology Date/Time Source Procedure Growth Status 12/22/24 13:30 Foot Left Gram Stain Pending Resulted 12/22/24 13:30 Foot Left Anaerobic Culture - Preliminary Resulted 12/22/24 13:30 Foot Left Aerobic Culture - Preliminary Resulted Assessment/Plan Assessment/Plan ASSESSMENT: Patient is a 54 year old seen on the floor for a worsening ulcer PLAN: - The patients chart was reviewed, clinical findings were discussed with the patient, the etiologies of the conditions were discussed in detail, and a treatment plan was agreed to at this time, with both oral and written instructions provided. - reviewed advanced imaging - recommend that patient gets a wound VAC placed - recommend Infectious Disease consult - follow up with me next week All questions were answered and concerns addressed to the patient's satisfaction. The patient was given the phone number to the clinic and was told how to make contact with the clinic should any concerns or questions arise. Patient understands that if any questions or concerns arise prior to the next appointment, we should be contacted immediately. FOLLOW-UP: Continue to follow while inpatient Plan discussed with: Patient My Orders Orders - RYAN CHOU DPM Procedure Category Date Status Time Routine Bacterial NAN 12/22/24 In Process Culture 13:41 Anaerobic Culture NAN 12/22/24 In Process 13:41 Gram Stain NAN 12/22/24 In Process 13:41 Consistent DIET 12/22/24 Transmitted Carb(Ccho)Diabetes Dinner Problem List: (1) Osteomyelitis of left foot (2) Septic shock (3) Anemia (4) Foot ulcer (5) Hypotension (6) Cellulitis and abscess of foot (7) Necrotizing subcutaneous infection (8) Diabetic foot infection (9) Wound of left foot (10) Acute kidney injury (ANIBAL) with acute tubular necrosis (ATN) Date of Service: December 23, 2024 Billing Provider: RYAN CHOU DPM Common Visit Codes: [id number] INP/OBS CARE(HIGH) RYAN CHOU DPM December 23, 2024 13:26
--- NOTE | 2024-12-23 16:03 | DVHPN2 ---
Subjective Overnight events noted. The patient is status post left foot I and D postop day 1. 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 Medications Current Medications Medications Dose Ordered Sig/Linda Route Start Time Stop Time Status Last Admin Dose Admin Sodium Chloride 1,000 ml @ 60 mls/hr [id number] IV 12/21/24 15:45 12/23/24 08:41 60 MLS/HR Acetaminophen/ Hydrocodone Bitart 1 tab Q4HP PRN PO 12/21/24 15:45 12/23/24 00:48 1 TAB Ondansetron HCl 4 mg Q4HP PRN IV 12/21/24 15:45 Docusate Sodium 100 mg BIDPRN PRN PO 12/21/24 15:45 Enoxaparin Sodium 40 mg DAILY SC 12/22/24 10:00 Acetaminophen 650 mg Q6HP PRN PO 12/21/24 15:45 Morphine Sulfate 2 mg Q4HPRN PRN IV 12/21/24 15:45 12/23/24 08:43 2 MG Nitroglycerin 0.4 mg Q5MINP PRN SL 12/21/24 15:45 Morphine Sulfate 2 mg Q30M PRN IV 12/21/24 15:45 Insulin Glargine 15 units DAILY@1000 SC 12/24/24 10:00 UNV Laboratory Results Laboratory Tests 12/21/24 14:30 Microbiology Microbiology Date/Time Source Procedure Growth Status 12/22/24 13:30 Foot Left Gram Stain Pending Resulted 12/22/24 13:30 Foot Left Anaerobic Culture - Preliminary Resulted 12/22/24 13:30 Foot Left Aerobic Culture - Preliminary Resulted Assessment/Plan Assessment/Plan 54-YEAR-OLD MALE WITH A KNOWN HISTORY OF INSULIN-DEPENDENT DIABETES MELLITUS, HYPERTENSION, PREVIOUS HISTORY OF BILATERAL FOOT SURGERY FOR CHRONIC OSTEOMYELITIS PRESENTED TO THE HOSPITAL WITH A LEFT FOOT PAIN HE WAS SENT BY PODIATRY. 1. LEFT FOOT CELLULITIS /osteomyelitis/left foot abscess status post I and D postop day 1 2. PREVIOUS HISTORY OF BILATERAL FOOT SURGERY MULTIPLE TIMES 3. INSULIN-DEPENDENT DIABETES MELLITUS TYPE 2 4. HYPERTENSION -status post I&D of left foot, follow up wound Gram stain and culture, follow up Infectious Disease recommendations. -PICC line placement. Plan discussed with: Patient My Orders Orders - FRANK ADAN MD Procedure Category Date Status Time Complete Blood Count LAB 12/24/24 Verified 04:00 Comprehensive LAB 12/24/24 Verified Metabolic Panel 04:00 Insulin Lantus PHA 12/24/24 Logged (Glargine) (Lantus) 10:00 Insulin Lantus PHA 12/23/24 Logged (Glargine) (Lantus) 15:30 * Industrial Eng CONS 12/23/24 Transmitted Consult Date of Service: December 23, 2024 Billing Provider: FRANK ADAN MD Common Visit Codes: NOT BILLABLE FRANK ADAN MD December 23, 2024 16:03
[2024-12-23] MEDS: INSULIN LANTUS (GLARGINE) 1 /0.01ml (100units/ml) SC ONE (17:35)
[2024-12-24 05:00] VITALS: BP 122/70; PULSE 74; RESP 18; TEMP 98; O2SAT 98
[2024-12-24 06:06] LABS: Basophils # (auto) 0 10 ^3/uL (0-0.2); Basophils % (auto) 0.4 % (0.0-2.0); Eosinophils # (auto) 0.1 10 ^3/uL (0-0.8); Eosinophils % (auto) 1.2 % (0.0-7.0); Hematocrit 25.3 % (41.0-53.0); Hemoglobin 8.7 g/dL (13.5-17.5); Lymphocytes # (auto) 2.5 10 ^3/uL (0.4-5.4); Lymphocytes % (auto) 30.3 % (10.0-50.0); Mean Corpuscular Hemoglobin 29.1 pg (28.0-32.0); Mean Corpuscular Hgb Conc. 34.4 g/dL (32.0-36.0); Mean Corpuscular Volume 84.6 fL (80.0-100.0); Monocytes # (auto) 0.5 10 ^3/uL (0-1.3); Monocytes % (auto) 5.7 % (0.0-12.0); Neutrophils # (auto) 5.1 10 ^3/uL (1.6-8.6); Neutrophils % (auto) 62.4 % (37.0-80.0); Nucleated Red Blood Cells % 0.1 %; Platelet Count (auto) 296 10^3/uL (140-450); Red Blood Cells 2.99 10^6/uL (4.5-5.90); Red Cell Distribution Width 15.2 % (11.8-14.3); White Blood Cell 8.2 10^3/uL (4.4-10.8)
[2024-12-24 06:37] LABS: Albumin 3.9 g/dL (3.2-4.8); Alkaline Phosphatase 56 U/L (46-116); Anion Gap 9 (5-15); BUN/Creatinine Ratio 16.7 (10.0-20.0); Blood Urea Nitrogen 15 mg/dL (9-23); Calcium 9.1 mg/dL (8.7-10.4); Carbon Dioxide 26 mmol/L (20-31); Chloride 107 mmol/L (98-107); Potassium 4.2 mmol/L (3.5-5.1); Sodium 142 mmol/L (136-145); Total Protein 6.8 g/dL (5.7-8.2)
[2024-12-24 06:49] LABS: Alanine Aminotransferase 9 U/L (7-40); Aspartate Aminotransferase < 8 U/L (13-40); Bilirubin, Total 0.2 mg/dL (0.2-1.0); Glucose 126 mg/dL (74-106)
[2024-12-24 09:00] VITALS: BP 157/79; PULSE 82; RESP 16; TEMP 97.8; O2SAT 98
[2024-12-24] MEDS: INSULIN LANTUS (GLARGINE) 1 /0.01ml (100units/ml) SC SCH (09:58)
[2024-12-24] MEDS ORDERED: VANCOMYCIN PER PHARMACY 0 MG IV SCH (12:15)
--- NOTE | 2024-12-24 12:22 | DVHDS2 ---
Discharge Summary Date of Admission December 21, 2024 at 15:32 Date of Discharge: December 24, 2024 Labs/Diagnostic Data: Laboratory Results Test 12/24/24 09:43 12/24/24 05:33 12/21/24 14:30 POC Glucose 121 mg/dl (70-106) White Blood Count 8.2 10^3/uL (4.4-10.8) Red Blood Count 2.99 10^6/uL (4.5-5.90) Hemoglobin 8.7 g/dL (13.5-17.5) Hematocrit 25.3 % (41.0-53.0) Mean Corpuscular Volume 84.6 fL (80.0-100.0) Mean Corpuscular Hemoglobin 29.1 pg (28.0-32.0) Mean Corpuscular Hemoglobin Concent 34.4 g/dL (32.0-36.0) Red Cell Distribution Width 15.2 % (11.8-14.3) Platelet Count 296 10^3/uL (140-450) Mean Platelet Volume 7.1 fL (6.9-10.8) Neutrophils (%) (Auto) 62.4 % (37.0-80.0) Lymphocytes (%) (Auto) 30.3 % (10.0-50.0) Monocytes (%) (Auto) 5.7 % (0.0-12.0) Eosinophils (%) (Auto) 1.2 % (0.0-7.0) Basophils (%) (Auto) 0.4 % (0.0-2.0) Neutrophils # (Auto) 5.1 10 ^3/uL (1.6-8.6) Lymphocytes # (Auto) 2.5 10 ^3/uL (0.4-5.4) Monocytes # (Auto) 0.5 10 ^3/uL (0-1.3) Eosinophils # (Auto) 0.1 10 ^3/uL (0-0.8) Basophils # (Auto) 0 10 ^3/uL (0-0.2) Nucleated Red Blood Cells 0.1 % Sodium Level 142 mmol/L (136-145) Potassium Level 4.2 mmol/L (3.5-5.1) Chloride Level 107 mmol/L (98-107) Carbon Dioxide Level 26 mmol/L (20-31) Anion Gap 9 (5-15) Blood Urea Nitrogen 15 mg/dL (9-23) Creatinine 0.90 mg/dL (0.700-1.30) Glomerular Filtration Rate Calc 100 mL/min (>90) BUN/Creatinine Ratio 16.7 (10.0-20.0) Serum Glucose 126 mg/dL (74-106) Calcium Level 9.1 mg/dL (8.7-10.4) Total Bilirubin 0.2 mg/dL (0.2-1.0) Aspartate Amino Transferase (AST) < 8 U/L (13-40) Alanine Aminotransferase (ALT) 9 U/L (7-40) Alkaline Phosphatase 56 U/L (46-116) Total Protein 6.8 g/dL (5.7-8.2) Albumin 3.9 g/dL (3.2-4.8) Prothrombin Time 11.9 sec (9.3-11.8) Prothrombin Time INR 1.14 (0.9-1.15) Activated Partial Thromboplast Time 39.1 SEC (24.5-34.5) Other Laboratory Tests 12/24/24 05:33 Brief Hx & Hospital Course: 54-YEAR-OLD MALE WITH A KNOWN HISTORY OF INSULIN-DEPENDENT DIABETES MELLITUS, HYPERTENSION, PREVIOUS HISTORY OF BILATERAL FOOT SURGERY FOR CHRONIC OSTEOMYELITIS PRESENTED TO THE HOSPITAL WITH A LEFT FOOT PAIN HE WAS SENT BY PODIATRY. PATIENT WAS FOUND TO HAVE LEFT FOOT OSTEOMYELITIS WITH LEFT FOOT PLANTAR ABSCESS STATUS POST INCISION AND DEBRIDEMENT. POSTOPERATIVELY PATIENT DID FAIRLY WELL. ONCE IV ANTIBIOTICS AND WOUND VAC ARRANGE THEN PATIENT CAN BE DISCHARGED TO [facility] FOR SIX WEEKS OF IV ANTIBIOTICS AND LEFT FOOT WOUND CARE WITH A WOUND VAC PLACEMENT. Condition at Discharge: Good Final Diagnosis/Problems List 54-YEAR-OLD MALE WITH A KNOWN HISTORY OF INSULIN-DEPENDENT DIABETES MELLITUS, HYPERTENSION, PREVIOUS HISTORY OF BILATERAL FOOT SURGERY FOR CHRONIC OSTEOMYELITIS PRESENTED TO THE HOSPITAL WITH A LEFT FOOT PAIN HE WAS SENT BY PODIATRY. 1. LEFT FOOT CELLULITIS /osteomyelitis/left foot abscess status post I and D 2. PREVIOUS HISTORY OF BILATERAL FOOT SURGERY MULTIPLE TIMES 3. INSULIN-DEPENDENT DIABETES MELLITUS TYPE 2 4. HYPERTENSION [facility] Discharge Will this Physician continue t: No Discharge Instruct/Medications Diet: Cardiac 2g Na,low cholest Diet comment: 1800 ADA DIET Activity: No Restrictions, As Tolerated Follow Up/Referral: FOLLOW UP WITH THE PCP AND INFECTIOUS DISEASE [facility] IN 1-2 WEEKS Medications: VANCOMYCIN PER PHARMACY FOR SIX WEEKS CEFEPIME 2 G IV Q.8 HOURS FOR SIX WEEKS Discharge Statement: "Patient was advised to return to the ER or call 911 if any headaches, dizziness, shortness of breath, chest pain, abdominal pain, bleeding, fevers, or worsening of medical condition. Patient was counseled about treatment plan, medications, possible side effects, patientverbalized understanding. All questions were answered to the best of my ability. This discharge took greater then 30 minutes in planning, reviewing documentation, counseling the patient, and discussing with other team members." ASSESSMENT ASSESSMENT Assessment 54-YEAR-OLD MALE WITH A KNOWN HISTORY OF INSULIN-DEPENDENT DIABETES MELLITUS, HYPERTENSION, PREVIOUS HISTORY OF BILATERAL FOOT SURGERY FOR CHRONIC OSTEOMYELITIS PRESENTED TO THE HOSPITAL WITH A LEFT FOOT PAIN HE WAS SENT BY PODIATRY. 1. LEFT FOOT CELLULITIS /osteomyelitis/left foot abscess status post I and D 2. PREVIOUS HISTORY OF BILATERAL FOOT SURGERY MULTIPLE TIMES 3. INSULIN-DEPENDENT DIABETES MELLITUS TYPE 2 4. HYPERTENSION Date of Service: December 24, 2024 Billing Provider: FRANK ADAN MD Common Visit Codes: NOT BILLABLE FRANK ADAN MD December 24, 2024 12:22
[2024-12-24 13:00] VITALS: BP 142/79; PULSE 78; RESP 20; TEMP 98; O2SAT 95
[2024-12-24] MEDS: CEFEPIME 2GM/50ML NS 50 ML IV ONE (14:46)
[2024-12-24 16:37] VITALS: BP 141/68; PULSE 77; RESP 20; TEMP 98.4; O2SAT 95
[2024-12-24] MEDS: LIDOCAINE 1% (LOCAL ANESTH.) PF 5ml SDV ID ONE (16:40)
[2024-12-24] MEDS: VANCOMYCIN 1GM/200ML PM 250 ML IV SCH (16:55)
--- NOTE | 2024-12-24 19:36 | DVHPN2 ---
Progress Note - Dictate Date Seen: December 24, 2024 Medical Necessity Reason Pt with a Central, PICC or Fol: No Subjective no new complaints S/P left foot I and D on 12/23. vital signs Vital Sign Date Time Temp Pulse Resp B/P (MAP) Pulse Ox O2 Delivery O2 Flow Rate FiO2 12/24/24 16:37 98.4 77 20 141/68 (92) 95 98.4 12/24/24 08:00 Room Air* 0 21 Total Intake and Output 12/23/24 12/23/24 12/24/24 15:00 23:00 07:00 Intake Total 600 ml Balance 600 ml medications Current Medications Medications Dose Ordered Sig/Linda Route Start Time Stop Time Status Last Admin Dose Admin Sodium Chloride 1,000 ml @ 60 mls/hr [id number] IV 12/21/24 15:45 12/24/24 14:50 60 MLS/HR Acetaminophen/ Hydrocodone Bitart 1 tab Q4HP PRN PO 12/21/24 15:45 12/23/24 00:48 1 TAB Ondansetron HCl 4 mg Q4HP PRN IV 12/21/24 15:45 Docusate Sodium 100 mg BIDPRN PRN PO 12/21/24 15:45 Enoxaparin Sodium 40 mg DAILY SC 12/22/24 10:00 Acetaminophen 650 mg Q6HP PRN PO 12/21/24 15:45 Morphine Sulfate 2 mg Q4HPRN PRN IV 12/21/24 15:45 12/24/24 09:42 2 MG Nitroglycerin 0.4 mg Q5MINP PRN SL 12/21/24 15:45 Morphine Sulfate 2 mg Q30M PRN IV 12/21/24 15:45 Insulin Glargine 15 units DAILY@1000 SC 12/24/24 10:00 12/24/24 09:58 15 UNITS Vancomycin HCl 0 ml @ 0 mls/hr UD IV 12/24/24 12:15 Cefepime HCl 50 ml @ 12.5 mls/hr Q8HR IV 12/24/24 22:00 Sodium Chloride 10 ml QSHIFT@10,22 IV 12/24/24 22:00 Vancomycin HCl 300 ml @ 200 mls/hr Q12H IV 12/25/24 05:00 objective HEENT PUPILS ARE REACTIVE NECK IS SUPPLE CV IS S1-S2 REGULAR RATE AND RHYTHM RESPIRATORY DIMINISHED BREATH SOUNDS BASES GI POSITIVE BOWEL SOUND EXTREMITY 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 CT of foot shows osteolytic changes in the plantar surface. Podiatry is on board and there is plan to take him to surgery for debridement today reviewed Op notes, concern for abscess/ osteomyelitis reviewed OR culture : shows polymicrobial infection as noted above Empirically start IV Vancomycin/ Cefepime. arrange IV Vancomycin per pharmacy, Cefepime 2g q 8 hours for 6 weeks. Weekly labs cbc with diff, cmp, vancomycin trough goal 15-20. to be followed at SNF he agreed for SNF placement cont wound care follow up podiatry as outpt 12/21, Foot CT revealed Osteolytic changes to the plantar surface of the left os calcis can not exclude infection. 12/21, Extremity venous study showed No left femoropopliteal venous thrombosis. Due to recurrent surgeries in the foot overall prognosis is guarded Total time 50 minutes spent during the encounter, plan discussed with Dr. Arciniega. Reviewed chart Thank you for consult. Plan discussed with: Patient, Other LUCITA PARDO MD December 24, 2024 19:36
[2024-12-24 20:00] VITALS: RESP 18
[2024-12-24 21:00] VITALS: BP 140/89; PULSE 79; RESP 18; TEMP 97.4; O2SAT 100
[2024-12-24] MEDS: SODIUM CHLOR 0.9% PF (SALINE LOCK) 10ML VIAL/SYR IV SCH (22:00)
[2024-12-24] MEDS: CEFEPIME 2GM/50ML NS 50 ML IV SCH (22:00)
[2024-12-25] MEDS ORDERED: VANCOMYCIN 1.5GM/300ML 300 ML IV SCH (05:00)
== END 2024-12-24 23:09 | DRG 603 ==
LOC: ER 13:58 → OVERFLOW 15:32 → TELE-WESTW 12-22 15:59 → WEST WING 12-22 20:30
PROVIDERS: ADMIT Hospitalist; ATTEND Hospitalist
PROC: 0Y9N0ZZ Drainage of Left Foot, Open Approach (ICD-10-PCS; principal; 2024-12-22 13:23)
PROC: 02HV33Z Insertion of Infusion Device into Superior Vena Cava, Percutaneous Approach (ICD-10-PCS; 2024-12-24)
DX: L02.612 Cutaneous abscess of left foot (principal); L03.116 Cellulitis of left lower limb; M86.671 Other chronic osteomyelitis, right ankle and foot; M86.672 Other chronic osteomyelitis, left ankle and foot; E11.69 Type 2 diabetes mellitus with other specified complication; I10 Essential (primary) hypertension; B95.61 Methicillin susceptible Staphylococcus aureus infection as the cause of diseases classified elsewhere; B96.5 Pseudomonas (aeruginosa) (mallei) (pseudomallei) as the cause of diseases classified elsewhere; E11.621 Type 2 diabetes mellitus with foot ulcer; E11.628 Type 2 diabetes mellitus with other skin complications; Z83.3 Family history of diabetes mellitus; Z80.0 Family history of malignant neoplasm of digestive organs; Z79.4 Long term (current) use of insulin
CPT/HCPCS: 36415; 36569; 73700; 76937; 80048; 80053; 82962; 85025; 85610; 85730; 86850; 86900; 86901; 87070; 87075; 87077; 87186; 87205; 93971; 97110; 97116; 97163; 97530; G0378; J0692; J1100; J1815; J2250; J2704; J3490